=== PATIENT | female | born 1945 | race Caucasian/White ===

== ENCOUNTER → 2016-08-04 | Outpatient (CLI) | payer BC ==
[~2016-08-04] MED LIST: ALPR-411 PO; ASCO1CAP3 PO; B-COTAB18 PO; CHOL1000 PO; COEN1CAP28 PO; Curamin; IBUP-1050 PO; LUTE6CAP9 PO; MAGNESIUM OXIDE PO; MILK150C; OMEG10007 PO; PROB1CAP41; RXC5 PO; TRAM-10 PO; VITA400C3 PO
== END | disposition home or self-care (01) ==
LOC: C.RDSM 11:02
PROVIDERS: ATTEND Physical Medicine & Rehabilitation Sports Medicine
DX: M17.11 Unilateral primary osteoarthritis, right knee (principal); Z96.651 Presence of right artificial knee joint

== ENCOUNTER → 2017-05-07 | Outpatient (CLI) | payer BC, OTHER ==
--- NOTE | 2017-05-07 14:39 | MAMMOGRAPHY REPORT ---
BILATERAL DIGITAL SCREENING MAMMOGRAM TOMOSYNTHESIS WITH CAD: 05/07/2017 TECHNIQUE: Breast tomosynthesis in addition to standard 2D mammography was performed. Current study was also evaluated with a Computer Aided Detection (CAD) system. COMPARISON: Comparison is made to exams dated: 02/08/2014 mammogram, 10/29/2010 mammogram - [facility], and 12/08/2008. 09/07/2007. BREAST COMPOSITION: There are scattered areas of fibroglandular density in both breasts. FINDINGS: No suspicious masses, calcifications, or areas of architectural distortion are noted in ei ther breast. There has been no significant interval change compared to prior exams. Right medial annamaria ast asymmetry is stable dating back to at least the 2007 exam. Scattered bilateral benign appearing calcifications are again noted. IMPRESSION: ACR BI-RADS CATEGORY 2: BENIGN There is no mammographic evidence of malignancy. A 1 year screening mammogram is recommended. The pa tient will receive written notification of the results. Approximately 10% of breast cancers are not detected with mammography. A negative mammographic report should not delay biopsy if a clinically suggestive mass is present. Danielle Barahona M.D. /:05/07/2017 12:13:27 Awning Hanger Helper: Patricia FAIRCHILD)(Joel), [facility] letter sent: Normal 1/2 BI-RADS Code: ACR BI-RADS Category 2: Benign
== END | disposition home or self-care (01) ==
LOC: C.MAMM 10:40
PROVIDERS: ATTEND Obstetrics & Gynecology
DX: Z12.31 Encounter for screening mammogram for malignant neoplasm of breast (principal)

== ENCOUNTER → 2017-05-18 | Outpatient (CLI) | payer OTHER | END | disposition home or self-care (01) | LOC: C.RDSM 11:30 | PROVIDERS: ATTEND Physical Medicine & Rehabilitation Sports Medicine | DX: Z96.651 Presence of right artificial knee joint (principal) ==

== ENCOUNTER → 2017-05-26 | Outpatient (CLI) | payer OTHER ==
--- NOTE | 2017-05-27 07:34 | DIAGNOSTIC IMAGING REPORT ---
MRI OF THE LUMBAR SPINE WITHOUT CONTRAST CLINICAL HISTORY: Low back pain radiating into left lower extremity. COMPARISON STUDY: No previous studies for comparison. TECHNIQUE: Utilizing a 1.5 Pilar magnet and dedicated coil, multiplanar, multiecho imaging of the lumbar spine was performed without IV contrast. FINDINGS: For purposes of numbering on this exam, the L5-S1 disc space is assigned to axial image 27 of 30. There is 6 mm of anterolisthesis of L4 and L5. Vertebral body heights are maintained. There is no suspicious marrow replacement. Air is mild marrow edema within the right aspect of L5 which is likely degenerative in etiology. There is an associated Schmorl's node. There is no intracanalicular mass or fluid collection. The conus terminates at the mid L1 level. There is no evidence for compression fracture within the lumbar spine. There is severe multilevel disc space narrowing and moderate to severe multilevel facet arthrosis. A 2.7 x 0.9 x 1.3 cm T2 hyperintense abnormality and due to the L5-S1 disc space is noted. L1-2: There is marked disc space narrowing with disc bulge and a tiny central disc protrusion. There is mild during of the central canal, lateral recesses. The neural foramen are patent. L2-3: There is marked disc space narrowing. There is mild facet arthrosis. There is mild during of the central canal and lateral recesses with moderate narrowing of the left neural foramen. L3-4: There is marked disc space narrowing with facet arthrosis. There is mild disc bulge. There is mild during of the central canal and lateral recesses as well as mild to moderate narrowing of both neural foramen. L4-5: There is marked disc space narrowing with grade I anterolisthesis with ligamentous hypertrophy and facet arthrosis. These findings result in severe narrowing of the central canal and lateral recesses with moderate to severe narrowing of both neural foramen. The AP diameter of the canal at this level is 3.3 mm. L5-S1: There is moderate facet arthrosis. Central canal is patent. There is moderate to severe bilateral neural foraminal stenosis. IMPRESSION: 1. Severe central canal stenosis at L4-L5 due to anterolisthesis with uncovering of the disc, ligamentous hypertrophy and facet arthrosis. 2. Moderate to severe multilevel neural foraminal stenosis, as detailed above. 3. 2.7 x 0.9 x 1.3 cm abnormality anterior to the L5-S1 disc space which is indeterminate but may reflect an anterior disc herniation which could arise from the L4-L5 or L5-S1 disc. Electronically signed by: Mario Alberto Le M.D. 05/27/2017 7:33 AM Dictated Date/Time: 05/26/2017 3:39 PM
== END | disposition home or self-care (01) ==
LOC: C.MRIBC 14:51
PROVIDERS: ATTEND Physical Medicine & Rehabilitation Sports Medicine
DX: M54.40 Lumbago with sciatica, unspecified side (principal); M48.061 Spinal stenosis, lumbar region without neurogenic claudication; M43.16 Spondylolisthesis, lumbar region

== ENCOUNTER 2018-10-21 10:20 | Inpatient (IN) ==
--- NOTE | 2018-10-21 11:19 | XRay Report ---
XR chest 1V portable CLINICAL HISTORY: 73 years-old Female presenting with overdose. TECHNIQUE: Portable supine AP view of the chest was obtained. COMPARISON: None. FINDINGS: Atherosclerosis of the aortic arch. Cardiac silhouette mildly enlarged. No focal opacity. No large ef fusion or pneumothorax. Degenerative changes of the thoracic spine. Upper abdomen normal. IMPRESSION: 1. Mild cardiomegaly. No other convincing evidence of acute cardiopulmonary disease. Electronically signed by: Cal Meraz M.D. 10/21/2018 11:18 AM
[2018-10-21] MEDS: SODIUM CHLORIDE 0.9% 1000ML 1,000 ML IV SCH ×2 (11:26→20:48)
[2018-10-21 11:30] LABS: Basophils # (auto) 0.02 K/uL (0-0.2); Basophils % (auto) 0.2 %; Eosinophils # (auto) 0.05 K/uL (0-0.5); Eosinophils % (auto) 0.5 %; Immature Granulocytes # (auto) 0.02 K/uL (0.00-0.02); Immature Granulocytes % (auto) 0.2 %; Lymphocytes # (auto) 1.66 K/uL (1.2-3.4); Lymphocytes % (auto) 17.9 %; Mean Corpuscular Hgb Conc 34.2 g/dL (32-36); Mean Platelet Volume 10.4 fL (7.4-10.4); Monocytes % (auto) 8.6 %; Neutrophils # (auto) 6.73 K/uL (1.4-6.5); Neutrophils % (auto) 72.6 %; Platelet Count 229 K/uL (130-400); RDW Coefficient of Variation 13.6 % (11.5-14.5); RDW Standard Deviation 47.6 fL (36.4-46.3); Red Blood Count 3.96 M/uL (4.2-5.4); White Blood Count 9.28 K/uL (4.8-10.8)
[2018-10-21 11:47] LABS: Alanine Aminotransferase 17 U/L (12-78); Albumin Level 3.7 gm/dl (3.4-5.0); Aspartate Aminotransferase 15 U/L (15-37); BUN Creatinine Ratio 24.4 (10-20); Blood Urea Nitrogen 17 mg/dl (7-18); Calcium 9.1 mg/dl (8.5-10.1); Carbon Dioxide 29 mmol/L (21-32); Chloride 104 mmol/L (98-107); Creatinine Clr Calc Pharmacy 62.8 ml/min; Glucose 106 mg/dl (70-99); Magnesium 2.3 mg/dl (1.8-2.4); Potassium 3.9 mmol/L (3.5-5.1); Sodium 137 mmol/L (136-145)
[2018-10-21 11:50] LABS: Acetaminophen < 2 ug/ml (10-30); Salicylate < 1.7 mg/dl (2.8-20)
[2018-10-21 11:58] LABS: Albumin Globulin Ratio 1.1 (0.9-2); Alkaline Phosphatase 73 U/L (45-117); Bilirubin,Total 0.5 mg/dl (0.2-1); Globulin 3.5 gm/dl (2.5-4.0); NT Pro B Type Natriuretic Pept 114 pg/ml (0-900); Total Protein 7.2 gm/dl (6.4-8.2); Troponin I < 0.015 ng/ml (0-0.045)
--- NOTE | 2018-10-21 14:13 | Emergency Department Note ---
Entered by Justine Baca acting as a scribe for Jazmine Santiago DO History of Present Illness General Chief complaint: Overdose (Intentional) Stated complaint: emotional/poss. drug overdose Time Seen by Provider: 10/21/18 10:36 Source: patient and police History of Present Illness Provider complaint: Overdose Onset (ago): hour(s) (16) Pain Consistency: + other (episode) Quality: + other (overdose) Associated symptoms: + other (Suicidal ideation with a plan) Treatments prior to arrival: other (Oxycodone, Xanax, alcohol) The patient is a 73 year old female who presents to the ED with an episode of an overdose that started 16 hours ago. The patient states that she wants to , but has never tried to hurt herself before. The patient notes that she took 10 Oxycodone, 10 - 0.25mg Xanax and a sip of alcohol this morning at 0300. The patient states that she has been seeing a psychiatrist for a few months and she lives alone. Per [place] PD, the patient checked into a hotel last night and took an original batch of 15 Oxycodone and 16 - 0.25mg Xanax at 1900 yesterday. The officer states that when the patient woke up at 0300, she was angry that she was alive so she took more drugs and alcohol. Per police, the patient had an elaborate suicide plan. Patient states her spouse in November of last year and since then she has had worsening depression. No prior history of suicide attempt. No homicidal ideation. Home Medications Home Medications Medication Instructions Recorded Confirmed Type alprazolam 0.5 mg tablet 0.25 mg PO QID PRN tab 04/22/18 10/21/18 History amlodipine 2.5 mg tablet 5 mg PO QAM 04/22/18 10/21/18 History cholecalciferol (vitamin D3) 3,000 1,000 units PO QAM 04/22/18 10/21/18 History unit tablet magnesium 250 mg (as magnesium 250 mg PO QAM tab 04/22/18 10/21/18 History oxide) tablet milk thistle 150 mg capsule 150 mg PO QAM cap 04/22/18 10/21/18 History duloxetine 60 mg capsule,delayed 60 mg PO QAM 04/23/18 10/21/18 History release Medical Marijuana 1 dose INHALATION DAILY PRN 06/04/18 07/26/18 History multivitamin 1 tab PO QAM 06/04/18 10/21/18 History Allergies Allergy/AdvReac Type Severity Reaction Status Date / Time coconut Allergy Unknown Unverified 10/21/18 21:12 acetaminophen AdvReac Unknown "Patient Verified 10/21/18 10:34 requests NO TYLENOL" (per Rui Humphries) Past Med/Surg History Medical History Lumbar stenosis with neurogenic claudication (Chronic) Severe at L4-5 Moderate to severe at L5-S1 Hypertension (Chronic) Mitral valve prolapse (Chronic) Remote history, no recent echo, no murmur appreciated on exam at [facility] Anxiety (Chronic) Ocular hypertension (Chronic) Osteoarthritis (Chronic) Chronic back pain (Chronic) Degenerative disc disease (Chronic) Surgical History History of tonsillectomy (Resolved) History of tooth extraction (Resolved) History of cataract surgery (Resolved) History of colonoscopy (Resolved) History of total knee replacement (Resolved) Right. Done at [facility] 2016, SAB +PNB without issues. Social History Preferred Language: Citizen Of [place] Communication Ability: Effective Beliefs That Will Affect Care: None (She was raised Restorationist and recently recited the Mourner's Kaddish for her late .) Current Living Situation: Spouse Feels Safe at Home: Yes Smoking Status: Former smoker Second Hand Exposure: No Hx Alcohol Use: Yes Alcohol type: wine Hx Substance Use: Yes substance use type: marijuana Substance Use Type Other:: medical Review of Systems See HPI for pertinent positives & negatives. HPI and ROS limited secondary to clinical status. Physical Exam Vital Signs Vital Signs - 24 hr 10/21/18 15:00 10/21/18 15:01 10/21/18 15:02 Pulse Rate 63 64 63 Pulse Rate from SpO2 Sensor 63 65 63 Respiratory Rate 14 11 L 17 Blood Pressure 114/63 Blood Pressure Mean 80 Pulse Oximetry 92 93 93 10/21/18 15:10 10/21/18 15:20 10/21/18 15:30 Pulse Rate 62 63 60 Pulse Rate from SpO2 Sensor 61 62 59 L Respiratory Rate 18 16 19 Blood Pressure 106/62 Blood Pressure Mean 76 Pulse Oximetry 91 90 93 10/21/18 15:40 10/21/18 15:50 10/21/18 16:00 Pulse Rate 69 68 65 Pulse Rate from SpO2 Sensor 71 67 66 Respiratory Rate 20 15 11 L Blood Pressure Blood Pressure Mean Pulse Oximetry 92 92 93 10/21/18 16:01 10/21/18 16:10 10/21/18 16:20 Pulse Rate 65 71 73 Pulse Rate from SpO2 Sensor 64 70 73 Respiratory Rate 12 10 L 15 Blood Pressure 103/64 Blood Pressure Mean 77 Pulse Oximetry 92 94 94 10/21/18 16:30 10/21/18 16:40 10/21/18 16:50 Pulse Rate 62 74 74 Pulse Rate from SpO2 Sensor 61 74 72 Respiratory Rate 10 L 16 20 Blood Pressure 129/60 Blood Pressure Mean 83 Pulse Oximetry 93 95 94 10/21/18 17:00 10/21/18 17:01 10/21/18 17:10 Pulse Rate 66 68 66 Pulse Rate from SpO2 Sensor 68 71 66 Respiratory Rate 12 18 13 Blood Pressure 112/63 Blood Pressure Mean 79 Pulse Oximetry 94 92 93 10/21/18 17:20 10/21/18 17:30 10/21/18 17:31 Pulse Rate 73 77 74 Pulse Rate from SpO2 Sensor 74 76 75 Respiratory Rate 15 18 19 Blood Pressure 139/66 Blood Pressure Mean 90 Pulse Oximetry 97 96 93 10/21/18 17:40 10/21/18 17:50 10/21/18 18:00 Pulse Rate 75 60 63 Pulse Rate from SpO2 Sensor 75 60 62 Respiratory Rate 12 19 15 Blood Pressure 114/58 L Blood Pressure Mean 76 Pulse Oximetry 95 90 91 10/21/18 18:10 10/21/18 18:20 10/21/18 18:30 Pulse Rate 57 L 57 L 61 Pulse Rate from SpO2 Sensor 56 L 57 L 61 Respiratory Rate 14 12 15 Blood Pressure Blood Pressure Mean Pulse Oximetry 92 92 92 10/21/18 18:31 10/21/18 18:33 10/21/18 18:40 Pulse Rate 61 59 L 56 L Pulse Rate from SpO2 Sensor 61 59 L 57 L Respiratory Rate 17 17 14 Blood Pressure Blood Pressure Mean Pulse Oximetry 92 91 92 10/21/18 18:45 10/21/18 18:50 10/21/18 19:00 Pulse Rate 61 58 L 56 L Pulse Rate from SpO2 Sensor 61 60 55 L Respiratory Rate 14 15 17 Blood Pressure 150/70 H Blood Pressure Mean 96 Pulse Oximetry 96 94 93 10/21/18 19:10 10/21/18 19:20 10/21/18 19:30 Pulse Rate 57 L 74 74 Pulse Rate from SpO2 Sensor 57 L 75 73 Respiratory Rate 16 18 16 Blood Pressure Blood Pressure Mean Pulse Oximetry 93 94 96 10/21/18 19:40 10/21/18 19:50 10/21/18 20:00 Pulse Rate 72 75 68 Pulse Rate from SpO2 Sensor 71 76 68 Respiratory Rate 18 14 Blood Pressure Blood Pressure Mean Pulse Oximetry 95 95 93 GENERAL: somnolent but easily aroused, tired appearing, well nourished, no distress, non-toxic EYE EXAM: normal conjunctiva, PERRL and EOM's grossly intact, constricted pupils bilaterally. OROPHARYNX: no exudate, no erythema, lips, buccal mucosa, and tongue normal and mucous membranes are moist NECK: supple, no nuchal rigidity, no adenopathy, non-tender LUNGS: Clear to auscultation. Normal chest wall mechanics HEART: no murmurs, S1 normal and S2 normal ABDOMEN: abdomen soft, non-tender, normo-active bowel sounds, no masses, no rebound or guarding. BACK: Back is symmetrical on inspection and there is no deformity, no midline tenderness, no CVA tenderness. SKIN: no rashes and no bruising UPPER EXTREMITIES: upper extremities are grossly normal. FROM, nml pulses b/l. LOWER EXTREMITIES: No pitting edema. FROM, nml pulses b/l. NEURO EXAM: Normal sensorium, cranial nerves II-XII grossly intact, normal speech, no gross weakness of arms, no gross weakness of legs. Course 163: Patient more awake, to be evaluated by psychiatric trimming caser. Repeat lipase improved after IV fluids. I do not clinically suspect pancreatitis. 1831: Patient being evaluated by 3 S. for possible placement. 1944: Case signed out to Dr. Barney pending final disposition. Administered Medications Alprazolam (Xanax) 0.25 mg PO TID IRINA Stop: 11/21/18 13:59 Last Admin: 10/22/18 14:17 Dose: 0.25 mg Documented by: [id number] Amlodipine Besylate (Norvasc) 5 mg PO QAM [facility] Stop: 11/21/18 08:59 Last Admin: 10/22/18 09:14 Dose: 5 mg Documented by: [id number] Hydroxyzine HCl (Vistaril) 25 mg PO Q4H PRN PRN Reason: Anxiety Stop: 11/20/18 20:20 Last Admin: 10/22/18 04:36 Dose: 25 mg Documented by: [id number] Discontinued Medications Alprazolam (Xanax) 0.5 mg PO NOW STA Stop: 10/22/18 09:35 Last Admin: 10/22/18 09:50 Dose: 0.25 mg Documented by: [id number] Duloxetine HCl (Cymbalta) 60 mg PO QAM [facility] Stop: 11/21/18 08:59 Last Admin: 10/22/18 09:14 Dose: 60 mg Documented by: [id number] Sodium Chloride (Nss 1000ml) 1,000 mls @ 125 mls/hr IV .Q8H [facility] Stop: 11/20/18 10:59 Last Admin: 10/21/18 20:48 Dose: Not Given Documented by: [id number] Infusion: 10/21/18 14:35 Dose: 0 mls/hr Documented by: [id number] Infusion: 10/21/18 14:02 Dose: 700 mls/hr Documented by: [id number] Admin: 10/21/18 11:26 Dose: 125 mls/hr Documented by: [id number] Medical Decision Making Differential Diagnosis Differential diagnosis: Etiologies such as psychiatric disorder, infection, hypoglycemia, electrolyte abnormalities, cardiac sources, intracerebral event, toxicological process, neurologic disorder, as well as others were entertained. Medical Records Attestation: I reviewed the patient's medical records. Home Medications Current Medication List: was personally reviewed by me Laboratory Data Attestation: I reviewed the patient's lab results. Result diagrams: 10/21/18 11:13 10/21/18 11:13 Lab Results 10/21/18 10/21/18 10/21/18 Range/Units 11:13 11:13 11:13 WBC 9.28 (4.8-10.8) K/uL RBC 3.96 L (4.2-5.4) M/uL Hgb 13.0 (12.0-16.0) g/dL Hct 38.0 (37-47) % MCV 96.0 (80-100) fL MCH 32.8 (25-34) pg MCHC 34.2 (32-36) g/dL RDW Std Deviation 47.6 H (36.4-46.3) fL RDW Coeff of Korey 13.6 (11.5-14.5) % Plt Count 229 (130-400) K/uL MPV 10.4 (7.4-10.4) fL Immature Gran % (Auto) 0.2 % Neut % (Auto) 72.6 % Lymph % (Auto) 17.9 % [place] % (Auto) 8.6 % Eos % (Auto) 0.5 % Baso % (Auto) 0.2 % Immature Gran # (Auto) 0.02 (0.00-0.02) K/uL Neut # (Auto) 6.73 H (1.4-6.5) K/uL Lymph # (Auto) 1.66 (1.2-3.4) K/uL [place] # (Auto) 0.80 H (0.11-0.59) K/uL Eos # (Auto) 0.05 (0-0.5) K/uL Baso # (Auto) 0.02 (0-0.2) K/uL Sodium 137 (136-145) mmol/L Potassium 3.9 (3.5-5.1) mmol/L Chloride 104 (98-107) mmol/L Carbon Dioxide 29 (21-32) mmol/L Anion Gap 4.0 (3-11) BUN 17 (7-18) mg/dl Creatinine 0.68 (0.6-1.2) mg/dl Est Cr Clr Drug Dosing 62.8 ml/min Est GFR ( Amer) 102.0 Est GFR (Non-Af Amer) 88.0 BUN/Creatinine Ratio 24.4 H (10-20) Glucose 106 H (70-99) mg/dl Calcium 9.1 (8.5-10.1) mg/dl Magnesium 2.3 (1.8-2.4) mg/dl Total Bilirubin 0.5 (0.2-1) mg/dl AST 15 (15-37) U/L ALT 17 (12-78) U/L Alkaline Phosphatase 73 (45-117) U/L Troponin I < 0.015 (0-0.045) ng/ml NT-Pro-B Natriuret Pep 114 (0-900) pg/ml Total Protein 7.2 (6.4-8.2) gm/dl Albumin 3.7 (3.4-5.0) gm/dl Globulin 3.5 (2.5-4.0) gm/dl Albumin/Globulin Ratio 1.1 (0.9-2) Lipase 473 H (73-393) U/L TSH 3.000 (0.300-4.500) uIu/ml Urine Color Urine Appearance (Clear) Urine pH (4.5-7.5) Ur Specific Glen (1.000-1.030) Urine Protein (Negative) Urine Glucose (UA) (Negative) Urine Ketones (Negative) Urine Blood (Negative) Urine Nitrite (Negative) Urine Bilirubin (Negative) Urine Urobilinogen (Negative) Ur Leukocyte Esterase (Negative) Urine WBC (Auto) (0-5) /hpf Urine RBC (Auto) (0-4) /hpf U Hyaline Cast (Auto) (0-5) /lpf U Epithel Cells (Auto) (0-5) /lpf Urine Bacteria (Auto) (Negative) Salicylates < 1.7 L (2.8-20) mg/dl Urine Opiates Screen (Neg) Ur Methadone, Qual (Neg) Acetaminophen < 2 L (10-30) ug/ml Urine Barbiturates (Neg) Ur Phencyclidine (PCP) (Neg) U Amphetamin/Meth Scrn (Neg) MDMA (Ecstasy) Screen (Neg) U Benzodiazepines Scrn (Neg) Ur Cocaine Metabolite (Neg) U Marijuana (THC) Screen (Neg) Ethyl Alcohol mg/dL (0-3) mg/dl 10/21/18 10/21/18 10/21/18 Range/Units 11:13 11:13 14:30 WBC (4.8-10.8) K/uL RBC (4.2-5.4) M/uL Hgb (12.0-16.0) g/dL Hct (37-47) % MCV (80-100) fL MCH (25-34) pg MCHC (32-36) g/dL RDW Std Deviation (36.4-46.3) fL RDW Coeff of Korey (11.5-14.5) % Plt Count (130-400) K/uL MPV (7.4-10.4) fL Immature Gran % (Auto) % Neut % (Auto) % Lymph % (Auto) % [place] % (Auto) % Eos % (Auto) % Baso % (Auto) % Immature Gran # (Auto) (0.00-0.02) K/uL Neut # (Auto) (1.4-6.5) K/uL Lymph # (Auto) (1.2-3.4) K/uL [place] # (Auto) (0.11-0.59) K/uL Eos # (Auto) (0-0.5) K/uL Baso # (Auto) (0-0.2) K/uL Sodium (136-145) mmol/L Potassium (3.5-5.1) mmol/L Chloride (98-107) mmol/L Carbon Dioxide (21-32) mmol/L Anion Gap (3-11) BUN (7-18) mg/dl Creatinine (0.6-1.2) mg/dl Est Cr Clr Drug Dosing ml/min Est GFR ( Amer) Est GFR (Non-Af Amer) BUN/Creatinine Ratio (10-20) Glucose (70-99) mg/dl Calcium (8.5-10.1) mg/dl Magnesium (1.8-2.4) mg/dl Total Bilirubin (0.2-1) mg/dl AST (15-37) U/L ALT (12-78) U/L Alkaline Phosphatase (45-117) U/L Troponin I (0-0.045) ng/ml NT-Pro-B Natriuret Pep (0-900) pg/ml Total Protein (6.4-8.2) gm/dl Albumin (3.4-5.0) gm/dl Globulin (2.5-4.0) gm/dl Albumin/Globulin Ratio (0.9-2) Lipase Cancelled (73-393) U/L TSH (0.300-4.500) uIu/ml Urine Color Urine Appearance (Clear) Urine pH (4.5-7.5) Ur Specific Glen (1.000-1.030) Urine Protein (Negative) Urine Glucose (UA) (Negative) Urine Ketones (Negative) Urine Blood (Negative) Urine Nitrite (Negative) Urine Bilirubin (Negative) Urine Urobilinogen (Negative) Ur Leukocyte Esterase (Negative) Urine WBC (Auto) (0-5) /hpf Urine RBC (Auto) (0-4) /hpf U Hyaline Cast (Auto) (0-5) /lpf U Epithel Cells (Auto) (0-5) /lpf Urine Bacteria (Auto) (Negative) Salicylates (2.8-20) mg/dl Urine Opiates Screen Pos H (Neg) Ur Methadone, Qual Neg (Neg) Acetaminophen (10-30) ug/ml Urine Barbiturates Neg (Neg) Ur Phencyclidine (PCP) Neg (Neg) U Amphetamin/Meth Scrn Neg (Neg) MDMA (Ecstasy) Screen Neg (Neg) U Benzodiazepines Scrn Pos H (Neg) Ur Cocaine Metabolite Neg (Neg) U Marijuana (THC) Screen Pos H (Neg) Ethyl Alcohol mg/dL < 3.0 (0-3) mg/dl 10/21/18 10/21/18 Range/Units 14:30 15:51 WBC (4.8-10.8) K/uL RBC (4.2-5.4) M/uL Hgb (12.0-16.0) g/dL Hct (37-47) % MCV (80-100) fL MCH (25-34) pg MCHC (32-36) g/dL RDW Std Deviation (36.4-46.3) fL RDW Coeff of Korey (11.5-14.5) % Plt Count (130-400) K/uL MPV (7.4-10.4) fL Immature Gran % (Auto) % Neut % (Auto) % Lymph % (Auto) % [place] % (Auto) % Eos % (Auto) % Baso % (Auto) % Immature Gran # (Auto) (0.00-0.02) K/uL Neut # (Auto) (1.4-6.5) K/uL Lymph # (Auto) (1.2-3.4) K/uL [place] # (Auto) (0.11-0.59) K/uL Eos # (Auto) (0-0.5) K/uL Baso # (Auto) (0-0.2) K/uL Sodium (136-145) mmol/L Potassium (3.5-5.1) mmol/L Chloride (98-107) mmol/L Carbon Dioxide (21-32) mmol/L Anion Gap (3-11) BUN (7-18) mg/dl Creatinine (0.6-1.2) mg/dl Est Cr Clr Drug Dosing ml/min Est GFR ( Amer) Est GFR (Non-Af Amer) BUN/Creatinine Ratio (10-20) Glucose (70-99) mg/dl Calcium (8.5-10.1) mg/dl Magnesium (1.8-2.4) mg/dl Total Bilirubin (0.2-1) mg/dl AST (15-37) U/L ALT (12-78) U/L Alkaline Phosphatase (45-117) U/L Troponin I (0-0.045) ng/ml NT-Pro-B Natriuret Pep (0-900) pg/ml Total Protein (6.4-8.2) gm/dl Albumin (3.4-5.0) gm/dl Globulin (2.5-4.0) gm/dl Albumin/Globulin Ratio (0.9-2) Lipase 355 (73-393) U/L TSH (0.300-4.500) uIu/ml Urine Color Yellow Urine Appearance Clear (Clear) Urine pH 5.0 (4.5-7.5) Ur Specific Glen 1.020 (1.000-1.030) Urine Protein Negative (Negative) Urine Glucose (UA) Negative (Negative) Urine Ketones Negative (Negative) Urine Blood Negative (Negative) Urine Nitrite Negative (Negative) Urine Bilirubin Negative (Negative) Urine Urobilinogen Negative (Negative) Ur Leukocyte Esterase 1+ H (Negative) Urine WBC (Auto) 10-30 H (0-5) /hpf Urine RBC (Auto) 0-4 (0-4) /hpf U Hyaline Cast (Auto) 1-5 (0-5) /lpf U Epithel Cells (Auto) >30 H (0-5) /lpf Urine Bacteria (Auto) Negative (Negative) Salicylates (2.8-20) mg/dl Urine Opiates Screen (Neg) Ur Methadone, Qual (Neg) Acetaminophen (10-30) ug/ml Urine Barbiturates (Neg) Ur Phencyclidine (PCP) (Neg) U Amphetamin/Meth Scrn (Neg) MDMA (Ecstasy) Screen (Neg) U Benzodiazepines Scrn (Neg) Ur Cocaine Metabolite (Neg) U Marijuana (THC) Screen (Neg) Ethyl Alcohol mg/dL (0-3) mg/dl Imaging Data Radiologist's Impression: Radiology results as stated below per my review and the radiologist's interpretation: XR chest 1V portable CLINICAL HISTORY: 73 years-old Female presenting with overdose. TECHNIQUE: Portable supine AP view of the chest was obtained. COMPARISON: None. FINDINGS: Atherosclerosis of the aortic arch. Cardiac silhouette mildly enlarged. No focal opacity. No large effusion or pneumothorax. Degenerative changes of the thoracic spine. Upper abdomen normal. IMPRESSION: 1. Mild cardiomegaly. No other convincing evidence of acute cardiopulmonary disease. Electronically signed by: Cal Meraz M.D. 10/21/2018 11:18 AM ECG Data Attestation: I personally reviewed and interpreted this ECG as follows: Indication: toxicologic Rate (beats per minute): 68 Rhythm: sinus with SA Findings: + other (normal axis, normal interval); no PAC, no PVC, no ST depression, no ST elevation, no acute ischemic change and no ectopy Blood Pressure Blood Pressure Findings: Normal blood pressure Blood Pressure Disposition: did not require urgent referral MDM Narrative Patient admits to suicide attempt as she tried to overdose. Patient brought in as a 302 by police. Patient somnolent but arousable here and became more and more alert with time. Patient with initial mildly elevated lipase, however within normal range following IV fluid rehydration. Patient hemodynamically stable throughout. Patient protecting airway throughout and not hypoxic. No evidence of pulmonary edema or aspiration. Patient's labs otherwise reassuring. Patient seen and evaluated by psychiatric trimming caser who agrees with plan for inpatient treatment. Impression & Plan Drug overdose, Suicide attempt by multiple drug overdose, Acute dehydration Discharge Plan Visit Data *Final* Discharge Date/Time: 10/21/18 20:05 Chief Complaint: Overdose (Intentional) Stated Complaint: emotional/poss. drug overdose ED Provider: Curt Barney Discharge Problem: Drug overdose, Suicide attempt by multiple drug overdose, Acute dehydration Patient Disposition: Admitted As Inpatient Discharge Instructions Interventions: ED Discharge Assessment Last Done: 10/21/18 20:05 Discharge Problem: Drug overdose Qualifiers: Encounter type: initial encounter Injury intent: intentional self-harm Qualified Code(s): T50.902A - Poisoning by unspecified drugs, medicaments and biological substances, intentional self-harm, initial encounter Suicide attempt by multiple drug overdose Qualifiers: Encounter type: initial encounter Qualified Code(s): T50.902A - Poisoning by unspecified drugs, medicaments and biological substances, intentional self-harm, initial encounter The scribe's documentation has been prepared under my direction and personally reviewed by me in its entirety. I confirm that the note above accurately reflects all work, treatment, procedures, and medical decision making performed by me.
[2018-10-21 14:48] LABS: Appearance Urine Clear (Clear); Bacteria Urine Automated Negative (Negative); Bilirubin Urine Negative (Negative); Blood Urine Negative (Negative); Color Urine Yellow; Epithelial Cell Urine Auto >30 /lpf (0-5); Glucose Urine UA Negative (Negative); Ketones Urine Negative (Negative); Leukocyte Esterase Urine 1+ (Negative); Nitrite Urine Negative (Negative); Protein Urine Negative (Negative); RBC Urine Automated 0-4 /hpf (0-4); Urobilinogen Urine Negative (Negative)
[2018-10-21 15:10] LABS: Amphetamines+Metham, Urine Neg (Neg); Barbiturates, Urine Neg (Neg); Benzodiazepine, Urine Pos (Neg); Cocaine, Urine Neg (Neg); MDMA (Ecstacy), Urine Neg (Neg); Methadone, Urine Neg (Neg); Opiate, Urine Pos (Neg); Phencyclidine, Urine Neg (Neg)
--- NOTE | 2018-10-21 20:09 | Emergency Department Note ---
ED Visit Note I assumed care at the change of shift. Psychiatric disposition was pending. The patient presents with suicidal ideation with an intentional medication overdose. She was felt medically clear. Psychiatry has been involved and they feel the patient is safe for a voluntary psychiatric inpatient stay. The 201 paperwork was signed. The patient is being transferred onto the [facility] [address]. psychiatric unit at this hospital. The 302 petitioning paperwork will be kept and reissued if needed. . : Drug overdose Qualifiers: Encounter type: initial encounter Injury intent: intentional self-harm Qualified Code(s): T50.902A - Poisoning by unspecified drugs, medicaments and biological substances, intentional self-harm, initial encounter Suicide attempt by multiple drug overdose Qualifiers: Encounter type: initial encounter Qualified Code(s): T50.902A - Poisoning by unspecified drugs, medicaments and biological substances, intentional self-harm, initial encounter
[2018-10-21] MEDS ORDERED: BISMUTH SUBSALICYLATE PER ML OMNICELL CHARGE PO PRN (20:21)
[2018-10-21] MEDS ORDERED: ALUMINUM/MAGNESIUM SUSP 30 ML UDC PO PRN (20:21)
[2018-10-21] MEDS ORDERED: MAGNESIUM HYDROXIDE SUSP 30 ML UDC PO PRN (20:21)
[2018-10-21] MEDS ORDERED: SODIUM CHLORIDE 0.65% NA SOLN 45 ML (OCEAN) PRN (20:21)
[2018-10-22] MEDS ORDERED: DULOXETINE HCL 60 MG CAP PO SCH (09:00)
[2018-10-22] MEDS: AMLODIPINE BESYLATE 5 MG TAB PO SCH (09:14)
[2018-10-22] MEDS ORDERED: ALPRAZolam 0.5 MG TABLET PO STA (09:34)
--- NOTE | 2018-10-22 11:40 | History & Physical ---
Date of Service October 22, 2018 Impression / Recommendations Impression The patient is a 73-year-old woman who made a secretive, serious suicide attempt by overdosing on alprazolam and OxyContin. Although the patient does not, herself, take OxyContin or any other opioid-based pain medication, her late in June and left a supply of OxyContin and morphine, and it was the late 's supply of OxyContin that the patient took as part of her overdose attempt. It is not entirely clear how many tablets, combined, of each medication she took. She does indicate that she took approximately #15 0.25 mg alprazolam tablets in the evening of 10/20/2018, and then I awoke at approxi mately 3 AM on 10/21/2018 and took an additional #10 alprazolam tablets (0.25 mg). She also indicates that she took approximately 15 OxyContin tablets (10 mg), also in the evening of 10/20/2018, and then upon awakening at 3 AM on 10/21/2018 she took an additional 10 OxyContin (10 mg). The patient tells us that she had "no doubt" that she had taken enough medicine "to kill a horse" and was shocked and dismayed when she did not after secreting herself in a local hotel room without telling anybody what she was planning to do. 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 Although, as above, the patient clearly intended suicide and took great steps to hide this fact from both her therapist and her group of friends, and although today she reiterates that she was disappointed upon learning that she had not following the overdose, she does seem to be somewhat ambivalent, and was able to say that she believes that she would not be suicidal were she to have hope that she would be able to have what she believes will be at least partially restorative back surgery in the not too distant future. She indicates that A significant part of her current distress is that she does not have any specific target date for surgery, and she has not discovered any nonsurgical intervention for her chronic pain (apart from some relief from duloxetine and medical marijuana, and induced sleep), and has become frustrated and hopeless. The patient also states, "I would not be suicidal if I while are not in pain. E, sure, I would be morning heavily, and I will miss my every minute, but, I believe that if I was not in pain I would be able to cope." For total dose of duloxetine has not been higher than 60 mg a day, and she indicates that she is tolerating 60 mg well. We discussed adjunctive medication such as bupropion, aripiprazole, risperidone, but the patient indicates that while she will consider this for the future, her preferred intervention at this point would be to try a higher dose of duloxetine. We will continue alprazolam 0.25 mg 4 times a day. We will also arrange for the patient to be able to take a dose of alprazolam at any point during the hours of sleep given her pattern of intermittent insomnia at approximately 3 AM. We have requested a stat consult from pain management. We also checked the records of her one visit with Dr. Condon, and learned that he had prescribed a higher dose of Cymbalta, alprazolam (0.25 mg twice daily), and hydroxyzine., But the record indicates that she may not have actually picked up the prescription for hydroxyzine. (1) Suicide attempt by multiple drug overdose: 10/22/18 -Today, the patient acknowledges that she had been disappointed and somewhat angry when she realized that her suicide attempt had not lead to . She continues to have suicidal thoughts, but is able to contract for safety in the hospital and assures us that she will not make any attempt here. -The patient also reports that she feels that she would not be suicidal where she to be able to achieve significant pain relief which, for her, means restor ative or partially restorative surgery, or at least a reasonable expectation of surgery in the near future. -Although still suicidal, the patient does seem to be somewhat future oriented. Encounter type: initial encounter Qualified Code(s): T50.902A - Poisoning by unspecified drugs, medicaments and biological substances, intentional self-harm, initial encounter Present on Admission?: Yes (2) Chronic back pain: 10/22/18 -The patient has suffered from a number of years from lumbar spinal stenosis with neuronal claudication and severe radiating pain, including sciatic pain in her left hip and leg. She also suffers from chronic pain associated with knee replacement surgery of her right knee. She rates her pain as a "7 or 8 out of 10" in her back and left leg (sciatic distribution), and "5 or 6" out of 10 in her right knee, but indicates that the pain in her back is severe enough that it "overwhelms" the pain in her knee. She feels that she is largely able to manage the pain in her knee through positioning her leg properly. -We have requested a pain management consult. The patient's hope is that somehow we can expedite a referral to a doctor Dani Wilson, whom she believes will be instrumental in arranging for her to have what she believes will be the potentially restorative back surgery that she needs, even though she is aware that the back surgery is likely to cause temporarily worse pain and a 4-6-month recovery. -The patient responds well to having her pain validated and the staff is aware of that her pain should never being minimized. Present on Admission?: Yes (3) Anxiety: 10/22/18 -The patient reports that her anxiety is largely attributable to her chronic pain, the uncertainty of her circumstances, and lingering anxiety associated with her late 's final illness and suffering. -We discussed the fact that, in some instances, benzodiazepines can actually worsen back pain because they can serve as muscle relaxants which can, in turn, resulted in worsening destabilization. However, the patient says that she has experienced the opposite, and that when she feels more relaxed her pain tends to lessen, at least slightly. -Material risks and anticipated benefits of alprazolam were reviewed with the patient. She is aware of the risk of physical habituation and, in fact, suspects that she may already be physically habituated. She also says that she has been eager not to increase her dose because she is aware of the potential for habituation, as well as the known interaction with alcohol. Present on Admission?: Yes (4) Depressed: 10/22/18 -The patient prefers to describe her depressed mood as being a function of grief (her partner of 37 years just 3 months ago) and the sequela of chronic, severe, intractable pain. Nevertheless, she acknowledges that she had been taking duloxetine (Cymbalta) both for pain and for depression. -Today, we will increase the patient's dose of duloxetine to a dose of 80 mg a day. We have discussed adding adjunctive medications for depression, such as bupropion, aripiprazole, or risperidone. Present on Admission?: Yes (5) Acute dehydration: The patient's most recent BUN remains slightly elevated. We are encouraging the patient to drink fluids, she is adherent with the recommendation, and denies feeling lightheaded or dizzy. We will continue to monitor vital signs. Present on Admission?: Yes Inventory Assets Strengths: Intelligent. Many very supportive and actively involved friends. Multiple interests. Needs: Relief from chronic pain. Time to grieve her 's . Treatment for depression and anxiety. Resolution of suicidal thoughts. Risk Factors Assessment Male: No : Yes Do You Have Access To A Gun?: No Health Problems: Yes Mental Health Diagnoses: Yes Substance Use Disorders: No Previous Attempt: No Family History of Suicide: No Previous Psychiatric Hospitalization: No Hopelessness: Yes Smoker: No Protective Factors Assessment [employer] Beliefs: Yes : No Responsible for Young Children: No Employed: No (Retired) Stable Relationships: Yes Supportive Family: Yes Good Rapport with Provider: Yes Absence of Any Risk Factors Above: No Psychiatric History Identifying Data CATHERINE MAIER is a 73-year-old F who currently lives alone in [place]. She has a history of depression, grief, and chronic pain, and was admitted on 10/21/18 20:03 on a 201 voluntary agreement following a suicide attempt by overdose Chief Complaint "I cannot take this pain any more". History of Present Illness The patient is a 73 year old female who presented to the Emergency Department following an intentional overdose of Xanax and that started 16 hours ago. The patient states that she wants to , but has never tried to hurt herself before. According to the patient, she checked into a hotel on the evening of 10/20/2018 and took 15 Oxycodone and 16 - 0.25mg Xanax at 1900. She reports that she then woke up in the hotel at 0300 yesterday, was angry that she was alive, and so she took more drugs and alcohol (10 additional Oxycodone, 10 additional 0.25mg Xanax and a "sip" of alcohol.. The patient left a suicide note, and according to the note and according to the patient's report, she had a very elaborate plan to commit suicide. She indicated that she had been contemplating suicide for approximately 2 weeks, but had not disclosed the plan to her therapist. Specifically, the plan had been to not tell anyone of her suicidal thoughts, check into a hotel, and make arrangements as best she could for the care of her pet dogs subsequent to her anticipated . The matter was brought to the attention of the [place] police when at least 1 of her friends received a note that said something such as "I will explained later, but some things, and I need you to check in on my dogs tomorrow" (paraphrasing). The friend recognize this as an odd request, became concerned, and notified the police. The police checked all local hotels and discovered that the patient was staying at the [facility], locally, discovered the patient, and made arrangements for emergency medical care. The patient explains that she has been in intractable pain for many years, and the pain has become, in her words "completely unbearable." Specifically, she reports that she suffers from a form of spinal stenosis that particularly affects her lumbar spine, and among other symptoms, causes frequent, shooting pains in her back, and sciatic pain in her left leg. The pain is not responded to standard pain and anti-inflammatory medications, although she indicates that she has not used opioid-based pain medications. She also has been taking Cymbalta (duloxetine) 60 mg a day with what she considers to be questionable, but certainly not a substantial improvement in her pain symptoms. However, she reports that the use of medical marijuana, in combination with alcohol in the evenings does allow her to experience some relief in her pain, and marijuana and alcohol services soporific and she is typically able to sleep approximately 8 hours a night, typically one interruptions punctuated by painat which point she typically takes alprazolam 0.25 mg in order to return to sleep. Furthermore, the patient was in June of this year when her of acute myelogenous leukemia, following a complicated and painful course that lasted for approximately 15 months. The patient and her have been together as a monogamous couple for 37 years, and the patient tearfully describes her as "the love of my life. We were perfect together. I miss her every minute." Much of the past year for the patient had been devoted to helping to care for her dying , and she notes that because of this role her chronic pain, while certainly still present, was "pushed into the background." The patient reports that, of course, she is still grieving heavily, but she feels that her suicidality is born of her chronic, intractable pain --combined with a sense of hopelessness that a solution to the pain is not available, or will not be available in the reasonably near future. Regarding the patient's chronic pain, she notes that several surgical interventions have been proposed, but for various reasons, apparently including insurance issues and the fact that one surgery was scheduled to have occurred at around the time that the patient's was near and the patient had to cancel it. She has subsequently been told that she will need more extensive and more invasive surgery than had originally been planned, and she feels very frustrated because she is having difficulty scheduling the necessary consultations and evaluations, let alone the necessary surgery. She is hoping t o see a doctor Bacilio Wilson, locally, but has not been able to get an expedited appointment. In addition to individual supportive psychotherapy, she had been prescribed Cymbalta (duloxetine) 60 mg a day, both for depression and anxiety by her primary care physician. She had a brief trial of bupropion at an unspecified dose, but she found that this was not helpful. She had one visit with Dr. Joel Castro, a psychiatrist, but she did not care for Dr. Castro and although he reportedly prescribed 3 medications (the patient does not recall the names, but according to Dr. Castro's record the patient was advised to increase her duloxetine to the current dose of 60 mg a day, to continue alprazolam, although at a somewhat lower dose, and attempt to use hydroxyzine in lieu of alprazolam.) she decided not to take the medications, although she picked them up at the pharmacy, because she read online that the could possibly be a dangerous combination. She is also prescribed alprazolam 0.25 mg 3 times daily by another provider. The patient notes that she has not taken any other psychiatric medications besides duloxetine, alprazolam, a one-time use of diazepam (which she says caused her to feel "fuzzy), and the above referenced brief trial of buspirone. She tells us that she prefers alprazolam to other benzodiazepines (diazepam) because she is able to take Xanax with relief in her pain and anxiety, but remains mentally alert so that she can engage in social activities with friends, as well as playing duplicate bridge on line "without forgetting what's trump." Past Psychiatric History Previous Psych History: Patient reports that she has been followed in individual outpatient therapy. There is no previous history of psychiatric hospitalization. Psychiatric medications have been prescribed by paint roller assembler and her primary care physician, Dr. Duron. She reports that she does not have a history of recurrent depressions. Further, she reports no evidence of other mood symptoms, such as robert or hypomania. Instead, she attributes her current distress to feelings of hopelessness regarding her chronic, intractable, severe pain and grief following the painful and difficult of her partner of 37 years 3 months ago. Current Psychiatric Diagnosis: Major Depressive Disorder, Outpatient Services: The patient is currently in individual psychotherapy, and she reports that she has a good relationship with her therapist. Her therapist has been in touch with nursing staff and is aware of the hospitalization. She saw a Dr. Onofre Castro, a local psychiatrist, for a psychiatric evaluation. He reportedly prescribed an increased dose of duloxetine for this he is up to 60 mg a day) continuation of alprazolam (she reported that she already had a supply) and hydroxyzine. She notes that she did not take the hydroxyzine and did not return to see Dr. Castro because she did not feel that she and he were a "good match." Previous Psych Admissions: None Do You Have Access To A Gun?: No History of Previous Suicide Attempt: No (("Some suicidal thoughts as a teenager, but that's it.")) Describe Attempts in the Past: No prior attempts before last night Past Medication Trials: Duloxetine in doses of up to 60 mg a day, a brief trial of buspirone at an unspecified dose ("did not help"), alprazolam 0.25 mg 3-4 times a day, including a dose that she typically takes at around 3 in the morning, and on 1 or possibly 2 occasions the past a dose of diazepam that she says cause mental cloudiness. Past Head Trauma/Neuro History History of Concussion/Seizure: No Allergies Allergy/AdvReac Type Severity Reaction Status Date / Time coconut Allergy Unknown Unverified 10/21/18 21:12 acetaminophen AdvReac Unknown "Patient Verified 10/21/18 10:34 requests NO TYLENOL" (per Rui Humphries) Home Medications Home Medications Medication Instructions Recorded Confirmed Type alprazolam 0.5 mg tablet 0.25 mg PO QID PRN tab 04/22/18 10/21/18 History amlodipine 2.5 mg tablet 5 mg PO QAM 04/22/18 10/21/18 History cholecalciferol (vitamin D3) 3,000 1,000 units PO QAM 04/22/18 10/21/18 History unit tablet magnesium 250 mg (as magnesium 250 mg PO QAM tab 04/22/18 10/21/18 History oxide) tablet milk thistle 150 mg capsule 150 mg PO QAM cap 04/22/18 10/21/18 History duloxetine 60 mg capsule,delayed 60 mg PO QAM 04/23/18 10/21/18 History release Medical Marijuana 1 dose INHALATION DAILY PRN 06/04/18 07/26/18 History multivitamin 1 tab PO QAM 06/04/18 10/21/18 History Family History Family History of: None Alcohol History Hx of Alcohol Use Over the Past 12 Months: Yes (2 glasses wine, 2 shots vodka nightly for years) AUDIT Total Score: 5 Patient reports that her evening ritual" is to drink a glass of wine, take a "puff" of medical marijuana, and then later in the evening drank another glass of wine, take another puff of marijuana, take a shot of vodka, and then use a string of medical marijuana that for her services a soporific. 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 The patient also has notes that she is careful not to drink alcohol within at least 4 hours of taking alprazolam and vice versa. Smoking Use Have You Smoked or Used Tobacco Products in the Last 30 Days: No Smoking Status: Former smoker Substance History Hx of Prescription Med Misuse Over the Past 12 Months: No Hx of Over the Counter Med Misuse Over the Past 12 Months: No Hx of Inhalent Misuse Over the Past 12 Months: No Hx of Organic Substance Use Over the Past 12 Months: No (medical marijuana daily for past year) Hx of Illegal Substances/Street Drug Use Over Past 12 Months: No Problems as a Result of Past Substance Use: None Identified Personal History Living Arrangements: Home Living Arrangements Comments: The patient was recently (3 months ago) and now lives alone. 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 Employment Status: Retired Marital Status: Beliefs That Will Affect Care: None (She was raised Confucianism and recently recited the [employer] Kaddish for her late .) Current Legal Problems: No Hx Legal Problems: No Hx Traumatic Life Events: Yes (The terminal illness and of the patient's and partner of 37 years was quite traumatic for the patient.) Patient History Medical History Lumbar stenosis with neurogenic claudication (Chronic) Severe at L4-5 Moderate to severe at L5-S1 Hypertension (Chronic) Mitral valve prolapse (Chronic) Remote history, no recent echo, no murmur appreciated on exam at [facility] Anxiety (Chronic) Ocular hypertension (Chronic) Osteoarthritis (Chronic) Chronic back pain (Chronic) Degenerative disc disease (Chronic) Surgical History History of tonsillectomy (Resolved) History of tooth extraction (Resolved) History of cataract surgery (Resolved) History of colonoscopy (Resolved) History of total knee replacement (Resolved) Right. Done at [facility], SAB +PNB without issues. Social History Preferred Language: [place] Islander Communication Ability: Effective Beliefs That Will Affect Care: None (She was raised Confucianism and recently recited the [employer] Kaddish for her late .) Current Living Situation: Spouse Feels Safe at Home: Yes Smoking Status: Former smoker Second Hand Exposure: No Hx Alcohol Use: Yes Alcohol type: wine Hx Substance Use: Yes substance use type: marijuana Substance Use Type Other:: medical Review of Systems Review of Systems: All systems reviewed & are unremarkable except as noted in HPI & below The somatic history, review of systems and physical examination completed by Dr. Jazmine Santiago DO in the emergency department yesterday has been reviewed and is accepted for purposes of medical clearance to the behavioral health unit. The patient describes the site of her right knee replacement surgery as a second source of severe chronic pain. Physical Exam Psychiatric: Orientation: oriented x 3 Apperance: appropriately groomed Eye Contact: + fair eye contact Motor Behavior: no abnormal motor movements and + psychomotor retardation The patient sometimes winces in pain, and often struggles to reposition in order to minimize low back and right knee pain. Speech: normal rate/rhythm/volume of speech Affect: + depressed affect and + tearful affect Somewhat angry underneath. Mood: + depressed mood and + anxious mood Thought Process: goal directed thought process, linear/logical thought process and clear/coherent thought process Thought Content: reality based without delusions Suicidal Thoughts: + reports suicidal thoughts Patient states clearly that she is disappointed that her suicide attempt did not lead to . However, the patient contracts for safety in the hospital, and on examination does clearly seem to be future oriented. Homicidal Thoughts: denies homicidal thoughts Hallucinations: no auditory hallucinations, no visual hallucinations and no tactile hallucinations Cognition: recent memory grossly intact Estimated Intelligence: + above average estimated intelligence Insight: good insight Judgement: + fair judgement I believe the patient's judgment is impaired by her chronic pain and grief. Vital Signs (Past 24 Hours): Last Vital Signs Temp 36.8 C 10/22/18 09:34 Pulse 106 H 10/22/18 09:34 Resp 18 10/22/18 09:34 BP 140/80 10/22/18 09:34 Pulse Ox 93 10/21/18 20:00 Results & Data Laboratory Results Laboratory Results - last 24 hr 10/21/18 10/21/18 10/21/18 11:13 11:13 11:13 WBC 9.28 RBC 3.96 L Hgb 13.0 Hct 38.0 MCV 96.0 MCH 32.8 MCHC 34.2 RDW Std Deviation 47.6 H RDW Coeff of Korey 13.6 Plt Count 229 MPV 10.4 Immature Gran % (Auto) 0.2 Neut % (Auto) 72.6 Lymph % (Auto) 17.9 Dickey % (Auto) 8.6 Eos % (Auto) 0.5 Baso % (Auto) 0.2 Immature Gran # (Auto) 0.02 Neut # (Auto) 6.73 H Lymph # (Auto) 1.66 Dickey # (Auto) 0.80 H Eos # (Auto) 0.05 Baso # (Auto) 0.02 Sodium 137 Potassium 3.9 Chloride 104 Carbon Dioxide 29 Anion Gap 4.0 BUN 17 Creatinine 0.68 Est Cr Clr Drug Dosing 62.8 Est GFR ( Amer) 102.0 Est GFR (Non-Af Amer) 88.0 BUN/Creatinine Ratio 24.4 H Glucose 106 H Calcium 9.1 Magnesium 2.3 Total Bilirubin 0.5 AST 15 ALT 17 Alkaline Phosphatase 73 Troponin I < 0.015 NT-Pro-B Natriuret Pep 114 Total Protein 7.2 Albumin 3.7 Globulin 3.5 Albumin/Globulin Ratio 1.1 Lipase 473 H TSH 3.000 Urine Color Urine Appearance Urine pH Ur Specific Pala Urine Protein Urine Glucose (UA) Urine Ketones Urine Blood Urine Nitrite Urine Bilirubin Urine Urobilinogen Ur Leukocyte Esterase Urine WBC (Auto) Urine RBC (Auto) U Hyaline Cast (Auto) U Epithel Cells (Auto) Urine Bacteria (Auto) Salicylates < 1.7 L Urine Opiates Screen U Codeine Confrm GC/MS Ur Morphine (GC/MS) Ur Hydrocodone (GC/MS) Ur Norhydrocodone Ur Noroxycodone Urine Oxycodone (GC/MS) U Oxymorphone GC/MS Ur Methadone, Qual Ur Hydromorphone (GC/MS) Acetaminophen < 2 L Urine Barbiturates Ur Phencyclidine (PCP) U Amphetamin/Meth Scrn MDMA (Ecstasy) Screen U OH-Alprazolam Confrm U Benzodiazepines Scrn 7-Amino Clonazepam Ur Nordiazepam Confirm U OH-ethylflurazepam U Lorazepam Cnf GC/MS U Oxazepam Confm GC/MS Ur Temazepam Confirm U OH-Triazolam Confirm U OH-Midazolam Confirm Ur Cocaine Metabolite U Marijuana (THC) Screen U Marijuana THC Carboxy Ethyl Alcohol mg/dL 10/21/18 10/21/18 10/21/18 11:13 11:13 14:30 WBC RBC Hgb Hct MCV MCH MCHC RDW Std Deviation RDW Coeff of Korey Plt Count MPV Immature Gran % (Auto) Neut % (Auto) Lymph % (Auto) Dickey % (Auto) Eos % (Auto) Baso % (Auto) Immature Gran # (Auto) Neut # (Auto) Lymph # (Auto) Dickey # (Auto) Eos # (Auto) Baso # (Auto) Sodium Potassium Chloride Carbon Dioxide Anion Gap BUN Creatinine Est Cr Clr Drug Dosing Est GFR ( Amer) Est GFR (Non-Af Amer) BUN/Creatinine Ratio Glucose Calcium Magnesium Total Bilirubin AST ALT Alkaline Phosphatase Troponin I NT-Pro-B Natriuret Pep Total Protein Albumin Globulin Albumin/Globulin Ratio Lipase Cancelled TSH Urine Color Urine Appearance Urine pH Ur Specific Pala Urine Protein Urine Glucose (UA) Urine Ketones Urine Blood Urine Nitrite Urine Bilirubin Urine Urobilinogen Ur Leukocyte Esterase Urine WBC (Auto) Urine RBC (Auto) U Hyaline Cast (Auto) U Epithel Cells (Auto) Urine Bacteria (Auto) Salicylates Urine Opiates Screen Pos H U Codeine Confrm GC/MS Ur Morphine (GC/MS) Ur Hydrocodone (GC/MS) Ur Norhydrocodone Ur Noroxycodone Urine Oxycodone (GC/MS) U Oxymorphone GC/MS Ur Methadone, Qual Neg Ur Hydromorphone (GC/MS) Acetaminophen Urine Barbiturates Neg Ur Phencyclidine (PCP) Neg U Amphetamin/Meth Scrn Neg MDMA (Ecstasy) Screen Neg U OH-Alprazolam Confrm U Benzodiazepines Scrn Pos H 7-Amino Clonazepam Ur Nordiazepam Confirm U OH-ethylflurazepam U Lorazepam Cnf GC/MS U Oxazepam Confm GC/MS Ur Temazepam Confirm U OH-Triazolam Confirm U OH-Midazolam Confirm Ur Cocaine Metabolite Neg U Marijuana (THC) Screen Pos H U Marijuana THC Carboxy Ethyl Alcohol mg/dL < 3.0 10/21/18 10/21/18 10/21/18 14:30 14:30 15:51 WBC RBC Hgb Hct MCV MCH MCHC RDW Std Deviation RDW Coeff of Korey Plt Count MPV Immature Gran % (Auto) Neut % (Auto) Lymph % (Auto) Dickey % (Auto) Eos % (Auto) Baso % (Auto) Immature Gran # (Auto) Neut # (Auto) Lymph # (Auto) Dickey # (Auto) Eos # (Auto) Baso # (Auto) Sodium Potassium Chloride Carbon Dioxide Anion Gap BUN Creatinine Est Cr Clr Drug Dosing Est GFR ( Amer) Est GFR (Non-Af Amer) BUN/Creatinine Ratio Glucose Calcium Magnesium Total Bilirubin AST ALT Alkaline Phosphatase Troponin I NT-Pro-B Natriuret Pep Total Protein Albumin Globulin Albumin/Globulin Ratio Lipase 355 TSH Urine Color Yellow Urine Appearance Clear Urine pH 5.0 Ur Specific Pala 1.020 Urine Protein Negative Urine Glucose (UA) Negative Urine Ketones Negative Urine Blood Negative Urine Nitrite Negative Urine Bilirubin Negative Urine Urobilinogen Negative Ur Leukocyte Esterase 1+ H Urine WBC (Auto) 10-30 H Urine RBC (Auto) 0-4 U Hyaline Cast (Auto) 1-5 U Epithel Cells (Auto) >30 H Urine Bacteria (Auto) Negative Salicylates Urine Opiates Screen U Codeine Confrm GC/MS Pending Ur Morphine (GC/MS) Pending Ur Hydrocodone (GC/MS) Pending Ur Norhydrocodone Pending Ur Noroxycodone Pending Urine Oxycodone (GC/MS) Pending U Oxymorphone GC/MS Pending Ur Methadone, Qual Ur Hydromorphone (GC/MS) Pending Acetaminophen Urine Barbiturates Ur Phencyclidine (PCP) U Amphetamin/Meth Scrn MDMA (Ecstasy) Screen U OH-Alprazolam Confrm Pending U Benzodiazepines Scrn 7-Amino Clonazepam Pending Ur Nordiazepam Confirm Pending U OH-ethylflurazepam Pending U Lorazepam Cnf GC/MS Pending U Oxazepam Confm GC/MS Pending Ur Temazepam Confirm Pending U OH-Triazolam Confirm Pending U OH-Midazolam Confirm Pending Ur Cocaine Metabolite U Marijuana (THC) Screen U Marijuana THC Carboxy Pending Ethyl Alcohol mg/dL Current Inpatient Medications Current Inpatient Medications: Current Inpatient Medications Al Hydrox/Mg Hydrox/Simethicone (Maalox) 30 ml PO Q4H PRN PRN Reason: GI Upset Stop: 11/20/18 20:20 Amlodipine Besylate (Norvasc) 5 mg PO QAM IRINA Stop: 11/21/18 08:59 Last Admin: 10/22/18 09:14 Dose: 5 mg Documented by: Bismuth Subsalicylate (Kaopectate) 15 ml PO PRN PRN PRN Reason: Loose Stool Stop: 11/20/18 20:20 Duloxetine HCl (Cymbalta) 60 mg PO QAM IRINA Stop: 11/21/18 08:59 Last Admin: 10/22/18 09:14 Dose: 60 mg Documented by: Hydroxyzine HCl (Vistaril) 25 mg PO Q4H PRN PRN Reason: Anxiety Stop: 11/20/18 20:20 Last Admin: 10/22/18 04:36 Dose: 25 mg Documented by: Hydroxyzine HCl (Vistaril) 50 mg PO HSZ PRN PRN Reason: Insomnia Stop: 11/20/18 20:20 Magnesium Hydroxide (Milk Of Magnesia) 30 ml PO DAILY PRN PRN Reason: Heartburn Stop: 11/20/18 20:20 Sodium Chloride ([place] Nasal) 1 - 2 sprays NA PRN PRN PRN Reason: Nasal Dryness/Congestion Stop: 11/20/18 20:20 CPT Code CPT Code Initial Hospital Care: 43505
--- NOTE | 2018-10-22 13:18 | Pain Management Consultation ---
Date of Consultation October 22, 2018 Assessment & Plan (1) Suicide attempt by multiple drug overdose: 1. For pain and sleeping I have initiated Amitriptyline 50mg QHS. 2. Diclofenac 75mg PO BID ordered for pain. 3. Our office will contact Dr. Root's office and see what the insurance pro blem is and if she is unable to have it done there, then will work on having her see another surgeon. Thank you for the consultation. Encounter type: initial encounter Qualified Code(s): T50.902A - Poisoning by unspecified drugs, medicaments and biological substances, intentional self-harm, initial encounter History of Present Illness Attending Physician: Phoenix Allison MD History of Present Illness Ary Fuchs is a 73 year old white female that is well known to the [facility] with a history of severe spinal canal stenosis at L4-5. 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 Her of the disease June 2018. Since the loss of her she has decided to pursue the spine surgery that she has needed to have done for several years. She did see Dr. Root in [place] and did agree to surgery. Two days later she got a phone call that her insurance could not be done due to her insurance company. She does also have 2 appointments scheduled with other surgeons in the area for next month. She has been drinking alcohol and using medical marijuana to help diminish her pain in the evening so she is able to sleep. For the last several weeks she has been experiencing low back pain and grief of losing her . She wrote up a will and came up with a well thought out plan to end her life. She went to a hotel and took many Oxycodone and Xanex pills. Police were able to find her and she was sent to the Emergency Department and now under a 301. Case discussed with Dr. Colon Pain Assessment [facility] Combined Pain Scale: 9-Agonizing - Cannot function. Uncontrolled screaming. Allergies Allergy/AdvReac Type Severity Reaction Status Date / Time coconut Allergy Unknown Unverified 10/21/18 21:12 acetaminophen AdvReac Unknown "Patient Verified 10/21/18 10:34 requests NO TYLENOL" (per Rui Humphries) Home Medications Home Medications Medication Instructions Recorded Confirmed Type alprazolam 0.5 mg tablet 0.25 mg PO QID PRN tab 04/22/18 10/21/18 History amlodipine 2.5 mg tablet 5 mg PO QAM 04/22/18 10/21/18 History cholecalciferol (vitamin D3) 3,000 1,000 units PO QAM 04/22/18 10/21/18 History unit tablet magnesium 250 mg (as magnesium 250 mg PO QAM tab 04/22/18 10/21/18 History oxide) tablet milk thistle 150 mg capsule 150 mg PO QAM cap 04/22/18 10/21/18 History duloxetine 60 mg capsule,delayed 60 mg PO QAM 04/23/18 10/21/18 History release Medical Marijuana 1 dose INHALATION DAILY PRN 06/04/18 07/26/18 History multivitamin 1 tab PO QAM 06/04/18 10/21/18 History Patient History Medical History Lumbar stenosis with neurogenic claudication (Chronic) Severe at L4-5 Moderate to severe at L5-S1 Hypertension (Chronic) Mitral valve prolapse (Chronic) Remote history, no recent echo, no murmur appreciated on exam at [facility] Anxiety (Chronic) Ocular hypertension (Chronic) Osteoarthritis (Chronic) Chronic back pain (Chronic) Degenerative disc disease (Chronic) Surgical History History of tonsillectomy (Resolved) History of tooth extraction (Resolved) History of cataract surgery (Resolved) History of colonoscopy (Resolved) History of total knee replacement (Resolved) Right. Done at [facility] 2016, SAB +PNB without issues. Social History Preferred Language: Filipino Communication Ability: Effective Beliefs That Will Affect Care: None (She was raised [place] and recently recited the Mourner's Kaddish for her late .) Current Living Situation: Spouse Feels Safe at Home: Yes Smoking Status: Former smoker Second Hand Exposure: No Hx Alcohol Use: Yes Alcohol type: wine Hx Substance Use: Yes substance use type: marijuana Substance Use Type Other:: medical Physical Exam Physical Exam: GENERAL: This is a 73 year old white female appears her state age. She is anxious and tearful. Short tempered during our conversation. HEAD: Normocephalic; atraumatic. EYES: Pupils are round, equal, and reactive to light; EOM intact. ENT: No external ear discharge or lesions. No rhinorrhea or epistaxis. No mucosal lesions. EXTREMITIES: There is 5/5 strength of the bilateral lower extremities. Negative straight leg raise bilaterally. No foot drop. BACK: Complete loss of lumbar lordosis. Full ROM. There is mild diffuse lumbosacral tenderness to palpation. No muscle spasm noted. Pain is increased with extension, decreased with flexion. NEURO: CN II-XII grossly intact with no focal deficits noted.
[2018-10-22] MEDS ORDERED: TRAZODONE HCL 50 MG TAB PO PRN (13:37)
[2018-10-22] MEDS ORDERED: ALPRAZolam 0.25 MG TABLET PO SCH ×2 (14:00→18:00)
[2018-10-22] MEDS: DICLOFENAC SODIUM 75 MG TABCR PO SCH (18:08)
[2018-10-22] MEDS ORDERED: DESTROY THIS MEDICATION ONE (18:24)
[2018-10-22] MEDS ORDERED: ALPRAZolam 0.25 MG TABLET PO ONE (18:35)
[2018-10-22] MEDS: AMITRIPTYLINE HCL 50 MG TAB PO SCH (21:32)
[2018-10-23] MEDS ORDERED: ALPRAZolam 0.25 MG TABLET PO PRN (03:00)
--- NOTE | 2018-10-23 08:46 | Psychiatric Progress Note ---
Date of Service October 23, 2018 Impression / Recommendations Impression 73-year-old female admitted voluntarily for inpatient psychiatric treatment following a rather significant intentional drug overdose. There was a backup 302 petitioning statement that was completed, and at this point should be utilized patient is requesting discharge prematurely. Patient has been suffering from significant intractable chronic back pain, which in combination with recent loss of her life likely attributed to poor judgment. Initially, patient admits that she had been upset that her suicide attempt was unsuccessful. Patient has had a surprising change in mindset since her pain management consultation yesterday. We certainly appreciate the recommendations in experience with managing the patient's pain related symptoms. Patient was happy with the outcome of the consult as well, as she states there will be attempts to expedite the process related to her anticipated surgical procedure. It is this provider's opinion that the patient is minimizing some of the other stressors which may have contributed to her overdose, as improvement in mood and resolution of suicidal ideation were both reported after this pain management consultation. Although it is very likely that the patient's pain has been significant contributor to her hopelessness, ideally patient would continue to process her grief and other stressors to ensure she has an adequate safety plan at time of discharge. Given the severity of her overdose, it will be important to ensure consistency of these improvements prior to considering discharge as she remains at very high risk of another suicide attempt. Patient was agreeable to titrating her duloxetine to 90 mg starting tomorrow morning, in order to target depressive symptoms and ongoing pain. (1) Suicide attempt by multiple drug overdose: 10/22/18 -Today, the patient acknowledges that she had been disappointed and somewhat angry when she realized that her suicide attempt had not lead to . She continues to have suicidal thoughts, but is able to contract for safety in the hospital and assures us that she will not make any attempt here. -The patient also reports that she feels that she would not be suicidal where she to be able to achieve significant pain relief which, for her, means restorative or partially restorative surgery, or at least a reasonable expectation of surgery in the near future. -Although still suicidal, the patient does seem to be somewhat future oriented. 10/23 - Pt denies SI, but the only reasoning provided is the hope that she will have her surgical procedure soon - Will attempt to process grief and other stressors with patient, as she has multiple risk factors and her attempt was very serious (2) Chronic back pain: 10/22/18 -The patient has suffered from a number of years from lumbar spinal stenosis with neuronal claudication and severe radiating pain, including sciatic pain in her left hip and leg. She also suffers from chronic pain associated with knee replacement surgery of her right knee. She rates her pain as a "7 or 8 out of 10" in her back and left leg (sciatic distribution), and "5 or 6" out of 10 in her right knee, but indicates that the pain in her back is severe enough that it "overwhelms" the pain in her knee. She feels that she is largely able to manage the pain in her knee through positioning her leg properly. -We have requested a pain management consult. The patient's hope is that somehow we can expedite a referral to a doctor Dani Wilson, whom she believes will be instrumental in arranging for her to have what she believes will be the potentially restorative back surgery that she needs, even though she is aware that the back surgery is likely to cause temporarily worse pain and a 4-6-month recovery. -The patient responds well to having her pain validated and the staff is aware of that her pain should never being minimized. 10/23 - Appreciative of pain management consultation and recommendations. Pt also reporting appreciation - Pt was started on amitriptyline 50mg qHS and diclofenac 75mg BID - Pt remains hopeful that her surgery process can be expedited (3) Anxiety: 10/22/18 -The patient reports that her anxiety is largely attributable to her chronic pain, the uncertainty of her circumstances, and lingering anxiety associated with her late 's final illness and suffering. -We discussed the fact that, in some instances, benzodiazepines can actually worsen back pain because they can serve as muscle relaxants which can, in turn, resulted in worsening destabilization. However, the patient says that she has experienced the opposite, and that when she feels more relaxed her pain tends to lessen, at least slightly. -Material risks and anticipated benefits of alprazolam were reviewed with the patient. She is aware of the risk of physical habituation and, in fact, suspects that she may already be physically habituated. She also says that she has been eager not to increase her dose because she is aware of the potential for habituation, as well as the known interaction with alcohol. (4) Depressed: 10/22/18 -The patient prefers to describe her depressed mood as being a function of grief (her partner of 37 years just 3 months ago) and the sequela of chronic, severe, intractable pain. Nevertheless, she acknowledges that she had been taking duloxetine (Cymbalta) both for pain and for depression. -Today, we will increase the patient's dose of duloxetine to a dose of 80 mg a day. We have discussed adding adjunctive medications for depression, such as bupropion, aripiprazole, or risperidone. 10/23 - Titrate duloxetine further to 90mg for tomorrow morning - Remains focused on intractable pain, but is very appreciative of pain management consultation and recommendations - Somewhat more hopeful after hearing that there will be attempts to have her procedure expedited (5) Acute dehydration: The patient's most recent BUN remains slightly elevated. We are encouraging the patient to drink fluids, she is adherent with the recommendation, and denies feeling lightheaded or dizzy. We will continue to monitor vital signs. Inventory Assets Strengths: Intelligent. Many very supportive and actively involved friends. Multiple interests. Needs: Relief from chronic pain. Time to grieve her 's . Treatment for depression and anxiety. Resolution of suicidal thoughts. Risk Factors Assessment Male: No : Yes Do You Have Access To A Gun?: No Health Problems: Yes Mental Health Diagnoses: Yes Substance Use Disorders: No Previous Attempt: No Family History of Suicide: No Previous Psychiatric Hospitalization: No Hopelessness: Yes Smoker: No Protective Factors Assessment Alevism Beliefs: Yes : No Responsible for Young Children: No Employed: No (Retired) Stable Relationships: Yes Supportive Family: Yes Good Rapport with Provider: Yes Absence of Any Risk Factors Above: No Interval History Identifying Information CATHERINE MAIER is a 73-year-old F who currently lives alone in [place]. She has a history of depression, grief, and chronic pain, and was admitted on 10/21/18 20:03 on a 201 voluntary agreement following a suicide attempt by overdose. Chief Complaint "Yes, I feel I've been oriented to the unit. I've been forming a good relationship with the other clients here." Review of Systems Notes Constitutional: reports significant improvement in sleep last evening Cardiovascular: denied Respiratory: denied Gastrointestinal: denied Neurological/Musculoskeletal: reports ongoing chronic, intractable back pain Psychiatric: denies symptoms other than stated above Total of at least 10 systems reviewed, pertinent positives as above and in HPI. Sleep Information Total Hours of Sleep: 6.75 Sleep Comments: toileted early in the shift-slept through the rest of the night Meal Information Percent Meal Consumed - Breakfast: 10 Percent Meal Consumed - Lunch: 50 Percent Meal Consumed - Dinner: 80 Subjective Subjective Patient was seen & assessed and interval progress reviewed during report with nursing and social work. Staff reports the patient has not scored on the AWSS protocol. Based on conversations with her outpatient therapist, it seems patient may be minimizing her substance use. Patient was seen by pain management yesterday, and appreciate their input. Patient was seen today to assess progress since admission. She states that she feels she is adequately adjusting to the unit. She has been supportive of peers and feels she is connecting with some of them. Patient states "some of the clients have such severe depression, you just want to 'bear hug' it out of them." The patient, herself, is reporting a significant improvement in symptoms after meeting with pain management and learning that they will attempt to have her surgical process expedited. Patient seems to imply that the complications with insurance and scheduling the procedure played a significant role in her loss of hope and ultimately in her suicide attempt. Surprisingly, patient denies suicidal ideation as "I am headed for surgery, for surgery and recovery." The patient does report "a surprising pain lift" today, stating her pain was a 6.5 "in motion" where it is generally between a 7-9 at rest. We talked briefly about another large stressor for the patient, which is her grief process after losing her life 3 months ago. Patient states "I have been putting a lot of my grief work on hold, I need to start that again." Patient states that she was provided with writing prompts in order to process the loss and focus on memories of her late partner. Patient was agreeable to continuing to titrate duloxetine in order to target depressive symptoms, and and hope it would also benefit her pain. Patient is requesting Senokot to relieve constipation. She denies other needs or concerns at this time. Physical Exam Psychiatric Orientation: alert, oriented x 3 and cooperative (Superficially) Apperance: appropriately dressed, appropriately groomed and appeared stated age Eye Contact: good eye contact Motor Behavior: steady gait and station (Ambulates with assistance from a cane) and no abnormal motor movements Speech: normal rate/rhythm/volume of speech Affect: + depressed affect; no anxious affect Mood: + depressed mood (But admits to improvements after her pain management consult) Thought Process: goal directed thought process and clear/coherent thought process Thought Content: reality based without delusions; no hopelessness Suicidal Thoughts: denies suicidal thoughts (surprisingly abrupt change in outlook following rather significant OD) Homicidal Thoughts: denies homicidal thoughts Hallucinations: no auditory hallucinations and no visual hallucinations Cognition: remote memory grossly intact, attention grossly intact and language grossly intact Estimated Intelligence: consistent with education level Insight: + fair insight Judgement: + fair judgement Agree that there is likely some impairment in judgment due to patient's grief and chronic pain Vital Signs (Past 24 Hours) Last Vital Signs Temp 36.7 C 10/23/18 06:23 Pulse 78 10/23/18 06:24 Resp 16 10/23/18 06:23 BP 139/74 10/23/18 06:24 Pulse Ox 93 10/21/18 20:00 Results & Data Current Inpatient Medications Current Inpatient Medications: Current Inpatient Medications Al Hydrox/Mg Hydrox/Simethicone (Maalox) 30 ml PO Q4H PRN PRN Reason: GI Upset Stop: 11/20/18 20:20 Alprazolam (Xanax) 0.25 mg PO 0300 PRN PRN Reason: Anxiety/Insomnia Stop: 11/22/18 02:59 Alprazolam (Xanax) 0.25 mg PO TID@1000,1400,1800 [facility] Stop: 11/22/18 09:59 Amitriptyline HCl (Elavil) 50 mg PO HS [facility] Stop: 11/21/18 21:59 Last Admin: 10/22/18 21:32 Dose: 50 mg Documented by: Amlodipine Besylate (Norvasc) 5 mg PO QAM [facility] Stop: 11/21/18 08:59 Last Admin: 10/22/18 09:14 Dose: 5 mg Documented by: Bismuth Subsalicylate (Kaopectate) 15 ml PO PRN PRN PRN Reason: Loose Stool Stop: 11/20/18 20:20 Diclofenac Sodium (Voltaren) 75 mg PO BIDM [facility] Stop: 11/21/18 17:44 Last Admin: 10/22/18 18:08 Dose: 75 mg Documented by: Duloxetine HCl (Cymbalta) 20 mg PO QAM IRINA Stop: 11/22/18 08:59 Duloxetine HCl (Cymbalta) 60 mg PO QAM IRINA Stop: 11/22/18 08:59 Hydroxyzine HCl (Vistaril) 25 mg PO Q4H PRN PRN Reason: Anxiety Stop: 11/20/18 20:20 Last Admin: 10/22/18 18:08 Dose: 25 mg Documented by: Magnesium Hydroxide (Milk Of Magnesia) 30 ml PO DAILY PRN PRN Reason: Heartburn Stop: 11/20/18 20:20 Sodium Chloride ([place] Nasal) 1 - 2 sprays NA PRN PRN PRN Reason: Nasal Dryness/Congestion Stop: 11/20/18 20:20 Trazodone HCl (Desyrel) 50 mg PO HS PRN PRN Reason: Sleep Stop: 11/21/18 21:59 Post Discharge Appointments Primary Care Physician Name Of Family Doctor: Dr. Duron Therapist Name of Therapist: Laverne Singletary,has been seeing her for 6-8 months National Sales Director Name of National Sales Director: Denies CPT Code CPT Code 36889 (1) Suicide attempt by multiple drug overdose Encounter type: initial encounter Qualified Code(s): T50.902A - Poisoning by unspecified drugs, medicaments and biological substances, intentional self-harm, initial encounter
[2018-10-23] MEDS: DULOXETINE HCL 60 MG CAP PO SCH (08:47)
[2018-10-23] MEDS: AMLODIPINE BESYLATE 5 MG TAB PO SCH (08:47)
[2018-10-23] MEDS: DICLOFENAC SODIUM 75 MG TABCR PO SCH ×2 (08:47→18:01)
[2018-10-23] MEDS ORDERED: DULOXETINE HCL 60 MG CAP PO SCH (09:00)
[2018-10-23] MEDS ORDERED: DULOXETINE HCL 20 MG CAP PO SCH (09:00)
[2018-10-23] MEDS: ALPRAZolam 0.25 MG TABLET PO SCH ×3 (10:01→18:01)
[2018-10-23] MEDS: AMITRIPTYLINE HCL 50 MG TAB PO SCH (21:07)
[2018-10-23] MEDS: SENNA 8.6 MG TAB PO PRN (23:22)
--- NOTE | 2018-10-24 07:45 | Psychiatric Progress Note ---
Date of Service October 24, 2018 Impression / Recommendations Impression 73-year-old female admitted voluntarily for inpatient psychiatric treatment following a rather significant intentional drug overdose. There was a backup 302 petitioning statement that was completed, and at this point should be utilized patient is requesting discharge prematurely. Patient has been suffering from significant intractable chronic back pain, which in combination with recent loss of her life likely attributed to poor judgment. Although it is very likely that the patient's pain has been significant contributor to her hopelessness, ideally patient would continue to process her grief and other stressors to ensure she has an adequate safety plan at time of discharge. She is now denying SI, with a new motivation to continue living. Given the severity of her overdose, it will be important to ensure consistency of these improvements prior to considering discharge as she remains at very high risk of another suicide attempt. (1) Suicide attempt by multiple drug overdose: 10/22/18 -Today, the patient acknowledges that she had been disappointed and somewhat angry when she realized that her suicide attempt had not lead to . She continues to have suicidal thoughts, but is able to contract for safety in the hospital and assures us that she will not make any attempt here. -The patient also reports that she feels that she would not be suicidal where she to be able to achieve significant pain relief which, for her, means restorative or partially restorative surgery, or at least a reasonable expectation of surgery in the near future. -Although still suicidal, the patient does seem to be somewhat future oriented. 10/23 - Pt denies SI, but the only reasoning provided is the hope that she will have her surgical procedure soon - Will attempt to process grief and other stressors with patient, as she has multiple risk factors and her attempt was very serious (2) Chronic back pain: 10/22/18 -The patient has suffered from a number of years from lumbar spinal stenosis with neuronal claudication and severe radiating pain, including sciatic pain in her left hip and leg. She also suffers from chronic pain associated with knee replacement surgery of her right knee. She rates her pain as a "7 or 8 out of 10" in her back and left leg (sciatic distribution), and "5 or 6" out of 10 in her right knee, but indicates that the pain in her back is severe enough that it "overwhelms" the pain in her knee. She feels that she is largely able to manage the pain in her knee through positioning her leg properly. -We have requested a pain management consult. The patient's hope is that somehow we can expedite a referral to a doctor Dani Wilson, whom she believes will be instrumental in arranging for her to have what she believes will be the potentially restorative back surgery that she needs, even though she is aware that the back surgery is likely to cause temporarily worse pain and a 4-6-month recovery. -The patient responds well to having her pain validated and the staff is aware of that her pain should never being minimized. 10/23 - Appreciative of pain management consultation and recommendations. Pt also reporting appreciation - Pt was started on amitriptyline 50mg qHS and diclofenac 75mg BID - Pt remains hopeful that her surgery process can be expedited (3) Anxiety: 10/22/18 -The patient reports that her anxiety is largely attributable to her chronic pain, the uncertainty of her circumstances, and lingering anxiety associated w ith her late 's final illness and suffering. -We discussed the fact that, in some instances, benzodiazepines can actually worsen back pain because they can serve as muscle relaxants which can, in turn, resulted in worsening destabilization. However, the patient says that she has experienced the opposite, and that when she feels more relaxed her pain tends to lessen, at least slightly. -Material risks and anticipated benefits of alprazolam were reviewed with the patient. She is aware of the risk of physical habituation and, in fact, suspects that she may already be physically habituated. She also says that she has been eager not to increase her dose because she is aware of the potential for habituation, as well as the known interaction with alcohol. 10/24 - Pt acknowledges over-reliance on alprazolam to manage anxiety, long-term recommendation would be for eventual discontinuation of the medication and replacement with a safer alternative if necessary - Pt again acknowledges risks associated with dependency and interactions with alcohol - Will contact outpatient prescriber regarding dependence and intentional overdose when office opens tomorrow - Encourage development of coping strategies to reduce reliance on alprazolam (4) Depressed: 10/22/18 -The patient prefers to describe her depressed mood as being a function of grief (her partner of 37 years just 3 months ago) and the sequela of chronic, severe, intractable pain. Nevertheless, she acknowledges that she had been taking duloxetine (Cymbalta) both for pain and for depression. -Today, we will increase the patient's dose of duloxetine to a dose of 80 mg a day. We have discussed adding adjunctive medications for depression, such as bupropion, aripiprazole, or risperidone. 10/23 - Titrate duloxetine further to 90mg for tomorrow morning - Remains focused on intractable pain, but is very appreciative of pain management consultation and recommendations - Somewhat more hopeful after hearing that there will be attempts to have her procedure expedited 10/24 - Continue current medication regimen, consider need for further titration of duloxetine (5) Acute dehydration: The patient's most recent BUN remains slightly elevated. We are encouraging the patient to drink fluids, she is adherent with the recomm endation, and denies feeling lightheaded or dizzy. We will continue to monitor vital signs. Inventory Assets Strengths: Intelligent. Many very supportive and actively involved friends. Multiple interests. Needs: Relief from chronic pain. Time to grieve her 's . Treatment for depression and anxiety. Resolution of suicidal thoughts. Risk Factors Assessment Male: No : Yes Do You Have Access To A Gun?: No Health Problems: Yes Mental Health Diagnoses: Yes Substance Use Disorders: No Previous Attempt: No Family History of Suicide: No Previous Psychiatric Hospitalization: No Hopelessness: Yes Smoker: No Protective Factors Assessment Yarsanism Beliefs: Yes : No Responsible for Young Children: No Employed: No (Retired) Stable Relationships: Yes Supportive Family: Yes Good Rapport with Provider: Yes Absence of Any Risk Factors Above: No Interval History Identifying Information CATHERINE MAIER is a 73-year-old F who currently lives alone in [place]. She has a history of depression, grief, and chronic pain, and was admitted on 10/21/18 20:03 on a 201 voluntary agreement following a suicide attempt by overdose. Chief Complaint "It's been a pretty good day. I did falter a little earlier." Review of Systems Notes Constitutional: denied Cardiovascular: denied Respiratory: denied Gastrointestinal: denied Neurological: reports numbness of ulnar aspect of right hand and 5th finger, following nerve distribution - no sharp, shooting pain Psychiatric: denies symptoms other than stated above Total of at least 10 systems reviewed, pertinent positives as above and in HPI. Sleep Information Total Hours of Sleep: 5.5 Sleep Comments: toileted early in the shift-slept through the rest of the night Meal Information Percent Meal Consumed - Breakfast: 75 Percent Meal Consumed - Lunch: 100 Percent Meal Consumed - Dinner: 75 Subjective Subjective Patient was seen & assessed and interval progress reviewed during report with nursing and social work. Staff reports the patient continues to report motivation to live, and has been surrounded by outpatient supports during visiting hours. Pt was seen today to assess progress since admission. Pt states she is feeling "pretty good" today. She reports a little "falter" today, stating "I'm addicted to Xanax, so I get panic attacks on the clock. I have to take a dose at 10:00, and they were a little late with my dose today." Pt reported increased anxiety, but was able to work with one of the counselors on coping strategies and mindfulness techniques that may be useful in managing her anxiety. Pt reports a recognition that she has very few coping strategies. She states, "I have Xanax and deep breathing, that's it." Pt states she feels she is doing well, and denies SI "now that I've decided I'm going to live." Pt states, "I do have one concern. There has been a problem on my treatment plan for days and no one has addressed it with me...the alcohol." Pt was informed that the topic had been reviewed, but that this provider was happy to discuss further. 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 I feel like what you all view as a high volume is actually a very low volume for me." Pt goes on to state that she has actually cut back on her alcohol use over the years, now down to a "very, very disciplined regime." Pt states, "I take Xanax at 10 and 2, I wait until 7:00 for my first drink so there is plenty of space between that and the Xanax." She reports having a glass of wine at both 7:00 and 8:00, followed by a shot of vodka at both 9:00 and 10:00. Pt reports understanding when this provider stated that it was not appropriate for her to be mixing her medications with this amount of alcohol regularly. Pt acknowledges, but continues to view her current use as progress. She was not overly willing to discuss her use further. Pt denies SI and other concerns today. Physical Exam Psychiatric Orientation: alert, oriented x 3, cooperative (only superficially) and + guarded Apperance: appropriately dressed and appropriately groomed Eye Contact: good eye contact Motor Behavior: steady gait and station (ambulates with assistance from a cane) and no abnormal motor movements Speech: normal rate/rhythm/volume of speech (irritable tone at times) Affect: + blunted affect and + irritable affect (when discussing alcohol use) Mood: + anxious mood Thought Process: goal directed thought process and clear/coherent thought process Thought Content: + cognitive distortions (regarding appropriateness of alcohol use) and reality based without delusions Suicidal Thoughts: denies suicidal thoughts Homicidal Thoughts: denies homicidal thoughts Hallucinations: no auditory hallucinations and no visual hallucinations Cognition: attention grossly intact and language grossly intact Estimated Intelligence: consistent with education level Insight: + fair insight Judgement: not fair judgement Vital Signs (Past 24 Hours) Last Vital Signs Temp 36.7 C 10/24/18 06:40 Pulse 61 10/24/18 06:42 Resp 16 10/24/18 06:40 BP 122/72 10/24/18 06:42 Pulse Ox 93 10/21/18 20:00 Results & Data Current Inpatient Medications Current Inpatient Medications: Current Inpatient Medications Al Hydrox/Mg Hydrox/Simethicone (Maalox) 30 ml PO Q4H PRN PRN Reason: GI Upset Stop: 11/20/18 20:20 Alprazolam (Xanax) 0.25 mg PO 0300 PRN PRN Reason: Anxiety/Insomnia Stop: 11/22/18 02:59 Alprazolam (Xanax) 0.25 mg PO TID@1000,1400,1800 IRINA Stop: 11/22/18 09:59 Last Admin: 10/23/18 18:01 Dose: 0.25 mg Documented by: Amitriptyline HCl (Elavil) 50 mg PO HS IRINA Stop: 11/21/18 21:59 Last Admin: 10/23/18 21:07 Dose: 50 mg Documented by: Amlodipine Besylate (Norvasc) 5 mg PO QAM IRINA Stop: 11/21/18 08:59 Last Admin: 10/23/18 08:47 Dose: 5 mg Documented by: Bismuth Subsalicylate (Kaopectate) 15 ml PO PRN PRN PRN Reason: Loose Stool Stop: 11/20/18 20:20 Diclofenac Sodium (Voltaren) 75 mg PO BIDM [facility] Stop: 11/21/18 17:44 Last Admin: 10/23/18 18:01 Dose: 75 mg Documented by: Duloxetine HCl (Cymbalta) 60 mg PO QAM IRINA Stop: 11/22/18 08:59 Last Admin: 10/23/18 08:47 Dose: 60 mg Documented by: Duloxetine HCl (Cymbalta) 30 mg PO QAM [facility] Stop: 11/23/18 08:59 Hydroxyzine HCl (Vistaril) 25 mg PO Q4H PRN PRN Reason: Anxiety Stop: 11/20/18 20:20 Last Admin: 10/22/18 18:08 Dose: 25 mg Documented by: Magnesium Hydroxide (Milk Of Magnesia) 30 ml PO DAILY PRN PRN Reason: Heartburn Stop: 11/20/18 20:20 Sennosides (Senokot) 17.2 mg PO HS PRN PRN Reason: constipation Stop: 11/22/18 21:59 Last Admin: 10/23/18 23:22 Dose: 17.2 mg Documented by: Sodium Chloride ([place] Nasal) 1 - 2 sprays NA PRN PRN PRN Reason: Nasal Dryness/Congestion Stop: 11/20/18 20:20 Trazodone HCl (Desyrel) 50 mg PO HS PRN PRN Reason: Sleep Stop: 11/21/18 21:59 Post Discharge Appointments Primary Care Physician Name Of Family Doctor: Dr. Duron Therapist Name of Therapist: Laverne Singletary,has been seeing her for 6-8 months Advertising Display Rotator Name of Advertising Display Rotator: Denies CPT Code CPT Code 06191 (1) Suicide attempt by multiple drug overdose Encounter type: initial encounter Qualified Code(s): T50.902A - Poisoning by unspecified drugs, medicaments and biological substances, intentional self-harm, initial encounter
[2018-10-24] MEDS: DULOXETINE HCL 60 MG CAP PO SCH (08:30)
[2018-10-24] MEDS: DICLOFENAC SODIUM 75 MG TABCR PO SCH ×2 (08:30→17:22)
[2018-10-24] MEDS: DULOXETINE HCL 30 MG CAP PO SCH (08:30)
[2018-10-24] MEDS: AMLODIPINE BESYLATE 5 MG TAB PO SCH (08:31)
[2018-10-24] MEDS: ALPRAZolam 0.25 MG TABLET PO SCH ×3 (10:05→18:12)
[2018-10-24] MEDS ORDERED: DESTROY THIS MEDICATION ONE (13:36)
[2018-10-24] MEDS: AMITRIPTYLINE HCL 50 MG TAB PO SCH (21:03)
[2018-10-24] MEDS: SENNA 8.6 MG TAB PO PRN (23:05)
[2018-10-25] MEDS: DULOXETINE HCL 30 MG CAP PO SCH (09:09)
[2018-10-25] MEDS: DULOXETINE HCL 60 MG CAP PO SCH (09:09)
[2018-10-25] MEDS: AMLODIPINE BESYLATE 5 MG TAB PO SCH (09:09)
[2018-10-25] MEDS: DICLOFENAC SODIUM 75 MG TABCR PO SCH ×2 (09:10→17:59)
[2018-10-25] MEDS: ALPRAZolam 0.25 MG TABLET PO SCH ×3 (10:31→15:11)
[2018-10-25] MEDS ORDERED: ALPRAZolam 0.25 MG TABLET PO PRN (14:28)
--- NOTE | 2018-10-25 14:29 | Psychiatric Progress Note ---
Date of Service October 25, 2018 Impression / Recommendations Impression 73-year-old female admitted voluntarily for inpatient psychiatric treatment following a rather significant intentional drug overdose. There was a backup 302 petitioning statement that was completed, and at this point should be utilized patient is requesting discharge prematurely. Patient has been suffering from significant intractable chronic back pain, which in combination with recent loss of her life likely attributed to poor judgment. Although it is very likely that the patient's pain has been significant contributor to her hopelessness, ideally patient would continue to process her grief and other stressors to ensure she has an adequate safety plan at time of discharge. She is now denying SI, with a new motivation to continue living. Aftercare arrangements are still being coordinated in order to reschedule therapy appointments and set-up an evaluation for psychiatric medication management with a psychiatric prescriber. Given the severity of her overdose, it will be important to ensure consistency of these improvements prior to considering discharge as she remains at very high risk of another suicide attempt. (1) Suicide attempt by multiple drug overdose: 10/22/18 -Today, the patient acknowledges that she had been disappointed and somewhat angry when she realized that her suicide attempt had not lead to . She continues to have suicidal thoughts, but is able to contract for safety in the hospital and assures us that she will not make any attempt here. -The patient also reports that she feels that she would not be suicidal where she to be able to achieve significant pain relief which, for her, means restorative or partially restorative surgery, or at least a reasonable expectation of surgery in the near future. -Although still suicidal, the patient does seem to be somewhat future oriented. 10/23 - Pt denies SI, but the only reasoning provided is the hope that she will have her surgical procedure soon - Will attempt to process grief and other stressors with patient, as she has multiple risk factors and her attempt was very serious 10/25 - Denies SI today (2) Chronic back pain: 10/22/18 -The patient has suffered from a number of years from lumbar spinal stenosis with neuronal claudication and severe radiating pain, including sciatic pain in her left hip and leg. She also suffers from chronic pain associated with knee replacement surgery of her right knee. She rates her pain as a "7 or 8 out of 10" in her back and left leg (sciatic distribution), and "5 or 6" out of 10 in her right knee, but indicates that the pain in her back is severe enough that it "overwhelms" the pain in her knee. She feels that she is largely able to manage the pain in her knee through positioning her leg properly. -We have requested a pain management consult. The patient's hope is that somehow we can expedite a referral to a doctor Dani Wilson, whom she believes will be instrumental in arranging for her to have what she believes will be the potentially restorative back surgery that she needs, even though she is aware that the back surgery is likely to cause temporarily worse pain and a 4-6-month recovery. -The patient responds well to having her pain validated and the staff is aware of that her pain should never being minimized. 10/23 - Appreciative of pain management consultation and recommendations. Pt also reporting appreciation - Pt was started on amitriptyline 50mg qHS and diclofenac 75mg BID - Pt remains hopeful that her surgery process can be expedited 10/25 - Pt endorses exacerbation of pain symptoms today after attempting her PT exercises - Continues to feel the addition of amitriptyline and diclofenac have been effective to reduce pain slightly (3) Anxiety: 10/22/18 -The patient reports that her anxiety is largely attributable to her chronic pain, the uncertainty of her circumstances, and lingering anxiety associated with her late 's final illness and suffering. -We discussed the fact that, in some instances, benzodiazepines can actually worsen back pain because they can serve as muscle relaxants which can, in turn, resulted in worsening destabilization. However, the patient says that she has experienced the opposite, and that when she feels more relaxed her pain tends to lessen, at least slightly. -Material risks and anticipated benefits of alprazolam were reviewed with the patient. She is aware of the risk of physical habituation and, in fact, suspects that she may already be physically habituated. She also says that she has been eager not to increase her dose because she is aware of the potential for habituation, as well as the known interaction with alcohol. 10/24 - Pt acknowledges over-reliance on alprazolam to manage anxiety, long-term recommendation would be for eventual discontinuation of the medication and replacement with a safer alternative if necessary - Pt again acknowledges risks associated with dependency and interactions with alcohol - Will contact outpatient prescriber regarding dependence and intentional overdose when office opens tomorrow - Encourage development of coping strategies to reduce reliance on alprazolam 10/25 - Pt agreeable to reducing alprazolam to twice daily at 10:00 and 14:00; with third daily dose changed to prn between the hours of 18:00 and 0500 - to cover evening/nighttime anxiety - Pt remains highly resistant to further tapering or converting to another agent - Message was left for patient's PCP, and alprazolam prescriber, to discuss patient's overdose and inappropriate use of benzodiazepines in combination with her alcohol routine - will continue attempts to discuss concerns directly (4) Depressed: 10/22/18 -The patient prefers to describe her depressed mood as being a function of grief (her partner of 37 years just 3 months ago) and the sequela of chronic, severe, intractable pain. Nevertheless, she acknowledges that she had been taking duloxetine (Cymbalta) both for pain and for depression. -Today, we will increase the patient's dose of duloxetine to a dose of 80 mg a day. We have discussed adding adjunctive medications for depression, such as bupropion, aripiprazole, or risperidone. 10/23 - Titrate duloxetine further to 90mg for tomorrow morning - Remains focused on intractable pain, but is very appreciative of pain management consultation and recommendations - Somewhat more hopeful after hearing that there will be attempts to have her procedure expedited 10/24 - Continue current medication regimen, consider need for further titration of duloxetine 10/25 - Continue current medication regimen, patient reporting improvement in mood (5) Acute dehydration: The patient's most recent BUN remains slightly elevated. We are encouraging the patient to drink fluids, she is adherent with the recomme ndation, and denies feeling lightheaded or dizzy. We will continue to monitor vital signs. Inventory Assets Strengths: Intelligent. Many very supportive and actively involved friends. Multiple interests. Needs: Relief from chronic pain. Time to grieve her 's . Treatment for depression and anxiety. Resolution of suicidal thoughts. Risk Factors Assessment Male: No : Yes Do You Have Access To A Gun?: No Health Problems: Yes Mental Health Diagnoses: Yes Substance Use Disorders: No Previous Attempt: No Family History of Suicide: No Previous Psychiatric Hospitalization: No Hopelessness: Yes Smoker: No Protective Factors Assessment Restoration Beliefs: Yes : No Responsible for Young Children: No Employed: No (Retired) Stable Relationships: Yes Supportive Family: Yes Good Rapport with Provider: Yes Absence of Any Risk Factors Above: No Interval History Identifying Information CATHERINE MAIER is a 73-year-old F who currently lives alone in [place]. She has a history of depression, grief, and chronic pain, and was admitted on 10/21/18 20:03 on a 201 voluntary agreement following a suicide attempt by overdose. Chief Complaint "Um, well...psychologically I feel ok, but physically not so great. My pain did ratchet up today." Review of Systems Notes Constitutional: denied Cardiovascular: denied Respiratory: denied Gastrointestinal: denied Neurological/Musculoskeletal: increased back pain today after completing PT exercises Psychiatric: denies symptoms other than stated above Total of at least 10 systems reviewed, pertinent positives as above and in HPI. Sleep Information Total Hours of Sleep: 6 Sleep Comments: pt on q-15 minute checks Meal Information Percent Meal Consumed - Breakfast: 50 Percent Meal Consumed - Lunch: 75 Percent Meal Consumed - Dinner: 100 Nutrition Comment: per meal record Subjective Subjective Patient was seen & assessed and interval progress reviewed with Treatment Team. Staff reports the patient appears to be on a drastically "new path" as she is now placing a significant amount of hope in the idea of her surgery being expedited. Pt was seen today to assess progress since admission. Patient states that "psychologically I am okay" but feels that her pain is somewhat worsened today. Patient states that she forgotten to do her physical therapy exercises over the last few days, and feels she may have overdone her physical activity this morning. Despite this, patient reports significant benefit from medications initiated after pain management consultation. Patient reports that she is "improving all the time." The patient shares with this provider that she is "just really frustrated with my pain management group" as she feels they are somewhat responsible for her previous delay in surgery. This provider inquired if patient felt she would be able to maintain improvements made here, even if her surgical procedure was to be delayed further. Patient states "given a month off the procedure is the light at the end of the tunnel." This provider attempted to play "doubles advocate" as it remains a concern that patient is placing a significant amount of hope in the surgical procedure. Patient states "I know that the recovery will be any level of pain, I know what to expect." Patient feels that she is approaching readiness for discharge, but states she has not yet scheduled with a psychiatric prescriber we will continue to manage her medications. Patient states that today she had tried to hold her 2:00 dose of Xanax, as "I was not anxious so I think I would wait." Patient was agreeable to having scheduled Xanax reduced to twice daily, with an as needed per dose available in the evening/overnight should it be required. Pt was not willing to further decrease her daily dose and was not interested in considering another agent at this time. Toward the end of our visit, the patient stated, "oh, and there's my panic attack - I need to get that Xanax." She was commended on her ability to maintain reduced anxiety for 30 minutes, past the time she had initially refused the medication. Pt denied other needs or concerns today. Physical Exam Psychiatric Orientation: alert, oriented x 3, cooperative (superficially) and + guarded (somewhat, resistant to discussing some topics) Apperance: appropriately dressed and appropriately groomed Eye Contact: good eye contact Motor Behavior: steady gait and station (abmulates with a cane) and no abnormal motor movements Speech: normal rate/rhythm/volume of speech Affect: + blunted affect Mood: + anxious mood verbalized the onset of a panic attack as we were ending our visit Thought Process: goal directed thought process and clear/coherent thought process Thought Content: reality based without delusions Suicidal Thoughts: denies suicidal thoughts and denies suicidal plan ("I've exhausted my options") Homicidal Thoughts: denies homicidal thoughts Hallucinations: no auditory hallucinations and no visual hallucinations Cognition: remote memory grossly intact, attention grossly intact and language grossly intact Estimated Intelligence: consistent with education level Insight: + fair insight Judgement: + fair judgement Vital Signs (Past 24 Hours) Last Vital Signs Temp 36.6 C 10/25/18 06:38 Pulse 55 L 10/25/18 06:39 Resp 16 10/25/18 06:38 BP 108/64 10/25/18 06:39 Pulse Ox 93 10/21/18 20:00 Results & Data Current Inpatient Medications Current Inpatient Medications: Current Inpatient Medications Al Hydrox/Mg Hydrox/Simethicone (Maalox) 30 ml PO Q4H PRN PRN Reason: GI Upset Stop: 11/20/18 20:20 Alprazolam (Xanax) 0.25 mg PO UD IRINA Stop: 11/24/18 14:29 Alprazolam (Xanax) 0.25 mg PO UD PRN PRN Reason: Anxiety/Insomnia Stop: 11/22/18 02:59 Amitriptyline HCl (Elavil) 50 mg PO HS IRINA Stop: 11/21/18 21:59 Last Admin: 10/24/18 21:03 Dose: 50 mg Documented by: Amlodipine Besylate (Norvasc) 5 mg PO QAM [facility] Stop: 11/21/18 08:59 Last Admin: 10/25/18 09:09 Dose: 5 mg Documented by: Bismuth Subsalicylate (Kaopectate) 15 ml PO PRN PRN PRN Reason: Loose Stool Stop: 11/20/18 20:20 Diclofenac Sodium (Voltaren) 75 mg PO BIDM [facility] Stop: 11/21/18 17:44 Last Admin: 10/25/18 09:10 Dose: 75 mg Documented by: [facility]alta) [facility] Stop: 11/22/18 08:59 Last Admin: 10/25/18 09:09 Dose: 60 mg Documented by: Duloxetine HCl (Cymbalta) 30 mg PO QAM [facility] Stop: 11/23/18 08:59 Last Admin: 10/25/18 09:09 Dose: 30 mg Documented by: Hydroxyzine HCl (Vistaril) 25 mg PO Q4H PRN PRN Reason: Anxiety Stop: 11/20/18 20:20 Last Admin: 10/22/18 18:08 Dose: 25 mg Documented by: Magnesium Hydroxide (Milk Of Magnesia) 30 ml PO DAILY PRN PRN Reason: Heartburn Stop: 11/20/18 20:20 Sennosides (Senokot) 17.2 mg PO HS PRN PRN Reason: constipation Stop: 11/22/18 21:59 Last Admin: 10/24/18 23:05 Dose: 17.2 mg Documented by: Sodium Chloride ([place] Nasal) 1 - 2 sprays NA PRN PRN PRN Reason: Nasal Dryness/Congestion Stop: 11/20/18 20:20 Trazodone HCl (Desyrel) 50 mg PO HS PRN PRN Reason: Sleep Stop: 11/21/18 21:59 Mental Health & Subst Abuse Tx Therapist Name of Therapist: Laverne Singletary,has been seeing her for 6-8 months Director Blood Bank Name of Director Blood Bank: Denies Post Discharge Appointments Primary Care Physician Name Of Family Doctor: Dr. Duron CPT Code CPT Code 55793 (1) Suicide attempt by multiple drug overdose Encounter type: initial encounter Qualified Code(s): T50.902A - Poisoning by unspecified drugs, medicaments and biological substances, intentional self-harm, initial encounter
[2018-10-25 16:35] LABS: 7-Aminoclonaz, Confirm NEGATIVE NG/ML (CUTOFF=25); Codeine Urine NEGATIVE NG/ML (CUTOFF=50); Hydro-Alp Ur, GC/MS 783 NG/ML (CUTOFF=25); Hydrocodone Urine NEGATIVE NG/ML (CUTOFF=50); Hydromor Urine NEGATIVE NG/ML (CUTOFF=50); Hydroxyethylflurazepam, Conf NEGATIVE NG/ML (CUTOFF=50); Hydroxytriazolam NEGATIVE NG/ML (CUTOFF=50); Lorazepam, Ur GC/MS NEGATIVE NG/ML (CUTOFF=50); Marijuana Quant, GCMS Urine 617 NG/ML (CUTOFF=5); Morphine Urine NEGATIVE NG/ML (CUTOFF=50); Nordiazepam, Confirm NEGATIVE NG/ML (CUTOFF=50); Norhydrocodone Conf Ur NEGATIVE NG/ML (CUTOFF=50); Noroxycodone Urine 17800 NG/ML (CUTOFF=50); Oxazepam Ur, GC/MS NEGATIVE NG/ML (CUTOFF=50); Oxycodone Urine 14500 NG/ML (CUTOFF=50); Oxymorph Urine 6080 NG/ML (CUTOFF=50); Temazepam, Confirm NEGATIVE NG/ML (CUTOFF=50)
[2018-10-25] MEDS: AMITRIPTYLINE HCL 50 MG TAB PO SCH (21:01)
[2018-10-26] MEDS: AMLODIPINE BESYLATE 5 MG TAB PO SCH (08:47)
[2018-10-26] MEDS: DULOXETINE HCL 60 MG CAP PO SCH (08:47)
[2018-10-26] MEDS: DULOXETINE HCL 30 MG CAP PO SCH (08:47)
[2018-10-26] MEDS: DICLOFENAC SODIUM 75 MG TABCR PO SCH (08:47)
[2018-10-26] MEDS: ALPRAZolam 0.25 MG TABLET PO SCH (09:57)
--- NOTE | 2018-10-26 10:27 | Discharge Summary ---
Date of Service October 26, 2018 History of Present Illness The patient is a 73 year old female who presented to the Emergency Department following an intentional overdose of Xanax and that started 16 hours ago. The patient states that she wants to , but has never tried to hurt herself before. According to the patient, she checked into a hotel on the evening of 10/20/2018 and took 15 Oxycodone and 16 - 0.25mg Xanax at 1900. She reports that she then woke up in the hotel at 0300 yesterday, was angry that she was alive, and so she took more drugs and alcohol (10 additional Oxycodone, 10 additional 0.25mg Xanax and a "sip" of alcohol.. The patient left a suicide note, and according to the note and according to the patient's report, she had a very elaborate plan to commit suicide. She indicated that she had been contemplating suicide for approximately 2 weeks, but had [facility] Specifically, the plan had been to not tell anyone of her suicidal thoughts, check into a hotel, and make arrangements as best she could for the care of her pet dogs subsequent to her anticipated . The matter was brought to the attention of the [place] police when at least 1 of her friends received a note that said something such as "I will explained later, but some things, and I need you to check in on my dogs tomorrow" (paraphrasing). The friend recognize this as an odd request, became concerned, and notified the police. The police checked all local hotels and discovered that the patient was staying at the [facility], locally, discovered the patient, and made arrangements for emergency medical care. The patient explains that she has been in intractable pain for many years, and the pain has become, in her words "completely unbearable." Specifically, she reports that she suffers from a form of spinal stenosis that particularly affects her lumbar spine, and among other symptoms, causes frequent, shooting pains in her back, and sciatic pain in her left leg. The pain is not responded to standard pain and anti-inflammatory medications, although she indicates that she has not used opioid-based pain medications. She also has been taking Cymbalta (duloxetine) 60 mg a day with what she considers to be questionable, but certainly not a substantial improvem ent in her pain symptoms. However, she reports that the use of medical marijuana, in combination with alcohol in the evenings does allow her to experience some relief in her pain, and marijuana and alcohol services soporific and she is typically able to sleep approximately 8 hours a night, typically one interruptions punctuated by painat which point she typically takes alprazolam 0.25 mg in order to return to sleep. Furthermore, the patient was in June of this year when her of acute myelogenous leukemia, following a complicated and painful course that lasted for approximately 15 months. The patient and her have been together as a monogamous couple for 37 years, and the patient tearfully describes her as "the love of my life. We were perfect together. I miss her every minute." Much of the past year for the patient had been devoted to helping to care for her dying , and she notes that because of this role her chronic pain, while certainly still present, was "pushed into the background." The patient reports that, of course, she is still grieving heavily, but she feels that her suicidality is born of her chronic, intractable pain --combined with a sense of hopelessness that a solution to the pain is not available, or will not be available in the reasonably near future. Regarding the patient's chronic pain, she notes that several surgical in terventions have been proposed, but for various reasons, apparently including insurance issues and the fact that one surgery was scheduled to have occurred at around the time that the patient's was near and the patient had to cancel it. She has subsequently been told that she will need more extensive and more invasive surgery than had originally been planned, and she feels very frustrated because she is having difficulty scheduling the necessary consultations and evaluations, let alone the necessary surgery. She is hoping to see a doctor darrin Neri, but has not been able to get an expedited appointment. In addition to individual supportive psychotherapy, she had been prescribed Cymbalta (duloxetine) 60 mg a day, both for depression and anxiety by her primary care physician. She had a brief trial of bupropion at an unspecified dose, but she found that this was not helpful. She had one visit with Dr. Onofre Castro, a psychiatrist, but she did not care for Dr. Castro and although he reportedly prescribed 3 medications (the patient does not recall the names, but according to Dr. Castro's record the patient was advised to increase her duloxetine to the current dose of 60 mg a day, to continue alprazolam, although at a somewhat lower dose, and attempt to use hydroxyzine in lieu of alprazolam.) she decided not to take the medications, although she picked them up at the pharmacy, because she read online that the could possibly be a dangerous combination. She is also prescribed alprazolam 0.25 mg 3 times daily by another provider. The patient notes that she has not taken any other psychiatric medications besides duloxetine, alprazolam, a one-time use of diazepam (which she says caused her to feel "fuzzy), and the above referenced brief trial of buspirone. She tells us that she prefers alprazolam to other benzodiazepines (diazepam) because she is able to take Xanax with relief in her pain and anxiety, but remains mentally alert so that she can engage in social activities with friends, as well as playing duplicate bridge on line "without forgetting what's trump." Physical Exam Mental Examination Female appearing her stated age. Walks with a cane. Seated in no acute distress, on a cushion she brought with her to the interview room. Fair eye contact and no abnormal movements. Mood is "fine," and affect is stable, reactive, mildly irritable. Speech is spontaneous, normal rate, volume, and irritable, sarcastic tone. Thoughts are goal-directed for the most part, with some perseveration on her complaints about some of her health care providers/departments. She denies suicidal thoughts, homicidal thoughts, hallucinations, and paranoia. No delusions are evident. She is alert and oriented. Level of intelligence estimated to be average. Insight and judgment are limited. Vital Signs (Past 24 Hours) Last Vital Signs Temp 36.8 C 10/26/18 06:36 Pulse 61 10/26/18 06:37 Resp 18 10/26/18 06:36 BP 112/68 10/26/18 06:37 Pulse Ox 93 10/21/18 20:00 Principal Diagnosis Major depressive disorder, recurrent, severe without psychosis Suicide attempt by overdose on alprazolam and OxyContin Alcohol and benzodiazepine use disorders Chronic low back pain Psychiatric Data Patient was hospitalized on our unit for 5 days. She initially reported anger that she had not as a result of her overdose, stating she believes she had taken enough medication to kill her. She was able to process the circumstances that led to the suicide attempt, and felt she would not be suicidal if she could have achieve relief from her chronic pain. A pain management consult was requested and she was seen by ELLIOTT Lutz, on 10/23/2018. She was started on amitriptyline and diclofenac, and they agreed to work with her to schedule surgery in [place]. As her pain improved, her suicidal ideation improved and resolved, and she reported improved mood and hope for the future. She had many visits from friends, but declined a family meeting. The opiate pain medications police brought in with her that were left over from her were safely disposed of in the pharmacy, but her home supply of alprazolam was returned to her at discharge. She reported daily excessive alcohol use and over reliance on alprazolam, and long-term recommendations to taper off benzodiazepin es were reviewed with her on multiple occasions. Her alprazolam was decreased from 0.5 mg 4 times daily to 3 times daily, and duloxetine increased to 90 mg daily to target mood, anxiety, and pain. She was also advised of the risks of her alcohol use, and was unwilling to address that or cut back. Dr. Duron, who prescribes her alprazolam, was contacted and informed of her overdose and hospitalization. She was referred for outpatient psychiatric care. She was noted to be well groomed and appropriately dressed, tending to ADLs, interacting with peers, and irritability lessened throughout the course of her stay. Staff contacted her outpatient therapist and informed her of the patient's hospitalization. Day of Discharge Assessment Staff report the patient is reporting good mood and denying suicidal thoughts, and stating she is ready for discharge. She attended and participated in groups yesterday, at times questioned the rules of the unit and was oppositional in response to staff explanations. She had a good visit with her friends, and denied suicidal thoughts to staff. On my assessment today, the patient states that her mood is "good," saying "things changed, there wasn't any light at the end of the tunnel, and now there is. My pain management group went to [facility] for me; I guess you have to kill yourself to get their attention." She is upset that her surgery is not scheduled, and wants to know if hospital staff will call the pain management group and get them to schedule her surgery in [place]. She says she has not called herself to follow-up as she does not have the phone number. She continues to deny suicidal thoughts, and states she does not think she would ever try to hurt herself again because she has "an enormous crowd of friends, support network." She says her friends have made a schedule to come and spend time with her after she returns home, as it helps her to be distracted from her pain and to be around others. She also states she wants to work more intently on her grief and her therapy as an outpatient. She denies any safety concerns with discharge, and feels she is ready to go home, stating she has "got the most out of this place that I can, worked on stress management." She is adamant that she will continue to drink and take Xanax daily, and again reviewed the risks of chronic/overuse of these substances, including tolerance, dependence (which she reports she rarely has), cognitive impairment, falls, overdose, and AMS. Reviewed recommendations to taper off benzodiazepines given the risk of drug drug interactions with her daily alcohol and THC use. Her response was "I have an addiction to Xanax, and I really don't care." While meeting with her, the social media sr strategy manager contacted the pain management clinic, who recommended the patient follow-up with her PCP for pain medication that they started during this hospital stay, and stated they were still in the process of trying to schedule her surgery. The patient was informed and encouraged to follow-up with staff at their clinic if she had additional questions. Transition of Care Transition Of Care Record: was reviewed with the patient Advance Directives Advance Directives Information Provided: Yes Advance Directives: Yes Mental Health Advance Directive: No Advance Directives on File: No Living Will: Yes Power of Station Superintendent: Yes Advance Directives Reason:: Declines as Mental Health Visit. Risk Factors Assessment Risk factors were mitigated by admission to the inpatient unit, dosing of opiate medications the patient had stockpiled and used to attempt suicide, decreasing the dose of benzodiazepine she is prescribed, educating her about the risks of ongoing benzodiazepine and alcohol use and recommendations to decrease her use, coordination of care with her outpatient therapist and PCP, referral for tpatient psychiatric care, offering a family meeting which she refused, increasing her antidepressant medication to target mood, anxiety, and pain, involving her in groups and therapy, and working on healthy coping skills and a discharge safety plan. She is reporting improved mood, denying suicidal thoughts, taking medications as prescribed, and stating willingness to follow up with outpatient mental health care. She is requesting discharge, and that she is no longer at acute risk of harm to herself, can be managed as an outpatient at this time. She does have chronic increased risk for suicide compared to the general population given her numerous risk factors including the of her , depression, substance use disorders, history of a very serious suicide attempt that was premeditated, and access to multiple medications. These risk factors are not likely to be mitigated by further inpatient treatment. Male: No : Yes Do You Have Access To A Gun?: No Health Problems: Yes Mental Health Diagnoses: Yes Substance Use Disorders: No Previous Attempt: No Family History of Suicide: No Previous Psychiatric Hospitalization: No Hopelessness: Yes Smoker: No Protective Factors Assessment Faith Beliefs: Yes : No Responsible for Young Children: No Employed: No (Retired) Stable Relationships: Yes Supportive Family: Yes Good Rapport with Provider: Yes Absence of Any Risk Factors Above: No Tobacco Cessation at Discharge Tobacco Cessation Medication Prescribed at Discharge: Not Applicable/Non-Smoker Total Time Total Time Spent: Greater Than 30 Minutes Total Time Includes: Examination of the patient, Discharge Planning and Medication Reconciliation Discharge Data Consultations 10/22/18 09:36 Consult Pain Management Stat Lab Results 10/21/18 10/21/18 10/21/18 11:13 11:13 11:13 WBC 9.28 RBC 3.96 L Hgb 13.0 Hct 38.0 MCV 96.0 MCH 32.8 MCHC 34.2 RDW Std Deviation 47.6 H RDW Coeff of Korey 13.6 Plt Count 229 MPV 10.4 Immature Gran % (Auto) 0.2 Neut % (Auto) 72.6 Lymph % (Auto) 17.9 Fentress % (Auto) 8.6 Eos % (Auto) 0.5 Baso % (Auto) 0.2 Immature Gran # (Auto) 0.02 Neut # (Auto) 6.73 H Lymph # (Auto) 1.66 Fentress # (Auto) 0.80 H Eos # (Auto) 0.05 Baso # (Auto) 0.02 Sodium 137 Potassium 3.9 Chloride 104 Carbon Dioxide 29 Anion Gap 4.0 BUN 17 Creatinine 0.68 Est Cr Clr Drug Dosing 62.8 Est GFR ( Amer) 102.0 Est GFR (Non-Af Amer) 88.0 BUN/Creatinine Ratio 24.4 H Glucose 106 H Calcium 9.1 Magnesium 2.3 Total Bilirubin 0.5 AST 15 ALT 17 Alkaline Phosphatase 73 Troponin I < 0.015 NT-Pro-B Natriuret Pep 114 Total Protein 7.2 Albumin 3.7 Globulin 3.5 Albumin/Globulin Ratio 1.1 Lipase 473 H TSH 3.000 Urine Color Urine Appearance Urine pH Ur Specific Purcell Urine Protein Urine Glucose (UA) Urine Ketones Urine Blood Urine Nitrite Urine Bilirubin Urine Urobilinogen Ur Leukocyte Esterase Urine WBC (Auto) Urine RBC (Auto) U Hyaline Cast (Auto) U Epithel Cells (Auto) Urine Bacteria (Auto) Salicylates < 1.7 L Urine Opiates Screen U Codeine Confrm GC/MS Ur Morphine (GC/MS) Ur Hydrocodone (GC/MS) Ur Norhydrocodone Ur Noroxycodone Urine Oxycodone (GC/MS) U Oxymorphone GC/MS Ur Methadone, Qual Ur Hydromorphone (GC/MS) Acetaminophen < 2 L Urine Barbiturates Ur Phencyclidine (PCP) U Amphetamin/Meth Scrn MDMA (Ecstasy) Screen U OH-Alprazolam Confrm U Benzodiazepines Scrn 7-Amino Clonazepam Ur Nordiazepam Confirm U OH-ethylflurazepam U Lorazepam Cnf GC/MS U Oxazepam Confm GC/MS Ur Temazepam Confirm U OH-Triazolam Confirm U OH-Midazolam Confirm Ur Cocaine Metabolite U Marijuana (THC) Screen U Marijuana THC Carboxy Ethyl Alcohol mg/dL 10/21/18 10/21/18 10/21/18 11:13 11:13 14:30 WBC RBC Hgb Hct MCV MCH MCHC RDW Std Deviation RDW Coeff of Korey Plt Count MPV Immature Gran % (Auto) Neut % (Auto) Lymph % (Auto) Fentress % (Auto) Eos % (Auto) Baso % (Auto) Immature Gran # (Auto) Neut # (Auto) Lymph # (Auto) Fentress # (Auto) Eos # (Auto) Baso # (Auto) Sodium Potassium Chloride Carbon Dioxide Anion Gap BUN Creatinine Est Cr Clr Drug Dosing Est GFR ( Amer) Est GFR (Non-Af Amer) BUN/Creatinine Ratio Glucose Calcium Magnesium Total Bilirubin AST ALT Alkaline Phosphatase Troponin I NT-Pro-B Natriuret Pep Total Protein Albumin Globulin Albumin/Globulin Ratio Lipase Cancelled TSH Urine Color Urine Appearance Urine pH Ur Specific Purcell Urine Protein Urine Glucose (UA) Urine Ketones Urine Blood Urine Nitrite Urine Bilirubin Urine Urobilinogen Ur Leukocyte Esterase Urine WBC (Auto) Urine RBC (Auto) U Hyaline Cast (Auto) U Epithel Cells (Auto) Urine Bacteria (Auto) Salicylates Urine Opiates Screen Pos H U Codeine Confrm GC/MS Ur Morphine (GC/MS) Ur Hydrocodone (GC/MS) Ur Norhydrocodone Ur Noroxycodone Urine Oxycodone (GC/MS) U Oxymorphone GC/MS Ur Methadone, Qual Neg Ur Hydromorphone (GC/MS) Acetaminophen Urine Barbiturates Neg Ur Phencyclidine (PCP) Neg U Amphetamin/Meth Scrn Neg MDMA (Ecstasy) Screen Neg U OH-Alprazolam Confrm U Benzodiazepines Scrn Pos H 7-Amino Clonazepam Ur Nordiazepam Confirm U OH-ethylflurazepam U Lorazepam Cnf GC/MS U Oxazepam Confm GC/MS Ur Temazepam Confirm U OH-Triazolam Confirm U OH-Midazolam Confirm Ur Cocaine Metabolite Neg U Marijuana (THC) Screen Pos H U Marijuana THC Carboxy Ethyl Alcohol mg/dL < 3.0 10/21/18 10/21/18 10/21/18 14:30 14:30 15:51 WBC RBC Hgb Hct MCV MCH MCHC RDW Std Deviation RDW Coeff of Korey Plt Count MPV Immature Gran % (Auto) Neut % (Auto) Lymph % (Auto) Fentress % (Auto) Eos % (Auto) Baso % (Auto) Immature Gran # (Auto) Neut # (Auto) Lymph # (Auto) Fentress # (Auto) Eos # (Auto) Baso # (Auto) Sodium Potassium Chloride Carbon Dioxide Anion Gap BUN Creatinine Est Cr Clr Drug Dosing Est GFR ( Amer) Est GFR (Non-Af Amer) BUN/Creatinine Ratio Glucose Calcium Magnesium Total Bilirubin AST ALT Alkaline Phosphatase Troponin I NT-Pro-B Natriuret Pep Total Protein Albumin Globulin Albumin/Globulin Ratio Lipase 355 TSH Urine Color Yellow Urine Appearance Clear Urine pH 5.0 Ur Specific Purcell 1.020 Urine Protein Negative Urine Glucose (UA) Negative Urine Ketones Negative Urine Blood Negative Urine Nitrite Negative Urine Bilirubin Negative Urine Urobilinogen Negative Ur Leukocyte Esterase 1+ H Urine WBC (Auto) 10-30 H Urine RBC (Auto) 0-4 U Hyaline Cast (Auto) 1-5 U Epithel Cells (Auto) >30 H Urine Bacteria (Auto) Negative Salicylates Urine Opiates Screen U Codeine Confrm GC/MS NEGATIVE Ur Morphine (GC/MS) NEGATIVE Ur Hydrocodone (GC/MS) NEGATIVE Ur Norhydrocodone NEGATIVE Ur Noroxycodone 10940 A Urine Oxycodone (GC/MS) 63042 A U Oxymorphone GC/MS 6080 A Ur Methadone, Qual Ur Hydromorphone (GC/MS) NEGATIVE Acetaminophen Urine Barbiturates Ur Phencyclidine (PCP) U Amphetamin/Meth Scrn MDMA (Ecstasy) Screen U OH-Alprazolam Confrm 783 A U Benzodiazepines Scrn 7-Amino Clonazepam NEGATIVE Ur Nordiazepam Confirm NEGATIVE U OH-ethylflurazepam NEGATIVE U Lorazepam Cnf GC/MS NEGATIVE U Oxazepam Confm GC/MS NEGATIVE Ur Temazepam Confirm NEGATIVE U OH-Triazolam Confirm NEGATIVE U OH-Midazolam Confirm NEGATIVE Ur Cocaine Metabolite U Marijuana (THC) Screen U Marijuana THC Carboxy 617 A Ethyl Alcohol mg/dL Hospital Course (1) Suicide attempt by multiple drug overdose: 10/22/18 -Today, the patient acknowledges that she had been disappointed and somewhat angry when she realized that her suicide attempt had not lead to . She continues to have suicidal thoughts, but is able to contract for safety in the hospital and assures us that she will not make any attempt here. -The patient also reports that she feels that she would not be suicidal where she to be able to achieve significant pain relief which, for her, means restorative or partially restorative surgery, or at least a reasonable expectation of surgery in the near future. -Although still suicidal, the patient does seem to be somewhat future oriented. 10/23 - Pt denies SI, but the only reasoning provided is the hope that she will have her surgical procedure soon - Will attempt to process grief and other stressors with patient, as she has multiple risk factors and her attempt was very serious 7/1 - Denies SI today (2) Chronic back pain: 10/22/18 -The patient has suffered from a number of years from lumbar spinal stenosis with neuronal claudication and severe radiating pain, including sciatic pain in her left hip and leg. She also suffers from chronic pain associated with knee replacement surgery of her right knee. She rates her pain as a "7 or 8 out of 10" in her back and left leg (sciatic distribution), and "5 or 6" out of 10 in her right knee, but indicates that the pain in her back is severe enough that it "overwhelms" the pain in her knee. She feels that she is largely able to manage the pain in her knee through positioning her leg properly. -We have requested a pain management consult. The patient's hope is that somehow we can expedite a referral to a doctor Dani Wilson, whom she believes will be instrumental in arranging for her to have what she believes will be the potentially restorative back surgery that she needs, even though she is aware that the back surgery is likely to cause temporarily worse pain and a 4-6-month recovery. -The patient responds well to having her pain validated and the staff is aware of that her pain should never being minimized. 10/23 - Appreciative of pain management consultation and recommendations. Pt also reporting appreciation - Pt was started on amitriptyline 50mg qHS and diclofenac 75mg BID - Pt remains hopeful that her surgery process can be expedited 10/25 - Pt endorses exacerbation of pain symptoms today after attempting her PT exercises - Continues to feel the addition of amitriptyline and diclofenac have been effective to reduce pain slightly 10/26 -ironworker apprentice shop contacted the pain clinic, who recommended patient follow-up with her PCP for ongoing management of pain. She was given prescription for 30- day supply of Voltaren and 7-day supply of amitriptyline, due to its lethality in overdose. -Pain clinic continues to work on scheduling the patient's surgery, she was given the contact information and advised to follow-up with them for any que stions. (3) Anxiety: 10/22/18 -The patient reports that her anxiety is largely attributable to her chronic pain, the uncertainty of her circumstances, and lingering anxiety associated with her late 's final illness and suffering. -We discussed the fact that, in some instances, benzodiazepines can actually worsen back pain because they can serve as muscle relaxants which can, in turn, resulted in worsening destabilization. However, the patient says that she has experienced the opposite, and that when she feels more relaxed her pain tends to lessen, at least slightly. -Material risks and anticipated benefits of alprazolam were reviewed with the patient. She is aware of the risk of physical habituation and, in fact, suspects that she may already be physically habituated. She also says that she has been eager not to increase her dose because she is aware of the potential for habituation, as well as the known interaction with alcohol. 10/24 - Pt acknowledges over-reliance on alprazolam to manage anxiety, long-term recommendation would be for eventual discontinuation of the medication and replacement with a safer alternative if necessary - Pt again acknowledges risks associated with dependency and interactions with alcohol - Will contact outpatient prescriber regarding dependence and intentional overdose when office opens tomorrow - Encourage development of coping strategies to reduce reliance on alprazolam 10/25 - Pt agreeable to reducing alprazolam to twice daily at 10:00 and 14:00; with third daily dose changed to prn between the hours of 18:00 and 0500 - to cover evening/nighttime anxiety - Pt remains highly resistant to further tapering or converting to another agent - Message was left for patient's PCP, and alprazolam prescriber, to discuss patient's overdose and inappropriate use of benzodiazepines in combination with her alcohol routine - will continue attempts to discuss concerns directly (4) Depressed: 10/22/18 -The patient prefers to describe her depressed mood as being a function of grief (her partner of 37 years just 3 months ago) and the sequela of chronic, severe, intractable pain. Nevertheless, she acknowledges that she had been taking duloxetine (Cymbalta) both for pain and for depression. -Today, we will increase the patient's dose of duloxetine to a dose of 80 mg a day. We have discussed adding adjunctive medications for depression, such as bupropion, aripiprazole, or risperidone. 10/23 - Titrate duloxetine further to 90mg for tomorrow morning - Remains focused on intractable pain, but is very appreciative of pain management consultation and recommendations - Somewhat more hopeful after hearing that there will be attempts to have her procedure expedited 6/30 - Continue current medication regimen, consider need for further titration of duloxetine 10/25 - Continue current medication regimen, patient reporting improvement in mood (5) Acute dehydration: The patient's most recent BUN remains slightly elevated. We are encouraging the patient to drink fluids, she is adherent with the recommendation, and denies feeling lightheaded or dizzy. We will continue to monitor vital signs. (6) Substance abuse: Patient has been educated about the risks of overuse of alcohol and benzodiazepines, mixing these substances, and recommendations for decreased alcohol use and taper off of benzodiazepines by multiple clinicians during this hospital stay. She is unwilling to change her alcohol consumption, but her alprazolam dose was decreased and would recommend to taper off this medication as an outpatient. Dr. Duron was contacted today by ELLIOTT Oneill, and informed of the patient's overdose and hospitalization as well as the recommendations. She has been referred for outpatient psychiatric care with Dr. Allison, and will continue therapy with Laverne Singletary. -Liquid morphine and tramadol the patient had left over from her was disposed of in the pharmacy. Post Discharge Appointments Primary Care Physician Name Of Family Doctor: Dr. Duron/Malou Wayne PA-C [facility] Date of Appointment with PCP: 10/29/18 Time of Appointment with PCP: 12:50 Primary Care Release of Information: Obtained, Reviewed and Signed Pain Clinic Name of Pain Clinic: [facility], Pain Management, [place] Phone Number for Pain Clinic: [phone] Pain Clinic Appointment Comment: [address] [facility], [facility] [address], They are working on scheduling surgery Pain Clinic Release of Information: Obtained, Reviewed and Signed Smoking Cessation Counseling Tobacco Cessation Medication Prescribed at Discharge: Not Applicable/Non-Smoker Contact Information Discharge Discharge Address: [address] [place] [id number] Discharge Plan Discharge Items Patient Disposition: Home - Self-Care Reason For Visit: SUICIDE ATTEMPT Discharge Diagnosis: Depression, suicide attempt by polysubstance overdose, benzodiazepine and alcohol use disorders Discharge Goals: Decrease discomfort, Improve disease control, Learn about illness, Specific goals and Therapeutic intervention Specific Goals: refer for outpatient psychiatric care Activity: Per 'Additional Instructions' section Non-emergency contact: Primary Care Provider, Psychiatrist and Therapist Call non-emergency contact if: you have any medication questions and your symptoms worsen Follow-up/Referrals: Tal Duron MD [Primary Care Provider] - Diet: Regular Addtl Provider Instructions: SPECIAL CARE INSTRUCTIONS: 1. Follow through with your scheduled aftercare appointments. If unable to keep an appointment, please call to reschedule. 2. Take your medication only as prescribed. Medication should not be changed or stopped without the approval of your doctor. In the event of worsening symptoms or concerns about side effects, contact your doctor immediately. 3. Utilize new healthy coping skills, anger management skills, and stress management skills learned during your hospitalization. Journal feelings and process them with a support person. Identify stressors or situations that may result in relapse, deterioration or inappropriate behaviors and develop a plan to deal with those issues. 4. If your coping skills are ineffective and you are in crisis, contact your outpatient providers for direction. If unable to reach your providers, please call the CAN HELP LINE AT or go to the closest Emergency Room. 5. Avoid alcohol and un-prescribed drugs. 6. You have been provided with the Mental Health Advance Directives Pamphlet for your review. AFTERCARE APPOINTMENTS: * Please call your insurance company prior to your scheduled appointment to confirm your aftercare providers are covered. Take your insurance information to your appointments. WHO TO CALL AND WHEN: Medical Emergencies: For questions or emergencies related to your hospital stay, please contact the Inpatient Behavioral Health Unit at [phone]. A office clinician is on-call 17/11 for the Behavioral Health Unit for emergencies At any time you feel your situation is an emergency, you may also call 911 immediately. Your Doctors Instructions noted above were prepared by provider Eliza Carrington MD. Prescriptions: New amitriptyline 50 mg Tablet 50 mg PO HS Qty: 14 RF: 1 diclofenac sodium 75 mg Tablet,Delayed Release (Dr/Ec) 75 mg PO BIDM Qty: 60 RF: 0 duloxetine 30 mg Capsule,Delayed Release(Dr/Ec) 30 mg PO QAM Qty: 30 RF: 0 Continued amlodipine [Norvasc] 2.5 mg tablet 5 mg PO QAM RF: 0 milk thistle 150 mg capsule 150 mg PO QAM RF: 0 magnesium oxide 250 mg magnesium tablet 250 mg PO QAM RF: 0 cholecalciferol (vitamin D3) 3,000 unit tablet 1,000 units PO QAM RF: 0 duloxetine 60 mg capsule,delayed release(DR/EC) 60 mg PO QAM RF: 0 Medical Marijuana 1 dose Inhalation DAILY PRN (Reason: Pain) RF: 0 multivitamin Tablet 1 tab PO QAM RF: 0 Changed alprazolam [Xanax] 0.5 mg tablet 0.25 mg PO TID PRN (Reason: Anxiety) Qty: 0 RF: 0 Stand-Alone Forms: [facility] Discharge Orders: Discharge Order (Routine); Ordered 10/26/18 Ordered By: Eliza Carrington Admission Data Admit Date/Time: 10/21/18 20:03 Attending Provider: Phoenix Allison Admit Provider: Eliza Carrington Primary Care Provider: Tal Duron Other Providers: Ti Colon Service: Psychiatry Other Interventions: PSY Interdisciplinary Discharge Planning Last Done: 10/26/18 09:57 Pending Studies at Discharge: No
== END 2018-10-26 13:10 | disposition home or self-care (01) | DRG 885 ==
LOC: ED 10:20 → 3S 20:03
DX: F33.2 Major depressive disorder, recurrent severe without psychotic features; F41.9 Anxiety disorder, unspecified; M48.062 Spinal stenosis, lumbar region with neurogenic claudication; E86.0 Dehydration; T42.4X2A Poisoning by benzodiazepines, intentional self-harm, initial encounter; I10 Essential (primary) hypertension; F43.29 Adjustment disorder with other symptoms; Z79.899 Other long term (current) drug therapy

== ENCOUNTER 2018-11-19 06:15 | Inpatient (IN) ==
--- NOTE | 2018-11-16 09:15 | Anesthesiology Consultation ---
Date of Service November 16, 2018 Assessment & Plan (1) Encounter for pre-operative examination: Chart Review Chart Review: Acceptable Risk for Surgery and Patient NOT seen in Pre Admission Testing History Surgery Operation Date: 11/19/18 13:05 Proposed Procedures p L4-L5, L5-S1 Decompression and Fusion, Spinal Cord Monitoring - Bacilio Wilson DO Height/Weight Height: 5 ft 3 in Weight: 58.967 kg Allergies Allergy/AdvReac Type Severity Reaction Status Date / Time coconut Allergy Unknown Unverified 11/15/18 09:20 Medications Home Medications Medication Instructions Recorded Confirmed Last Taken amlodipine 2.5 mg tablet 5 mg PO QAM 04/22/18 11/15/18 10/21/18 cholecalciferol (vitamin D3) 3,000 1,000 units PO QAM 04/22/18 11/15/18 10/21/18 unit tablet magnesium 250 mg (as magnesium 250 mg PO QAM tab 04/22/18 11/15/18 10/21/18 oxide) tablet milk thistle 150 mg capsule 150 mg PO QAM cap 04/22/18 11/15/18 10/21/18 duloxetine 60 mg capsule,delayed 60 mg PO QAM 04/23/18 11/15/18 10/21/18 release Medical Marijuana 1 dose INHALATION DAILY PRN 06/04/18 11/15/18 10/21/18 multivitamin 1 tab PO QAM 06/04/18 11/15/18 10/21/18 alprazolam [Xanax] 0.25 mg PO TID PRN #0 tab 10/26/18 11/15/18 10/21/18 amitriptyline 50 mg PO HS #14 tab 10/26/18 11/15/18 Unknown diclofenac sodium 75 mg PO BIDM #60 tab 10/26/18 11/15/18 Unknown duloxetine 30 mg PO QAM #30 cap 10/26/18 11/15/18 Unknown Past Medical History Medical History Lumbar stenosis with neurogenic claudication (Chronic) Severe at L4-5 Moderate to severe at L5-S1 Hypertension (Chronic) Mitral valve prolapse (Chronic) Remote history, no recent echo. Anxiety (Chronic) Ocular hypertension (Chronic) Osteoarthritis (Chronic) Chronic back pain (Chronic) Degenerative disc disease (Chronic) Depression Past Surgical History Surgical History History of tonsillectomy (Resolved) History of tooth extraction (Resolved) History of cataract surgery (Resolved) History of colonoscopy (Resolved) History of total knee replacement (Resolved) Right. Done at [facility] 2016, SAB +PNB without issues. Social History Smoking Status: Former smoker Do You Dip or Chew Tobacco: No Smoking End Date: quit 15 years ago Hx Alcohol Use: Yes Alcohol type: wine alcohol intake frequency: 3 or more drinks per day Hx Substance Use: Yes substance use type: marijuana (medical) Last Used Substance: Days (ago) Testing Laboratory Results 11/05/18 WBC: 8.65 H/H: 12.2/35.8 PLATELETS: 321 SODIUM: 141 POTASSIUM: 4.0 CHLORIDE: 107 CO2: 29 BUN: 19 CREATININE: 0.73 GLUCOSE: 107 Electrocardiogram Date: 11/05/18 Findings: + NSR @ 61) iRBBB. Chest X-Ray Date: 11/05/18 Findings: + NAD
[~2018-11-19 06:15] MED LIST changes: -ALPR-411 PO; -ASCO1CAP3 PO; -B-COTAB18 PO; -CHOL1000 PO; -COEN1CAP28 PO; -Curamin; -IBUP-1050 PO; +LR 15ML/HR IV SCH; -LUTE6CAP9 PO; -MAGNESIUM OXIDE PO; -MILK150C; -OMEG10007 PO; -PROB1CAP41; -RXC5 PO; -TRAM-10 PO; -VITA400C3 PO
[2018-11-19] MEDS ORDERED: fentaNYL citrate 100 MCG/2 ML VIAL IV PRN (06:35)
[2018-11-19] MEDS ORDERED: ONDANSETRON INJ 2 MG/ML 2 ML VIAL IV PRN ×2 (06:35→11:21)
[2018-11-19] MEDS ORDERED: ATROPINE SULFATE 0.1 MG/ML 10ML SYR IV PRN (06:35)
[2018-11-19] MEDS ORDERED: ePHEDrine sulfate 50 MG/ML AMP IV PRN (06:35)
[2018-11-19] MEDS ORDERED: fentaNYL citrate 100 MCG/2 ML VIAL ONE ×3 (06:44→08:52)
[2018-11-19] MEDS ORDERED: HYDROmorphone INJ 2 MG/ML SYR/VIAL ONE ×2 (06:44→06:52)
[2018-11-19] MEDS ORDERED: MIDAZOLAM HCL 1 MG/ML 2ML VIAL ONE (06:44)
[2018-11-19] MEDS ORDERED: ONDANSETRON INJ 2 MG/ML 2 ML VIAL ONE (06:46)
[2018-11-19] MEDS ORDERED: NEOSTIGMINE METHYLSULFATE 1 MG/ML 10ML VIAL ONE (06:46)
[2018-11-19] MEDS ORDERED: LIDOCAINE HCL 2% 2 ML VIAL/AMP(20MG/ML) INFIL ONE (06:46)
[2018-11-19] MEDS ORDERED: DEXAMETHASONE SOD INJ 4 MG/ML VIAL ONE (06:46)
[2018-11-19] MEDS ORDERED: GLYCOPYRROLATE 0.2 MG/ML VIAL ONE (06:46)
[2018-11-19] MEDS ORDERED: PROPOFOL IV EMULSION 10 MG/ML 20 ML VIAL IV ONE (06:46)
[2018-11-19] MEDS ORDERED: ROCURONIUM BROMIDE 10 MG/ML 5 ML VIAL ONE (06:46)
[2018-11-19] MEDS ORDERED: BUPIVACAINE/EPINEPHRINE 0.5% MPF 1:200,000 30 ML VIAL ONE (06:54)
[2018-11-19] MEDS ORDERED: BACITRACIN INJ 50,000 UNIT VIAL ONE (06:54)
--- NOTE | 2018-11-19 07:23 | History & Physical Bridge Note ---
Date of Service November 19, 2018 History & Physical Bridge Note I have examined the patient, reviewed the History & Physical and in the interval since the performance of the History & Physical I have noted the following changes of clinical significance: no changes noted
--- NOTE | 2018-11-19 07:24 | History & Physical Report ---
Date of Service November 19, 2018 Assessment & Plan (1) Lumbar stenosis with neurogenic claudication: L4-5 L5-S1 decompression and fusion Present on Admission?: Yes History of Present Illness Chief Complaint: Back and leg pain Primary Care Provider: Tal Duron MD This is a 73-year-old female with chronic persistent back and bilateral leg pain. After failing extensive course of nonoperative care is here for surgical intervention. Allergies Allergy/AdvReac Type Severity Reaction Status Date / Time coconut Allergy Unknown Verified 11/19/18 06:39 Home Medications Home Medications Medication Instructions Recorded Confirmed Type amlodipine 2.5 mg tablet 5 mg PO QAM 04/22/18 11/19/18 History cholecalciferol (vitamin D3) 3,000 1,000 units PO QAM 04/22/18 11/19/18 History unit tablet magnesium 250 mg (as magnesium 250 mg PO QAM tab 04/22/18 11/19/18 History oxide) tablet milk thistle 150 mg capsule 150 mg PO QAM cap 04/22/18 11/19/18 History duloxetine 60 mg capsule,delayed 60 mg PO QAM 04/23/18 11/19/18 History release Medical Marijuana 1 dose INHALATION DAILY PRN 06/04/18 11/19/18 History multivitamin 1 tab PO QAM 06/04/18 11/19/18 History alprazolam [Xanax] 0.25 mg PO TID PRN #0 tab 10/26/18 11/19/18 Rx amitriptyline 50 mg PO HS #14 tab 10/26/18 11/19/18 Rx diclofenac sodium 75 mg PO BIDM #60 tab 10/26/18 11/19/18 Rx duloxetine 30 mg PO QAM #30 cap 10/26/18 11/19/18 Rx lutein 20 mg PO DAILY 11/19/18 11/19/18 History Past Med/Surg History Medical History Lumbar stenosis with neurogenic claudication (Chronic) Severe at L4-5 Moderate to severe at L5-S1 Hypertension (Chronic) Mitral valve prolapse (Chronic) Remote history, no recent echo. Anxiety (Chronic) Ocular hypertension (Chronic) Osteoarthritis (Chronic) Chronic back pain (Chronic) Degenerative disc disease (Chronic) Depression Surgical History History of tonsillectomy (Resolved) History of tooth extraction (Resolved) History of cataract surgery (Resolved) History of colonoscopy (Resolved) History of total knee replacement (Resolved) Right. Done at [facility] 2016, SAB +PNB without issues. Social History Preferred Language: Bangladeshi Communication Ability: Effective Ged Instructor Required: No Beliefs That Will Affect Care: None (She was raised Confucianism and recently recited the Mourner's Kaddish for her late .) Current Living Situation: Spouse Other Information That Helps Us Care for You: No Feels Safe at Home: Yes Safety Concerns: Feels Safe At This Time Smoking Status: Former smoker Do You Dip or Chew Tobacco: No Smoking End Date: quit 15 years ago Second Hand Exposure: No Tobacco Cessation Education Requested by Patient: No Hx Alcohol Use: Yes Alcohol type: wine Hx Substance Use: Yes substance use type: marijuana Substance Use Type Other:: medical Last Used Substance: Days (ago) Physical Exam Physical Exam: Patient is alert and oriented neurologically intact. Results & Data Vital Signs (Past 12 Hours) Vital Signs Temp Pulse Resp BP Pulse Ox 11/19/18 06:45 37 C 67 18 152/79 H 99
[2018-11-19] MEDS ORDERED: CEFAZOLIN 2000MG 2,000 MG/15 ML SYR IV ONE (07:31)
[2018-11-19] MEDS ORDERED: CEFAZOLIN 250 MG/ML 1 GM VIAL ONE (07:34)
[2018-11-19] MEDS ORDERED: LARYING-O-JET KIT (LTA) ONE (08:07)
[2018-11-19] MEDS ORDERED: ePHEDrine sulfate 50 MG/ML AMP ONE ×2 (08:17→09:10)
[2018-11-19] MEDS ORDERED: ePHEDrine sulfate 50 MG/ML SYR ONE (08:17)
[2018-11-19] MEDS ORDERED: FLOSEAL HEMOSTATIC MATRIX 10ML TOP ONE (08:26)
[2018-11-19] MEDS ORDERED: PHENYLEPHRINE 100MCG/ML 5ML SYR ONE (08:37)
[2018-11-19] MEDS ORDERED: KETOROLAC 30 MG/ML VIAL ONE (08:38)
--- NOTE | 2018-11-19 10:02 | Operative Report ---
Post Operative Report Pre & Post Diagnosis Operation Date: 11/19/18 07:45 Pre-Op Diagnosis: Lumbar stenosis with neurogenic claudication Spondylolisthesis L4-5 Post-Op Diagnosis: Same Procedure Operation Date: 11/19/18 07:45 Actual Procedures #1 lumbar decompression with bilateral medial facetectomies foraminotomies L3-4 L4-5 L5-S1. #2 posterior spinal fusion L4-5 L5-S1. #3 placement posterior instrumentation L4-5 L5-S1 per #4 interbody fusion L4-5 #5 placement of peek cage 9 x 22 mm at L4-5 per #6 placement of local autograft in the posterior lateral gutters. #7 placement infuse collagen sponge combined master graft in the posterior lateral gutters and ostial amp and interbody space. Surgeon Bacilio Wilson DO City Clerk None Estimated Blood Loss 125 Findings Consistent with Post-Op Diagnosis Specimens None Indications This is a 73-year-old female presents with above-mentioned diagnosis after failing extensive course of nonoperative care she like to undergo the above- mentioned procedure. Description of Procedure Patient was met with identified and informed consent obtained. Patient was then taken to the operative suite underwent ablation placed in a prone position on the Joaquin table on top of the Aries frame. All bony prominences well-padded eyes inspected to ensure no external pressure placed upon the peer at this point the lumbar spine was prepped and draped in the normal sterile fashion. Sharp dissection with the assistance of Bovie cautery was performed down to and e xposing the lamina transverse processes of L4-L5 and sacral ala bilaterally. From a caudal to cephalad fashion complete laminectomy of L5 L4 and partial laminectomy L3 was performed including bilateral medial facetectomies and foraminotomies addressing severe stenosis. Pedicle screws were then placed in L4-L5 and S1 levels bilaterally with assistance of fluoroscopy the purposes regino placed. By way of a transforaminal approach on the left complete discectomy of L4-5 was performed in plate graded to subcortical bleeding bone and a 9 x 22 mm peek cage filled with ostium bone graft tapped in position. The rods were then locked into final position bilaterally. Transverse processes of L4-L5 and sacral ala bur to subcortical bleeding bone. Infuse collagen sponge master graft local autograft placed in the posterior lateral gutters. 15 round MATIAS drain inserted. The incision was then closed with 1 Vicryl in the fascia 2-0 Vicryl subcutaneously for Monocryl for final skin closure. Steri-Strip sterile dressings placed. Patient will continue to PACU stable disc. Please note spinal cord monitoring was utilized that the procedure no changes noted. I attest to the content of the Intraoperative Record and any orders documented therein. Any exceptions are noted below.
--- NOTE | 2018-11-19 10:08 | Fluoroscopy Report ---
FL lumbar spine 2-3V CLINICAL HISTORY: L4-S1 DECOMP/FUSION COMPARISON STUDY: Lumbar spine 11/17/2018. FLUOROSCOPY TIME: 24 seconds. FINDINGS: 2 fluoroscopic spot images of the lumbar spine were submitted. Posterior decompression and fusion from L4 through S1 with pedicle screws and rods. The hardware appears intact. IMPRESSION: Fluoroscopy provided for L4-S1 posterior decompression and fusion. Electronically signed by: Jose Tierney M.D. 11/19/2018 10:07 AM
--- NOTE | 2018-11-19 10:40 | Anesthesiology Progress Note ---
Date of Service November 19, 2018 Anesthesia Post Procedure Vital Signs Vital Signs: Temp Pulse Pulse Resp BP Pulse Ox 11/19/18 10:35 67 16 118/66 100 11/19/18 10:25 64 12 109/47 L 100 11/19/18 10:15 74 20 114/61 100 11/19/18 10:06 97.7 F 87 20 128/71 100 11/19/18 06:45 98.6 F 67 18 152/79 H 99 Pain Intensity Lower Back: Pain Intensity: 3 Transfer of Care Handoff Completed per policy Notes Mental Status: alert / awake / arousable and participated in evaluation Patient Amnestic to Procedure: Yes Nausea / Vomiting: adequately controlled Pain: adequately controlled Airway Patency, RR, SpO2: stable & adequate BP & HR: stable & adequate Hydration State: stable & adequate Anesthetic Complications: no major complications apparent and Pt Satisfied with anesthetic care
[2018-11-19] MEDS ORDERED: LORazepam 0.5 MG/1 ML VIAL IV PRN (11:21)
[2018-11-19] MEDS ORDERED: ONDANSETRON 4 MG TAB PO PRN (11:21)
[2018-11-19] MEDS ORDERED: OXYCODONE HCL IR 5 MG TAB (IMMEDIATE RELEASE) PO PRN (11:21)
[2018-11-19] MEDS ORDERED: DO NOT ADMINISTER FLU VACCINE PRN (11:21)
[2018-11-19] MEDS ORDERED: ALUMINUM/MAGNESIUM SUSP 30 ML UDC PO PRN (11:21)
[2018-11-19] MEDS ORDERED: SOD PHOSPHATE/SOD BIPHOSPHATE ENEMA 132 ML BTL PR PRN (11:21)
[2018-11-19] MEDS ORDERED: MAGNESIUM HYDROXIDE SUSP 30 ML UDC PO PRN (11:21)
[2018-11-19] MEDS ORDERED: BISACODYL 10 MG SUPP PR PRN (11:21)
[2018-11-19] MEDS ORDERED: LORazepam 0.5 MG TAB PO PRN (11:21)
[2018-11-19] MEDS ORDERED: ACETAMINOPHEN 1,000 MG/100 ML VIAL IV PRN (11:21)
[2018-11-19] MEDS ORDERED: TRAMADOL HCL 50 MG TABLET PO PRN (11:21)
[2018-11-19] MEDS ORDERED: PROMETHAZINE HCL 12.5 MG in SODIUM CHLORIDE 0.9% 50 ML IV PRN (11:21)
[2018-11-19] MEDS ORDERED: DO NOT ADMINISTER PNEUMOCOCCAL VACCINE PRN (11:21)
[2018-11-19] MEDS ORDERED: FAMOTIDINE 20 MG TAB PO PRN (11:21)
[2018-11-19] MEDS ORDERED: METOCLOPRAMIDE HCL INJ 5 MG/ML 2 ML VIAL IV PRN (11:21)
[2018-11-19] MEDS: LACTATED RINGER'S 1,000 ML IV SCH ×2 (11:59→17:21)
[2018-11-19] MEDS ORDERED: MEDICAL MARIJUANA INH PRN (12:30)
[2018-11-19] MEDS: ACETAMINOPHEN 500 MG TAB PO PRN (13:26)
[2018-11-19] MEDS: CEFAZOLIN 1000MG 1,000 MG/7.5 ML SYR IV SCH ×2 (16:26→23:45)
--- NOTE | 2018-11-19 16:46 | Hospitalist Consultation ---
Date of Consultation November 19, 2018 Assessment & Plan (1) Lumbar stenosis with neurogenic claudication: s/p decompression and fusion 11/19 DVT proph, bowel regimen, pain control per primary monitor for acute blood loss - cbc am (2) Hypertension: continue amlodipine (3) Depression: continue Elavil, duloxetine Supervising Physician Co-Signing Physician Notes COMPLIANCE AND CONTROL ANALYST Physician Supervision Note: I discussed with Sheela Escalante COMPLIANCE AND CONTROL ANALYST and agree with findings and plan as documented in the note. Any exceptions or clarifications are listed here: None Patient was complaining of some perioperative pain we talked about pain management pain control she is agreeable to parenteral pain medications and the slight escalation of her oral pain medications. Vitals are stable heart was regular lungs were clear she is intact sensation capillary refill distally to her legs. Documented By: Zaheer Armando History of Present Illness Attending Physician: Bacilio iWlson DO History of Present Illness Ms. Fuchs had a decompression and fusion today. She is accompanied bedside by a friend. She has no current complaints. She does discuss that her in June and since then she has struggled with depression and back pain and that she had a suicide attempt last month largely due to how much physical pain she was in. 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 Family: pancreatic cancer, COPD Allergies Allergy/AdvReac Type Severity Reaction Status Date / Time coconut Allergy Unknown Verified 11/19/18 06:39 Home Medications Home Medications Medication Instructions Recorded Confirmed Type amlodipine 2.5 mg tablet 5 mg PO QAM 04/22/18 11/19/18 History cholecalciferol (vitamin D3) 3,000 1,000 units PO QAM 04/22/18 11/19/18 History unit tablet magnesium 250 mg (as magnesium 250 mg PO QAM tab 04/22/18 11/19/18 History oxide) tablet milk thistle 150 mg capsule 150 mg PO QAM cap 04/22/18 11/19/18 History duloxetine 60 mg capsule,delayed 60 mg PO QAM 04/23/18 11/19/18 History release Medical Marijuana 1 dose INHALATION DAILY PRN 06/04/18 11/19/18 History multivitamin 1 tab PO QAM 06/04/18 11/19/18 History alprazolam [Xanax] 0.25 mg PO TID PRN #0 tab 10/26/18 11/19/18 Rx amitriptyline 50 mg PO HS #14 tab 10/26/18 11/19/18 Rx diclofenac sodium 75 mg PO BIDM #60 tab 10/26/18 11/19/18 Rx duloxetine 30 mg PO QAM #30 cap 10/26/18 11/19/18 Rx lutein 20 mg PO DAILY 11/19/18 11/19/18 History Patient History Medical History Lumbar stenosis with neurogenic claudication (Chronic) Severe at L4-5 Moderate to severe at L5-S1 Hypertension (Chronic) Mitral valve prolapse (Chronic) Remote history, no recent echo. Anxiety (Chronic) Ocular hypertension (Chronic) Osteoarthritis (Chronic) Chronic back pain (Chronic) Degenerative disc disease (Chronic) Depression Surgical History History of tonsillectomy (Resolved) History of tooth extraction (Resolved) History of cataract surgery (Resolved) History of colonoscopy (Resolved) History of total knee replacement (Resolved) Right. Done at [facility] 2016, SAB +PNB without issues. Social History Preferred Language: Korean Communication Ability: Effective Piano Assembler Required: No Beliefs That Will Affect Care: None (She was raised Church and recently recited the Mourner's Kaddish for her late .) marital status: / Current Living Situation: Spouse Other Information That Helps Us Care for You: No Feels Safe at Home: Yes Safety Concerns: Feels Safe At This Time Smoking Status: Former smoker Do You Dip or Chew Tobacco: No Smoking End Date: quit 15 years ago Second Hand Exposure: No Tobacco Cessation Education Requested by Patient: No Hx Alcohol Use: Yes Alcohol type: wine Hx Substance Use: Yes substance use type: marijuana Substance Use Type Other:: medical Last Used Substance: Days (ago) Review of Systems Review of Systems: All systems reviewed & are unremarkable except as noted in HPI & below Physical Exam Physical Exam: General: no distress Eyes: normal inspection, PERLL Respiratory: chest non tender, clear to auscultation, normal breath sounds, no respiratory distress, no accessory muscle use Cardiac: regular rate and rhythm, no rub or gallop, systolic murmur, no edema, no jvd GI/: active bowel sounds, no abd pain or tenderness, soft, non distended Extremities: normal range of motion, normal strength, non tender Neuro:oriented x 3, moves all extremities Psych: alert, normal mood and affect Skin: normal color, dry Results & Data Vital Signs (Past 12 Hours) Vital Signs Temp Pulse Pulse Resp BP BP Pulse Ox 11/19/18 15:50 36.7 C 73 18 111/61 92 11/19/18 13:51 36.5 C 80 20 117/68 98 11/19/18 13:09 36.6 C 85 18 147/79 H 95 11/19/18 12:16 36.2 C L 82 18 105/57 L 99 11/19/18 12:03 36.4 C L 79 20 122/78 98 11/19/18 11:44 36.4 C L 79 18 111/66 96 11/19/18 11:05 36.4 C L 67 16 102/60 100 11/19/18 10:45 36.5 C 66 14 124/65 99 11/19/18 10:35 67 16 118/66 100 11/19/18 10:25 64 12 109/47 L 100 11/19/18 10:15 74 20 114/61 100 11/19/18 10:06 36.5 C 87 20 128/71 100 11/19/18 06:45 37 C 67 18 152/79 H 99 PG Care Time/CCT Total # of Minutes Spent Total Time Spent with Patient: Total time spent is greater than 50% in coordination of care (as documented) at patient's floor/unit and/or counseling patient:
[2018-11-19] MEDS: HYDROmorphone INJ 0.5 MG/0.5 ML SYR IV PRN (19:01)
[2018-11-19] MEDS: AMITRIPTYLINE HCL 50 MG TAB PO SCH (21:19)
[2018-11-19] MEDS: DOCUSATE SODIUM/SENNA 50/8.6MG TAB PO SCH (21:20)
[2018-11-19] MEDS: ALPRAZolam 0.5 MG TABLET PO PRN (23:57)
[2018-11-20] MEDS: OXYCODONE HCL IR 5 MG TAB (IMMEDIATE RELEASE) PO PRN ×4 (04:14→17:57)
[2018-11-20] MEDS: POLYETHYLENE (MIRALAX) 17 GM PACK PO SCH ×4 (05:45→23:35)
[2018-11-20 07:08] LABS: Basophils # (auto) 0.01 K/uL (0-0.2); Basophils % (auto) 0.1 %; Eosinophils # (auto) 0.02 K/uL (0-0.5); Eosinophils % (auto) 0.2 %; Hematocrit (blood only) 25.9 % (37-47); Hemoglobin 8.8 g/dL (12.0-16.0); Immature Granulocytes # (auto) 0.02 K/uL (0.00-0.02); Immature Granulocytes % (auto) 0.2 %; Lymphocytes # (auto) 1.88 K/uL (1.2-3.4); Lymphocytes % (auto) 18.3 %; Mean Corpuscular Volume 96.6 fL (80-100); Mean Platelet Volume 10.6 fL (7.4-10.4); Monocytes # (auto) 0.82 K/uL (0.11-0.59); Neutrophils # (auto) 7.53 K/uL (1.4-6.5); Neutrophils % (auto) 73.2 %; Platelet Count 164 K/uL (130-400); RDW Standard Deviation 48.7 fL (36.4-46.3); Red Blood Count 2.68 M/uL (4.2-5.4); White Blood Count 10.28 K/uL (4.8-10.8)
[2018-11-20] MEDS: DULOXETINE HCL 60 MG CAP PO SCH (07:33)
[2018-11-20] MEDS: DULOXETINE HCL 30 MG CAP PO SCH (07:33)
[2018-11-20] MEDS: MAGNESIUM OXIDE 400 MG TAB PO SCH (07:34)
[2018-11-20] MEDS: CHOLECALCIFEROL 1,000 UNITS TAB PO SCH (07:34)
[2018-11-20] MEDS: MULTIVITAMIN TAB PO SCH (07:37)
[2018-11-20 07:46] LABS: BUN Creatinine Ratio 14.7 (10-20); Calcium 8.5 mg/dl (8.5-10.1); Creatinine Clr Calc Pharmacy 53.4 ml/min; Est GFR (Non-African American) 74.2
[2018-11-20] MEDS ORDERED: NON-FORMULARY MEDICATION (Lutein 20 MG) PO SCH (09:00)
[2018-11-20] MEDS ORDERED: AMLODIPINE BESYLATE 5 MG TAB PO SCH (09:00)
--- NOTE | 2018-11-20 09:59 | Orthopedic Progress Note ---
Date of Service November 20, 2018 Assessment & Plan (1) Lumbar stenosis with neurogenic claudication: This time will initiate physical therapy advance his bowel regiment anticipate discharge to rehab Thursday. Present on Admission?: Yes Subjective Patient complaining of back pain that was controlled. Leg symptoms improved. Physical Exam Physical Exam: Patient is in the chair at the bedside is good strength testing appears comfortable. Results & Data Vital Signs (Past 12 Hours) Vital Signs Temp Pulse Resp BP BP Pulse Ox 11/20/18 07:40 96/55 L 11/20/18 07:15 36.5 C 80 20 91/47 L 96 11/20/18 03:37 37.0 C 74 18 102/60 97 11/19/18 23:20 37.0 C 81 18 102/60 95
--- NOTE | 2018-11-20 15:58 | Hospitalist Progress Note ---
Date of Service November 20, 2018 Assessment & Plan (1) Lumbar stenosis with neurogenic claudication: s/p decompression and fusion 11/19 DVT proph, bowel regimen, pain control per primary monitor for acute blood loss - hgb decreased to 8.8 today (2) Hypertension: continue amlodipine (3) Depression: continue Elavil, duloxetine Hospitalists will sign off at this time. Please call with any questions Subjective Ms. Fuchs is having back pain but otherwise has no complaints Review of Systems Review of Systems: All systems reviewed & are unremarkable except as noted in HPI & below Physical Exam Physical Exam: General: no distress Eyes: normal inspection, PERLL Respiratory: chest non tender, clear to auscultation, normal breath sounds, no respiratory distress, no accessory muscle use Cardiac: regular rate and rhythm, no rub or gallop, no murmur, no edema, no jvd GI/: active bowel sounds, no abd pain or tenderness, soft, non distended Extremities: normal range of motion, normal strength, non tender Neuro/Psych: alert and oriented x 3, normal mood and affect Skin: normal color, dry Results & Data Vital Signs (Past 12 Hours) Vital Signs Temp Pulse Resp BP BP Pulse Ox 11/20/18 15:04 37.0 C 74 18 110/69 92 11/20/18 14:22 98 11/20/18 12:00 36.7 C 78 20 119/78 97 11/20/18 07:40 96/55 L 11/20/18 07:15 36.5 C 80 20 91/47 L 96 PG Care Time/CCT Total # of Minutes Spent Total Time Spent with Patient: Total time spent is greater than 50% in coordination of care (as documented) at patient's floor/unit and/or counseling patient:
[2018-11-20] MEDS: HYDROmorphone INJ 0.5 MG/0.5 ML SYR IV PRN (18:58)
[2018-11-20] MEDS: AMITRIPTYLINE HCL 50 MG TAB PO SCH (21:19)
[2018-11-20] MEDS: DOCUSATE SODIUM/SENNA 50/8.6MG TAB PO SCH (21:20)
[2018-11-21] MEDS: POLYETHYLENE (MIRALAX) 17 GM PACK PO SCH ×3 (05:56→17:35)
[2018-11-21] MEDS: OXYCODONE HCL IR 5 MG TAB (IMMEDIATE RELEASE) PO PRN ×4 (05:59→22:09)
[2018-11-21] MEDS ORDERED: LACTATED RINGER'S 1,000 ML IV ONE (08:04)
[2018-11-21 08:27] LABS: Hematocrit (blood only) 26.2 % (37-47); Hemoglobin 8.9 g/dL (12.0-16.0); Mean Corpuscular Volume 97.8 fL (80-100); Platelet Count 168 K/uL (130-400); RDW Coefficient of Variation 13.7 % (11.5-14.5); Red Blood Count 2.68 M/uL (4.2-5.4); White Blood Count 10.76 K/uL (4.8-10.8)
--- NOTE | 2018-11-21 08:42 | Orthopedic Progress Note ---
Date of Service November 21, 2018 Assessment & Plan (1) Lumbar stenosis with neurogenic claudication: At this point fluids are being ordered by medicine due to her hypotension. I will also recheck an H&H this morning. We will monitor her urinary retention. This might be narcotic induced. Nonetheless if she does have it again we will leave Medley intact. We will start ambulation once hypotension has resolved. Supervising Physician Co-Signing Physician Notes Dr. Bacilio Wilson Subjective She is complaining of dizziness this morning when she is up to use the restroom. Patient is postoperative day 2 lumbar decompression fusion. This morning she is hypotensive. She is also had some urinary retention over the past 24 hours requiring straight catheterization x2. She states her pain is moderately controlled. Denies radicular leg pain. MATIAS drain output last shift was 30 cc. Review of Systems Review of Systems: All systems reviewed & are unremarkable except as noted in HPI & below Physical Exam Physical Exam: She is lying flat in bed on her side. Alert and oriented x3. Lower extremities neurovascular intact. Calves soft nontender bilaterally. Lumbar dressing is clean dry and intact. Results & Data Vital Signs (Past 12 Hours) Vital Signs Temp Pulse Pulse Resp BP BP Pulse Ox 11/21/18 08:06 71 92/58 L 11/21/18 06:47 37.1 C 81 17 79/40 L 91 11/21/18 05:57 149/75 H 11/20/18 23:28 37.1 C 76 16 102/66 91
[2018-11-21 08:49] LABS: BUN Creatinine Ratio 12.5 (10-20); Calcium 8.6 mg/dl (8.5-10.1); Creatinine Clr Calc Pharmacy 60.1 ml/min; Est GFR (African American) 99.3; Est GFR (Non-African American) 85.7; Potassium 4.4 mmol/L (3.5-5.1)
[2018-11-21] MEDS: MULTIVITAMIN TAB PO SCH (10:41)
[2018-11-21] MEDS: CHOLECALCIFEROL 1,000 UNITS TAB PO SCH (10:42)
[2018-11-21] MEDS: MAGNESIUM OXIDE 400 MG TAB PO SCH (10:42)
[2018-11-21] MEDS: DULOXETINE HCL 30 MG CAP PO SCH (10:42)
[2018-11-21] MEDS: DULOXETINE HCL 60 MG CAP PO SCH (10:42)
--- NOTE | 2018-11-21 17:11 | Hospitalist Progress Note ---
Date of Service November 21, 2018 Assessment & Plan (1) Lumbar stenosis with neurogenic claudication: s/p decompression and fusion 11/19 DVT proph, bowel regimen, pain control per primary monitor for acute blood loss - hgb stable (2) Hypertension: dc amlodipine for hypotension (3) Depression: continue Elavil, duloxetine (4) Hypotension: LR x 1 liter and resolved Hgb stable Subjective Ms. Fuchs was hypotensive and dizzy this morning but this has resolved with fluids. Review of Systems Review of Systems: All systems reviewed & are unremarkable except as noted in HPI & below Physical Exam Physical Exam: General: no distress Eyes: normal inspection, PERLL Respiratory: chest non tender, clear to auscultation, normal breath sounds, no respiratory distress, no accessory muscle use Cardiac: regular rate and rhythm, no rub or gallop, no murmur, no edema, no jvd GI/: active bowel sounds, no abd pain or tenderness, soft, mild distention Extremities: normal range of motion, normal strength, non tender Neuro/Psych: alert and oriented x 3, normal mood and affect Skin: normal color, dry Results & Data Vital Signs (Past 12 Hours) Vital Signs Temp Pulse Pulse Resp BP BP Pulse Ox 11/21/18 16:22 99/64 L 11/21/18 16:19 73 110/72 100 11/21/18 15:10 37.0 C 74 17 118/75 92 11/21/18 09:59 85 96/59 L 11/21/18 08:06 71 92/58 L 11/21/18 06:47 37.1 C 81 17 79/40 L 91 11/21/18 05:57 149/75 H PG Care Time/CCT Total # of Minutes Spent Total Time Spent with Patient: Total time spent is greater than 50% in coordination of care (as documented) at patient's floor/unit and/or counseling patient:
[2018-11-21] MEDS ORDERED: BISACODYL 10 MG SUPP PR STA (17:16)
[2018-11-21] MEDS: AMITRIPTYLINE HCL 50 MG TAB PO SCH (21:04)
[2018-11-21] MEDS: DOCUSATE SODIUM/SENNA 50/8.6MG TAB PO SCH (21:07)
[2018-11-22] MEDS: POLYETHYLENE (MIRALAX) 17 GM PACK PO SCH ×4 (00:17→17:48)
[2018-11-22] MEDS: ACETAMINOPHEN 500 MG TAB PO PRN ×3 (00:17→18:15)
[2018-11-22 05:48] LABS: Hematocrit (blood only) 25.8 % (37-47); Hemoglobin 8.8 g/dL (12.0-16.0)
[2018-11-22] MEDS: DULOXETINE HCL 60 MG CAP PO SCH (08:51)
[2018-11-22] MEDS: DULOXETINE HCL 30 MG CAP PO SCH (08:51)
[2018-11-22] MEDS: MULTIVITAMIN TAB PO SCH (08:52)
[2018-11-22] MEDS: CHOLECALCIFEROL 1,000 UNITS TAB PO SCH (08:52)
[2018-11-22] MEDS: MAGNESIUM OXIDE 400 MG TAB PO SCH (09:20)
[2018-11-22] MEDS: OXYCODONE HCL IR 5 MG TAB (IMMEDIATE RELEASE) PO PRN ×2 (10:26→19:07)
[2018-11-22] MEDS ORDERED: DEXAMETHASONE SOD PHOSPHATE 6 MG in SYRINGE 0 ML IV ONE (12:00)
--- NOTE | 2018-11-22 12:55 | Orthopedic Progress Note ---
Date of Service November 22, 2018 Assessment & Plan (1) Lumbar stenosis with neurogenic claudication: At this time we will continue physical therapy advance her bowel regiment hopefully transfer to rehab soon as she is accepted. Present on Admission?: Yes Subjective Patient is complaining mostly of back pain. She had one episode of sciatica but it has resolved this time. She has not had a bowel movement as of yet. Physical Exam Physical Exam: On exam she is good strength testing appears relatively comfor table. Results & Data Vital Signs (Past 12 Hours) Vital Signs Temp Pulse Resp BP BP Pulse Ox 11/22/18 12:23 73 107/71 11/22/18 07:09 36.8 C 66 18 100/61 97
[2018-11-22] MEDS: AMITRIPTYLINE HCL 50 MG TAB PO SCH (21:38)
[2018-11-22] MEDS: DOCUSATE SODIUM/SENNA 50/8.6MG TAB PO SCH (21:42)
[2018-11-23] MEDS: POLYETHYLENE (MIRALAX) 17 GM PACK PO SCH ×4 (00:49→17:42)
[2018-11-23] MEDS: ALPRAZolam 0.5 MG TABLET PO PRN (00:53)
--- NOTE | 2018-11-23 08:31 | Orthopedic Progress Note ---
Date of Service November 23, 2018 Assessment & Plan (1) Lumbar stenosis with neurogenic claudication: This time we will continue physical therapy. She may shower today. She may discharge today if bed available at rehab. Present on Admission?: Yes Subjective Patient's complaining mostly of back pain minimal leg pain. Physical Exam Physical Exam: Patient has good strength testing. Results & Data Vital Signs (Past 12 Hours) Vital Signs Temp Pulse Resp BP Pulse Ox 11/23/18 07:00 36.7 C 76 16 112/69 100 11/22/18 23:42 36.9 C 70 16 108/69 97
--- NOTE | 2018-11-23 08:33 | Discharge Summary ---
Date of Service November 23, 2018 Admission HPI Per Admitting Provider This is a 73-year-old female with chronic persistent back and bilateral leg pain. After failing extensive course of nonoperative care is here for surgical intervention. Principal Diagnosis Lumbar spinal stenosis with neurogenic claudication Discharge Data Allergies Allergy/AdvReac Type Severity Reaction Status Date / Time coconut Allergy Unknown Verified 11/19/18 06:39 Consultations 11/19/18 11:21 Consult Case Management - Discharge Planning Routine Consult Hospitalist Routine Procedures Performed Operation Date: 11/19/18 07:45 Actual Procedures p L4-L5, L5-S1 Decompression and Fusion, Spinal Cord Monitoring, Application of Bone Morphogenetic Protein and Allograft, Placement of Interbody at L4-L5(Not Applicable) - Baiclio Wilson DO Ordered Studies 11/19/18 07:45 FL fluoroscopy <1hr Routine FL lumbar spine 2-3V Routine Hospital Course (1) Lumbar stenosis with neurogenic claudication: Patient underwent lumbar decompression fusion tolerated this well was taken to the orthopedic floor postoperative. Postop day 1 she is up and ambulating leg symptoms improved to breath progressed to postop day #2 and 3 MATIAS drain decreasing appropriately. She was subsequent discharge to rehab. Discharge orders instructions from the chart for further review. Total Time Total Time Spent Total Time Spent (In Minutes): 30 minutes Discharge Plan Discharge Items Patient Disposition: Transfer Inpatient Rehab Fac Reason For Visit: Low Back Pain Discharge Diagnosis: Lumbar spinal stenosis with neurogenic claudication Discharge Goals: Decrease discomfort Activity: Per 'Additional Instructions' section Non-emergency contact: Primary Care Provider Call non-emergency contact if: you have any medication questions Follow-up/Referrals: Tal Duron MD [Primary Care Provider] - Diet: Regular Addtl Provider Instructions: ACTIVITY RECOMMENDATIONS: SELF CARE INSTRUCTIONS AFTER THORACIC/LUMBAR FUSIONS 1. You may walk to your tolerance. It is good exercise for your legs and back. Expect some back and intermittent leg aches and pains. 2. You may perform "counter-top" level activities (make a sandwich, jarett with a project, etc.). 3. No bending or lifting of more than 10 pounds or back twisting of any nature (roll like a log when turning in bed). 4. You may ride in a car for 20-30 minutes at a time. No driving until after your first visit with your doctor. 5. Frequent changes of position and restricting sitting to 30 minutes at a time will help limit the amount of back spasms and stiffness you may experience. 6. You may discontinue the use of ambulatory aids (cane, crutches, etc.) once your strength and confidence allow. 7. You may multisensor intelligence officer the shower and let water strike your incision when you arrive home at least once daily. Do not take a tub bath, sit in a hot tub or go into a swimming pool until after your first recheck in the office. SPECIAL CARE INSTRUCTIONS: VERY IMPORTANT TO READ AND REVIEW A. Your surgical incision has been closed with a cosmetic suture under the skin that will dissolve in about 6 weeks. In 14 days, you can use a pair of clean scissors and cut the suture that is left outside of the skin at the ends of your incision. 1. The small skin tapes can be removed 7 days after surgery if they have not fallen off by that point. 2. You may keep the wound open to air as much as possible to promote healing after post-op day number 5 unless told otherwise by your doctor. 3. If you think the wound looks like it is becoming infected (redness or worsening drainage) and/or you are experiencing fever, chill or worsening back pain and muscle spasms, contact the office so that we may evaluate you as soon as possible. B. Complications are uncommon, but please contact us if you have any signs or symptoms of: 1. wound infection (fever higher than 102.5 degrees F, redness, separation of wound, drainage, or increasing pain from the incision) 2. blood clots in legs (pain, swelling, redness and warmth in legs) 3. urinary tract infection (fever higher than 102.5 degrees F, burning upon urination or increased frequency of urination) 4. nerve problems (inability to walk on your toes or heels, numbness, loss of bowel or bladder control) 5. any other symptoms that concern you C. Please call the office at if you have any concerns or questions about your operation or recovery. D. No smoking! Smoking drastically decreases the chance of a solid fusion. E. Do not take any anti-inflammatory medications (Indocin, Advil, Motrin, Aspirin, Naprosyn, etc.) as these may inhibit the chance of a solid fusion. T ylenol is okay to take for pain. MANAGING PAIN AFTER SPINAL SURGERY 1. Narcotic medication is intended for short-term use and will be provided for surgical pain. Surgical pain usually lasts for a period of 4-6 weeks. Narcotic medication includes Percocet, Vicodin, Darvocet, Tylenol #3 or Lortab. 2. Longer-term pain is more appropriately treated with non-narcotic medication such as Tylenol ES. 3. Muscle spasm is not appropriately treated with narcotics. Muscle relaxers such as Soma, Flexeril or Skelaxin can be used along with Tylenol ES. 4. Remember that we all live with some "aches and pains". This is not unusual or uncommon after an injury or as we get older. a. Back pain is expected and may include muscle spasms for 4 to 6 weeks after surgery. The pain should gradually improve. If the pain worsens for no apparent reason, please contact the office. b. Intermittent leg pain may also be experienced and should not be concerned about unless it worsens for no apparent reason. If so, please contact the office. 5. We will provide appropriate medication within the normal guidelines of their prescribed use. We will also be very cautious and aware of potential abuse and extended duration of patients' medication needs. a. Pain medications are for your comfort and to assist with sleep and rest so that the tissue can heal. They are not provided in order to return to normal activity and should not be used through the day. To do so or worsening pain at night can result from ongoing tissue damage and development of tolerance to the prescribed medicine. 6. Please allow 2-3 days to process refills. Prescriptions will not be mailed but must be picked up at the office. FOLLOW UP VISIT: Keep your scheduled follow-up appointment. Any questions, please call the office at . Prescriptions: New oxycodone 5 mg Tablet 5 mg PO Q4H PRN (Reason: Pain) Qty: 30 RF: 0 Continued amlodipine [Norvasc] 2.5 mg tablet 5 mg PO QAM RF: 0 milk thistle 150 mg capsule 150 mg PO QAM RF: 0 magnesium oxide 250 mg magnesium tablet 250 mg PO QAM RF: 0 cholecalciferol (vitamin D3) 3,000 unit tablet 1,000 units PO QAM RF: 0 duloxetine 60 mg capsule,delayed release(DR/EC) 60 mg PO QAM RF: 0 Medical Marijuana 1 dose Inhalation DAILY PRN (Reason: Pain) RF: 0 multivitamin Tablet 1 tab PO QAM RF: 0 amitriptyline 50 mg Tablet 50 mg PO HS Qty: 14 RF: 1 diclofenac sodium 75 mg Tablet,Delayed Release (Dr/Ec) 75 mg PO BIDM Qty: 60 RF: 0 duloxetine 30 mg Capsule,Delayed Release(Dr/Ec) 30 mg PO QAM Qty: 30 RF: 0 alprazolam [Xanax] 0.5 mg tablet 0.25 mg PO TID PRN (Reason: Anxiety) Qty: 0 RF: 0 lutein 20 mg Capsule 20 mg PO DAILY RF: 0 Stand-Alone Forms: [facility] Discharge Orders: Discharge Order (Routine); Ordered 11/23/18 Ordered By: Bacilio Wilson Skilled Items Patient informed of condition?: Yes DNR: No Discharge Level of Care: Acute rehab Communicable Disease: No Discharge Prognosis: Stable Admission Data Admit Date/Time: 11/19/18 10:07 Attending Provider: Bacilio Wilson Admit Provider: Bacilio Wilson Primary Care Provider: Tal Duron Other Providers: Zaheer Armando Service: Surgical Services
[2018-11-23] MEDS: MULTIVITAMIN TAB PO SCH (09:21)
[2018-11-23] MEDS: DULOXETINE HCL 30 MG CAP PO SCH (09:21)
[2018-11-23] MEDS: DULOXETINE HCL 60 MG CAP PO SCH (09:21)
[2018-11-23] MEDS: OXYCODONE HCL IR 5 MG TAB (IMMEDIATE RELEASE) PO PRN ×4 (09:22→23:39)
[2018-11-23] MEDS: CHOLECALCIFEROL 1,000 UNITS TAB PO SCH (09:22)
[2018-11-23] MEDS: MAGNESIUM OXIDE 400 MG TAB PO SCH (09:22)
[2018-11-23] MEDS: AMITRIPTYLINE HCL 50 MG TAB PO SCH (21:19)
[2018-11-23] MEDS: DOCUSATE SODIUM/SENNA 50/8.6MG TAB PO SCH (21:20)
[2018-11-24] MEDS: OXYCODONE HCL IR 5 MG TAB (IMMEDIATE RELEASE) PO PRN ×3 (08:39→21:46)
[2018-11-24] MEDS: DULOXETINE HCL 30 MG CAP PO SCH (08:44)
[2018-11-24] MEDS: DULOXETINE HCL 60 MG CAP PO SCH (08:44)
[2018-11-24] MEDS: MULTIVITAMIN TAB PO SCH (08:44)
[2018-11-24] MEDS: CHOLECALCIFEROL 1,000 UNITS TAB PO SCH (08:44)
[2018-11-24] MEDS: MAGNESIUM OXIDE 400 MG TAB PO SCH (08:44)
[2018-11-24] MEDS: ALPRAZolam 0.5 MG TABLET PO PRN (14:08)
[2018-11-24] MEDS: DOCUSATE SODIUM/SENNA 50/8.6MG TAB PO SCH (21:45)
[2018-11-24] MEDS: AMITRIPTYLINE HCL 50 MG TAB PO SCH (21:46)
[2018-11-24] MEDS: ACETAMINOPHEN 325 MG TAB PO PRN (21:47)
[2018-11-25] MEDS: OXYCODONE HCL IR 5 MG TAB (IMMEDIATE RELEASE) PO PRN ×3 (08:41→21:53)
[2018-11-25] MEDS: ACETAMINOPHEN 325 MG TAB PO PRN ×3 (08:41→21:52)
--- NOTE | 2018-11-25 08:41 | Orthopedic Progress Note ---
Date of Service November 25, 2018 Assessment & Plan (1) Lumbar stenosis with neurogenic claudication: At this time we will initiate a course of IV steroids to help with her inflammation and pain. We are still awaiting possible rehab placement however if she is unable to go to rehab will consider discharge home tomorrow with home health. Present on Admission?: Yes Subjective Patient complaining mostly of back pain some intermittent leg pain. Physical Exam Physical Exam: On exam she has reasonable strength testing. She does appear uncomfortable. Results & Data Vital Signs (Past 12 Hours) Vital Signs Temp Pulse Resp BP BP Pulse Ox 11/25/18 08:10 36.3 C L 69 16 112/53 L 99 11/25/18 00:02 37.2 C 69 14 106/68 93
[2018-11-25] MEDS: MULTIVITAMIN TAB PO SCH (08:42)
[2018-11-25] MEDS: CHOLECALCIFEROL 1,000 UNITS TAB PO SCH (08:42)
[2018-11-25] MEDS: DULOXETINE HCL 60 MG CAP PO SCH (08:42)
[2018-11-25] MEDS: DULOXETINE HCL 30 MG CAP PO SCH (08:42)
[2018-11-25] MEDS: MAGNESIUM OXIDE 400 MG TAB PO SCH (08:43)
[2018-11-25] MEDS: DEXAMETHASONE SOD PHOSPHATE 8 MG in SYRINGE 0 ML IV SCH ×2 (14:29→22:33)
[2018-11-25] MEDS: DOCUSATE SODIUM/SENNA 50/8.6MG TAB PO SCH (21:53)
[2018-11-25] MEDS: AMITRIPTYLINE HCL 50 MG TAB PO SCH (21:53)
[2018-11-26] MEDS: DEXAMETHASONE SOD PHOSPHATE 8 MG in SYRINGE 0 ML IV SCH (06:30)
[2018-11-26] MEDS: MULTIVITAMIN TAB PO SCH (08:21)
[2018-11-26] MEDS: CHOLECALCIFEROL 1,000 UNITS TAB PO SCH (08:21)
[2018-11-26] MEDS: MAGNESIUM OXIDE 400 MG TAB PO SCH (08:21)
[2018-11-26] MEDS: DULOXETINE HCL 60 MG CAP PO SCH (08:21)
[2018-11-26] MEDS: DULOXETINE HCL 30 MG CAP PO SCH (08:21)
[2018-11-26] MEDS: ACETAMINOPHEN 325 MG TAB PO PRN (10:10)
[2018-11-26] MEDS: OXYCODONE HCL IR 5 MG TAB (IMMEDIATE RELEASE) PO PRN (10:10)
--- NOTE | 2018-11-26 12:59 | Discharge Summary ---
Date of Service November 26, 2018 Admission HPI Per Admitting Provider This is a 73-year-old female with chronic persistent back and bilateral leg pain. After failing extensive course of nonoperative care is here for surgical intervention. Principal Diagnosis Lumbar spinal stenosis with neurogenic claudication Discharge Data Allergies Allergy/AdvReac Type Severity Reaction Status Date / Time coconut Allergy Unknown Verified 11/19/18 06:39 Consultations 11/19/18 11:21 Consult Case Management - Discharge Planning Routine Consult Hospitalist Routine Procedures Performed Operation Date: 11/19/18 07:45 Actual Procedures p L4-L5, L5-S1 Decompression and Fusion, Spinal Cord Monitoring, Application of Bone Morphogenetic Protein and Allograft, Placement of Interbody at L4-L5(Not Applicable) - Bacilio Wilson DO Ordered Studies 11/19/18 07:45 FL fluoroscopy <1hr Routine FL lumbar spine 2-3V Routine Hospital Course (1) Lumbar stenosis with neurogenic claudication: Patient underwent lumbar decompression fusion tolerated as well as taken for postoperative. Postop day #1 she was up and ambulating she progressed throughout her week stay. She did progress slowly requiring significant pain management. We felt that she would be an appropriate candidate for rehab unfortunately her insurance company disagreed with our plan. Subsequently she was discharged home with home health. Discharge orders instructions can be found in chart for further review. Total Time Total Time Spent Total Time Spent (In Minutes): 30 minutes Discharge Plan Discharge Items Patient Disposition: Home - Home Health Services Reason For Visit: Low Back Pain Discharge Diagnosis: Lumbar spinal stenosis with neurogenic claudication Discharge Goals: Decrease discomfort Activity: Per 'Additional Instructions' section Non-emergency contact: Primary Care Provider Call non-emergency contact if: you have any medication questions Follow-up/Referrals: Tal Duron MD [Primary Care Provider] - Diet: Regular Addtl Provider Instructions: ACTIVITY RECOMMENDATIONS: SELF CARE INSTRUCTIONS AFTER THORACIC/LUMBAR FUSIONS 1. You may walk to your tolerance. It is good exercise for your legs and back. Expect some back and intermittent leg aches and pains. 2. You may perform "counter-top" level activities (make a sandwich, jarett with a project, etc.). 3. No bending or lifting of more than 10 pounds or back twisting of any nature (roll like a log when turning in bed). 4. You may ride in a car for 20-30 minutes at a time. No driving until after your first visit with your doctor. 5. Frequent changes of position and restricting sitting to 30 minutes at a time will help limit the amount of back spasms and stiffness you may experience. 6. You may discontinue the use of ambulatory aids (cane, crutches, etc.) once your strength and confidence allow. 7. You may visiting housekeeper the shower and let water strike your incision when you arrive home at least once daily. Do not take a tub bath, sit in a hot tub or go into a swimming pool until after your first recheck in the office. SPECIAL CARE INSTRUCTIONS: VERY IMPORTANT TO READ AND REVIEW A. Your surgical incision has been closed with a cosmetic suture under the skin that will dissolve in about 6 weeks. In 14 days, you can use a pair of clean scissors and cut the suture that is left outside of the skin at the ends of your incision. 1. The small skin tapes can be removed 7 days after surgery if they have not fallen off by that point. 2. You may keep the wound open to air as much as possible to promote healing after post-op day number 5 unless told otherwise by your doctor. 3. If you think the wound looks like it is becoming infected (redness or worsening drainage) and/or you are experiencing fever, chill or worsening back pain and muscle spasms, contact the office so that we may evaluate you as soon as possible. B. Complications are uncommon, but please contact us if you have any signs or symptoms of: 1. wound infection (fever higher than 102.5 degrees F, redness, separation of wound, drainage, or increasing pain from the incision) 2. blood clots in legs (pain, swelling, redness and warmth in legs) 3. urinary tract infection (fever higher than 102.5 degrees F, burning upon urination or increased frequency of urination) 4. nerve problems (inability to walk on your toes or heels, numbness, loss of bowel or bladder control) 5. any other symptoms that concern you C. Please call the office at if you have any concerns or questions about your operation or recovery. D. No smoking! Smoking drastically decreases the chance of a solid fusion. E. Do not take any anti-inflammatory medications (Indocin, Advil, Motrin, Aspirin, Naprosyn, etc.) as these may inhibit the chance of a solid fusion. Tylenol is okay to take for pain. MANAGING PAIN AFTER SPINAL SURGERY 1. Narcotic medication is intended for short-term use and will be provided for surgical pain. Surgical pain usually lasts for a period of 4-6 weeks. Narcotic medication includes Percocet, Vicodin, Darvocet, Tylenol #3 or Lortab. 2. Longer-term pain is more appropriately treated with non-narcotic medication such as Tylenol ES. 3. Muscle spasm is not appropriately treated with narcotics. Muscle relaxers such as Soma, Flexeril or Skelaxin can be used along with Tylenol ES. 4. Remember that we all live with some "aches and pains". This is not unusual or uncommon after an injury or as we get older. a. Back pain is expected and may include muscle spasms for 4 to 6 weeks after surgery. The pain should gradually improve. If the pain worsens for no apparent reason, please contact the office. b. Intermittent leg pain may also be experienced and should not be concerned about unless it worsens for no apparent reason. If so, please contact the office. 5. We will provide appropriate medication within the normal guidelines of their prescribed use. We will also be very cautious and aware of potential abuse and extended duration of patients' medication needs. a. Pain medications are for your comfort and to assist with sleep and rest so that the tissue can heal. They are not provided in order to return to normal activity and should not be used through the day. To do so or worsening pain at night can result from ongoing tissue damage and development of tolerance to the prescribed medicine. 6. Please allow 2-3 days to process refills. Prescriptions will not be mailed but must be picked up at the office. FOLLOW UP VISIT: Keep your scheduled follow-up appointment. Any questions, please call the office at . Prescriptions: New oxycodone 5 mg Tablet 5 mg PO Q4H PRN (Reason: Pain) Qty: 30 RF: 0 Continued amlodipine [Norvasc] 2.5 mg tablet 5 mg PO QAM RF: 0 milk thistle 150 mg capsule 150 mg PO QAM RF: 0 magnesium oxide 250 mg magnesium tablet 250 mg PO QAM RF: 0 cholecalciferol (vitamin D3) 3,000 unit tablet 1,000 units PO QAM RF: 0 duloxetine 60 mg capsule,delayed release(DR/EC) 60 mg PO QAM RF: 0 Medical Marijuana 1 dose Inhalation DAILY PRN (Reason: Pain) RF: 0 multivitamin Tablet 1 tab PO QAM RF: 0 amitriptyline 50 mg Tablet 50 mg PO HS Qty: 14 RF: 1 diclofenac sodium 75 mg Tablet,Delayed Release (Dr/Ec) 75 mg PO BIDM Qty: 60 RF: 0 duloxetine 30 mg Capsule,Delayed Release(Dr/Ec) 30 mg PO QAM Qty: 30 RF: 0 alprazolam [Xanax] 0.5 mg tablet 0.25 mg PO TID PRN (Reason: Anxiety) Qty: 0 RF: 0 lutein 20 mg Capsule 20 mg PO DAILY RF: 0 Stand-Alone Forms: [facility], [facility]/Other Patient Handouts: Safety Back Into and Out Bed Discharge Orders: Discharge Order (Routine); Ordered 11/23/18 Ordered By: Bacilio Wilson Admission Data Admit Date/Time: 11/19/18 10:07 Attending Provider: Bacilio Wilson Admit Provider: Bacilio Wilson Primary Care Provider: Tal Duron Other Providers: Zaheer Armando Service: Surgical Services Other Interventions: Discharge Summary Assessment (RN) Last Done: 11/26/18 08:26 Pending Studies at Discharge: No DC Date/Time DO NOT enter until pt leaves facility: 11/26/18 11:15
== END 2018-11-26 11:15 | disposition home health service (06) | DRG 455 ==
LOC: ASU 06:15 → 3E 10:07

== ENCOUNTER 2019-08-16 12:03 | Inpatient (IN) ==
--- NOTE | 2019-08-16 12:37 | Emergency Department Note ---
History of Present Illness General Chief complaint: Overdose (Intentional) Stated complaint: overdose/gen. pain Time Seen by Provider: 08/16/19 12:05 Source: patient, EMS, RN notes reviewed and old records reviewed Mode of arrival: EMS Limitations: patient cooperation History of Present Illness Provider complaint: Overdose Onset (ago): hour(s) greater than 10 This is a 74-year-old female who has a history of chronic hip pain who went to her orthopedic surgeon's office yesterday for an injection. When the injection did not work the patient returned home and took a mixture of oxycodone 5 mg, alcohol as well as a Elavil. She put a suicide note on her door. When she woke up this morning at 10 AM and realize she was still alive she then took 7-8 Xanax pills. A neighbor discovered the note this morning and called the police. Upon arrival to the emergency department the patient does not want anything done. EMS was summoned who brought the patient to the emergency department. Home Medications Home Medications Medication Instructions Recorded Confirmed Type cholecalciferol (vitamin D3) 75 1,000 units PO QAM 04/22/18 08/16/19 History mcg (3,000 unit) tablet magnesium oxide 250 mg PO QAM tab 04/22/18 08/16/19 History milk thistle 150 mg capsule 150 mg PO QAM cap 04/22/18 08/16/19 History duloxetine 60 mg capsule,delayed 60 mg PO QAM 04/23/18 08/16/19 History release Medical Marijuana 1 dose INHALATION DAILY PRN 06/04/18 08/16/19 History multivitamin 1 tab PO QAM 06/04/18 08/16/19 History alprazolam [Xanax] 0.25 mg PO TID PRN #0 tab 10/26/18 08/16/19 Rx duloxetine 30 mg PO QAM #30 cap 10/26/18 08/16/19 Rx lutein 20 mg PO DAILY 11/19/18 08/16/19 History Allergies Allergy/AdvReac Type Severity Reaction Status Date / Time coconut Allergy Unknown Verified 04/19/19 09:12 No Known Drug Allergies Allergy Verified 04/19/19 09:12 Past Med/Surg History Medical History Anxiety (Chronic) Chronic back pain (Chronic) Degenerative disc disease (Chronic) Depression Hypertension (Chronic) Lumbar stenosis with neurogenic claudication (Chronic) Severe at L4-5 Moderate to severe at L5-S1 Mass of left ovary Mitral valve prolapse (Chronic) Remote history, no recent echo. Ocular hypertension (Chronic) Osteoarthritis (Chronic) Surgical History History of cataract surgery (Resolved) History of colonoscopy (Resolved) History of dilatation and curettage History of tonsillectomy (Resolved) History of tooth extraction (Resolved) History of total knee replacement (Resolved) Right. Done at [facility] 2016, SAB +PNB without issues. Family History Mother Emphysema lung Social History Preferred Language: Estonian Communication Ability: Effective Button Broacher Required: No Beliefs That Will Affect Care: None marital status: / Current Living Situation: Spouse Feels Safe at Home: Yes Smoking Status: Never smoker Second Hand Exposure: No ; Hx Alcohol Use: Yes Alcohol type: wine Hx Substance Use: Yes substance use type: marijuana Substance Use Type Other:: medical Last Used Substance: Days (ago) Review of Systems A total of 10 systems reviewed and were otherwise negative Physical Exam Vital Signs Vital Signs - 24 hr 08/16/19 12:17 08/16/19 12:31 08/16/19 12:53 Temperature 36.9 C 36.9 C Temperature Source Oral Pulse Rate 88 Pulse Rate [Right Finger] 88 59 L Pulse Rate from SpO2 Sensor Respiratory Rate 16 18 18 Respiratory Effort / Characteristics Non-Labored Respiratory Depth Normal Respiratory Pattern Regular Blood Pressure 152/80 H Blood Pressure [Right Arm] 152/80 H 131/65 Blood Pressure Mean 104 Blood Pressure Mean [Right Arm] 104 87 Blood Pressure Position [Right Arm] Lying Lying Pulse Oximetry 99 99 95 Oxygen Delivery Method Room Air Room Air Room Air Sepsis Recent Fever Within 48 Hours No Sepsis New/Unexplained Change in Mental Status No Sepsis Action Taken by Nursing No Action Required 08/16/19 13:00 08/16/19 13:15 08/16/19 13:30 Temperature Temperature Source Pulse Rate 79 79 76 Pulse Rate [Right Finger] Pulse Rate from SpO2 Sensor 81 79 76 Respiratory Rate 18 12 12 Respiratory Effort / Characteristics Respiratory Depth Respiratory Pattern Blood Pressure 135/76 108/73 131/70 Blood Pressure [Right Arm] Blood Pressure Mean 89 92 85 Blood Pressure Mean [Right Arm] Blood Pressure Position [Right Arm] Pulse Oximetry 97 95 95 Oxygen Delivery Method Sepsis Recent Fever Within 48 Hours Sepsis New/Unexplained Change in Mental Status Sepsis Action Taken by Nursing 08/16/19 14:00 08/16/19 14:30 08/16/19 15:00 Temperature Temperature Source Pulse Rate 72 66 65 Pulse Rate [Right Finger] Pulse Rate from SpO2 Sensor 72 67 65 Respiratory Rate 14 10 L 12 Respiratory Effort / Characteristics Respiratory Depth Respiratory Pattern Blood Pressure 123/68 109/63 113/63 Blood Pressure [Right Arm] Blood Pressure Mean 86 79 78 Blood Pressure Mean [Right Arm] Blood Pressure Position [Right Arm] Pulse Oximetry 94 93 94 Oxygen Delivery Method Sepsis Recent Fever Within 48 Hours Sepsis New/Unexplained Change in Mental Status Sepsis Action Taken by Nursing 08/16/19 15:30 08/16/19 16:00 Temperature Temperature Source Pulse Rate 71 70 Pulse Rate [Right Finger] Pulse Rate from SpO2 Sensor 72 67 Respiratory Rate 16 16 Respiratory Effort / Characteristics Respiratory Depth Respiratory Pattern Blood Pressure 124/61 111/70 Blood Pressure [Right Arm] Blood Pressure Mean 87 78 Blood Pressure Mean [Right Arm] Blood Pressure Position [Right Arm] Pulse Oximetry 95 95 Oxygen Delivery Method Sepsis Recent Fever Within 48 Hours Sepsis New/Unexplained Change in Mental Status Sepsis Action Taken by Nursing GENERAL: Patient is a cachectic appearing female HEAD: Normocephalic atraumatic EYES: Ocular movements intact pupils equal and react to light OROPHARYNX mucous membranes are moist no exudates present no erythema or edema present NECK: Supple no nuchal rigidity CHEST: Good equal expansion LUNGS: Clear and equal to auscultation CARDIAC: Normal S1 and S2 ABDOMEN: Soft nontender no guarding BACK: No CVA tenderness EXTREMITIES: No pain upon palpation normal muscle strength in all groups no clubbing cyanosis or edema NEURO: Patient is following commands is answering questions appropriately. Alert and oriented x3 Cranial Nerves 2-12 grossly intact Medical Decision Making Differential Diagnosis Overdose, toxicologic, infection, hypoglycemia, electrolyte abnormalities, cardiac sources, intracerebral event, neurologic, trauma, as well as other pathologies. Medical Records Attestation: I reviewed the patient's medical records. Home Medications Current Medication List: was personally reviewed by me Laboratory Data Attestation: I reviewed the patient's lab results. Result diagrams: 08/16/19 12:26 08/16/19 12:26 Lab Results 08/16/19 08/16/19 08/16/19 Range/Units 12:26 12:26 12:26 WBC 9.47 (4.8-10.8) K/uL RBC 4.09 L (4.2-5.4) M/uL Hgb 13.1 (12.0-16.0) g/dL Hct 39.2 (37-47) % MCV 95.8 (80-100) fL MCH 32.0 (25-34) pg MCHC 33.4 (32-36) g/dL RDW Std Deviation 50.2 H (36.4-46.3) fL RDW Coeff of Korey 14.2 (11.5-14.5) % Plt Count 239 (130-400) K/uL MPV 10.5 H (7.4-10.4) fL Immature Gran % (Auto) 0.3 % Neut % (Auto) 81.2 % Lymph % (Auto) 9.8 % [place] % (Auto) 8.7 % Eos % (Auto) 0.0 % Baso % (Auto) 0.0 % Immature Gran # (Auto) 0.03 H (0.00-0.02) K/uL Neut # (Auto) 7.69 H (1.4-6.5) K/uL Lymph # (Auto) 0.93 L (1.2-3.4) K/uL [place] # (Auto) 0.82 H (0.11-0.59) K/uL Eos # (Auto) 0.00 (0-0.5) K/uL Baso # (Auto) 0.00 (0-0.2) K/uL Sodium 137 (136-145) mmol/L Potassium 4.5 (3.5-5.1) mmol/L Chloride 102 (98-107) mmol/L Carbon Dioxide 31 (21-32) mmol/L Anion Gap 4.0 (3-11) BUN 17 (7-18) mg/dl Creatinine 0.82 (0.6-1.2) mg/dl Est Cr Clr Drug Dosing 51.3 ml/min Est GFR ( Amer) 82.9 Est GFR (Non-Af Amer) 71.5 BUN/Creatinine Ratio 20.5 H (10-20) Glucose 109 H (70-99) mg/dl Calcium 10.3 H (8.5-10.1) mg/dl Total Bilirubin 0.4 (0.2-1) mg/dl AST 14 L (15-37) U/L ALT 20 (12-78) U/L Alkaline Phosphatase 66 (45-117) U/L Total Protein 8.4 H (6.4-8.2) gm/dl Albumin 4.4 (3.4-5.0) gm/dl Globulin 3.9 (2.5-4.0) gm/dl Albumin/Globulin Ratio 1.1 (0.9-2) TSH 0.895 (0.300-4.500) uIu/ml Urine Color Urine Appearance (Clear) Urine pH (4.5-7.5) Ur Specific [place] (1.000-1.030) Urine Protein (Negative) Urine Glucose (UA) (Negative) Urine Ketones (Negative) Urine Blood (Negative) Urine Nitrite (Negative) Urine Bilirubin (Negative) Urine Urobilinogen (Negative) Ur Leukocyte Esterase (Negative) Urine WBC (Auto) (0-5) /hpf Urine RBC (Auto) (0-4) /hpf U Hyaline Cast (Auto) (0-5) /lpf U Epithel Cells (Auto) (0-5) /lpf Urine Bacteria (Auto) (Negative) Salicylates < 1.7 L (2.8-20) mg/dl Urine Opiates Screen (Neg) Ur Methadone, Qual (Neg) Acetaminophen < 2 L (10-30) ug/ml Urine Barbiturates (Neg) Ur Phencyclidine (PCP) (Neg) U Amphetamin/Meth Scrn (Neg) MDMA (Ecstasy) Screen (Neg) U Benzodiazepines Scrn (Neg) Ur Cocaine Metabolite (Neg) U Marijuana (THC) Screen (Neg) Ethyl Alcohol mg/dL (0-3) mg/dl 08/16/19 08/16/19 08/16/19 Range/Units 12:26 13:46 13:46 WBC (4.8-10.8) K/uL RBC (4.2-5.4) M/uL Hgb (12.0-16.0) g/dL Hct (37-47) % MCV (80-100) fL MCH (25-34) pg MCHC (32-36) g/dL RDW Std Deviation (36.4-46.3) fL RDW Coeff of Koery (11.5-14.5) % Plt Count (130-400) K/uL MPV (7.4-10.4) fL Immature Gran % (Auto) % Neut % (Auto) % Lymph % (Auto) % [place] % (Auto) % Eos % (Auto) % Baso % (Auto) % Immature Gran # (Auto) (0.00-0.02) K/uL Neut # (Auto) (1.4-6.5) K/uL Lymph # (Auto) (1.2-3.4) K/uL [place] # (Auto) (0.11-0.59) K/uL Eos # (Auto) (0-0.5) K/uL Baso # (Auto) (0-0.2) K/uL Sodium (136-145) mmol/L Potassium (3.5-5.1) mmol/L Chloride (98-107) mmol/L Carbon Dioxide (21-32) mmol/L Anion Gap (3-11) BUN (7-18) mg/dl Creatinine (0.6-1.2) mg/dl Est Cr Clr Drug Dosing ml/min Est GFR ( Amer) Est GFR (Non-Af Amer) BUN/Creatinine Ratio (10-20) Glucose (70-99) mg/dl Calcium (8.5-10.1) mg/dl Total Bilirubin (0.2-1) mg/dl AST (15-37) U/L ALT (12-78) U/L Alkaline Phosphatase (45-117) U/L Total Protein (6.4-8.2) gm/dl Albumin (3.4-5.0) gm/dl Globulin (2.5-4.0) gm/dl Albumin/Globulin Ratio (0.9-2) TSH (0.300-4.500) uIu/ml Urine Color Yellow Urine Appearance Clear (Clear) Urine pH 5.5 (4.5-7.5) Ur Specific [place] 1.016 (1.000-1.030) Urine Protein Negative (Negative) Urine Glucose (UA) Negative (Negative) Urine Ketones Negative (Negative) Urine Blood Negative (Negative) Urine Nitrite Negative (Negative) Urine Bilirubin Negative (Negative) Urine Urobilinogen Negative (Negative) Ur Leukocyte Esterase 1+ H (Negative) Urine WBC (Auto) 5-10 H (0-5) /hpf Urine RBC (Auto) 0-4 (0-4) /hpf U Hyaline Cast (Auto) 1-5 (0-5) /lpf U Epithel Cells (Auto) 10-20 H (0-5) /lpf Urine Bacteria (Auto) Negative (Negative) Salicylates (2.8-20) mg/dl Urine Opiates Screen Pos H (Neg) Ur Methadone, Qual Neg (Neg) Acetaminophen (10-30) ug/ml Urine Barbiturates Neg (Neg) Ur Phencyclidine (PCP) Neg (Neg) U Amphetamin/Meth Scrn Neg (Neg) MDMA (Ecstasy) Screen Neg (Neg) U Benzodiazepines Scrn Pos H (Neg) Ur Cocaine Metabolite Neg (Neg) U Marijuana (THC) Screen Pos H (Neg) Ethyl Alcohol mg/dL < 3.0 (0-3) mg/dl ECG Data Attestation: I personally reviewed and interpreted this ECG as follows: Indication: + toxicologic Rate (beats per minute): 69 Rhythm: + sinus rhythm ECG Intervals/blocks: + Normal QRS (90) and + Normal QT-c (426) ECG [place]: + Normal ECG ST segments: no ST depression and no ST elevation Comparison ECG Date: from (11/05/2018) Change: no significant change Blood Pressure Blood Pressure Findings: Normal blood pressure MDM Narrative This is a 74-year-old female who presents emergency department complaining of multiple drug overdoses over the past 15 hours. I did discuss the case with poison control. They felt that the patient was medically clear from last night overdose based on EKG as well as laboratory work. Her Tylenol salicylate and alcohol level are 0. The patient is noncooperative here therefore a 302 petition statement was filled out on her. I did discuss her with the psychiatric case liaison. She was then discussed with the psychiatric liaison from [address]. Cardiac monitoring: An order was placed for continuous cardiac monitoring. The monitor shows a rate of 76 with NS rhythm. The patient was evaluated during the global COVID-19 pandemic, and that diagnosis was suspected/considered upon their initial presentation. Their evaluation, treatment and testing was consistent with current guidelines for patients who present with complaints or symptoms that may be related to COVID- 19. Patient has a family history of emphysema. Observation began at 1226 and was necessary in order to medically clear patient and to preclude an unnecessary admission. Upon re-evaluation, observation revealed that the patient should be medically clear and admitted to Psychiatry. Patient discharged from observation at 1730. Impression & Plan Drug overdose, Mood disorder Discharge Plan Visit Data *Final* Discharge Date/Time: 08/16/19 17:00 Chief Complaint: Overdose (Intentional) Stated Complaint: overdose/gen. pain ED Provider: Manuel Kim Discharge Problem: Drug overdose, Mood disorder Patient Disposition: Admitted As Inpatient Discharge Instructions Interventions: ED Discharge Assessment Last Done: 08/16/19 17:00 Discharge Problem: Drug overdose Qualifiers: Encounter type: initial encounter Injury intent: intentional self-harm Qualified Code(s): T50.902A - Poisoning by unspecified drugs, medicaments and biological substances, intentional self-harm, initial encounter
[2019-08-16 12:40] LABS: Hematocrit (blood only) 39.2 % (37-47); Hemoglobin 13.1 g/dL (12.0-16.0); Immature Granulocytes # (auto) 0.03 K/uL (0.00-0.02); Immature Granulocytes % (auto) 0.3 %; Lymphocytes # (auto) 0.93 K/uL (1.2-3.4); Lymphocytes % (auto) 9.8 %; Mean Corpuscular Hgb Conc 33.4 g/dL (32-36); Mean Corpuscular Volume 95.8 fL (80-100); Mean Platelet Volume 10.5 fL (7.4-10.4); Monocytes # (auto) 0.82 K/uL (0.11-0.59); Monocytes % (auto) 8.7 %; Neutrophils # (auto) 7.69 K/uL (1.4-6.5); Neutrophils % (auto) 81.2 %; Platelet Count 239 K/uL (130-400); RDW Coefficient of Variation 14.2 % (11.5-14.5); RDW Standard Deviation 50.2 fL (36.4-46.3); Red Blood Count 4.09 M/uL (4.2-5.4); White Blood Count 9.47 K/uL (4.8-10.8)
[2019-08-16 12:56] LABS: Albumin Level 4.4 gm/dl (3.4-5.0); BUN Creatinine Ratio 20.5 (10-20); Calcium 10.3 mg/dl (8.5-10.1); Creatinine Clr Calc Pharmacy 51.3 ml/min; Est GFR (African American) 82.9; Est GFR (Non-African American) 71.5; Potassium 4.5 mmol/L (3.5-5.1)
[2019-08-16 13:07] LABS: Albumin Globulin Ratio 1.1 (0.9-2); Bilirubin,Total 0.4 mg/dl (0.2-1); Globulin 3.9 gm/dl (2.5-4.0); Thyroid Stimulating Hormone 0.895 uIu/ml (0.300-4.500); Total Protein 8.4 gm/dl (6.4-8.2)
[2019-08-16 13:13] LABS: Acetaminophen < 2 ug/ml (10-30)
[2019-08-16 13:14] LABS: Salicylate < 1.7 mg/dl (2.8-20)
[2019-08-16 14:06] LABS: Appearance Urine Clear (Clear); Bacteria Urine Automated Negative (Negative); Bilirubin Urine Negative (Negative); Blood Urine Negative (Negative); Color Urine Yellow; Glucose Urine UA Negative (Negative); Ketones Urine Negative (Negative); Leukocyte Esterase Urine 1+ (Negative); Nitrite Urine Negative (Negative); Protein Urine Negative (Negative); RBC Urine Automated 0-4 /hpf (0-4); Specific Gravity Urine 1.016 (1.000-1.030); Urobilinogen Urine Negative (Negative); pH Urine 5.5 (4.5-7.5)
[2019-08-16 14:34] LABS: Amphetamines+Metham, Urine Neg (Neg); Barbiturates, Urine Neg (Neg); Benzodiazepine, Urine Pos (Neg); Cocaine, Urine Neg (Neg); MDMA (Ecstacy), Urine Neg (Neg); Methadone, Urine Neg (Neg); Opiate, Urine Pos (Neg); Phencyclidine, Urine Neg (Neg)
--- NOTE | 2019-08-16 16:41 | Electrocardiogram Report ---
Test Reason : Blood Pressure : / mmHG Vent. Rate : 069 BPM Atrial Rate : 069 BPM P-R Int : 138 ms QRS Dur : 090 ms QT Int : 398 ms P-R-T Axes : 063 085 053 degrees QTc Int : 426 ms Normal sinus rhythm When compared with ECG of 05-NOV-2018 15:10, Incomplete right bundle branch block is no longer Present Confirmed by Kevin Harp [id number]) on 08/16/2019 4:40:50 PM Referred By: REFERRED SELF Confirmed By:Jerrell Harp
[2019-08-16] MEDS ORDERED: ALUMINUM/MAGNESIUM SUSP 30 ML UDC PO PRN (16:47)
[2019-08-16] MEDS ORDERED: BISMUTH SUBSALICYLATE PER ML OMNICELL CHARGE PO PRN (16:47)
[2019-08-16] MEDS ORDERED: MAGNESIUM HYDROXIDE SUSP 30 ML UDC PO PRN (16:47)
[2019-08-16] MEDS ORDERED: SODIUM CHLORIDE 0.65% NA SOLN 45 ML (OCEAN) PRN (16:47)
[2019-08-16 17:56] VITALS: O2SAT 96
--- NOTE | 2019-08-17 08:34 | History & Physical ---
Date of Service August 17, 2019 Impression / Recommendations Impression 74-year-old female with a history of depression, chronic pain, and two fairly serious suicide attempts by overdose in the context of pain and feeling hopeless for effective interventions. She does not see herself as struggling with mental illness, and feels that her desire to end her life is reasonable given the extent of her pain. Borderline personality traits are noted as well and may be playing a role. She has been working with a therapist and psychiatrist, and her therapist has suggested supportive living arrangement, which the patient has been unwilling to consider. She indicates she has some support from friends, and a good alliance with her outpatient psychiatrist. She remains at high risk of suicide if she reports ongoing hopelessness and a wish to be , and is disappointed that she did not as a result of her overdose. Inpatient treatment is medically necessary due to the severity of her symptoms and risk for suicide if discharged. (1) Suicide attempt by multiple drug overdose: 08/16 -suicide checks for safety. -Continue to process stressors, work on healthy coping strategies and discharge safety plan. -Patient indicates that she took all of the opiates and benzodiazepines in her possession. She is prescribed a tricyclic, which is also potentially lethal in overdose. Would be helpful to have someone bring in all of her medications so that any old, outdated prescriptions could be safely disposed of, if she is willing to allow this. We will also need to coordinate care with the physicians who prescribed the medication she overdosed on, including her psychiatrist, PCP Dr. Duron, and surgeon Dr. Wilson. -Recommend family meeting with friends/supports. -Continue inpatient treatment on an involuntary 302 commitment, and filed for a 303 hearing to be held tomorrow, as patient indicates ongoing desire to be and remains at high risk for suicide. Encounter type: initial encounter Qualified Code(s): T50.902A - Poisoning by unspecified drugs, medicaments and biological substances, intentional self-harm, initial encounter (2) Depression: 08/16 -continue home dose of duloxetine 90 mg daily and consider titration (patient unwilling to discuss medication changes today). -Amitriptyline held on admission due to overdose; given multiple overdoses and concerns regarding lethality of this medication, will defer decision about resuming it to her outpatient psychiatrist, Dr. Allison, who will be on the unit later this week. -Encourage patient to attend and participate in groups and therapy. -Care coordinated with her outpatient clinicians, explore options to increase supports. (3) Borderline personality disorder: 08/16 -explore patterns of behavior and coping mechanisms, continue with outpatient therapy after discharge. (4) Alcohol abuse: 08/16 -[facility] protocol for withdrawal. Brief intervention was offered and refused Summary of intervention: The patient is in precontemplation stage with regards to transtheoretical model of change. She does not feel that she has a substance use problem --Patient has history of benzodiazepine abuse, and uses medical marijuana in combination with alcohol daily. Risk Factors Assessment Male: No : Yes Do You Have Access To A Gun?: No Health Problems: Yes Mental Health Diagnoses: Yes Substance Use Disorders: Yes Previous Attempt: Yes Previous Attempt; Highly Lethal: Yes Previous Attempt; Planned: Yes Previous Attempt; Didn't Tell Anyone: Yes Family History of Suicide: No Previous Psychiatric Hospitalization: Yes Hopelessness: Yes Smoker: No Protective Factors Assessment : No Responsible for Young Children: No Employed: No Stable Relationships: Yes Good Rapport with Provider: Yes Psychiatric History Identifying Data CATHERINE MAIER is a 74-year-old F who currently lives in [place] alone, has a history of chronic pain, depression, and serious suicide attempts by overdose, and was admitted on 08/16/19 16:47 on a 302 involuntary commitment for suicide attempt by overdose on alcohol, a tricyclic antidepressant, opioid pain medication, and benzodiazepines. Chief Complaint " Groggy, I'm in a lot of physical pain". History of Present Illness Patient is known to me from a previous hospitalization on our unit in September 2018 after a significant overdose in a suicide attempt. She presented to the ER 08/16/2019 via EMS after a neighbor found a note on her door stating "I have committed suicide and am on the couch. Let yourself in with the hidden sebastian. URGENT: go inside and let [place] out and feed her BEFORE contacting police". She told EMS that she took 30 OxyContin 5 mg and 8 amitriptyline 50 mg along with vodka and wine the previous night at approx 2200. She told the ER staff "I wasn't supposed to wake up." She stated that the day before, she got an injection in her hip for chronic pain at [facility], and that this was her last hope for pain relief. She did not think it worked, so decided to end her life. She took the overdose, but woke up the next morning and took an additional #7 alprazolam 2.5 mg at approximately 10:30 AM. She refused recommendations for inpatient treatment, so was placed on a 302 involuntary commitment. She requested that her POA, Ellie, be contacted: Clarified that she does not have mental health POA, and was in favor of involuntary commitment. Admission labs notable for RBC 4.09, RDW 50.2, glucose 109, TSH 0.895, UA with 1+ leukocyte esterase, 5-10 WBCs, and 10-20 epithelial cells, and UDS positive for opiates, benzodiazepines, and THC. EKG was normal sinus rhythm with a QTC of 426. Her therapist contacted staff this morning, stated that the patient has been focused on her pain, and she feels she would benefit from a higher level of care, but the patient has been unwilling to consider an alternative living situation. On my assessment, the patient states mood has worsened over the past month due to exacerbation of her chronic pain. She had surgery in October 2018, and states that she was slowly recovering, but then about a month ago, "the pain came back. Nothing works for it, ibuprofen, Aleve, Celebrex. I don't want to live like this. I don't think anything can be done about it." She initially states she has not been taking anything for pain, because nothing works, but later says she is smoking marijuana daily, and that that and her psychotropic medications have been somewhat helpful. She states she was taken off Xanax because she was "hooked on it," but had some leftover from a previous prescription and that is what she overdosed on. He says she decided to commit suicide on Thursday after her injection did not provide pain relief, as she felt "I just can't take this anymore." She states she took all of the oxycodone (not OxyContin as reported in the ER note) and alprazolam that she had, both left over from previous prescriptions. She left a note on her daughter which she expected to be found by her "hired helper," who comes once a week to help her with housework. She states that she intended to , and was surprised and dismayed when she woke up the following morning. She initially refuses to answer when asked how she feels about the fact that she is still alive, stating "I can't answer that." She later states "I do not want to live under these circumstances, under this kind of pain." She repeatedly states she does not want to be in the hospital, and does not feel she has a mental illness, stating "it is very clear, it's [id number], anyone in my position would be considering suicide. My only hope is to see Dr. Wilson and see if there is anything else to be done." She does not think that mental health treatment will be helpful for her. Past Psychiatric History Previous Psych History: Diagnoses at the time of discharge from our unit in 10/2018: Major depressive disorder, recurrent, severe without psychosis Suicide attempt by overdose on alprazolam and OxyContin Alcohol and benzodiazepine use disorders Chronic low back pain Current Psychiatric Diagnosis: Depression Outpatient Services: Psychiatrist: Dr. Allison at [facility] Therapist: Laverne Singletary PCP: Dr. Tal Duron Previous Psych Admissions: [facility] 09/2018 after significant overdose in suicide attempt Do You Have Access To A Gun?: No History of Previous Suicide Attempt: Yes Describe Attempts in the Past: Overdose September 2018 Past Medication Trials: Xanax -abused it Hydroxyzine Buspirone Diazepam -confusion Allergies Allergy/AdvReac Type Severity Reaction Status Date / Time coconut Allergy Unknown Verified 04/19/19 09:12 No Known Drug Allergies Allergy Verified 04/19/19 09:12 Home Medications Home Medications Medication Instructions Recorded Confirmed Type cholecalciferol (vitamin D3) 75 1,000 units PO QAM 04/22/18 08/16/19 History mcg (3,000 unit) tablet magnesium oxide 250 mg PO QAM tab 04/22/18 08/16/19 History milk thistle 150 mg capsule 150 mg PO QAM cap 04/22/18 08/16/19 History duloxetine 60 mg capsule,delayed 60 mg PO QAM 04/23/18 08/16/19 History release Medical Marijuana 1 dose INHALATION DAILY PRN 06/04/18 08/16/19 History multivitamin 1 tab PO QAM 06/04/18 08/16/19 History alprazolam [Xanax] 0.25 mg PO TID PRN #0 tab 10/26/18 08/16/19 Rx duloxetine 30 mg PO QAM #30 cap 10/26/18 08/16/19 Rx lutein 20 mg PO DAILY 11/19/18 08/16/19 History amitriptyline 25 - 50 mg PO HS PRN 08/17/19 08/17/19 History Family History Family History of: None Alcohol History Hx of Alcohol Use Over the Past 12 Months: Yes (Wine and 2 shots of vodka daily for years) AUDIT Total Score: 11 She has reported a daily "ritual" that includes drinking 2 glasses of wine, taking 2 shots of vodka, and smoking medical marijuana.during her last hospitalization she described herself as a "functioning alcoholic" for most of her life. She reports she was recently taken off of Xanax due to abusing the medication. Smoking Use Have You Smoked or Used Tobacco Products in the Last 30 Days: No Smoking Status: Never smoker Substance History Hx of Prescription Med Misuse Over the Past 12 Months: Yes (OD for 2nd time on prescription meds) Hx of Over the Counter Med Misuse Over the Past 12 Months: No Hx of Inhalent Misuse Over the Past 12 Months: No Hx of Organic Substance Use Over the Past 12 Months: Yes (medical marijuana daily) Hx of Illegal Substances/Street Drug Use Over Past 12 Months: No Problems as a Result of Past Substance Use: Sustained Bodily Harm and Attempted Suicide Personal History Living Arrangements: Home Living Arrangements Comments: alone in [place]. 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 Ocular hypertension (Chronic) Osteoarthritis (Chronic) Surgical History History of cataract surgery (Resolved) History of colonoscopy (Resolved) History of dilatation and curettage History of tonsillectomy (Resolved) History of tooth extraction (Resolved) History of total knee replacement (Resolved) Right. Done at [facility] 2016, SAB +PNB without issues. Family History Mother Emphysema lung Social History Preferred Language: [place] Communication Ability: Effective Physician Pediatrician Required: No Beliefs That Will Affect Care: None marital status: / Current Living Situation: Spouse Feels Safe at Home: Yes Smoking Status: Never smoker Second Hand Exposure: No ; Hx Alcohol Use: Yes Alcohol type: wine Hx Substance Use: Yes substance use type: marijuana Substance Use Type Other:: medical Last Used Substance: Days (ago) Review of Systems Review of Systems: All systems reviewed & are unremarkable except as noted in HPI & below Physical Exam Psychiatric: Orientation: alert Partially cooperative. Apperance: appropriately dressed, + disheveled and appeared stated age Eye Contact: + poor eye contact Motor Behavior: no abnormal motor movements Slightly unsteady on her feet, touching stovall and furniture as she passes by. Irritated, angry tone. Affect: + irritable affect, + angry affect and + constricted affect Mood: + depressed mood, + irritable mood and + angry mood Thought Process: goal directed thought process; + thought process not clear or coherent Thought Content: + cognitive distortions, + hopelessness and + l oneliness Suicidal Thoughts: + reports suicidal thoughts Homicidal Thoughts: denies homicidal thoughts Hallucinations: no auditory hallucinations Cognition: recent memory grossly intact, attention grossly intact and language grossly intact Insight: + poor insight Judgement: + poor judgement Vital Signs (Past 24 Hours): Last Vital Signs Temp 36.8 C 08/17/19 06:55 Pulse 65 08/17/19 06:55 Resp 18 08/17/19 06:55 BP 132/76 08/17/19 06:55 Pulse Ox 96 08/16/19 17:30 Exam Statement: A physical exam was performed in the ER prior to admission to the unit by Dr. Manuel Kim. I accept that physical as correct/medical clearance for the inpatient physical exam. Results & Data ([facility]) Laboratory Results Laboratory Results - last 24 hr 08/16/19 08/16/19 08/16/19 12:26 12:26 12:26 WBC 9.47 RBC 4.09 L Hgb 13.1 Hct 39.2 MCV 95.8 MCH 32.0 MCHC 33.4 RDW Std Deviation 50.2 H RDW Coeff of Korey 14.2 Plt Count 239 MPV 10.5 H Immature Gran % (Auto) 0.3 Neut % (Auto) 81.2 Lymph % (Auto) 9.8 [place] % (Auto) 8.7 Eos % (Auto) 0.0 Baso % (Auto) 0.0 Immature Gran # (Auto) 0.03 H Neut # (Auto) 7.69 H Lymph # (Auto) 0.93 L [place] # (Auto) 0.82 H Eos # (Auto) 0.00 Baso # (Auto) 0.00 Sodium 137 Potassium 4.5 Chloride 102 Carbon Dioxide 31 Anion Gap 4.0 BUN 17 Creatinine 0.82 Est Cr Clr Drug Dosing 51.3 Est GFR ( Amer) 82.9 Est GFR (Non-Af Amer) 71.5 BUN/Creatinine Ratio 20.5 H Glucose 109 H Calcium 10.3 H Total Bilirubin 0.4 AST 14 L ALT 20 Alkaline Phosphatase 66 Total Protein 8.4 H Albumin 4.4 Globulin 3.9 Albumin/Globulin Ratio 1.1 TSH 0.895 Urine Color Urine Appearance Urine pH Ur Specific [place] Urine Protein Urine Glucose (UA) Urine Ketones Urine Blood Urine Nitrite Urine Bilirubin Urine Urobilinogen Ur Leukocyte Esterase Urine WBC (Auto) Urine RBC (Auto) U Hyaline Cast (Auto) U Epithel Cells (Auto) Urine Bacteria (Auto) Salicylates < 1.7 L Urine Opiates Screen U Codeine Confrm GC/MS Ur Morphine (GC/MS) Ur Hydrocodone (GC/MS) Ur Norhydrocodone Ur Noroxycodone Urine Oxycodone (GC/MS) U Oxymorphone GC/MS Ur Methadone, Qual Ur Hydromorphone (GC/MS) Acetaminophen < 2 L Urine Barbiturates Ur Phencyclidine (PCP) U Amphetamin/Meth Scrn MDMA (Ecstasy) Screen U OH-Alprazolam Confrm U Benzodiazepines Scrn 7-Amino Clonazepam Ur Nordiazepam Confirm U OH-ethylflurazepam U Lorazepam Cnf GC/MS U Oxazepam Confm GC/MS Ur Temazepam Confirm U OH-Triazolam Confirm U OH-Midazolam Confirm Ur Cocaine Metabolite U Marijuana (THC) Screen U Marijuana THC Carboxy Drug Screen Comment Ethyl Alcohol mg/dL 08/16/19 08/16/19 08/16/19 12:26 13:46 13:46 WBC RBC Hgb Hct MCV MCH MCHC RDW Std Deviation RDW Coeff of Korey Plt Count MPV Immature Gran % (Auto) Neut % (Auto) Lymph % (Auto) [place] % (Auto) Eos % (Auto) Baso % (Auto) Immature Gran # (Auto) Neut # (Auto) Lymph # (Auto) [place] # (Auto) Eos # (Auto) Baso # (Auto) Sodium Potassium Chloride Carbon Dioxide Anion Gap BUN Creatinine Est Cr Clr Drug Dosing Est GFR ( Amer) Est GFR (Non-Af Amer) BUN/Creatinine Ratio Glucose Calcium Total Bilirubin AST ALT Alkaline Phosphatase Total Protein Albumin Globulin Albumin/Globulin Ratio TSH Urine Color Yellow Urine Appearance Clear Urine pH 5.5 Ur Specific [place] 1.016 Urine Protein Negative Urine Glucose (UA) Negative Urine Ketones Negative Urine Blood Negative Urine Nitrite Negative Urine Bilirubin Negative Urine Urobilinogen Negative Ur Leukocyte Esterase 1+ H Urine WBC (Auto) 5-10 H Urine RBC (Auto) 0-4 U Hyaline Cast (Auto) 1-5 U Epithel Cells (Auto) 10-20 H Urine Bacteria (Auto) Negative Salicylates Urine Opiates Screen Pos H U Codeine Confrm GC/MS Ur Morphine (GC/MS) Ur Hydrocodone (GC/MS) Ur Norhydrocodone Ur Noroxycodone Urine Oxycodone (GC/MS) U Oxymorphone GC/MS Ur Methadone, Qual Neg Ur Hydromorphone (GC/MS) Acetaminophen Urine Barbiturates Neg Ur Phencyclidine (PCP) Neg U Amphetamin/Meth Scrn Neg MDMA (Ecstasy) Screen Neg U OH-Alprazolam Confrm U Benzodiazepines Scrn Pos H 7-Amino Clonazepam Ur Nordiazepam Confirm U OH-ethylflurazepam U Lorazepam Cnf GC/MS U Oxazepam Confm GC/MS Ur Temazepam Confirm U OH-Triazolam Confirm U OH-Midazolam Confirm Ur Cocaine Metabolite Neg U Marijuana (THC) Screen Pos H U Marijuana THC Carboxy Drug Screen Comment Ethyl Alcohol mg/dL < 3.0 08/16/19 13:46 WBC RBC Hgb Hct MCV MCH MCHC RDW Std Deviation RDW Coeff of Korey Plt Count MPV Immature Gran % (Auto) Neut % (Auto) Lymph % (Auto) [place] % (Auto) Eos % (Auto) Baso % (Auto) Immature Gran # (Auto) Neut # (Auto) Lymph # (Auto) [place] # (Auto) Eos # (Auto) Baso # (Auto) Sodium Potassium Chloride Carbon Dioxide Anion Gap BUN Creatinine Est Cr Clr Drug Dosing Est GFR ( Amer) Est GFR (Non-Af Amer) BUN/Creatinine Ratio Glucose Calcium Total Bilirubin AST ALT Alkaline Phosphatase Total Protein Albumin Globulin Albumin/Globulin Ratio TSH Urine Color Urine Appearance Urine pH Ur Specific [place] Urine Protein Urine Glucose (UA) Urine Ketones Urine Blood Urine Nitrite Urine Bilirubin Urine Urobilinogen Ur Leukocyte Esterase Urine WBC (Auto) Urine RBC (Auto) U Hyaline Cast (Auto) U Epithel Cells (Auto) Urine Bacteria (Auto) Salicylates Urine Opiates Screen U Codeine Confrm GC/MS Pending Ur Morphine (GC/MS) Pending Ur Hydrocodone (GC/MS) Pending Ur Norhydrocodone Pending Ur Noroxycodone Pending Urine Oxycodone (GC/MS) Pending U Oxymorphone GC/MS Pending Ur Methadone, Qual Ur Hydromorphone (GC/MS) Pending Acetaminophen Urine Barbiturates Ur Phencyclidine (PCP) U Amphetamin/Meth Scrn MDMA (Ecstasy) Screen U OH-Alprazolam Confrm Pending U Benzodiazepines Scrn 7-Amino Clonazepam Pending Ur Nordiazepam Confirm Pending U OH-ethylflurazepam Pending U Lorazepam Cnf GC/MS Pending U Oxazepam Confm GC/MS Pending Ur Temazepam Confirm Pending U OH-Triazolam Confirm Pending U OH-Midazolam Confirm Pending Ur Cocaine Metabolite U Marijuana (THC) Screen U Marijuana THC Carboxy Pending Drug Screen Comment Pending Ethyl Alcohol mg/dL Current Inpatient Medications Current Inpatient Medications: Current Inpatient Medications Acetaminophen (Tylenol) 650 mg PO Q4H PRN PRN Reason: Headache or Minor Fever Stop: 09/15/19 16:46 Al Hydrox/Mg Hydrox/Simethicone (Maalox) 30 ml PO Q4H PRN PRN Reason: GI Upset Stop: 09/15/19 16:46 Bismuth Subsalicylate (Kaopectate) 15 ml PO PRN PRN PRN Reason: Loose Stool Stop: 09/15/19 16:46 Duloxetine HCl (Cymbalta) 30 mg PO QAM [facility] Stop: 09/16/19 08:59 Duloxetine [facility]ymbalta) [facility] Stop: 09/16/19 08:59 Hydroxyzine HCl (Vistaril) 50 mg PO HSZ PRN PRN Reason: Insomnia Stop: 09/15/19 16:46 Hydroxyzine HCl (Vistaril) 25 mg PO Q4H PRN PRN Reason: Anxiety Stop: 09/15/19 16:46 Magnesium Hydroxide (Milk Of Magnesia) 30 ml PO DAILY PRN PRN Reason: Constipation Stop: 09/15/19 16:46 Magnesium Oxide (Mag-Ox) 400 [facility] Stop: 09/16/19 08:59 Multivitamins (Multivitamin Tab) 1 tab [facility] Stop: 09/16/19 08:59 Sodium Chloride ([place] Nasal) 1 - 2 sprays NA PRN PRN PRN Reason: Nasal Dryness/Congestion Stop: 09/15/19 16:46 Vitamin D (Vitamin D3) 1,000 units PO QAM [facility] Stop: 09/16/19 08:59
[2019-08-17] MEDS: MAGNESIUM OXIDE 400 MG TAB PO SCH (08:42)
[2019-08-17] MEDS: DULOXETINE HCL 30 MG CAP PO SCH (08:42)
[2019-08-17] MEDS: DULOXETINE HCL 60 MG CAP PO SCH (08:42)
[2019-08-17] MEDS: CHOLECALCIFEROL 1,000 UNITS 25 MCG TAB PO SCH (08:42)
[2019-08-17] MEDS: MULTIVITAMIN TAB PO SCH (08:42)
[2019-08-17] MEDS ORDERED: LORazepam 1 MG TAB PO PRN (12:54)
--- NOTE | 2019-08-17 15:02 | Discharge Summary ---
Date of Service August 17, 2019 History of Present Illness Patient is known to me from a previous hospitalization on our unit in September 2018 after a significant overdose in a suicide attempt. She presented to the ER 08/16/2019 via EMS after a neighbor found a note on her door stating "I have committed suicide and am on the couch. Let yourself in with the hidden sebastian. URGENT: go inside and let Mitzi out and feed her BEFORE contacting police". She told EMS that she took 30 OxyContin 5 mg and 8 amitriptyline 50 mg along with vodka and wine the previous night at approx 2200. She told the ER staff "I wasn't supposed to wake up." She stated that the day before, she got an injection in her hip for chronic pain at [facility], and that this was her last hope for pain relief. She did not think it worked, so decided to end her life. She took the overdose, but woke up the next morning and took an additional #7 alprazolam 2.5 mg at approximately 10:30 AM. She refused recommendations for inpatient treatment, so was placed on a 302 involuntary commitment. She requested that her POA, Ellie, be contacted: Clarified that she does not have mental health POA, and was in favor of involuntary commitment. Admission labs notable for RBC 4.09, RDW 50.2, glucose 109, TSH 0.895, UA with 1+ leukocyte esterase, 5-10 WBCs, and 10-20 epithelial cells, and UDS positive for opiates, benzodiazepines, and THC. EKG was normal sinus rhythm with a QTC of 426. Her therapist contacted staff this morning, stated that the patient has been focused on her pain, and she feels she would benefit from a higher level of care, but the patient has been unwilling to consider an alternative living situation. On my assessment, the patient states mood has worsened over the past month due to exacerbation of her chronic pain. She had surgery in October 2018, and states that she was slowly recovering, but then about a month ago, "the pain came back. Nothing works for it, ibuprofen, Aleve, Celebrex. I don't want to live like this. I don't think anything can be done about it." She initially states she has not been taking anything for pain, because nothing works, but later says she is smoking marijuana daily, and that that and her psychotropic medications have been somewhat helpful. She states she was taken off Xanax because she was "hooked on it," but had some leftover from a previous prescription and that is what she overdosed on. He says she decided to commit suicide on Thursday after her injection did not provide pain relief, as she felt "I just can't take this anymore." She states she took all of the oxycodone (not OxyContin as reported in the ER note) and alprazolam that she had, both left over from previous prescriptions. She left a note on her daughter which she expected to be found by her "hired helper," who comes once a week to help her with housework. She states that she intended to , and was surprised and dismayed when she woke up the following morning. She initially refuses to answer when asked how she feels about the fact that she is still alive, stating "I can't answer that." She later states "I do not want to live under these circumstances, under this kind of pain." She repeatedly states she does not want to be in the hospital, and does not feel she has a mental illness, stating "it is very clear, it's [id number], anyone in my position would be considering suicide. My only hope is to see Dr. Wilson and see if there is anything else to be done." She does not think that mental health treatment will be helpful for her. Physical Exam Vital Signs (Past 24 Hours) Last Vital Signs Temp 36.8 C 08/17/19 06:55 Pulse 65 08/17/19 06:55 Resp 18 08/17/19 06:55 BP 132/76 08/17/19 06:55 Pulse Ox 96 08/16/19 17:30 Psychiatric Data Advance Directives Advance Directives Information Provided: Yes Advance Directives: Yes Mental Health Advance Directive: No Advance Directives on File: No Living Will: No Power of Photographic Technician: Yes Power of Photographic Technician Name: Ellie Bauman Power of Photographic Technician Advance Directives Reason:: Declines as Mental Health Visit. Risk Factors Assessment Male: No : Yes Do You Have Access To A Gun?: No Health Problems: Yes Mental Health Diagnoses: Yes Substance Use Disorders: Yes Previous Attempt: Yes Previous Attempt; Highly Lethal: Yes Previous Attempt; Planned: Yes Previous Attempt; Didn't Tell Anyone: Yes Family History of Suicide: No Previous Psychiatric Hospitalization: Yes Hopelessness: Yes Smoker: No Protective Factors Assessment : No Responsible for Young Children: No Employed: No Stable Relationships: Yes Good Rapport with Provider: Yes Discharge Data Lab Results 08/16/19 08/16/19 08/16/19 12:26 12:26 12:26 WBC 9.47 RBC 4.09 L Hgb 13.1 Hct 39.2 MCV 95.8 MCH 32.0 MCHC 33.4 RDW Std Deviation 50.2 H RDW Coeff of Korey 14.2 Plt Count 239 MPV 10.5 H Immature Gran % (Auto) 0.3 Neut % (Auto) 81.2 Lymph % (Auto) 9.8 Douglas % (Auto) 8.7 Eos % (Auto) 0.0 Baso % (Auto) 0.0 Immature Gran # (Auto) 0.03 H Neut # (Auto) 7.69 H Lymph # (Auto) 0.93 L Douglas # (Auto) 0.82 H Eos # (Auto) 0.00 Baso # (Auto) 0.00 Sodium 137 Potassium 4.5 Chloride 102 Carbon Dioxide 31 Anion Gap 4.0 BUN 17 Creatinine 0.82 Est Cr Clr Drug Dosing 51.3 Est GFR ( Amer) 82.9 Est GFR (Non-Af Amer) 71.5 BUN/Creatinine Ratio 20.5 H Glucose 109 H Calcium 10.3 H Total Bilirubin 0.4 AST 14 L ALT 20 Alkaline Phosphatase 66 Total Protein 8.4 H Albumin 4.4 Globulin 3.9 Albumin/Globulin Ratio 1.1 TSH 0.895 Urine Color Urine Appearance Urine pH Ur Specific Bentley Urine Protein Urine Glucose (UA) Urine Ketones Urine Blood Urine Nitrite Urine Bilirubin Urine Urobilinogen Ur Leukocyte Esterase Urine WBC (Auto) Urine RBC (Auto) U Hyaline Cast (Auto) U Epithel Cells (Auto) Urine Bacteria (Auto) Salicylates < 1.7 L Urine Opiates Screen Ur Methadone, Qual Acetaminophen < 2 L Urine Barbiturates Ur Phencyclidine (PCP) U Amphetamin/Meth Scrn MDMA (Ecstasy) Screen U Benzodiazepines Scrn Ur Cocaine Metabolite U Marijuana (THC) Screen Ethyl Alcohol mg/dL 08/16/19 08/16/19 08/16/19 12:26 13:46 13:46 WBC RBC Hgb Hct MCV MCH MCHC RDW Std Deviation RDW Coeff of Korey Plt Count MPV Immature Gran % (Auto) Neut % (Auto) Lymph % (Auto) Douglas % (Auto) Eos % (Auto) Baso % (Auto) Immature Gran # (Auto) Neut # (Auto) Lymph # (Auto) Douglas # (Auto) Eos # (Auto) Baso # (Auto) Sodium Potassium Chloride Carbon Dioxide Anion Gap BUN Creatinine Est Cr Clr Drug Dosing Est GFR ( Amer) Est GFR (Non-Af Amer) BUN/Creatinine Ratio Glucose Calcium Total Bilirubin AST ALT Alkaline Phosphatase Total Protein Albumin Globulin Albumin/Globulin Ratio TSH Urine Color Yellow Urine Appearance Clear Urine pH 5.5 Ur Specific Bentley 1.016 Urine Protein Negative Urine Glucose (UA) Negative Urine Ketones Negative Urine Blood Negative Urine Nitrite Negative Urine Bilirubin Negative Urine Urobilinogen Negative Ur Leukocyte Esterase 1+ H Urine WBC (Auto) 5-10 H Urine RBC (Auto) 0-4 U Hyaline Cast (Auto) 1-5 U Epithel Cells (Auto) 10-20 H Urine Bacteria (Auto) Negative Salicylates Urine Opiates Screen Pos H Ur Methadone, Qual Neg Acetaminophen Urine Barbiturates Neg Ur Phencyclidine (PCP) Neg U Amphetamin/Meth Scrn Neg MDMA (Ecstasy) Screen Neg U Benzodiazepines Scrn Pos H Ur Cocaine Metabolite Neg U Marijuana (THC) Screen Pos H Ethyl Alcohol mg/dL < 3.0 Mental Health & Subst Abuse Tx Psychiatrist Name of Psychiatrist: [facility] - Dr. Allison Psychiatrist's Psychiatric Appointment Comment: [address] [facility] Therapist Name of Therapist: Dr. Laverne Singletary Therapist's ext [phone]) Therapy Appointment Comment: [address] [facility], [place], [place] Credit Cashier Name of Credit Cashier: None Post Discharge Appointments Primary Care Physician Name Of Family Doctor: [facility] - Dr. Tal Duron Primary Care Provider Appointment Comment: [address] [facility], [address], [place] Name of Specialist: [facility] - Dr. Wilson Phone Number for Specialist: [phone] Specialty Appointment Comment: Margo Smith, [place], [place] Contact Information Discharge Discharge Address: [address] [place] [address] Discharge Plan Discharge Items Reason For Visit: MDD Follow-up/Referrals: Tal Duron MD [Primary Care Provider] - Medications and DC Order Prescriptions: No Action milk thistle 150 mg capsule 150 mg PO QAM RF: 0 magnesium oxide 250 mg magnesium tablet 250 mg PO QAM RF: 0 cholecalciferol (vitamin D3) 3,000 unit tablet 1,000 units PO QAM RF: 0 duloxetine 60 mg capsule,delayed release(DR/EC) 60 mg PO QAM RF: 0 Medical Marijuana 1 dose Inhalation DAILY PRN (Reason: Pain) RF: 0 multivitamin Tablet 1 tab PO QAM RF: 0 duloxetine 30 mg Capsule,Delayed Release(Dr/Ec) 30 mg PO QAM Qty: 30 RF: 0 alprazolam [Xanax] 0.5 mg tablet 0.25 mg PO TID PRN (Reason: Anxiety) Qty: 0 RF: 0 lutein 20 mg Capsule 20 mg PO DAILY RF: 0 amitriptyline 25 mg tablet 25 - 50 mg PO HS PRN (Reason: Insomnia) RF: 0 Admission Data Admit Date/Time: 08/16/19 16:47 Attending Provider: Eliza Carrington Admit Provider: Eliza Carrington Primary Care Provider: Tal Duron Other Interventions: PSY Interdisciplinary Discharge Planning Last Done: 08/17/19 14:52 Coding
[2019-08-18] MEDS: MAGNESIUM OXIDE 400 MG TAB PO SCH (09:04)
[2019-08-18] MEDS: DULOXETINE HCL 60 MG CAP PO SCH (09:04)
[2019-08-18] MEDS: DULOXETINE HCL 30 MG CAP PO SCH (09:04)
[2019-08-18] MEDS: MULTIVITAMIN TAB PO SCH (09:04)
[2019-08-18] MEDS: CHOLECALCIFEROL 1,000 UNITS 25 MCG TAB PO SCH (09:04)
--- NOTE | 2019-08-18 09:06 | Psychiatric Progress Note ---
Date of Service August 18, 2019 Impression / Recommendations Impression 74-year-old female with a history of depression, chronic pain, and two serious suicide attempts by overdose in the context of exacerbation of pain and feeling hopeless for effective interventions. She does not see herself as struggling with mental illness, and feels that her desire to end her life is reasonable given the extent of her pain. Borderline personality traits are noted as well and may be playing a role. She has been working with a therapist and psychiatrist, and her therapist has suggested supportive living arrangement, which the patient has been unwilling to consider. She indicates she has some support from friends, but has not been willing to involve them in treatment, and has been unable to develop a safety plan. She remains at high risk of suicide if she reports ongoing hopelessness and a wish to be , and is disappointed that she did not as a result of her overdose. Inpatient treatment is medically necessary due to the severity of her symptoms and risk for suicide if discharged. (1) Suicide attempt by multiple drug overdose: 08/16 -suicide checks for safety. -Continue to process stressors, work on healthy coping strategies and discharge safety plan. -Patient indicates that she took all of the opiates and benzodiazepines in her possession. She is prescribed a tricyclic, which is also potentially lethal in overdose. Would be helpful to have someone bring in all of her medications so that any old, outdated prescriptions could be safely disposed of, if she is willing to allow this. We will also need to coordinate care with the physicians who prescribed the medication she overdosed on, including her psychiatrist, PCP Dr. Duron, and surgeon Dr. Wilson. -Recommend family meeting with friends/supports. -Continue inpatient treatment on an involuntary 302 commitment, and filed for a 303 hearing to be held tomorrow, as patient indicates ongoing desire to be and remains at high risk for suicide. 08/17 -Dr. Wilson's office informed of her overdose; requested staff to inform Dr. Duron as well. -Recommend family meeting, and robust safety plan. (2) Depression: 08/16 -continue home dose of duloxetine 90 mg daily and consider titration (patient unwilling to discuss medication changes today). -Amitriptyline held on admission due to overdose; given multiple overdoses and concerns regarding lethality of this medication, will defer decision about resuming it to her outpatient psychiatrist, Dr. Allison, who will be on the unit later this week. -Encourage patient to attend and participate in groups and therapy. -Care coordinated with her outpatient clinicians, explore options to increase supports. 08/17 -patient remains irritable and hopeless with respect to her pain, which she states was her primary stressor and the reason for her suicide attempt. -declining titration of duloxetine, remains focused on discharge to see her surgeon, remains irritable and angry, no meaningful safety plan (suggests she should increase her use of alcohol and marijuana). -303 hearing is scheduled for tomorrow. -Encourage family meeting to involve her supports. (3) Borderline personality disorder: 08/16 -explore patterns of behavior and coping mechanisms, continue with outpatient therapy after discharge. (4) Alcohol abuse: 08/16 -AWSS protocol for withdrawal. Brief intervention was offered and refused Summary of intervention: The patient is in precontemplation stage with regards to transtheoretical model of change. She does not feel that she has a substance use problem --Patient has history of benzodiazepine abuse, and uses medical marijuana in combination with alcohol daily. 08/17 -scoring 0 on AWSS, vital signs stable; will discontinue. (5) Chronic back pain: 08/17 -patient requesting follow-up appointment with Dr. Wilson at [facility] to address her pain; staff contacted his office yesterday, they indicated she has been seen 6 times already this month and they will reschedule her with Dr. Wilson once we have a discharge date. They were also informed of her overdose which included oxycodone prescribed by Dr. Wilson. Risk Factors Assessment Male: No : Yes Do You Have Access To A Gun?: No Health Problems: Yes Mental Health Diagnoses: Yes Substance Use Disorders: Yes Previous Attempt: Yes Previous Attempt; Highly Lethal: Yes Previous Attempt; Planned: Yes Previous Attempt; Didn't Tell Anyone: Yes Family History of Suicide: No Previous Psychiatric Hospitalization: Yes Hopelessness: Yes Smoker: No Protective Factors Assessment : No Responsible for Young Children: No Employed: No Stable Relationships: Yes Good Rapport with Provider: Yes Interval History Identifying Information CATHERINE MAIER is a 74-year-old F who currently lives in [place] alone, has a history of chronic pain, depression, and serious suicide attempts by overdose, and was admitted on 08/16/19 16:47 on a 302 involuntary commitment for suicide attempt by overdose on alcohol, a tricyclic antidepressant, opioid pain medication, and benzodiazepines. Chief Complaint " Well I'm having terrible pain, I do not know what else to say". Review of Systems Sleep Information Total Hours of Sleep: 6 Meal Information Percent Meal Consumed - Breakfast: 50 Percent Meal Consumed - Lunch: 40 Percent Meal Consumed - Dinner: 100 Subjective Subjective Patient was seen & assessed and interval progress reviewed with nursing and social work. Staff report she remains irritable, angry, focused on her pain, and stating she wants to leave so that she can see Dr. Wilson to explore other options for pain treatment. At her request, staff contacted [facility], as she requested they schedule an appointment with Dr. Wilson. Staff at his office stated she was seen 6 times already this month for pain, and that Dr. Wilson would schedule with her once we have a discharge date. They were also informed of her overdose, which included oxycodone prescribed by Dr. Wilson. She is attending groups, eating some of each meal, and appeared to sleep well overnight. On my assessment, she reports persistent pain which is unchanged since admission. She is dismissive of suggestions of ways to try to mitigate pain here, including PT/OT, stretching, gentle movement, and titration of her Cymbalta, stating "the dose is pretty high, I am reluctant to increase it, what about side effects?" She denies that she is having any side effects on her current dose, and then states "it is not helping for my pain, it just helps with my depression." She says her pain "does not respond to medication," and her only hope is to see Dr. Wilson as soon as possible. She does not answer directly when asked about suicidal thoughts, and states "I just need to see the back doctor." She maintains that she does not need to be in the hospital, stating "I'm not mentally ill. My depression is managed." She asks about contacting her therapist and was encouraged to do so. She states "I know she'll be mad at me." When asked about her therapist's recommendations for a higher level of care/supportive living, she denies that they ever talked about this. She wants to know when she can be discharged, stating "I know you want me to stay here for a long time," and "I'll tell you this, you probably will not believe me, but God wants me to stay alive and suffer." When asked if she has contacted any of her friends/supports, she states "I have a lot of friends," and is evasive about whether or not she has spoken with them since her suicide attempt, or how they might be able to assist and support her moving forward. When asked what her other options are if Dr. Wilson does not have any other treatment suggestions, or further treatment is not helpful, she says "I'll cross that bridge when I come to it." She also states alcohol and marijuana give her pain relief, so she is considering starting to use them earlier in the day. Physical Exam Psychiatric Orientation: alert Apperance: appropriately dressed, appropriately groomed and appeared stated age Eye Contact: + poor eye contact Motor Behavior: steady gait and station Seated in no acute distress, moves slowly and grimaces as if in pain during movement. Minimal, irritable angry tone. Affect: + irritable affect, + angry affect and + constricted affect "I'm in a lot of pain." Thought Process: + thought process not clear or coherent (Circular reasoning, irrational) Thought Content: + preoccupation (With her pain), + persecution and + hopelessness Patient will not answer directly when asked about suicidal thoughts, instead talking about her pain Homicidal Thoughts: denies homicidal thoughts Hallucinations: no auditory hallucinations Cognition: recent memory grossly intact, attention grossly intact and language grossly intact Insight: + impaired insight Judgement: + impaired judgement Vital Signs (Past 24 Hours) Last Vital Signs Temp 36.6 C 08/18/19 06:50 Pulse 60 08/18/19 06:50 Resp 16 08/18/19 06:50 BP 121/76 08/18/19 06:50 Pulse Ox 96 08/16/19 17:30 Results & Data ([facility]) Current Inpatient Medications Current Inpatient Medications: Current Inpatient Medications Acetaminophen (Tylenol) 650 mg PO Q4H PRN PRN Reason: Headache or Minor Fever Stop: 09/15/19 16:46 Al Hydrox/Mg Hydrox/Simethicone (Maalox) 30 ml PO Q4H PRN PRN Reason: GI Upset Stop: 09/15/19 16:46 Bismuth Subsalicylate (Kaopectate) 15 ml PO PRN PRN PRN Reason: Loose Stool Stop: 09/15/19 16:46 Duloxetine HCl (Cymbalta) 30 mg PO QAM [facility] Stop: 09/16/19 08:59 Last Admin: 08/17/19 08:42 Dose: 30 mg Documented by: Duloxetine HCl (Cymbalta) 60 mg PO QAM [facility] Stop: 09/16/19 08:59 Last Admin: 08/17/19 08:42 Dose: 60 mg Documented by: Hydroxyzine HCl (Vistaril) 50 mg PO HSZ PRN PRN Reason: Insomnia Stop: 09/15/19 16:46 Last Admin: 08/17/19 21:59 Dose: 50 mg Documented by: Hydroxyzine HCl (Vistaril) 25 mg PO Q4H PRN PRN Reason: Anxiety Stop: 09/15/19 16:46 Lorazepam (Ativan) 1 mg PO ONE PRN; Protocol PRN Reason: EtoH Withdrawal AWSS 6-10 Magnesium Hydroxide (Milk Of Magnesia) 30 ml PO DAILY PRN PRN Reason: Constipation Stop: 09/15/19 16:46 Magnesium Oxide (Mag-Ox) 400 mg PO QAM [facility] Stop: 09/16/19 08:59 Last Admin: 08/17/19 08:42 Dose: 400 mg Documented by: Multivitamins (Multivitamin Tab) 1 tab PO QAM [facility] Stop: 09/16/19 08:59 Last Admin: 08/17/19 08:42 Dose: 1 tab Documented by: Sodium Chloride ([place] Nasal) 1 - 2 sprays NA PRN PRN PRN Reason: Nasal Dryness/Congestion Stop: 09/15/19 16:46 Vitamin D (Vitamin D3) 1,000 units PO QAM [facility] Stop: 09/16/19 08:59 Last Admin: 08/17/19 08:42 Dose: 1,000 units Documented by: Mental Health & Subst Abuse Tx Psychiatrist Name of Psychiatrist: [facility] - Dr. Allison Psychiatrist's Psychiatric Appointment Comment: [address] [facility] Therapist Name of Therapist: Dr. Laverne Singletary Therapist's ext [phone]) Therapy Appointment Comment: [address] [facility], [place], [place] Produce Laborer Name of Produce Laborer: None Post Discharge Appointments Primary Care Physician Name Of Family Doctor: [facility] - Dr. Tal Duron Primary Care Provider Appointment Comment: [address] [facility], [address], [place] Work[place] Name of Specialist: [facility] - Dr. Wilson Phone Number for Specialist: [phone] Specialty Appointment Comment: [address] [place] [address], [place] Contact Information Discharge Discharge [address]: [address] [place] [phone] (1) Suicide attempt by multiple drug overdose Encounter type: initial encounter Qualified Code(s): T50.902A - Poisoning by unspecified drugs, medicaments and biological substances, intentional self-harm, initial encounter
[2019-08-19 03:31] LABS: 7-Aminoclonaz, Confirm NEGATIVE ng/mL (<25); Codeine Urine NEGATIVE ng/mL (<50); Hydro-Alp Ur, GC/MS 62 ng/mL (<25); Hydrocodone Urine NEGATIVE ng/mL (<50); Hydromor Urine NEGATIVE ng/mL (<50); Hydroxyethylflurazepam, Conf NEGATIVE ng/mL (<50); Hydroxymidazolam Ur, GC/MS NEGATIVE ng/mL (<50); Hydroxytriazolam NEGATIVE ng/mL (<50); Lorazepam, Ur GC/MS NEGATIVE ng/mL (<50); Marijuana Quant, GCMS Urine 130 ng/mL (<5); Morphine Urine NEGATIVE ng/mL (<50); Nordiazepam, Confirm NEGATIVE ng/mL (<50); Norhydrocodone Conf Ur NEGATIVE ng/mL (<50); Noroxycodone Urine >10000 ng/mL (<50); Oxazepam Ur, GC/MS NEGATIVE ng/mL (<50); Oxycodone Urine >10000 ng/mL (<50); Oxymorph Urine 3060 ng/mL (<50); Temazepam, Confirm NEGATIVE ng/mL (<50)
[2019-08-19] MEDS: DULOXETINE HCL 30 MG CAP PO SCH (08:37)
[2019-08-19] MEDS: CHOLECALCIFEROL 1,000 UNITS 25 MCG TAB PO SCH (08:37)
[2019-08-19] MEDS: DULOXETINE HCL 60 MG CAP PO SCH (08:37)
[2019-08-19] MEDS: MULTIVITAMIN TAB PO SCH (08:37)
[2019-08-19] MEDS: MAGNESIUM OXIDE 400 MG TAB PO SCH (08:37)
--- NOTE | 2019-08-19 13:44 | Psychiatric Progress Note ---
Date of Service August 19, 2019 Impression / Recommendations Impression 74-year-old female with a history of depression, chronic pain, and two serious suicide attempts by overdose in the context of exacerbation of pain and feeling hopeless for effective interventions. She does not see herself as struggling with mental illness, and feels that her desire to end her life is reasonable given the extent of her pain. Borderline personality traits are noted as well and may be playing a role. She has been working with a therapist and psychiatrist, and her therapist has suggested supportive living arrangement, which the patient has been unwilling to consider. She indicates she has some support from friends, but has not been willing to involve them in treatment, and has been unable to develop a safety plan. She remains at high risk of suicide if she reports ongoing hopelessness and a wish to be , and is disappointed that she did not as a result of her overdose. Inpatient treatment is medically necessary due to the severity of her symptoms and risk for suicide if discharged. (1) Suicide attempt by multiple drug overdose: 08/16 -suicide checks for safety. -Continue to process stressors, work on healthy coping strategies and discharge safety plan. -Patient indicates that she took all of the opiates and benzodiazepines in her possession. She is prescribed a tricyclic, which is also potentially lethal in overdose. Would be helpful to have someone bring in all of her medications so that any old, outdated prescriptions could be safely disposed of, if she is willing to allow this. We will also need to coordinate care with the physicians who prescribed the medication she overdosed on, including her psychiatrist, PCP Dr. Duron, and surgeon Dr. Wilson. -Recommend family meeting with friends/supports. -Continue inpatient treatment on an involuntary 302 commitment, and filed for a 303 hearing to be held tomorrow, as patient indicates ongoing desire to be and remains at high risk for suicide. 08/17 -Dr. Wilson's office informed of her overdose; requested staff to inform Dr. Duron as well. -Recommend family meeting, and robust safety plan. 08/18 --Patient reports that she does not feel that she is actively suicidal "today," but can make no long-term assurances in this regard and notes that she has "always sad" that she will eventually kill herself if she cannot get relief from her chronic pain. --She does say that medical marijuana relieves her pain, but she has been reluctant to use it more than in the evenings because she does not want want to be "high" all day long. We discussed the dilemma that she presents because the sad reality is that substantial pain relief may be out of reach, are out of short-term reach, and given her history of 2 suicide attempts including one that she says was thoroughly planned and the other which she says was impulsive in the face of intractable pain, we do not feel she can be safely released to the community at this time given her ongoing suicidal statements and depressed affect, unless she can be offered some help for pain relief or actually achieve pain relief prior to discharge. We discussed longer term options, such as consultations and tertiary medical centers, and seeking another medical opinion from [facility]. --The patient was advised that I am not comfortable prescribing amitriptyline given her history of overdosing. --The patient's psychiatric hospitalization was continued this morning at her 302 hearing. (2) Depression: 08/16 -continue home dose of duloxetine 90 mg daily and consider titration (patient unwilling to discuss medication changes today). -Amitriptyline held on admission due to overdose; given multiple overdoses and concerns regarding lethality of this medication, will defer decision about resuming it to her outpatient psychiatrist, Dr. Allison, who will be on the unit later this week. -Encourage patient to attend and participate in groups and therapy. -Care coordinated with her outpatient clinicians, explore options to increase supports. 08/17 -patient remains irritable and hopeless with respect to her pain, which she states was her primary stressor and the reason for her suicide attempt. -declining titration of duloxetine, remains focused on discharge to see her surgeon, remains irritable and angry, no meaningful safety plan (suggests she should increase her use of alcohol and marijuana). -303 hearing is scheduled for tomorrow. -Encourage family meeting to involve her supports. 08/18 --The patient has been less irritable today. She participated in her 302 hearing today and said that she is no longer opposing the plan for her to remain hospitalized in the psychiatric unit. --As above, the patient's assertion is that her depression is caused by her chronic pain. She seems to now be minimizing persistent grief associated with her being about a year ago, and attributes most of her complaints to "unimaginable, severe" unrelenting pain. (3) Borderline personality disorder: 08/16 -explore patterns of behavior and coping mechanisms, continue with outpatient therapy after discharge. 08/18 --The patient is certainly demonstrated pathologic characterologic traits consistent with borderline personality disorder. I do not believe at this point the characterologic features ought to be a focus of treatment. In the past she has been fairly high functioning and has a number of strengths and community support systems. (4) Alcohol abuse: 08/16 -AWSS protocol for withdrawal. Brief intervention was offered and refused Summary of intervention: The patient is in precontemplation stage with regards to transtheoretical model of change. She does not feel that she has a substance use problem --Patient has history of benzodiazepine abuse, and uses medical marijuana in combination with alcohol daily. 08/17 -scoring 0 on AWSS, vital signs stable; will discontinue. 08/18 --The patient denies today that she has ever said that she plans to increase her use of alcohol and insists that she is limiting her alcohol consumption at this point to "two glasses of wine a day." She does acknowledge that she uses alcohol with marijuana in the evenings as part of her "ritual" to ease the pain, "settle down," and sleep. She has stopped benzodiazepines. She, herself, says that she feels that she was abusing them, but her prescription fill date of does not seem to indicate that she uses more than had been prescribed. (5) Chronic back pain: 08/17 -patient requesting follow-up appointment with Dr. Wilson at [facility] to address her pain; staff contacted his office yesterday, they indicated she has been seen 6 times already this month and they will reschedule her with Dr. Wilson once we have a discharge date. They were also informed of her overdose which included oxycodone prescribed by Dr. Wilson. Risk Factors Assessment Male: No : Yes Do You Have Access To A Gun?: No Health Problems: Yes Mental Health Diagnoses: Yes Substance Use Disorders: Yes Previous Attempt: Yes Previous Attempt; Highly Lethal: Yes Previous Attempt; Planned: Yes Previous Attempt; Didn't Tell Anyone: Yes Family History of Suicide: No Previous Psychiatric Hospitalization: Yes Hopelessness: Yes Smoker: No Protective Factors Assessment : No Responsible for Young Children: No Employed: No Stable Relationships: Yes Good Rapport with Provider: Yes Interval History Identifying Information CATHERINE MAIER is a 74-year-old F who currently lives in [place] alone, has a history of chronic pain, depression, and serious suicide attempts by overdose, and was admitted on 08/16/19 16:47 on a 302 involuntary commitment for suicide attempt by overdose on alcohol, a tricyclic antidepressant, opioid pain medication, and benzodiazepines. Chief Complaint " This is not about a mental illness. This is about my pain!". Review of Systems Sleep Information Total Hours of Sleep: 5.75 Sleep Comments: Patient refused repeat dose of vistaril. Meal Information Percent Meal Consumed - Breakfast: 100 Percent Meal Consumed - Lunch: 100 Percent Meal Consumed - Dinner: 75 Nutrition Comment: Patient sleeping at this time. Recent admit. Subjective Subjective Patient was seen & assessed and interval progress reviewed with treatment team. I met with the patient individually in order to assess her mental status, evaluate her response to treatment, coordinate any necessary changes in her treatment plan with the patient, and address issues, questions and concerns that may arise. The patient began by telling me that the suicide attempt that she had made earlier this week had been impulsive and was directly related to the fact that she had been counting on a specific pain related intervention to relieve her pain, and was "devastated" when it did not help. More specifically, she had arranged to have an injection into her hip through her outpatient orientation and mobility specialist, [facility] in [place]. She says that she was told by the physician's fire control assistant who was administering the injection that "if it works" it would work immediately and she would know at the minute she got off the table. However, it made no difference in her pain. She indicates that she had had a similar injection in the same hip about 9 months earlier and that had substantially relieved her pain, and so she was expecting identical relief this time. The patient notes that she went home, ruminated about the fact that this had not helped her pain and decided come impulsively, to take an overdose. Initially, she told me that she had overdosed "only on [her] pain medicines," but then later acknowledged that she is also taken an overdose of alprazolam and amitriptyline, both of which I had prescribed to her on an outpatient basis. By way of background, knows my rrvogz-ud-hir socially and, a little more than a week prior to the admission the patient contacted my [id number] after hours and said that she, the patient, needed to talk to me "as soon as possible." My [id number] alerted me to this circumstance, and I called the patient at home whereupon she told me that her hip pain was intractable, severe, "9 out of 10" and that she could not go on with this kind of pain "indefinitely." She asked that I contact her orthopedic provider and see if I could convince him to see her sooner than the appointment that had been made for a date that was more than 1 month in the future. I placed several calls to the orthopedic group, spoke to an on-call orthopedist and, indirectly, to her hip specialist through a nurse. The hip specialist agreed to hold a remote conference with the patient in 2 days, and scheduled. He also agreed to arrange for her to get the injection sooner, and it was after this injection that the patient made the suicide attempt. Patient was confronted with the fact that she had made assurances to me, as her outpatient psychiatrist and to her outpatient therapist that she would not engage in self-harm without alerting us should she have an impulse in that direction. The patient noted that the attempt was "completely impulsive," and I explained to her that that actually complicated the situation because she is continuing to have what she describes as "excruciating" pain, has said that she will kill herself rather than live with the pain indefinitely, and acknowledges engaging in an impulsive suicide attempt. Further, the patient acknowledges that she continued to say that she would kill herself and was sorry that she had not . The patient also said, as noted above, that she felt that her problem was not "a mental illness," but that her problem was chronic intractable pain, and that the depression was a direct consequence of the chronic pain. I reminded her that her had a year ago and that she was still grieving, and the patient told me that her outpatient therapist had told her that she is now in the "acceptance phase" and her grief is "healing." The patient requested that we restart amitriptyline. I declined and explained that amitriptyline poses a fairly high risk in association with overdoses and that I would not feel comfortable treating her on an outpatient basis with amitriptyline given her history of 2 very serious suicide attempts by overdose in approximately 9 months. Physical Exam Psychiatric Orientation: alert, oriented x 3 and cooperative Apperance: appropriately dressed and appropriately groomed Eye Contact: good eye contact Motor Behavior: + psychomotor retardation The pain patient changes positions periodically and winces in pain as she does so. The patient's speech is soft Affect: + depressed affect and + tearful affect Mood: + depressed mood Thought Process: goal directed thought process Thought Content: reality based without delusions The patient uses externalization fairly frequently as a defense. The patient has repeatedly stated that if her pain is not relieved and she repeated that statement again today. When I asked how she could assure us that if she were released she would not commit suicide, she said only "I guess that the stars are telling me that I am not meant to kill myself. I have tried 2 times and took enough pills to kill a horse and it did not kill me." She also reiterated that she cannot commit to not harming herself if her pain is not relieved. She does contract for safety in the hospital Homicidal Thoughts: denies homicidal thoughts Hallucinations: no auditory hallucinations Cognition: recent memory grossly intact, remote memory grossly intact and language grossly intact Estimated Intelligence: + above average estimated intelligence Insight: + poor insight Judgement: + poor judgement Vital Signs (Past 24 Hours) Last Vital Signs Temp 36.9 C 08/19/19 06:00 Pulse 65 08/19/19 06:00 Resp 16 08/19/19 06:00 BP 114/71 08/19/19 06:00 Pulse Ox 96 08/16/19 17:30 Results & Data ([facility]) Laboratory Results Laboratory Results - last 24 hr 08/16/19 13:46 U Codeine Confrm GC/MS NEGATIVE Ur Morphine (GC/MS) NEGATIVE Ur Hydrocodone (GC/MS) NEGATIVE Ur Norhydrocodone NEGATIVE Ur Noroxycodone >82991 H Urine Oxycodone (GC/MS) >49455 H U Oxymorphone GC/MS 3060 H Ur Hydromorphone (GC/MS) NEGATIVE U OH-Alprazolam Confrm 62 H 7-Amino Clonazepam NEGATIVE Ur Nordiazepam Confirm NEGATIVE U OH-ethylflurazepam NEGATIVE U Lorazepam Cnf GC/MS NEGATIVE U Oxazepam Confm GC/MS NEGATIVE Ur Temazepam Confirm NEGATIVE U OH-Triazolam Confirm NEGATIVE U OH-Midazolam Confirm NEGATIVE U Marijuana THC Carboxy 130 H Drug Screen Comment SEE NOTE Current Inpatient Medications Current Inpatient Medications: Current Inpatient Medications Acetaminophen (Tylenol) 650 mg PO Q4H PRN PRN Reason: Headache or Minor Fever Stop: 09/15/19 16:46 Al Hydrox/Mg Hydrox/Simethicone (Maalox) 30 ml PO Q4H PRN PRN Reason: GI Upset Stop: 09/15/19 16:46 Last Admin: 08/18/19 21:01 Dose: 30 ml Documented by: Bismuth Subsalicylate (Kaopectate) 15 ml PO PRN PRN PRN Reason: Loose Stool Stop: 09/15/19 16:46 Duloxetine HCl (Cymbalta) [facility] [place] Stop: 09/16/19 08:59 Last Admin: 08/19/19 08:37 Dose: 30 mg Documented by: Duloxetine HCl (Cymbalta) 60 mg PO [facility] Stop: 09/16/19 08:59 Last Admin: 08/19/19 08:37 Dose: 60 mg Documented by: Hydroxyzine HCl (Vistaril) 50 mg PO HSZ PRN PRN Reason: Insomnia Stop: 09/15/19 16:46 Last Admin: 08/18/19 21:01 Dose: 50 mg Documented by: Hydroxyzine HCl (Vistaril) 25 mg PO Q4H PRN PRN Reason: Anxiety Stop: 09/15/19 16:46 Magnesium Hydroxide (Milk Of Magnesia) 30 ml PO DAILY PRN PRN Reason: Constipation Stop: 09/15/19 16:46 Magnesium Oxide (Mag-Ox) 400 mg PO [facility] Stop: 09/16/19 08:59 Last Admin: 08/19/19 08:37 Dose: 400 mg Documented by: Multivitamins (Multivitamin Tab) 1 tab PO [facility] Stop: 09/16/19 08:59 Last Admin: 08/19/19 08:37 Dose: 1 tab Documented by: Sodium Chloride (Sampson Nasal) 1 - 2 sprays NA PRN PRN PRN Reason: Nasal Dryness/Congestion Stop: 09/15/19 16:46 Vitamin D (Vitamin D3) 1,000 units PO [facility] Stop: 09/16/19 08:59 Last Admin: 08/19/19 08:37 Dose: 1,000 units Documented by: Mental Health & Subst Abuse Tx Psychiatrist Name of Psychiatrist: [facility] - Dr. Allison Psychiatrist's Psychiatric Appointment Comment: [address] [facility] Therapist Name of Therapist: Dr. Laverne Singletary Therapist's ext [phone]) Therapy Appointment Comment: [address] [facility], [place] Manager [employer] Name of Manager [employer]: None Post Discharge Appointments Primary Care Physician Name Of Family Doctor: [facility] - Dr. Tal Duron Primary Care Provider Appointment Comment: [address] [facility], [facility] [place] Name of Specialist: [facility] - Dr. Wilson Phone Number for Specialist: [phone] Specialty Appointment Comment: [address] [place] [address], [place] Contact Information Discharge Discharge [address]: [address] [place] [id number] (1) Suicide attempt by multiple drug overdose Encounter type: initial encounter Qualified Code(s): T50.902A - Poisoning by unspecified drugs, medicaments and biological substances, intentional self-harm, initial encounter
[2019-08-19] MEDS ORDERED: SENNA 8.6 MG TAB PO ONE (21:00)
[2019-08-20] MEDS: MULTIVITAMIN TAB PO SCH (09:26)
[2019-08-20] MEDS: DULOXETINE HCL 60 MG CAP PO SCH (09:26)
[2019-08-20] MEDS: DULOXETINE HCL 30 MG CAP PO SCH (09:26)
[2019-08-20] MEDS: MAGNESIUM OXIDE 400 MG TAB PO SCH (09:26)
[2019-08-20] MEDS: CHOLECALCIFEROL 1,000 UNITS 25 MCG TAB PO SCH (09:26)
--- NOTE | 2019-08-20 14:45 | Psychiatric Progress Note ---
Date of Service August 20, 2019 Impression / Recommendations Impression 74-year-old female with a history of depression, chronic pain, and two serious suicide attempts by overdose in the context of exacerbation of pain and feeling hopeless for effective interventions. She does not see herself as struggling with mental illness, and feels that her desire to end her life is reasonable given the extent of her pain. Borderline personality traits are noted as well and may be playing a role. She has been working with a therapist and psychiatrist, and her therapist has suggested supportive living arrangement, which the patient has been unwilling to consider. She indicates she has some support from friends, but has not been willing to involve them in treatment, and has been unable to develop a safety plan. She remains at high risk of suicide if she reports ongoing hopelessness and a wish to be , and is disappointed that she did not as a result of her overdose. Inpatient treatment is medically necessary due to the severity of her symptoms and risk for suicide if discharged. (1) Suicide attempt by multiple drug overdose: 08/16 -suicide checks for safety. -Continue to process stressors, work on healthy coping strategies and discharge safety plan. -Patient indicates that she took all of the opiates and benzodiazepines in her possession. She is prescribed a tricyclic, which is also potentially lethal in overdose. Would be helpful to have someone bring in all of her medications so that any old, outdated prescriptions could be safely disposed of, if she is willing to allow this. We will also need to coordinate care with the physicians who prescribed the medication she overdosed on, including her psychiatrist, PCP Dr. Duron, and surgeon Dr. Wilson. -Recommend family meeting with friends/supports. -Continue inpatient treatment on an involuntary 302 commitment, and filed for a 303 hearing to be held tomorrow, as patient indicates ongoing desire to be and remains at high risk for suicide. 08/17 -Dr. Wilson's office informed of her overdose; requested staff to inform Dr. Duron as well. -Recommend family meeting, and robust safety plan. 08/18 --Patient reports that she does not feel that she is actively suicidal "today," but can make no long-term assurances in this regard and notes that she has "always sad" that she will eventually kill herself if she cannot get relief from her chronic pain. --She does say that medical marijuana relieves her pain, but she has been reluctant to use it more than in the evenings because she does not want want to be "high" all day long. We discussed the dilemma that she presents because the sad reality is that substantial pain relief may be out of reach, are out of short-term reach, and given her history of 2 suicide attempts including one that she says was thoroughly planned and the other which she says was impulsive in the face of intractable pain, we do not feel she can be safely released to the community at this time given her ongoing suicidal statements and depressed affect, unless she can be offered some help for pain relief or actually achieve pain relief prior to discharge. We discussed longer term options, such as consultations and tertiary medical centers, and seeking another medical opinion from [facility]. --The patient was advised that I am not comfortable prescribing amitriptyline given her history of overdosing. --The patient's psychiatric hospitalization was continued this morning at her 302 hearing. 08/19 As consistent with yesterday she is not actively suicidal "today" and again does not focus on the future as far as miki for safety but does state she feels she has more insight to her recent attempt and ways to help her begin to mitigate pain while she is waiting to see if there are more medical answers. She does continue to hope that this can be fixed. (2) Depression: 08/16 -continue home dose of duloxetine 90 mg daily and consider titration (patient unwilling to discuss medication changes today). -Amitriptyline held on admission due to overdose; given multiple overdoses and concerns regarding lethality of this medication, will defer decision about resuming it to her outpatient psychiatrist, Dr. Allison, who will be on the unit later this week. -Encourage patient to attend and participate in groups and therapy. -Care coordinated with her outpatient clinicians, explore options to increase supports. 08/17 -patient remains irritable and hopeless with respect to her pain, which she states was her primary stressor and the reason for her suicide attempt. -declining titration of duloxetine, remains focused on discharge to see her surgeon, remains irritable and angry, no meaningful safety plan (suggests she should increase her use of alcohol and marijuana). -303 hearing is scheduled for tomorrow. -Encourage family meeting to involve her supports. 08/18 --The patient has been less irritable today. She participated in her 302 hearing today and said that she is no longer opposing the plan for her to remain hospitalized in the psychiatric unit. --As above, the patient's assertion is that her depression is caused by her chronic pain. She seems to now be minimizing persistent grief associated with her being about a year ago, and attributes most of her complaints to "unimaginable, severe" unrelenting pain. 08/19 - The patient is less irritable today. She does continue to believe her depression is caused by her chronic pain but is willing to discuss grief today. We will continue duloxetine 90 mg although it can cause urinary hesitancy and retention she has not had this concern before on this medication so I do not think it is the current culprit. We will continue to engage her in cognitive and behavioral efforts to consider how to live with the pain to help remedy some of the rigid beliefs about curing the pain is the only option. Appreciate that she is reading lAex Adams's book command search for meaning and finding some helpful thoughts from that book. We are stopping hydroxyzine due to urinary retention and possible constipation and starting trazodone. We discussed signs or symptoms of orthostasis and to take slow positional changes, watching for oversedation and in layman's terms described serotonin syndrome so that patient and staff could monitor. (3) Borderline personality disorder: 08/16 -explore patterns of behavior and coping mechanisms, continue with outpatient therapy after discharge. 08/18 --The patient is certainly demonstrated pathologic characterologic traits consistent with borderline personality disorder. I do not believe at this point the characterologic features ought to be a focus of treatment. In the past she has been fairly high functioning and has a number of strengths and community support systems. (4) Alcohol abuse: 08/16 -AWSS protocol for withdrawal. Brief intervention was offered and refused Summary of intervention: The patient is in precontemplation stage with regards to transtheoretical model of change. She does not feel that she has a substance use problem --Patient has history of benzodiazepine abuse, and uses medical marijuana in combination with alcohol daily. 08/17 -scoring 0 on AWSS, vital signs stable; will discontinue. 08/18 --The patient denies today that she has ever said that she plans to increase her use of alcohol and insists that she is limiting her alcohol consumption at this point to "two glasses of wine a day." She does acknowledge that she uses alcohol with marijuana in the evenings as part of her "ritual" to ease the pain, "settle down," and sleep. She has stopped benzodiazepines. She, herself, says that she feels that she was abusing them, but her prescription fill date of does not seem to indicate that she uses more than had been prescribed. 08/19 - Challenged patient's thoughts about alcohol today affirming that she may find some distance from her emotions but how it may worsen things over time again encouraging her to strongly consider abstaining from alcohol. She states "I have been away from it 5 days at this time. But then does not make any conclusive statements about her future intentions. (5) Chronic back pain: 08/17 -patient requesting follow-up appointment with Dr. Wilson at [facility] to address her pain; staff contacted his office yesterday, they indicated she has been seen 6 times already this month and they will reschedule her with Dr. Wilson once we have a discharge date. They were also informed of her overdose which included oxycodone prescribed by Dr. Wilson. (6) Constipation: 08/19 Patient describes having constipation on previous narcotics. I am unclear as she denies recently overusing narcotics if indeed the recent toxic ingestion is causing her current constipation or if it may be related to of the anticholinergic properties of hydroxyzine. As she has failed milk of magnesia 2 days in a row with an additional dose of Senokot today I have offered her a MiraLAX challenge versus soapsuds enema. She elected for soapsuds enema hoping for more quick relief then an oral remedy. If this is unsuccessful we will follow with MiraLAX challenge. Additionally I will add a stool softener to her regimen to try to keep this from happening again and remove hydroxyzine for sleep treating for trazodone. (7) Urinary hesitancy: Patient has new onset urinary hesitancy in the absence of other neurologic focal signs or symptoms. She has had hydroxyzine in the last 3 days which coincides with urinary retention I believe this is a side effect of anticholinergic properties of that medication. I will stop it and start trazodone for sleep to reduce anticholinergic burden. However we will monitor her urinary voiding the hope is that she will continue to be able to increase the amount she can urinate the longer she is away from hydroxyzine. She is having small urine voids. I have asked nursing to do a bladder scan this afternoon and we will repeat again this evening if her bladder continues to expand or she is not having any improvement in her urination we will consider bethanechol. Risk Factors Assessment Male: No : Yes Do You Have Access To A Gun?: No Health Problems: Yes Mental Health Diagnoses: Yes Substance Use Disorders: Yes Previous Attempt: Yes Previous Attempt; Highly Lethal: Yes Previous Attempt; Planned: Yes Previous Attempt; Didn't Tell Anyone: Yes Family History of Suicide: No Previous Psychiatric Hospitalization: Yes Hopelessness: Yes Smoker: No Protective Factors Assessment : No Responsible for Young Children: No Employed: No Stable Relationships: Yes Good Rapport with Provider: Yes Interval History Identifying Information CATHERINE MAIER is a 74-year-old F who currently lives in [place] alone, has a history of chronic pain, depression, and serious suicide attempts by overdose, and was admitted on 08/16/19 16:47 on a 302 involuntary commitment for suicide attempt by overdose on alcohol, a tricyclic antidepressant, opioid pain medication, and benzodiazepines. Chief Complaint "I have been doing a lot of thinking". Review of Systems Sleep Information Total Hours of Sleep: 6 Sleep Comments: received an hs prn dose of vistaril for sleep aid-asleep on 0000 rounds Meal Information Percent Meal Consumed - Breakfast: 100 Percent Meal Consumed - Lunch: 90 Percent Meal Consumed - Dinner: 100 Nutrition Comment: Patient sleeping at this time. Recent admit. Subjective Subjective Patient was seen & assessed and interval progress reviewed with treatment teamPer nursing the patient had Vistaril last night for sleep but seem to be effective she rated her mood today as a 4 out of 10 "unhappy" focused mainly on pain and limitations in her activities, later in group she stated she was "unhappy with myself." She did call a family member in [facility] and seemed to have a reasonable conversation with that person. Per nursing staff she shared she has had difficulty urinating and constipation as well as ongoing pain. I met with the patient at her bedside. She did explain that her suicide attempt was "impulsive" and felt that Dr. Allison who saw her yesterday spoke very pointedly to her "I think you got through." She stated that she has had many stressors to include the loss of her " I have done everything I can to include grief group, therapist and a grief counselor and I think I have come to acceptance." She states she is a very social person and perhaps the pandemic as well as sitting at home and pain without distraction had led to her suicidal attempt recently. She states "perhaps I saw the pain that is been happening for 6 weeks and feared that it would come back and stay like it has in the past." She states she is reading Alex Adams's man's search for meaning and found the statement about pain being in individuals burden to bear as meaningful to her. She is not fully contemplated how she will do this. However she does state she plans to "challenge my own rigid thinking about marijuana and possibly use it more than just the evenings because it does help some." She has thought about asking a woman who is her "personal companion" who is staying with her dog to stay with her after discharge for support. Further she did allow this provider to challenge her regarding alcohol noting that it does not reliably help and may definitely hinder her mood as well as make her disinhibited to take actions. She does not commit to a change in alcohol but listens attentively and affirms understanding. She does report urinary hesitancy over the preceding 2 days and states as of her interview this morning she had not urinated since last night before bedtime. She denies changes in her dose of duloxetine and now is off Elavil. She is not having pain. She does report constipation last bowel movement she states was Thursday the or Thursday the . She states "I know it is OxyContin" and seems to believe it was from her overdose. This may be true. She states at home she will take a stool softener and Senokot. However she denies using Senokot routinely. She has had milk of magnesia and again on Thursday, Thursday at a dose of Senokot and still no bowel movement. She does have discomfort but is not in acute pain she is very worried about any days going by further without defecation she stated she did a small bit of manual disimpaction today when she felt she had to go but it was very minimal. Physical Exam Psychiatric Orientation: alert and oriented x 3 Apperance: appropriately dressed and appeared stated age Eye Contact: good eye contact Patient walks without assistance at times fluidly at times today observed with antalgic gait she is not unsteady. Speech: normal rate/rhythm/volume of speech Affect: + blunted affect She states she has a "low mood because of pain" Thought Process: goal directed thought process and linear/logical thought process Thought Content: + preoccupation (With pain) She does today talk about grief as well. Denies having active suicidal ideations intention or plan here in the hospital but cannot overtly contract for safety upon leaving the hospital Homicidal Thoughts: denies homicidal thoughts Hallucinations: no auditory hallucinations and no visual hallucinations Cognition: recent memory grossly intact Estimated Intelligence: average estimated intelligence Insight: + fair insight Judgement: + limited judgement Vital Signs (Past 24 Hours) Last Vital Signs Temp 36.7 C 08/20/19 06:51 Pulse 66 08/20/19 06:51 Resp 18 08/20/19 06:51 BP 134/76 08/20/19 06:51 Pulse Ox 96 08/16/19 17:30 Results & Data ([facility]) Current Inpatient Medications Current Inpatient Medications: Current Inpatient Medications Acetaminophen (Tylenol) 650 mg PO Q4H PRN PRN Reason: Headache or Minor Fever Stop: 09/15/19 16:46 Al Hydrox/Mg Hydrox/Simethicone (Maalox) 30 ml PO Q4H PRN PRN Reason: GI Upset Stop: 09/15/19 16:46 Last Admin: 08/18/19 21:01 Dose: 30 ml Documented by: Bismuth Subsalicylate (Kaopectate) 15 ml PO PRN PRN PRN Reason: Loose Stool Stop: 09/15/19 16:46 Duloxetine HCl (Cymbalta) 30 mg PO QAM [facility] Stop: 09/16/19 08:59 Last Admin: 08/20/19 09:26 Dose: 30 mg Documented by: Duloxetine HCl (Cymbalta) 60 mg PO QAM [facility] Stop: 09/16/19 08:59 Last Admin: 08/20/19 09:26 Dose: 60 mg Documented by: Magnesium Hydroxide (Milk Of Magnesia) 30 ml PO DAILY PRN PRN Reason: Constipation Stop: 09/15/19 16:46 Last Admin: 08/19/19 22:59 Dose: 30 ml Documented by: Magnesium Oxide (Mag-Ox) 400 mg PO QAM [facility] Stop: 09/16/19 08:59 Last Admin: 08/20/19 09:26 Dose: 400 mg Documented by: Multivitamins (Multivitamin Tab) 1 tab PO QAM [facility] Stop: 09/16/19 08:59 Last Admin: 08/20/19 09:26 Dose: 1 tab Documented by: Sodium Chloride ([place] Nasal) 1 - 2 sprays NA PRN PRN PRN Reason: Nasal Dryness/Congestion Stop: 09/15/19 16:46 Trazodone HCl (Desyrel) 50 mg PO HS PRN PRN Reason: insomnia Stop: 09/19/19 11:17 Vitamin D (Vitamin D3) 1,000 units PO QAM [facility] Stop: 09/16/19 08:59 Last Admin: 08/20/19 09:26 Dose: 1,000 units Documented by: Mental Health & Subst Abuse Tx Psychiatrist Name of Psychiatrist: [facility] - Dr. Allison Psychiatrist's Psychiatric Appointment Comment: [address] [place] [address] Therapist Name of Therapist: Dr. Laverne Singletary Therapist's ext [phone]) Therapy Appointment Comment: [address] [facility], [place] Percussion Instrument Repairer Name of Percussion Instrument Repairer: None Post Discharge Appointments Primary Care Physician Name Of Family Doctor: [facility] - Dr. Tal Duron Primary Care Provider Appointment Comment: [address] [place] [address], [address] Specialist Name of Specialist: [facility] - Dr. Wilson Phone Number for Specialist: [phone] Specialty Appointment Comment: [address] [place] [address], [place] Contact Information Discharge Discharge [address]: [address] [place] [address] (1) Suicide attempt by multiple drug overdose Encounter type: initial encounter Qualified Code(s): T50.902A - Poisoning by unspecified drugs, medicaments and biological substances, intentional self-harm, initial encounter
[2019-08-20] MEDS: DOCUSATE SODIUM 100 MG CAP PO SCH (21:33)
[2019-08-20] MEDS: TRAZODONE HCL 50 MG TAB PO PRN (22:43)
[2019-08-21] MEDS: MULTIVITAMIN TAB PO SCH (09:55)
[2019-08-21] MEDS: MAGNESIUM OXIDE 400 MG TAB PO SCH (09:56)
[2019-08-21] MEDS: CHOLECALCIFEROL 1,000 UNITS 25 MCG TAB PO SCH (09:56)
[2019-08-21] MEDS: DULOXETINE HCL 30 MG CAP PO SCH (09:56)
[2019-08-21] MEDS: DULOXETINE HCL 60 MG CAP PO SCH (09:56)
[2019-08-21] MEDS: DOCUSATE SODIUM 100 MG CAP PO SCH ×2 (09:56→22:48)
--- NOTE | 2019-08-21 14:36 | Psychiatric Progress Note ---
Date of Service August 21, 2019 Impression / Recommendations Impression 74-year-old female with a history of depression, chronic pain, and two serious suicide attempts by overdose in the context of exacerbation of pain and feeling hopeless for effective interventions. She does not see herself as struggling with mental illness, and feels that her desire to end her life is reasonable given the extent of her pain. Borderline personality traits are noted as well and may be playing a role. She has been working with a therapist and psychiatrist, and her therapist has suggested supportive living arrangement, which the patient has been unwilling to consider. She indicates she has some support from friends, but has not been willing to involve them in treatment, and has been unable to develop a safety plan. She remains at high risk of suicide if she reports ongoing hopelessness and a wish to be , and is disappointed that she did not as a result of her overdose. Inpatient treatment is medically necessary due to the severity of her symptoms and risk for suicide if discharged. (1) Suicide attempt by multiple drug overdose: 08/16 -suicide checks for safety. -Continue to process stressors, work on healthy coping strategies and discharge safety plan. -Patient indicates that she took all of the opiates and benzodiazepines in her possession. She is prescribed a tricyclic, which is also potentially lethal in overdose. Would be helpful to have someone bring in all of her medications so that any old, outdated prescriptions could be safely disposed of, if she is willing to allow this. We will also need to coordinate care with the physicians who prescribed the medication she overdosed on, including her psychiatrist, PCP Dr. Duron, and surgeon Dr. Wilson. -Recommend family meeting with friends/supports. -Continue inpatient treatment on an involuntary 302 commitment, and filed for a 303 hearing to be held tomorrow, as patient indicates ongoing desire to be and remains at high risk for suicide. 08/17 -Dr. Wilson's office informed of her overdose; requested staff to inform Dr. Duron as well. -Recommend family meeting, and robust safety plan. 08/18 --Patient reports that she does not feel that she is actively suicidal "today," but can make no long-term assurances in this regard and notes that she has "always sad" that she will eventually kill herself if she cannot get relief from her chronic pain. --She does say that medical marijuana relieves her pain, but she has been reluctant to use it more than in the evenings because she does not want want to be "high" all day long. We discussed the dilemma that she presents because the sad reality is that substantial pain relief may be out of reach, are out of short-term reach, and given her history of 2 suicide attempts including one that she says was thoroughly planned and the other which she says was impulsive in the face of intractable pain, we do not feel she can be safely released to the community at this time given her ongoing suicidal statements and depressed affect, unless she can be offered some help for pain relief or actually achieve pain relief prior to discharge. We discussed longer term options, such as consultations and tertiary medical centers, and seeking another medical opinion from [facility]. --The patient was advised that I am not comfortable prescribing amitriptyline given her history of overdosing. --The patient's psychiatric hospitalization was continued this morning at her 302 hearing. 08/19 As consistent with yesterday she is not actively suicidal "today" and again does not focus on the future as far as miki for safety but does state she feels she has more insight to her recent attempt and ways to help her begin to mitigate pain while she is waiting to see if there are more medical answers. She does continue to hope that this can be fixed. 08/20 -Patient appears to be working towards personal insight to her recent impulsive toxic ingestion. She appears future oriented as she is asking questions about how she can work towards discharge and considering staff's concerns about the nature of her recent suicide attempt her ongoing pain and trying to make sense of "a way forward living with the pain." she does continue to take the duloxetine, had some benefit with trazodone for sleep last night. Her mood does seem to be stable from yesterday into today I did not observe the irritability reported and we will need to watch. On the whole I think she is showing steps towards improvement, however given the nature of her risk factors I do believe inpatient is the most appropriate setting for her at this time and least restrictive until a clear accountability and discharge plan with close follow-up can be arranged and there is clarity on her follow-up with her physical medicine providers so that she has a hope that people will still be able to listen to her and help her work towards minimizing pain. Unfortunately she is at chronic high risk due to her history of multiple attempts, and chronic pain. (2) Depression: 08/16 -continue home dose of duloxetine 90 mg daily and consider titration (patient unwilling to discuss medication changes today). -Amitriptyline held on admission due to overdose; given multiple overdoses and concerns regarding lethality of this medication, will defer decision about resuming it to her outpatient psychiatrist, Dr. Allison, who will be on the unit later this week. -Encourage patient to attend and participate in groups and therapy. -Care coordinated with her outpatient clinicians, explore options to increase supports. 08/17 -patient remains irritable and hopeless with respect to her pain, which she states was her primary stressor and the reason for her suicide attempt. -declining titration of duloxetine, remains focused on discharge to see her surgeon, remains irritable and angry, no meaningful safety plan (suggests she should increase her use of alcohol and marijuana). -303 hearing is scheduled for tomorrow. -Encourage family meeting to involve her supports. 08/18 --The patient has been less irritable today. She participated in her 302 hearing today and said that she is no longer opposing the plan for her to remain hospitalized in the psychiatric unit. --As above, the patient's assertion is that her depression is caused by her chronic pain. She seems to now be minimizing persistent grief associated with her being about a year ago, and attributes most of her complaints to "unimaginable, severe" unrelenting pain. 08/19 - The patient is less irritable today. She does continue to believe her depression is caused by her chronic pain but is willing to discuss grief today. We will continue duloxetine 90 mg although it can cause urinary hesitancy and retention she has not had this concern before on this medication so I do not think it is the current culprit. We will continue to engage her in cognitive and behavioral efforts to consider how to live with the pain to help remedy some of the rigid beliefs about curing the pain is the only option. Appreciate that she is reading Alex Adams's book command search for meaning and finding some helpful thoughts from that book. We are stopping hydroxyzine due to urinary retention and possible constipation and starting trazodone. We discussed signs or symptoms of orthostasis and to take slow positional changes, watching for oversedation and in layman's terms described serotonin syndrome so that patient and staff could monitor. 08/20 continue duloxetine, continue conversations about meaning/significance, greif of partner and physical losses and limitations, and work on outpatient safety planning. (3) Borderline personality disorder: 08/16 -explore patterns of behavior and coping mechanisms, continue with outpatient therapy after discharge. 08/18 --The patient is certainly demonstrated pathologic characterologic traits consistent with borderline personality disorder. I do not believe at this point the characterologic features ought to be a focus of treatment. In the past she has been fairly high functioning and has a number of strengths and community support systems. 08/20 - come evidence of splitting today trying to ally with this provider, but she is redirectable to work on repairing the relationship with her outpatient psychiatrist (4) Alcohol abuse: 08/16 -AWSS protocol for withdrawal. Brief intervention was offered and refused Summary of intervention: The patient is in precontemplation stage with regards to transtheoretical model of change. She does not feel that she has a substance use problem --Patient has history of benzodiazepine abuse, and uses medical marijuana in combination with alcohol daily. 08/17 -scoring 0 on AWSS, vital signs stable; will discontinue. 08/18 --The patient denies today that she has ever said that she plans to increase her use of alcohol and insists that she is limiting her alcohol consumption at this point to "two glasses of wine a day." She does acknowledge that she uses alcohol with marijuana in the evenings as part of her "ritual" to ease the pain, "settle down," and sleep. She has stopped benzodiazepines. She, herself, says that she feels that she was abusing them, but her prescription fill date of does not seem to indicate that she uses more than had been prescribed. 08/19 - Challenged patient's thoughts about alcohol today affirming that she may find some distance from her emotions but how it may worsen things over time again encouraging her to strongly consider abstaining from alcohol. She states "I have been away from it 5 days at this time. But then does not make any conclusive statements about her future intentions. (5) Chronic back pain: 08/17 -patient requesting follow-up appointment with Dr. Wilson at [facility] to address her pain; staff contacted his office yesterday, they indicated she has been seen 6 times already this month and they will reschedule her with Dr. Wilson once we have a discharge date. They were also informed of her overdose which included oxycodone prescribed by Dr. Wilson. (6) Constipation: 08/19 Patient describes having constipation on previous narcotics. I am unclear as she denies recently overusing narcotics if indeed the recent toxic ingestion is causing her current constipation or if it may be related to of the anticholinergic properties of hydroxyzine. As she has failed milk of magnesia 2 days in a row with an additional dose of Senokot today I have offered her a MiraLAX challenge versus soapsuds enema. She elected for soapsuds enema hoping for more quick relief then an oral remedy. If this is unsuccessful we will follow with MiraLAX challenge. Additionally I will add a stool softener to her regimen to try to keep this from happening again and remove hydroxyzine for sleep treating for trazodone. 08/20 - miralax 3day challenge (7) Urinary hesitancy: 08/19 Patient has new onset urinary hesitancy in the absence of other neurologic focal signs or symptoms. She has had hydroxyzine in the last 3 days which coincides with urinary retention I believe this is a side effect of anticholinergic properties of that medication. I will stop it and start trazodone for sleep to reduce anticholinergic burden. However we will monitor her urinary voiding the hope is that she will continue to be able to increase the amount she can urinate the longer she is away from hydroxyzine. She is having small urine voids. I have asked nursing to do a bladder scan this afternoon and we will repeat again this evening if her bladder continues to expand or she is not having any improvement in her urination we will consider bethanechol. 08/20 urinating more regularly with some hesitancy of unclear etiology or significance, will monitor Risk Factors Assessment Male: No : Yes Do You Have Access To A Gun?: No Health Problems: Yes Mental Health Diagnoses: Yes Substance Use Disorders: Yes Previous Attempt: Yes Previous Attempt; Highly Lethal: Yes Previous Attempt; Planned: Yes Previous Attempt; Didn't Tell Anyone: Yes Family History of Suicide: No Previous Psychiatric Hospitalization: Yes Hopelessness: Yes Smoker: No Protective Factors Assessment : No Responsible for Young Children: No Employed: No Stable Relationships: Yes Good Rapport with Provider: Yes Interval History Identifying Information CATHERINE MAIER is a 74-year-old F who currently lives in [place] alone, has a history of chronic pain, depression, and serious suicide attempts by overdose, and was admitted on 08/16/19 16:47 on a 302 involuntary commitment for suicide attempt by overdose on alcohol, a tricyclic antidepressant, opioid pain medication, and benzodiazepines. Chief Complaint " I think I have come up with some ideas about how I came to be here". Review of Systems Sleep Information Total Hours of Sleep: 6.25 Sleep Comments: pt. received a prn of trazadone for sleep aid Meal Information Percent Meal Consumed - Breakfast: 75 Percent Meal Consumed - Lunch: 0 Percent Meal Consumed - Dinner: 100 Nutrition Comment: Patient sleeping at this time. Recent admit. Subjective Subjective Patient was seen & assessed and interval progress reviewed with treatment team. Per nursing staff the patient took trazodone last night and slept she did have some movement of her bowels with enema yesterday but it is unclear how productive this was. She is urinating more consistently. She was mildly irritable yesterday interacting with another patient and staff who were talking stating "how long you guys can stand there before you let me through" was able to watch TV with her peers did continue to report hip pain but reported mood as 7 out of 10 "the best I think I will be." I met with the patient in her room today. She states she had modest bowel movement yesterday with the enema and no further movement today. She continues to feel full and bloated and unable to have a movement. She does states she is urinating consistently but has some ongoing hesitancy having to wait 10 to 30 seconds before urine stream will come. In regards to mood she states "I think I am learning that I will have to live with pain. 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 I was very disappointed when the injection did not work and impulsively reacted." She is concerned about repairing the relationship with her psychiatrist whom she feels may be angry at her for her suicide attempt, feeling her interactions with her therapist by phone while she has been here have assured her that that relationship is not injured. She again rates her mood as a 6-7 out of 10, denying feeling hopeless or helpless at this time. She does not want to go to a higher level of care and has considered accountability in her home with her "personal fitness manager" who has been helping her all through [facility] and is now taking care of her dog. She feels future oriented and feels she would like to return to activities of interest and significance. 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 She denies active suicidal ideation intention or plan today. Physical Exam Psychiatric Orientation: alert and oriented x 3 Apperance: appropriately dressed Eye Contact: good eye contact Motor Behavior: steady gait and station (Walks with her personal cane) Speech: normal rate/rhythm/volume of speech (Subdued tone) Affect: + blunted affect "Okay the best I think it will be" Thought Process: goal directed thought process and linear/logical thought process Patient today is very focused on explaining some of her personal insights to loss detailed above in subjective Suicidal Thoughts: denies suicidal thoughts Homicidal Thoughts: denies homicidal thoughts Hallucinations: no auditory hallucinations and no visual hallucinations Cognition: recent memory grossly intact Estimated Intelligence: average estimated intelligence Insight: + fair insight Judgement: + fair judgement Vital Signs (Past 24 Hours) Last Vital Signs Temp 37.1 C 08/21/19 06:00 Pulse 62 08/21/19 06:00 Resp 16 08/21/19 06:00 BP 130/68 08/21/19 06:00 Pulse Ox 96 08/16/19 17:30 Results & Data (U) Current Inpatient Medications Current Inpatient Medications: Current Inpatient Medications Acetaminophen (Tylenol) 650 mg PO Q4H PRN PRN Reason: Headache or Minor Fever Stop: 09/15/19 16:46 Al Hydrox/Mg Hydrox/Simethicone (Maalox) 30 ml PO Q4H PRN PRN Reason: GI Upset Stop: 09/15/19 16:46 Last Admin: 08/18/19 21:01 Dose: 30 ml Documented by: Bismuth Subsalicylate (Kaopectate) 15 ml PO PRN PRN PRN Reason: Loose Stool Stop: 09/15/19 16:46 Docusate Sodium (Colace) 100 mg PO BID [facility] Stop: 09/19/19 20:59 Last Admin: 08/21/19 09:56 Dose: 100 mg Documented by: Duloxetine HCl (Cymbalta) 30 mg PO QAM [facility] Stop: 09/16/19 08:59 Last Admin: 08/21/19 09:56 Dose: 30 mg Documented by: Duloxetine HCl (Cymbalta) 60 mg PO QAM [facility] Stop: 09/16/19 08:59 Last Admin: 08/21/19 09:56 Dose: 60 mg Documented by: Magnesium Hydroxide (Milk Of Magnesia) 30 ml PO DAILY PRN PRN Reason: Constipation Stop: 09/15/19 16:46 Last Admin: 08/19/19 22:59 Dose: 30 ml Documented by: Magnesium Oxide (Mag-Ox) [facility] [place] Stop: 09/16/19 08:59 Last Admin: 08/21/19 09:56 Dose: 400 mg Documented by: Multivitamins (Multivitamin Tab) 1 [facility] [place] Stop: 09/16/19 08:59 Last Admin: 08/21/19 09:55 Dose: 1 tab Documented by: Sodium Chloride ([place] Nasal) 1 - 2 sprays NA PRN PRN PRN Reason: Nasal Dryness/Congestion Stop: 09/15/19 16:46 Trazodone HCl (Desyrel) 50 mg PO HS PRN PRN Reason: insomnia Stop: 09/19/19 11:17 Last Admin: 08/20/19 22:43 Dose: 50 mg Documented by: Vitamin D (Vitamin D3) 1,000 units PO QAM [facility] Stop: 09/16/19 08:59 Last Admin: 08/21/19 09:56 Dose: 1,000 units Documented by: Mental Health & Subst Abuse Tx Psychiatrist Name of Psychiatrist: [facility] - Dr. Allison Psychiatrist's Psychiatric Appointment Comment: [address] [facility] Therapist Name of Therapist: Dr. Laverne Singletary Therapist's ext [phone]) Therapy Appointment Comment: [address] [facility], [place], [place] Track Inspecting Supervisor Name of Track Inspecting Supervisor: None Post Discharge Appointments Primary Care Physician Name Of Family Doctor: [facility] - Dr. Tal Duron Primary Care Provider Appointment Comment: [address] [facility] [facility], [address], [place] Name of Specialist: [facility] - Dr. Wilson Phone Number for Specialist: [phone] Specialty Appointment Comment: [address] [facility], [place] Contact Information Discharge Discharge [address]: [address] [place] [id number] (1) Suicide attempt by multiple drug overdose Encounter type: initial encounter Qualified Code(s): T50.902A - Poisoning by unspecified drugs, medicaments and biological substances, intentional self-harm, initial encounter
[2019-08-21] MEDS: POLYETHYLENE (MIRALAX) 17 GM PACK PO SCH (15:43)
[2019-08-21] MEDS: TRAZODONE HCL 50 MG TAB PO PRN (22:49)
--- NOTE | 2019-08-22 09:15 | Psychiatric Progress Note ---
Date of Service August 22, 2019 Impression / Recommendations Impression 74-year-old female with a history of depression, chronic pain, and two serious suicide attempts by overdose in the context of exacerbation of pain and feeling hopeless for effective interventions. She does not see herself as struggling with mental illness, and feels that her desire to end her life is reasonable given the extent of her pain. Borderline personality traits are noted as well and may be playing a role. She has been working with a therapist and psychiatrist, and her therapist has suggested supportive living arrangement, which the patient has been unwilling to consider. She indicates she has some support from friends, even stating she is hoping they would be willing to stay with her during her transition home. She remains resistant to including these supports in a meeting with social work to discuss safety and discharge planning. Although patient is stating it is not in the universe's plan that she should end her life, she is not convincingly able to deny SI but rather deflects questions related to this topic. She remains at high risk of suicide and inpatient treatment is medically necessary due to the severity of her symptoms and risk for suicide if discharged. (1) Suicide attempt by multiple drug overdose: 08/16 -suicide checks for safety. -Continue to process stressors, work on healthy coping strategies and discharge safety plan. -Patient indicates that she took all of the opiates and benzodiazepines in her possession. She is prescribed a tricyclic, which is also potentially lethal in overdose. Would be helpful to have someone bring in all of her medications so that any old, outdated prescriptions could be safely disposed of, if she is willing to allow this. We will also need to coordinate care with the physicians who prescribed the medication she overdosed on, including her psychiatrist, PCP Dr. Duron, and surgeon Dr. Wilson. -Recommend family meeting with friends/supports. -Continue inpatient treatment on an involuntary 302 commitment, and filed for a 303 hearing to be held tomorrow, as patient indicates ongoing desire to be and remains at high risk for suicide. 08/17 -Dr. Wilson's office informed of her overdose; requested staff to inform Dr. Duron as well. -Recommend family meeting, and robust safety plan. 08/18 --Patient reports that she does not feel that she is actively suicidal "today," but can make no long-term assurances in this regard and notes that she has "always sad" that she will eventually kill herself if she cannot get relief from her chronic pain. --She does say that medical marijuana relieves her pain, but she has been reluctant to use it more than in the evenings because she does not want want to be "high" all day long. We discussed the dilemma that she presents because the sad reality is that substantial pain relief may be out of reach, are out of short-term reach, and given her history of 2 suicide attempts including one that she says was thoroughly planned and the other which she says was impulsive in the face of intractable pain, we do not feel she can be safely released to the community at this time given her ongoing suicidal statements and depressed a ffect, unless she can be offered some help for pain relief or actually achieve pain relief prior to discharge. We discussed longer term options, such as consultations and tertiary medical centers, and seeking another medical opinion from [facility]. --The patient was advised that I am not comfortable prescribing amitriptyline given her history of overdosing. --The patient's psychiatric hospitalization was continued this morning at her 302 hearing. 08/19 As consistent with yesterday she is not actively suicidal "today" and again does not focus on the future as far as miki for safety but does state she feels she has more insight to her recent attempt and ways to help her begin to mitigate pain while she is waiting to see if there are more medical answers. She does continue to hope that this can be fixed. 08/20 -Patient appears to be working towards personal insight to her recent impulsive toxic ingestion. She appears future oriented as she is asking questions about how she can work towards discharge and considering staff's concerns about the nature of her recent suicide attempt her ongoing pain and trying to make sense of "a way forward living with the pain." she does continue to take the duloxetine, had some benefit with trazodone for sleep last night. Her mood does seem to be stable from yesterday into today I did not observe the irritability reported and we will need to watch. On the whole I think she is showing steps towards improvement, however given the nature of her risk factors I do believe inpatient is the most appropriate setting for her at this time and least restrictive until a clear accountability and discharge plan with close follow-up can be arranged and there is clarity on her follow-up with her physical medicine providers so that she has a hope that people will still be able to listen to her and help her work towards minimizing pain. Unfortunately she is at chronic high risk due to her history of multiple attempts, and chronic pain. 08/21 - While patient is stating she is convinced "it is not in the Universe's plan that I should kill myself", she avoids directly answering questions related to current suicidality. She deflects questions asked by this provider regarding thoughts to harm self or her safety after discharge (2) Depression: 08/16 -continue home dose of duloxetine 90 mg daily and consider titration (patient unwilling to discuss medication changes today). -Amitriptyline held on admission due to overdose; given multiple overdoses and concerns regarding lethality of this medication, will defer decision about resuming it to her outpatient psychiatrist, Dr. Allison, who will be on the unit later this week. -Encourage patient to attend and participate in groups and therapy. -Care coordinated with her outpatient clinicians, explore options to increase supports. 08/17 -patient remains irritable and hopeless with respect to her pain, which she states was her primary stressor and the reason for her suicide attempt. -declining titration of duloxetine, remains focused on discharge to see her surgeon, remains irritable and angry, no meaningful safety plan (suggests she should increase her use of alcohol and marijuana). -303 hearing is scheduled for tomorrow. -Encourage family meeting to involve her supports. 08/18 --The patient has been less irritable today. She participated in her 302 hearing today and said that she is no longer opposing the plan for her to remain hospitalized in the psychiatric unit. --As above, the patient's assertion is that her depression is caused by her chronic pain. She seems to now be minimizing persistent grief associated with her being about a year ago, and attributes most of her complaints to "unimaginable, severe" unrelenting pain. 08/19 - The patient is less irritable today. She does continue to believe her depression is caused by her chronic pain but is willing to discuss grief today. We will continue duloxetine 90 mg although it can cause urinary hesitancy and retention she has not had this concern before on this medication so I do not think it is the current culprit. We will continue to engage her in cognitive and behavioral efforts to consider how to live with the pain to help remedy some of the rigid beliefs about curing the pain is the only option. Appreciate that she is reading Alex Adams's book command search for meaning and finding some helpful thoughts from that book. We are stopping hydroxyzine due to urinary retention and possible constipation and starting trazodone. We discussed signs or symptoms of orthostasis and to take slow positional changes, watching for oversedation and in layman's terms described serotonin syndrome so that patient and staff could monitor. 08/20 continue duloxetine, continue conversations about meaning/significance, grief of partner and physical losses and limitations, and work on outpatient safety planning. 08/21 - Continue current medication regimen - Again encouraged that patient consider involving an outpatient support in a meeting to discuss safety and discharge planning (3) Borderline personality disorder: 08/16 -explore patterns of behavior and coping mechanisms, continue with outpatient therapy after discharge. 08/18 --The patient is certainly demonstrated pathologic characterologic traits consistent with borderline personality disorder. I do not believe at this point the characterologic features ought to be a focus of treatment. In the past she has been fairly high functioning and has a number of strengths and community support systems. 08/20 - come evidence of splitting today trying to ally with this provider, but she is redirectable to work on repairing the relationship with her outpatient psychiatrist 08/21 - Patient remains highly focused on her need to repair relationships with her support system - Discussing the possibility of inviting a support to live with her for a period of time after discharge, but not committing at this time to a support meeting with social work to discuss this further (4) Alcohol abuse: 08/16 -AWSS protocol for withdrawal. Brief intervention was offered and refused Summary of intervention: The patient is in precontemplation stage with regards to transtheoretical model of change. She does not feel that she has a substance use problem --Patient has history of benzodiazepine abuse, and uses medical marijuana in combination with alcohol daily. 08/17 -scoring 0 on AWSS, vital signs stable; will discontinue. 08/18 --The patient denies today that she has ever said that she plans to increase her use of alcohol and insists that she is limiting her alcohol consumption at this point to "two glasses of wine a day." She does acknowledge that she uses alcohol with marijuana in the evenings as part of her "ritual" to ease the pain, "settle down," and sleep. She has stopped benzodiazepines. She, herself, says that she feels that she was abusing them, but her prescription fill date of does not seem to indicate that she uses more than had been prescribed. 08/19 - Challenged patient's thoughts about alcohol today affirming that she may find some distance from her emotions but how it may worsen things over time again encouraging her to strongly consider abstaining from alcohol. She states "I have been away from it 5 days at this time. But then does not make any conclusive statements about her future intentions. (5) Chronic back pain: 08/17 -patient requesting follow-up appointment with Dr. Wilson at [facility] to address her pain; staff contacted his office yesterday, they indicated she has been seen 6 times already this month and they will reschedule her with Dr. Wilson once we have a discharge date. They were also informed of her overdose which included oxycodone prescribed by Dr. Wilson. 08/21 - Pt reporting plan to increase her use of medicinal marijuana to treat her chronic pain - encouraged to discuss this with her treating provider prior to escalating her usage - Discussed potential interactions with prescription medications and alcohol use and advised patient to not alter use until she discusses with her treating provider (6) Constipation: 08/19 Patient describes having constipation on previous narcotics. I am unclear as she denies recently overusing narcotics if indeed the recent toxic ingestion is causing her current constipation or if it may be related to of the anticholinergic properties of hydroxyzine. As she has failed milk of magnesia 2 days in a row with an additional dose of Senokot today I have offered her a MiraLAX challenge versus soapsuds enema. She elected for soapsuds enema hoping for more quick relief then an oral remedy. If this is unsuccessful we will follow with MiraLAX challenge. Additionally I will add a stool softener to her regimen to try to keep this from happening again and remove hydroxyzine for sleep treating for trazodone. 08/20 - miralax 3day challenge 08/21 - continue as above, discussed etiology is likely related to oxycodone overdose and is expected to resolve over time (7) Urinary hesitancy: 08/19 Patient has new onset urinary hesitancy in the absence of other neurologic focal signs or symptoms. She has had hydroxyzine in the last 3 days which coincides with urinary retention I believe this is a side effect of anticholinergic prope rties of that medication. I will stop it and start trazodone for sleep to reduce anticholinergic burden. However we will monitor her urinary voiding the hope is that she will continue to be able to increase the amount she can urinate the longer she is away from hydroxyzine. She is having small urine voids. I have asked nursing to do a bladder scan this afternoon and we will repeat again this evening if her bladder continues to expand or she is not having any improvement in her urination we will consider bethanechol. 08/20 urinating more regularly with some hesitancy of unclear etiology or significance, will monitor 08/21 - Ongoing intermittent urinary hesitancy - continue to monitor Risk Factors Assessment Male: No : Yes Do You Have Access To A Gun?: No Health Problems: Yes Mental Health Diagnoses: Yes Substance Use Disorders: Yes Previous Attempt: Yes Previous Attempt; Highly Lethal: Yes Previous Attempt; Planned: Yes Previous Attempt; Didn't Tell Anyone: Yes Family History of Suicide: No Previous Psychiatric Hospitalization: Yes Hopelessness: Yes Smoker: No Protective Factors Assessment : No Responsible for Young Children: No Employed: No Stable Relationships: Yes Good Rapport with Provider: Yes Interval History Identifying Information CATHERINE MAIER is a 74-year-old F who currently lives in [place] alone, has a history of chronic pain, depression, and serious suicide attempts by overdose, and was admitted on 08/16/19 16:47 on a 302 involuntary commitment for suicide attempt by overdose on alcohol, a tricyclic antidepressant, opioid pain medication, and benzodiazepines. Extended involuntary commitment was granted following a 303 hearing on 08/19/2019. Chief Complaint "This weekend was very...ah...I'm trying to find the right word. Let's just say my thought processes were very meaningful." Review of Systems Notes Constitutional: denied Cardiovascular: denied Respiratory: denied Gastrointestinal: reports ongoing constipation Neurological: denied Musculoskeletal: reports continued back/hip pain Psychiatric: denies symptoms other than stated above Total of at least 10 systems reviewed, pertinent positives as above and in HPI. Sleep Information Total Hours of Sleep: 6 Sleep Comments: pt. received a prn dose of trazadone for sleep aid Meal Information Percent Meal Consumed - Breakfast: 75 Percent Meal Consumed - Lunch: 0 Percent Meal Consumed - Dinner: 100 Nutrition Comment: Patient sleeping at this time. Recent admit. Subjective Subjective Patient was seen & assessed and interval progress reviewed with treatment team. Staff report the patient continued to complain of constipation over the weekend. She participated in group programming and has verbalized SI intermittently as it relates to her level of pain. Pt continues to be reluctant to involving outpatient supports in a family meeting to discuss safety and discharge planning. Pt was seen today to assess progress since admission. Pt states that she is doing well today, reporting that her "thought processes were very meaningful" over the weekend. She states "it's not in the universe's design for me to end my life, that was made pretty clear." Despite making this statement, patient is not able to directly answer questions regarding current suicidality. She did mention "I had only obligated myself to my providers to not harming myself before the 6 to 9 months for recovery after my surgery. Then that got extended to 9 to 12 months, and it's about 9 or 10 now." Pt was asked if this mentality is ongoing, if she is still considering ending her life in this timeline. While she doesn't overtly deny this mentality, she states "well, it's already clear the surgery didn't work, we're past that now." She states that she has had numerous conversations with her expansive support system, but states "most of them have been people expressing that they are angry with me. Bradley but angry." Pt states that her primary task after discharge will be "repairing these relationships." Pt states that she has also shifted her mentality in a way to say "this pain is also like a grief process. I will just have to work with my therapist to work toward acceptance that I will not have a life without pain." Pt remains preoccupied with her constipation, but is agreeable with trial of Miralax stating "I'm on day two of not having a bowel movement." Pt denies other needs or concerns today. Physical Exam Psychiatric Orientation: alert, oriented x 3 and cooperative (superficially) Apperance: appropriately dressed, appropriately groomed and appeared stated age Eye Contact: good eye contact Motor Behavior: no abnormal motor movements (observed while sitting on edge of bed, cane prompted up against her lap) Speech: normal rate/rhythm/volume of speech Affect: + blunted affect Mood: + depressed mood (though is reporting changing in her thought processes ) Thought Process: goal directed thought process and clear/coherent thought process Thought Content: + cognitive distortions (consistent with borderline traits); no hopelessness (appearing to not be as significant ) Suicidal Thoughts: does not verbalize SI, but is also not able to convincingly deny thoughts either Homicidal Thoughts: denies homicidal thoughts Hallucinations: no auditory hallucinations and no visual hallucinations Cognition: attention grossly intact and language grossly intact Insight: + fair insight Judgement: + fair judgement Vital Signs (Past 24 Hours) Last Vital Signs Temp 36.8 C 08/21/19 20:00 Pulse 62 08/21/19 06:00 Resp 16 08/21/19 06:00 BP 130/68 08/21/19 06:00 Pulse Ox 96 08/16/19 17:30 Results & Data ([facility]) Current Inpatient Medications Current Inpatient Medications: Current Inpatient Medications Acetaminophen (Tylenol) 650 mg PO Q4H PRN PRN Reason: Headache or Minor Fever Stop: 09/15/19 16:46 Al Hydrox/Mg Hydrox/Simethicone (Maalox) 30 ml PO Q4H PRN PRN Reason: GI Upset Stop: 09/15/19 16:46 Last Admin: 08/18/19 21:01 Dose: 30 ml Documented by: Bismuth Subsalicylate (Kaopectate) 15 ml PO PRN PRN PRN Reason: Loose Stool Stop: 09/15/19 16:46 Docusate Sodium (Colace) 100 mg PO BID [facility] Stop: 09/19/19 20:59 Last Admin: 08/21/19 22:48 Dose: 100 mg Documented by: Duloxetine HCl (Cymbalta) 30 mg PO QAM [facility] Stop: 09/16/19 08:59 Last Admin: 08/21/19 09:56 Dose: 30 mg Documented by: Duloxetine HCl (Cymbalta) 60 mg PO QAM [facility] Stop: 09/16/19 08:59 Last Admin: 08/21/19 09:56 Dose: 60 mg Documented by: Magnesium Hydroxide (Milk Of Magnesia) 30 ml PO DAILY PRN PRN Reason: Constipation Stop: 09/15/19 16:46 Last Admin: 08/19/19 22:59 Dose: 30 ml Documented by: Magnesium Oxide (Mag-Ox) 400 mg PO QAM IRINA Stop: 09/16/19 08:59 Last Admin: 08/21/19 09:56 Dose: 400 mg Documented by: Multivitamins (Multivitamin Tab) 1 tab PO QAM IRINA Stop: 09/16/19 08:59 Last Admin: 08/21/19 09:55 Dose: 1 tab Documented by: Polyethylene Glycol (Miralax Powder Packet) 17 gm PO DAILY IRINA Stop: 08/23/19 14:44 Last Admin: 08/21/19 15:43 Dose: 17 gm Documented by: Sodium Chloride ([place]aca Nasal) 1 - 2 sprays NA PRN PRN PRN Reason: Nasal Dryness/Congestion Stop: 09/15/19 16:46 Trazodone HCl (Desyrel) 50 mg PO HS PRN PRN Reason: insomnia Stop: 09/19/19 11:17 Last Admin: 08/21/19 22:49 Dose: 50 mg Documented by: Vitamin D (Vitamin D3) 1,000 units PO QAM IRINA Stop: 09/16/19 08:59 Last Admin: 08/21/19 09:56 Dose: 1,000 units Documented by: Mental Health & Subst Abuse Tx Psychiatrist Name of Psychiatrist: [facility] - Dr. Allison Psychiatrist's Psychiatric Appointment Comment: [address] [place] [address] Therapist Name of Therapist: Dr. Laverne Singletary Therapist's ext [phone]) Therapy Appointment Comment: [address] [facility], [place] Research Spec Name of Research Spec: None Post Discharge Appointments Primary Care Physician Name Of Family Doctor: [facility] - Dr. Tal Duron Primary Care Provider Appointment Comment: [address] [facility], [address] [facility] [place] [place] Name of Specialist: [facility] - Dr. Wilson Phone Number for Specialist: [phone] Specialty Appointment Comment: [address] [place] [address], [place] Contact Information Discharge Discharge [address]: [address] [place] [address] (1) Suicide attempt by multiple drug overdose Encounter type: initial encounter Qualified Code(s): T50.902A - Poisoning by unspecified drugs, medicaments and biological substances, intentional self-harm, initial encounter
[2019-08-22] MEDS: DULOXETINE HCL 30 MG CAP PO SCH (09:34)
[2019-08-22] MEDS: MAGNESIUM OXIDE 400 MG TAB PO SCH (09:34)
[2019-08-22] MEDS: CHOLECALCIFEROL 1,000 UNITS 25 MCG TAB PO SCH (09:34)
[2019-08-22] MEDS: MULTIVITAMIN TAB PO SCH (09:34)
[2019-08-22] MEDS: DOCUSATE SODIUM 100 MG CAP PO SCH ×2 (09:34→20:44)
[2019-08-22] MEDS: DULOXETINE HCL 60 MG CAP PO SCH (09:34)
[2019-08-22] MEDS: POLYETHYLENE (MIRALAX) 17 GM PACK PO SCH (09:34)
[2019-08-23] MEDS: POLYETHYLENE (MIRALAX) 17 GM PACK PO SCH (08:36)
[2019-08-23] MEDS: MULTIVITAMIN TAB PO SCH (08:36)
[2019-08-23] MEDS: MAGNESIUM OXIDE 400 MG TAB PO SCH (08:37)
[2019-08-23] MEDS: DULOXETINE HCL 60 MG CAP PO SCH (08:37)
[2019-08-23] MEDS: DOCUSATE SODIUM 100 MG CAP PO SCH ×2 (08:37→21:04)
[2019-08-23] MEDS: CHOLECALCIFEROL 1,000 UNITS 25 MCG TAB PO SCH (08:37)
[2019-08-23] MEDS: DULOXETINE HCL 30 MG CAP PO SCH (08:37)
--- NOTE | 2019-08-23 08:54 | Psychiatric Progress Note ---
Date of Service August 23, 2019 Impression / Recommendations Impression 74-year-old female with a history of depression, chronic pain, and two serious suicide attempts by overdose in the context of exacerbation of pain and feeling hopeless for effective interventions. She does not see herself as struggling with mental illness, and feels that her desire to end her life is reasonable given the extent of her pain. Borderline personality traits are noted as well and may be playing a role. She has been working with a therapist and psychiatrist, and her therapist has suggested supportive living arrangement, which the patient has been unwilling to consider. She indicates she has some support from friends, even stating she is hoping they would be willing to stay with her during her transition home. She remains resistant to including these supports in a meeting with social work to discuss safety and discharge planning. Although patient is stating it is not in the universe's plan that she should end her life, she is not convincingly able to deny SI but rather deflects questions related to this topic. She remains at high risk of suicide and inpatient treatment is medically necessary due to the severity of her symptoms and risk for suicide if discharged. (1) Suicide attempt by multiple drug overdose: 08/16 -suicide checks for safety. -Continue to process stressors, work on healthy coping strategies and discharge safety plan. -Patient indicates that she took all of the opiates and benzodiazepines in her possession. She is prescribed a tricyclic, which is also potentially lethal in overdose. Would be helpful to have someone bring in all of her medications so that any old, outdated prescriptions could be safely disposed of, if she is willing to allow this. We will also need to coordinate care with the physicians who prescribed the medication she overdosed on, including her psychiatrist, PCP Dr. Duron, and surgeon Dr. Wilson. -Recommend family meeting with friends/supports. -Continue inpatient treatment on an involuntary 302 commitment, and filed for a 303 hearing to be held tomorrow, as patient indicates ongoing desire to be and remains at high risk for suicide. 08/17 -Dr. Wilson's office informed of her overdose; requested staff to inform Dr. Duron as well. -Recommend family meeting, and robust safety plan. 08/18 --Patient reports that she does not feel that she is actively suicidal "today," but can make no long-term assurances in this regard and notes that she has "always sad" that she will eventually kill herself if she cannot get relief from her chronic pain. --She does say that medical marijuana relieves her pain, but she has been reluctant to use it more than in the evenings because she does not want want to be "high" all day long. We discussed the dilemma that she presents because the sad reality is that substantial pain relief may be out of reach, are out of short-term reach, and given her history of 2 suicide attempts including one that she says was thoroughly planned and the other which she says was impulsive in the face of intractable pain, we do not feel she can be safely released to the community at this time given her ongoing suicidal statements and depressed a ffect, unless she can be offered some help for pain relief or actually achieve pain relief prior to discharge. We discussed longer term options, such as consultations and tertiary medical centers, and seeking another medical opinion from [facility]. --The patient was advised that I am not comfortable prescribing amitriptyline given her history of overdosing. --The patient's psychiatric hospitalization was continued this morning at her 302 hearing. 08/19 As consistent with yesterday she is not actively suicidal "today" and again does not focus on the future as far as miki for safety but does state she feels she has more insight to her recent attempt and ways to help her begin to mitigate pain while she is waiting to see if there are more medical answers. She does continue to hope that this can be fixed. 08/20 -Patient appears to be working towards personal insight to her recent impulsive toxic ingestion. She appears future oriented as she is asking questions about how she can work towards discharge and considering staff's concerns about the nature of her recent suicide attempt her ongoing pain and trying to make sense of "a way forward living with the pain." she does continue to take the duloxetine, had some benefit with trazodone for sleep last night. Her mood does seem to be stable from yesterday into today I did not observe the irritability reported and we will need to watch. On the whole I think she is showing steps towards improvement, however given the nature of her risk factors I do believe inpatient is the most appropriate setting for her at this time and least restrictive until a clear accountability and discharge plan with close follow-up can be arranged and there is clarity on her follow-up with her physical medicine providers so that she has a hope that people will still be able to listen to her and help her work towards minimizing pain. Unfortunately she is at chronic high risk due to her history of multiple attempts, and chronic pain. 08/21 - While patient is stating she is convinced "it is not in the Universe's plan that I should kill myself", she avoids directly answering questions related to current suicidality. She deflects questions asked by this provider regarding thoughts to harm self or her safety after discharge 08/22 - Denies SI today, putting in effort at searching for "purpose to my suffering" (2) Depression: 08/16 -continue home dose of duloxetine 90 mg daily and consider titration (patient unwilling to discuss medication changes today). -Amitriptyline held on admission due to overdose; given multiple overdoses and concerns regarding lethality of this medication, will defer decision about resuming it to her outpatient psychiatrist, Dr. Allison, who will be on the unit later this week. -Encourage patient to attend and participate in groups and therapy. -Care coordinated with her outpatient clinicians, explore options to increase supports. 08/17 -patient remains irritable and hopeless with respect to her pain, which she states was her primary stressor and the reason for her suicide attempt. -declining titration of duloxetine, remains focused on discharge to see her surgeon, remains irritable and angry, no meaningful safety plan (suggests she should increase her use of alcohol and marijuana). -303 hearing is scheduled for tomorrow. -Encourage family meeting to involve her supports. 08/18 --The patient has been less irritable today. She participated in her 302 hearing today and said that she is no longer opposing the plan for her to remain hospitalized in the psychiatric unit. --As above, the patient's assertion is that her depression is caused by her chronic pain. She seems to now be minimizing persistent grief associated with her being about a year ago, and attributes most of her complaints to "unimaginable, severe" unrelenting pain. 08/19 - The patient is less irritable today. She does continue to believe her depres vivienne is caused by her chronic pain but is willing to discuss grief today. We will continue duloxetine 90 mg although it can cause urinary hesitancy and retention she has not had this concern before on this medication so I do not think it is the current culprit. We will continue to engage her in cognitive and behavioral efforts to consider how to live with the pain to help remedy some of the rigid beliefs about curing the pain is the only option. Appreciate that she is reading Alex Adams's book command search for meaning and finding some helpful thoughts from that book. We are stopping hydroxyzine due to urinary retention and possible constipation and starting trazodone. We discussed signs or symptoms of orthostasis and to take slow positional changes, watching for oversedation and in layman's terms described serotonin syndrome so that patient and staff could monitor. 08/20 continue duloxetine, continue conversations about meaning/significance, grief of partner and physical losses and limitations, and work on outpatient safety planning. 08/21 - Continue current medication regimen - Again encouraged that patient consider involving an outpatient support in a meeting to discuss safety and discharge planning 08/22 - Continue current medication regimen; duloxetine 90mg - Continue efforts to coordinate with patient's outpatient providers - Information received from patient's POA that they were not able to find a surplus of medication in the patient's home. Pt continues to refuse a family meeting to discuss safety/discharge planning - Continue to engage patient in group programming and 1:1 processing sessions as desired/indicated (3) Borderline personality disorder: 08/16 -explore patterns of behavior and coping mechanisms, continue with outpatient therapy after discharge. 08/18 --The patient is certainly demonstrated pathologic characterologic traits consistent with borderline personality disorder. I do not believe at this point the characterologic features ought to be a focus of treatment. In the past she has been fairly high functioning and has a number of strengths and community support systems. 08/20 - come evidence of splitting today trying to ally with this provider, but she is redirectable to work on repairing the relationship with her outpatient psychiatrist 08/21 - Patient remains highly focused on her need to repair relationships with her support system - Discussing the possibility of inviting a support to live with her for a period of time after discharge, but not committing at this time to a support meeting with social work to discuss this further (4) Alcohol abuse: 08/16 -AWSS protocol for withdrawal. Brief intervention was offered and refused Summary of intervention: The patient is in precontemplation stage with regards to transtheoretical model of change. She does not feel that she has a substance use problem --Patient has history of benzodiazepine abuse, and uses medical marijuana in combination with alcohol daily. 08/17 -scoring 0 on AWSS, vital signs stable; will discontinue. 08/18 --The patient denies today that she has ever said that she plans to increase her use of alcohol and insists that she is limiting her alcohol consumption at this point to "two glasses of wine a day." She does acknowledge that she uses alcohol with marijuana in the evenings as part of her "ritual" to ease the pain, "settle down," and sleep. She has stopped benzodiazepines. She, herself, says that she feels that she was abusing them, but her prescription fill date of does not seem to indicate that she uses more than had been prescribed. 08/19 - Challenged patient's thoughts about alcohol today affirming that she may find some distance from her emotions but how it may worsen things over time again encouraging her to strongly consider abstaining from alcohol. She states "I have been away from it 5 days at this time. But then does not make any conclusive statements about her future intentions. (5) Chronic back pain: 08/17 -patient requesting follow-up appointment with Dr. Wilson at [facility] to address her pain; staff contacted his office yesterday, they indicated she has been seen 6 times already this month and they will reschedule her with Dr. Wilson once we have a discharge date. They were also informed of her overdose which included oxycodone prescribed by Dr. Wilson. 08/21 - Pt reporting plan to increase her use of medicinal marijuana to treat her chronic pain - encouraged to discuss this with her treating provider prior to escalating her usage - Discussed potential interactions with prescription medications and alcohol use and advised patient to not alter use until she discusses with her treating provider 08/22 - Ongoing. Coordinated with patient's orthopedic provider - scheduled for an appointment on 09/06/2019. (6) Constipation: 08/19 Patient describes having constipation on previous narcotics. I am unclear as she denies recently overusing narcotics if indeed the recent toxic ingestion is causing her current constipation or if it may be related to of the anticholinergic properties of hydroxyzine. As she has failed milk of magnesia 2 days in a row with an additional dose of Senokot today I have offered her a MiraLAX challenge versus soapsuds enema. She elected for soapsuds enema hoping for more quick relief then an oral remedy. If this is unsuccessful we will follow with MiraLAX challenge. Additionally I will add a stool softener to her regimen to try to keep this from happening again and remove hydroxyzine for sleep treating for trazodone. 08/20 - miralax 3day challenge 08/21 - continue as above, discussed etiology is likely related to oxycodone overdose and is expected to resolve over time 08/22 - Reports successful bowel movement yesterday, gradual improvement in this complaint. Continue to monitor. (7) Urinary hesitancy: 08/19 Patient has new onset urinary hesitancy in the absence of other neurologic focal signs or symptoms. She has had hydroxyzine in the last 3 days which coincides with urinary retention I believe this is a side effect of anticholinergic properties of that medication. I will stop it and start trazodone for sleep to reduce anticholinergic burden. However we will monitor her urinary voiding the hope is that she will continue to be able to increase the amount she can urinate the longer she is away from hydroxyzine. She is having small urine voids. I have asked nursing to do a bladder scan this afternoon and we will repeat again this evening if her bladder continues to expand or she is not having any improvement in her urination we will consider bethanechol. 08/20 urinating more regularly with some hesitancy of unclear etiology or significance, will monitor 08/21 - Ongoing intermittent urinary hesitancy - continue to monitor 08/22 - Denies any ongoing concerns at this time, continue to monitor Risk Factors Assessment Male: No : Yes Do You Have Access To A Gun?: No Health Problems: Yes Mental Health Diagnoses: Yes Substance Use Disorders: Yes Previous Attempt: Yes Previous Attempt; Highly Lethal: Yes Previous Attempt; Planned: Yes Previous Attempt; Didn't Tell Anyone: Yes Family History of Suicide: No Previous Psychiatric Hospitalization: Yes Hopelessness: Yes Smoker: No Protective Factors Assessment : No Responsible for Young Children: No Employed: No Stable Relationships: Yes Good Rapport with Provider: Yes Interval History Identifying Information CATHERINE MAIER is a 74-year-old F who currently lives in [place] alone, has a history of chronic pain, depression, and serious suicide attempts by overdose, and was admitted on 08/16/19 16:47 on a 302 involuntary commitment for suicide attempt by overdose on alcohol, a tricyclic antidepressant, opioid pain medication, and benzodiazepines. Extended involuntary commitment was granted following a 303 hearing on 08/19/2019. Chief Complaint "Today has been really hard, but I would say really productive." Review of Systems Notes Constitutional: denied Cardiovascular: denied Respiratory: denied Gastrointestinal: denied Neurological: denied Musculoskeletal: reports ongoing hip and back pain Psychiatric: denies symptoms other than stated above Total of at least 10 systems reviewed, pertinent positives as above and in HPI. Sleep Information Total Hours of Sleep: 6 Sleep Comments: pt. received a prn dose of trazadone for sleep aid Meal Information Percent Meal Consumed - Breakfast: 100 Percent Meal Consumed - Lunch: 25 Percent Meal Consumed - Dinner: 75 Nutrition Comment: Patient sleeping at this time. Recent admit. Subjective Subjective Patient was seen & assessed and interval progress reviewed with nursing and social work. Staff report the patient slept well last evening, even declining trazodone. Pt did rate her mood a 10/04 last evening, reporting ongoing pain. Pt reports improvement in constipation last evening. She continues to be in communication with members of her support system. Pt was seen today to assess progress since admission. Pt states that today has been "really hard, but I would say really productive." She states that her day has been rather emotional, reporting "I woke up to mail." Pt shows this provider 10+ greeting cards she received "from my support system. And this is only about 25% of my support, so you can see how...you know...over-flowing support." Pt states that one of the cards brought a new perspective to her - "they mentioned how hard my fought for her life, and that they wish I would do the same for mine. I had never thought about that before. She went out kicking and screaming, and I am just as strong." Pt states that she is involved in a grief group and has been speaking more frequently with some of the members during this admission - stating "so I do think that there is purpose in my attempt, bringing us closer together." Pt states that he has been processing the "purpose behind my suffering", and states "there was a time my life was meaningful, but I lost perspective." Pt states that she feels she has been regaining that perspective and is looking forward to what the rest of her life will bring. She does endorse ongoing back and hip pain. She reports improvement in constipation and urinary hesitancy. Pt does inquire about estimated discharge timeline, as she is hoping to inform her close support - who she anticipates will be staying with her after she is discharged. Pt denies other needs or concerns today. Physical Exam Psychiatric Orientation: alert, oriented x 3 and cooperative Apperance: appropriately dressed, appropriately groomed and appeared stated age Eye Contact: good eye contact Motor Behavior: steady gait and station (ambulates with cane, slow but stable ) and no abnormal motor movements Speech: normal rate/rhythm/volume of speech Affect: + blunted affect Mood: + depressed mood Thought Process: goal directed thought process and clear/coherent thought process Thought Content: + preoccupation (with level of pain, focused on her support system) and + cognitive distortions; no hopelessness Suicidal Thoughts: denies suicidal thoughts and denies suicidal intent Homicidal Thoughts: denies homicidal thoughts Hallucinations: no auditory hallucinations and no visual hallucinations Cognition: attention grossly intact and language grossly intact Insight: + fair insight Judgement: + fair judgement Vital Signs (Past 24 Hours) Last Vital Signs Temp 37 C 08/22/19 20:00 Pulse 88 08/22/19 10:38 Resp 18 08/22/19 10:38 BP 123/71 08/22/19 10:38 Pulse Ox 96 08/16/19 17:30 Results & Data ([facility]) Current Inpatient Medications Current Inpatient Medications: Current Inpatient Medications Acetaminophen (Tylenol) 650 mg PO Q4H PRN PRN Reason: Headache or Minor Fever Stop: 09/15/19 16:46 Al Hydrox/Mg Hydrox/Simethicone (Maalox) 30 ml PO Q4H PRN PRN Reason: GI Upset Stop: 09/15/19 16:46 Last Admin: 08/18/19 21:01 Dose: 30 ml Documented by: Bismuth Subsalicylate (Kaopectate) 15 ml PO PRN PRN PRN Reason: Loose Stool Stop: 09/15/19 16:46 Docusate Sodium (Colace) 100 mg PO BID IRINA Stop: 09/19/19 20:59 Last Admin: 08/23/19 08:37 Dose: 100 mg Documented by: Duloxetine HCl (Cymbalta) 30 mg PO QAGREAT [facility] Stop: 09/16/19 08:59 Last Admin: 08/23/19 08:37 Dose: 30 mg Documented by: Duloxetine HCl (Cymbalta) 60 mg PO QAM [facility] Stop: 09/16/19 08:59 Last Admin: 08/23/19 08:37 Dose: 60 mg Documented by: Ibuprofen (Motrin) 600 mg PO Q6H PRN PRN Reason: Pain Stop: 09/21/19 12:56 Magnesium Hydroxide (Milk Of Magnesia) 30 ml PO DAILY PRN PRN Reason: Constipation Stop: 09/15/19 16:46 Last Admin: 08/19/19 22:59 Dose: 30 ml Documented by: Magnesium Oxide (Mag-Ox) 400 mg PO Q[facility]REAT [facility] Stop: 09/16/19 08:59 Last Admin: 08/23/19 08:37 Dose: 400 mg Documented by: Multivitamins (Multivitamin Tab) 1 tab PO [facility] Stop: 09/16/19 08:59 Last Admin: 08/23/19 08:36 Dose: 1 tab Documented by: Polyethylene Glycol (Miralax Powder Packet) 17 gm PO DAILY [facility] Stop: 08/23/19 14:44 Last Admin: 08/23/19 08:36 Dose: 17 gm Documented by: Sodium Chloride (Clark Nasal) 1 - 2 sprays NA PRN PRN PRN Reason: Nasal Dryness/Congestion Stop: 09/15/19 16:46 Trazodone HCl (Desyrel) 50 mg PO HS PRN PRN Reason: insomnia Stop: 09/19/19 11:17 Last Admin: 08/21/19 22:49 Dose: 50 mg Documented by: Vitamin D (Vitamin D3) 1,000 units PO [facility]REAT [facility] Stop: 09/16/19 08:59 Last Admin: 08/23/19 08:37 Dose: 1,000 units Documented by: Mental Health & Subst Abuse Tx Psychiatrist Name of Psychiatrist: Adam Allison Psychiatrist's Date of Appointment with Psychiatrist: 09/07/19 Time of Appointment with Psychiatrist: 11:20 a.m. Psychiatric Appointment Comment: Virtual appt if able (through portal) or by phone (someone will reach out) Therapist Name of Therapist: Dr. Laverne Singletary Therapist's ext [phone]) Therapy Appointment Comment: [address] [facility], [place], [place] Air Motor Repairer Name of Air Motor Repairer: None Post Discharge Appointments Primary Care Physician Name Of Family Doctor: [facility] - Dr. Tal Duron Primary Care Provider Appointment Comment: [address] [facility] [facility], [address], [place] Name of Specialist: [facility] - Dr. Wilson Phone Number for Specialist: [phone] Date of Appointment with Specialist: 09/06/19 Time of Appointment with Specialist: 2:00 p.m. Specialty Appointment Comment: [address] [facility], [place], [place] Contact Information Discharge Discharge [address]: [address] [place] [id number] (1) Suicide attempt by multiple drug overdose Encounter type: initial encounter Qualified Code(s): T50.902A - Poisoning by unspecified drugs, medicaments and biological substances, intentional self-harm, initial encounter
[2019-08-24] MEDS: MAGNESIUM OXIDE 400 MG TAB PO SCH (08:45)
[2019-08-24] MEDS: MULTIVITAMIN TAB PO SCH (08:45)
[2019-08-24] MEDS: DULOXETINE HCL 60 MG CAP PO SCH (08:45)
[2019-08-24] MEDS: CHOLECALCIFEROL 1,000 UNITS 25 MCG TAB PO SCH (08:45)
[2019-08-24] MEDS: DULOXETINE HCL 30 MG CAP PO SCH (08:45)
[2019-08-24] MEDS: DOCUSATE SODIUM 100 MG CAP PO SCH ×2 (08:45→21:13)
[2019-08-24] MEDS: IBUPROFEN 600 MG TAB PO PRN (09:01)
[2019-08-24] MEDS: ACETAMINOPHEN 325 MG TAB PO PRN (09:02)
--- NOTE | 2019-08-24 12:31 | Psychiatric Progress Note ---
Date of Service August 24, 2019 Impression / Recommendations Impression 74-year-old female with a history of depression, chronic pain, and two serious suicide attempts by overdose in the context of exacerbation of pain. Personality disorder likely playing a role as well, with identity disturbance, recurrent suicidal behavior, strained relationships, manipulation of others. She has been working with a therapist and psychiatrist, and her therapist has suggested supportive living arrangement, which the patient has been unwilling to consider. She reports support from friends, but is declining recommendations for a family meeting and does not want them involved in treatment or discharge planning. Her friend did contact us to inform they found only [id number] medications in her home. Although she is reporting improved mood,, she is not convincingly able to deny SI and often deflects questions related to this topic. She remains at high risk of suicide and inpatient treatment is medically necessary due to the severity of her symptoms and risk for suicide if di scharged. (1) Suicide attempt by multiple drug overdose: 08/16 -suicide checks for safety. -Continue to process stressors, work on healthy coping strategies and discharge safety plan. -Patient indicates that she took all of the opiates and benzodiazepines in her possession. She is prescribed a tricyclic, which is also potentially lethal in overdose. Would be helpful to have someone bring in all of her medications so that any old, outdated prescriptions could be safely disposed of, if she is willing to allow this. We will also need to coordinate care with the physicians who prescribed the medication she overdosed on, including her psychiatrist, PCP Dr. Duron, and surgeon Dr. Wilson. -Recommend family meeting with friends/supports. -Continue inpatient treatment on an involuntary 302 commitment, and filed for a 303 hearing to be held tomorrow, as patient indicates ongoing desire to be and remains at high risk for suicide. 08/17 -Dr. Wilson's office informed of her overdose; requested staff to inform Dr. Duron as well. -Recommend family meeting, and robust safety plan. 08/18 --Patient reports that she does not feel that she is actively suicidal "today," but can make no long-term assurances in this regard and notes that she has "always sad" that she will eventually kill herself if she cannot get relief from her chronic pain. --She does say that medical marijuana relieves her pain, but she has been reluctant to use it more than in the evenings because she does not want want to be "high" all day long. We discussed the dilemma that she presents because the sad reality is that substantial pain relief may be out of reach, are out of short-term reach, and given her history of 2 suicide attempts including one that she says was thoroughly planned and the other which she says was impulsive in the face of intractable pain, we do not feel she can be safely released to the community at this time given her ongoing suicidal statements and depressed affect, unless she can be offered some help for pain relief or actually achieve pain relief prior to discharge. We discussed longer term options, such as consultations and tertiary medical centers, and seeking another medical opinion from [facility]. --The patient was advised that I am not comfortable prescribing amitriptyline given her history of overdosing. --The patient's psychiatric hospitalization was continued this morning at her 302 hearing. 08/19 As consistent with yesterday she is not actively suicidal "today" and again does not focus on the future as far as miki for safety but does state she feels she has more insight to her recent attempt and ways to help her begin to mitigate pain while she is waiting to see if there are more medical answers. She does continue to hope that this can be fixed. 08/20 -Patient appears to be working towards personal insight to her recent impulsive toxic ingestion. She appears future oriented as she is asking questions about how she can work towards discharge and considering staff's concerns about the nature of her recent suicide attempt her ongoing pain and trying to make sense of "a way forward living with the pain." she does continue to take the duloxetine, had some benefit with trazodone for sleep last night. Her mood does seem to be stable from yesterday into today I did not observe the irritability reported and we will need to watch. On the whole I think she is showing steps towards improvement, however given the nature of her risk factors I do believe inpatient is the most appropriate setting for her at this time and least restrictive until a clear accountability and discharge plan with close follow-up can be arranged and there is clarity on her follow-up with her physical medicine providers so that she has a hope that people will still be able to listen to her and help her work towards minimizing pain. Unfortunately she is at chronic high risk due to her history of multiple attempts, and chronic pain. 08/21 - While patient is stating she is convinced "it is not in the Universe's plan that I should kill myself", she avoids directly answering questions related to current suicidality. She deflects questions asked by this provider regarding thoughts to harm self or her safety after discharge 08/22 - Denies SI today, putting in effort at searching for "purpose to my suffering" 08/23 -Arranging aftercare and anticipate discharge later this week if she continues to improve. -Patient continues to decline family meeting, and has not spoken to her friend/neighbor/POA since early in her hospitalization, stating this individual is angry with her. She states that her pet crematory worker is planning to stay with her for a time after discharge. (2) Depression: 08/16 -continue home dose of duloxetine 90 mg daily and consider titration (patient unwilling to discuss medication changes today). -Amitriptyline held on admission due to overdose; given multiple overdoses and concerns regarding lethality of this medication, will defer decision about resuming it to her outpatient psychiatrist, Dr. Allison, who will be on the unit later this week. -Encourage patient to attend and participate in groups and therapy. -Care coordinated with her outpatient clinicians, explore options to increase supports. 08/17 -patient remains irritable and hopeless with respect to her pain, which she states was her primary stressor and the reason for her suicide attempt. -declining titration of duloxetine, remains focused on discharge to see her surgeon, remains irritable and angry, no meaningful safety plan (suggests she should increase her use of alcohol and marijuana). -303 hearing is scheduled for tomorrow. -Encourage family meeting to involve her supports. 08/18 --The patient has been less irritable today. She participated in her 302 hearing today and said that she is no longer opposing the plan for her to remain hospitalized in the psychiatric unit. --As above, the patient's assertion is that her depression is caused by her chronic pain. She seems to now be minimizing persistent grief associated with her being about a year ago, and attributes most of her complaints to "unimaginable, severe" unrelenting pain. 08/19 - The patient is less irritable today. She does continue to believe her depression is caused by her chronic pain but is willing to discuss grief today. We will continue duloxetine 90 mg although it can cause urinary hesitancy and retention she has not had this concern before on this medication so I do not think it is the current culprit. We will continue to engage her in cognitive and behavioral efforts to consider how to live with the pain to help remedy some of the rigid beliefs about curing the pain is the only option. Appreciate that she is reading Alex Adams's book command search for meaning and finding some helpful thoughts from that book. We are stopping hydroxyzine due to urinary retention and possible constipation and starting trazodone. We discussed signs or symptoms of orthostasis and to take slow positional changes, watching for oversedation and in layman's terms described serotonin syndrome so that patient and staff could monitor. 08/20 continue duloxetine, continue conversations about meaning/significance, grief of partner and physical losses and limitations, and work on outpatient safety planning. 08/21 - Continue current medication regimen - Again encouraged that patient consider involving an outpatient support in a meeting to discuss safety and discharge planning 08/22 - Continue current medication regimen; duloxetine 90mg - Continue efforts to coordinate with patient's outpatient providers - Information received from patient's POA that they were not able to find a surplus of medication in the patient's home. Pt continues to refuse a family meeting to discuss safety/discharge planning - Continue to engage patient in group programming and 1:1 processing sessions as desired/indicated (3) Borderline personality disorder: 08/16 -explore patterns of behavior and coping mechanisms, continue with outpatient therapy after discharge. 08/18 --The patient is certainly demonstrated pathologic characterologic traits consistent with borderline personality disorder. I do not believe at this point the characterologic features ought to be a focus of treatment. In the past she has been fairly high functioning and has a number of strengths and community support systems. 08/20 - come evidence of splitting today trying to ally with this provider, but she is redirectable to work on repairing the relationship with her outpatient psychiatrist 08/21 - Patient remains highly focused on her need to repair relationships with her support system - Discussing the possibility of inviting a support to live with her for a period of time after discharge, but not committing at this time to a support meeting with social work to discuss this further (4) Alcohol abuse: 08/16 -[facility] protocol for withdrawal. Brief intervention was offered and refused Summary of intervention: The patient is in precontemplation stage with regards to transtheoretical model of change. She does not feel that she has a substance use problem --Patient has history of benzodiazepine abuse, and uses medical marijuana in combination with alcohol daily. 08/17 -scoring 0 on AWSS, vital signs stable; will discontinue. 08/18 --The patient denies today that she has ever said that she plans to increase her use of alcohol and insists that she is limiting her alcohol consumption at this point to "two glasses of wine a day." She does acknowledge that she uses alcohol with marijuana in the evenings as part of her "ritual" to ease the pain, "settle down," and sleep. She has stopped benzodiazepines. She, herself, says that she feels that she was abusing them, but her prescription fill date of does not seem to indicate that she uses more than had been prescribed. 08/19 - Challenged patient's thoughts about alcohol today affirming that she may find some distance from her emotions but how it may worsen things over time again encouraging her to strongly consider abstaining from alcohol. She states "I have been away from it 5 days at this time. But then does not make any conclusive statements about her future intentions. (5) Chronic back pain: 08/17 -patient requesting follow-up appointment with Dr. Wilson at [facility] to address her pain; staff contacted his office yesterday, they indicated she has been seen 6 times already this month and they will reschedule her with Dr. Wilson once we have a discharge date. They were also informed of her overdose which included oxycodone prescribed by Dr. Wilson. 08/21 - Pt reporting plan to increase her use of medicinal marijuana to treat her chronic pain - encouraged to discuss this with her treating provider prior to escalating her usage - Discussed potential interactions with prescription medications and alcohol use and advised patient to not alter use until she discusses with her treating provider 08/22 - Ongoing. Coordinated with patient's orthopedic provider - scheduled for an appointment on 09/06/2019. (6) Constipation: 08/19 Patient describes having constipation on previous narcotics. I am unclear as she denies recently overusing narcotics if indeed the recent toxic ingestion is causing her current constipation or if it may be related to of the anticholinergic properties of hydroxyzine. As she has failed milk of magnesia 2 days in a row with an additional dose of Senokot today I have offered her a MiraLAX challenge versus soapsuds enema. She elected for soapsuds enema hoping for more quick relief then an oral remedy. If this is unsuccessful we will follow with MiraLAX challenge. Additionally I will add a stool softener to her regimen to try to keep this from happening again and remove hydroxyzine for sleep treating for trazodone. 08/20 - miralax 3day challenge 08/21 - continue as above, discussed etiology is likely related to oxycodone overdose and is expected to resolve over time 08/22 - Reports successful bowel movement yesterday, gradual improvement in this complaint. Continue to monitor. (7) Urinary hesitancy: 08/19 Patient has new onset urinary hesitancy in the absence of other neurologic focal signs or symptoms. She has had hydroxyzine in the last 3 days which coincides with urinary retention I believe this is a side effect of anticholinergic properties of that medication. I will stop it and start trazodone for sleep to reduce anticholinergic burden. However we will monitor her urinary voiding the hope is that she will continue to be able to increase the amount she can urinate the longer she is away from hydroxyzine. She is having small urine voids. I have asked nursing to do a bladder scan this afternoon and we will repeat again this evening if her bladder continues to expand or she is not having any improvement in her urination we will consider bethanechol. 08/20 urinating more regularly with some hesitancy of unclear etiology or significance, will monitor 08/21 - Ongoing intermittent urinary hesitancy - continue to monitor 08/22 - Denies any ongoing concerns at this time, continue to monitor Risk Factors Assessment Male: No : Yes Do You Have Access To A Gun?: No Health Problems: Yes Mental Health Diagnoses: Yes Substance Use Disorders: Yes Previous Attempt: Yes Previous Attempt; Highly Lethal: Yes Previous Attempt; Planned: Yes Previous Attempt; Didn't Tell Anyone: Yes Family History of Suicide: No Previous Psychiatric Hospitalization: Yes Hopelessness: Yes Smoker: No Protective Factors Assessment : No Responsible for Young Children: No Employed: No Stable Relationships: Yes Good Rapport with Provider: Yes Interval History Identifying Information ARY MAIER is a 74-year-old F who currently lives in [place] alone, has a history of chronic pain, depression, and serious suicide attempts by overdose, and was admitted on 08/16/19 16:47 on a 302 involuntary commitment for suicide attempt by overdose on alcohol, a tricyclic antidepressant, opioid pain medication, and benzodiazepines. Extended involuntary commitment was granted following a 303 hearing on 08/19/2019. Chief Complaint "A lot better". Review of Systems Sleep Information Total Hours of Sleep: 5.5 Sleep Comments: pt. received a prn dose of trazadone for sleep aid Meal Information Percent Meal Consumed - Breakfast: 100 Percent Meal Consumed - Lunch: 100 Percent Meal Consumed - Dinner: 100 Nutrition Comment: Patient sleeping at this time. Recent admit. Subjective Subjective Patient was seen & assessed and interval progress reviewed with treatment team. Staff report she is reporting improved mood, is attending groups and participating. 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 Her power of document review attorney and her called and informed staff that the patient's warehouse distribution associate, Eliza, looked through her home and found empty bottles of OxyContin and amitriptyline. The only medications she found were Advil and Tylenol. They referred to the patient as "a con artist and manipulator," but said that they accepted her for who she is. On my assessment, the patient initially declined to participate, stating she wanted to finish [facility] first. Afterward, she was seen in her room, and reported improved mood. 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 She states she "had too much time to sit around and think about my pain." She has not talked to her friend Shanice in several days, stating she spoke to her when she first came into the hospital and her friend told her that she was angry at Ary for trying to end her life and "all the things I left for her to do." She hopes that they are able to reconcile. She states that "my employee is going to stay with me after I leave," referencing the woman who has been house and chief petroleum engineer for her. She is hopeful to leave before the weekend, stating "the weekend program here is very weak." Physical Exam Psychiatric Orientation: alert Apperance: appropriately dressed, appropriately groomed and appeared stated age Eye Contact: good eye contact Motor Behavior: steady gait and station and no abnormal motor movements Walks with a cane. Speech: normal rate/rhythm/volume of speech (Irritable tone at times) Brighter, irritable at times "Much better." Thought Process: goal directed thought process Thought Content: + cognitive distortions (All or nothing thinking) Suicidal Thoughts: denies suicidal thoughts Homicidal Thoughts: denies homicidal thoughts Cognition: recent memory grossly intact, attention grossly intact and language grossly intact Insight: + impaired insight Judgement: + impaired judgement Vital Signs (Past 24 Hours) Last Vital Signs Temp 36.8 C 08/23/19 20:31 Pulse 84 08/23/19 13:52 Resp 18 08/23/19 13:52 BP 124/75 08/23/19 13:52 Pulse Ox 96 08/16/19 17:30 Results & Data ([facility]) Current Inpatient Medications Current Inpatient Medications: Current Inpatient Medications Acetaminophen (Tylenol) 650 mg PO Q4H PRN PRN Reason: Headache or Minor Fever Stop: 09/15/19 16:46 Last Admin: 08/24/19 09:02 Dose: 650 mg Documented by: Al Hydrox/Mg Hydrox/Simethicone (Maalox) 30 ml PO Q4H PRN PRN Reason: GI Upset Stop: 09/15/19 16:46 Last Admin: 08/18/19 21:01 Dose: 30 ml Documented by: Bismuth Subsalicylate (Kaopectate) 15 ml PO PRN PRN PRN Reason: Loose Stool Stop: 09/15/19 16:46 Docusate Sodium (Colace) 100 mg PO BID IRINA Stop: 09/19/19 20:59 Last Admin: 08/24/19 08:45 Dose: 100 mg Documented by: Duloxetine [facility] (Cymbalta) [facility] Stop: 09/16/19 08:59 Last Admin: 08/24/19 08:45 Dose: 30 mg Documented by: Duloxetine HCl (Cymbalta) 60 mg PO QAM [facility] Stop: 09/16/19 08:59 Last Admin: 08/24/19 08:45 Dose: 60 mg Documented by: Ibuprofen (Motrin) 600 mg PO Q6H PRN PRN Reason: Pain Stop: 09/21/19 12:56 Last Admin: 08/24/19 09:01 Dose: 600 mg Documented by: Magnesium Hydroxide (Milk Of Magnesia) 30 ml PO DAILY PRN PRN Reason: Constipation Stop: 09/15/19 16:46 Last Admin: 08/19/19 22:59 Dose: 30 ml Documented by: Magnesium Oxide (Mag-Ox) 400 [facility] Stop: 09/16/19 08:59 Last Admin: 08/24/19 08:45 Dose: 400 mg Documented by: Multivitamins (Multivitamin Tab) 1 [facility] Stop: 09/16/19 08:59 Last Admin: 08/24/19 08:45 Dose: 1 tab Documented by: Sodium Chloride (Merrick Nasal) 1 - 2 sprays NA PRN PRN PRN Reason: Nasal Dryness/Congestion Stop: 09/15/19 16:46 Trazodone HCl (Desyrel) 50 mg PO HS PRN PRN Reason: insomnia Stop: 09/19/19 11:17 Last Admin: 08/21/19 22:49 Dose: 50 mg Documented by: Vitamin D (Vitamin D3) 1,000 units PO QAM [facility] Stop: 09/16/19 08:59 Last Admin: 08/24/19 08:45 Dose: 1,000 units Documented by: Mental Health & Subst Abuse Tx Psychiatrist Name of Psychiatrist: [facility] - Dr. Allison Psychiatrist's Date of Appointment with Psychiatrist: 09/07/19 Time of Appointment with Psychiatrist: 11:20 a.m. Psychiatric Appointment Comment: Virtual appt if able (through portal) or by phone (someone will reach out) Therapist Name of Therapist: Dr. Laverne Singletary Therapist's ext [phone]) Date of Therapist Appointment: 08/30/19 Time of Therapist Appointment: 2:00 p.m. Therapy Appointment Comment: [address] [facility], [place] Clinical Dietetic Technician Name of Clinical Dietetic Technician: None Post Discharge Appointments Primary Care Physician Name Of Family Doctor: [facility] - Dr. Tal Duron Primary Care Date of Appointment with PCP: 08/29/19 Time of Appointment with PCP: 1:00 p.m. Provider Appointment Comment: Virtual visit (will email with instructions - check Spam folder) Specialist Name of Specialist: [facility] - Dr. Wilson Phone Number for Specialist: [phone] Date of Appointment with Specialist: 09/06/19 Time of Appointment with Specialist: 2:00 p.m. Specialty Appointment Comment: [address] [place] [address], [place] Contact Information Discharge Discharge [address]: [address] [place] [address] (1) Suicide attempt by multiple drug overdose Encounter type: initial encounter Qualified Code(s): T50.902A - Poisoning by unspecified drugs, medicaments and biological substances, intentional self-harm, initial encounter
[2019-08-25] MEDS: DOCUSATE SODIUM 100 MG CAP PO SCH ×2 (09:09→21:22)
[2019-08-25] MEDS: MAGNESIUM OXIDE 400 MG TAB PO SCH (09:10)
[2019-08-25] MEDS: MULTIVITAMIN TAB PO SCH (09:10)
[2019-08-25] MEDS: DULOXETINE HCL 30 MG CAP PO SCH (09:10)
[2019-08-25] MEDS: CHOLECALCIFEROL 1,000 UNITS 25 MCG TAB PO SCH (09:10)
[2019-08-25] MEDS: DULOXETINE HCL 60 MG CAP PO SCH (09:10)
--- NOTE | 2019-08-25 13:15 | Psychiatric Progress Note ---
Date of Service August 25, 2019 Impression / Recommendations Impression 74-year-old female with a history of depression, chronic pain, and two serious suicide attempts by overdose in the context of exacerbation of pain. Personality disorder likely playing a role as well, with identity disturbance, recurrent suicidal behavior, strained relationships, manipulation of others. She has been working with a therapist and psychiatrist, and her therapist has suggested supportive living arrangement, which the patient has been unwilling to consider. She reports support from friends, but is declining recommendations for a family meeting and does not want them involved in treatment or discharge planning. Her friend did contact us to inform they found only [id number] medications in her home. Pt is reporting improvement in mood and is denying SI. She remains at high risk of suicide and inpatient treatment is medically necessary due to the severity of her symptoms and risk for suicide if discharged. (1) Suicide attempt by multiple drug overdose: 08/16 -suicide checks for safety. -Continue to process stressors, work on healthy coping strategies and discharge safety plan. -Patient indicates that she took all of the opiates and benzodiazepines in her possession. She is prescribed a tricyclic, which is also potentially lethal in overdose. Would be helpful to have someone bring in all of her medications so that any old, outdated prescriptions could be safely disposed of, if she is willing to allow this. We will also need to coordinate care with the physicians who prescribed the medication she overdosed on, including her psychiatrist, PCP Dr. Duron, and surgeon Dr. Wilson. -Recommend family meeting with friends/supports. -Continue inpatient treatment on an involuntary 302 commitment, and filed for a 303 hearing to be held tomorrow, as patient indicates ongoing desire to be and remains at high risk for suicide. 08/17 -Dr. Wilson's office informed of her overdose; requested staff to inform Dr. Duron as well. -Recommend family meeting, and robust safety plan. 08/18 --Patient reports that she does not feel that she is actively suicidal "today," but can make no long-term assurances in this regard and notes that she has "always sad" that she will eventually kill herself if she cannot get relief from her chronic pain. --She does say that medical marijuana relieves her pain, but she has been reluctant to use it more than in the evenings because she does not want want to be "high" all day long. We discussed the dilemma that she presents because the sad reality is that substantial pain relief may be out of reach, are out of short-term reach, and given her history of 2 suicide attempts including one that she says was thoroughly planned and the other which she says was impulsive in the face of intractable pain, we do not feel she can be safely released to the community at this time given her ongoing suicidal statements and depressed affect, unless she can be offered some help for pain relief or actually achieve pain relief prior to discharge. We discussed longer term options, such as consultations and tertiary medical centers, and seeking another medical opinion from [facility]. --The patient was advised that I am not comfortable prescribing amitriptyline given her history of overdosing. --The patient's psychiatric hospitalization was continued this morning at her 302 hearing. 08/19 As consistent with yesterday she is not actively suicidal "today" and again does not focus on the future as far as miki for safety but does state she feels she has more insight to her recent attempt and ways to help her begin to mitigate pain while she is waiting to see if there are more medical answers. She does continue to hope that this can be fixed. 08/20 -Patient appears to be working towards personal insight to her recent impulsive toxic ingestion. She appears future oriented as she is asking questions about how she can work towards discharge and considering staff's concerns about the nature of her recent suicide attempt her ongoing pain and trying to make sense of "a way forward living with the pain." she does continue to take the duloxetine, had some benefit with trazodone for sleep last night. Her mood does seem to be stable from yesterday into today I did not observe the irritability reported and we will need to watch. On the whole I think she is showing steps towards improvement, however given the nature of her risk factors I do believe inpatient is the most appropriate setting for her at this time and least restrictive until a clear accountability and discharge plan with close follow-up can be arranged and there is clarity on her follow-up with her physical medicine providers so that she has a hope that people will still be able to listen to her and help her work towards minimizing pain. Unfortunately she is at chronic high risk due to her history of multiple attempts, and chronic pain. 08/21 - While patient is stating she is convinced "it is not in the Universe's plan that I should kill myself", she avoids directly answering questions related to current suicidality. She deflects questions asked by this provider regarding thoughts to harm self or her safety after discharge 08/22 - Denies SI today, putting in effort at searching for "purpose to my suffering" 08/23 -Arranging aftercare and anticipate discharge later this week if she continues to improve. -Patient continues to decline family meeting, and has not spoken to her friend/neighbor/POA since early in her hospitalization, stating this individual is angry with her. She states that her carpet sewer is planning to stay with her for a time after discharge. 08/24 - Pt denies SI today. Reporting mood a 11/03 today, which she perceives is "the highest it possibly can be for me given my chronic pain" (2) Depression: 08/16 -continue home dose of duloxetine 90 mg daily and consider titration (patient unwilling to discuss medication changes today). -Amitriptyline held on admission due to overdose; given multiple overdoses and concerns regarding lethality of this medication, will defer decision about resuming it to her outpatient psychiatrist, Dr. Allison, who will be on the unit later this week. -Encourage patient to attend and participate in groups and therapy. -Care coordinated with her outpatient clinicians, explore options to increase supports. 08/17 -patient remains irritable and hopeless with respect to her pain, which she states was her primary stressor and the reason for her suicide attempt. -declining titration of duloxetine, remains focused on discharge to see her surgeon, remains irritable and angry, no meaningful safety plan (suggests she should increase her use of alcohol and marijuana). -303 hearing is scheduled for tomorrow. -Encourage family meeting to involve her supports. 08/18 --The patient has been less irritable today. She participated in her 302 hearing today and said that she is no longer opposing the plan for her to remain hospitalized in the psychiatric unit. --As above, the patient's assertion is that her depression is caused by her chronic pain. She seems to now be minimizing persistent grief associated with her being about a year ago, and attributes most of her complaints to "unimaginable, severe" unrelenting pain. 08/19 - The patient is less irritable today. She does continue to believe her depression is caused by her chronic pain but is willing to discuss grief today. We will continue duloxetine 90 mg although it can cause urinary hesitancy and retention she has not had this concern before on this medication so I do not think it is the current culprit. We will continue to engage her in cognitive and behavioral efforts to consider how to live with the pain to help remedy some of the rigid beliefs about curing the pain is the only option. Appreciate that she is reading Alex Adams's book command search for meaning and finding some helpful thoughts from that book. We are stopping hydroxyzine due to urinary retention and possible constipation and starting trazodone. We discussed signs or symptoms of orthostasis and to take slow positional changes, watching for oversedation and in layman's terms described serotonin syndrome so that patient and staff could monitor. 08/20 continue duloxetine, continue conversations about meaning/significance, grief of partner and physical losses and limitations, and work on outpatient safety planning. 08/21 - Continue current medication regimen - Again encouraged that patient consider involving an outpatient support in a meeting to discuss safety and discharge planning 08/22 - Continue current medication regimen; duloxetine 90mg - Continue efforts to coordinate with patient's outpatient providers - Information received from patient's POA that they were not able to find a surplus of medication in the patient's home. Pt continues to refuse a family meeting to discuss safety/discharge planning - Continue to engage patient in group programming and 1:1 processing sessions as desired/indicated 08/24 - Continue treatment plan as above - Reports improvement in mood, stating she has been focusing on development of new coping skills (3) Borderline personality disorder: 08/16 -explore patterns of behavior and coping mechanisms, continue with ou tpatient therapy after discharge. 08/18 --The patient is certainly demonstrated pathologic characterologic traits consistent with borderline personality disorder. I do not believe at this point the characterologic features ought to be a focus of treatment. In the past she has been fairly high functioning and has a number of strengths and community support systems. 08/20 - come evidence of splitting today trying to ally with this provider, but she is redirectable to work on repairing the relationship with her outpatient psychiatrist 08/21 - Patient remains highly focused on her need to repair relationships with her support system - Discussing the possibility of inviting a support to live with her for a period of time after discharge, but not committing at this time to a support meeting with social work to discuss this further (4) Alcohol abuse: 08/16 -AWSS protocol for withdrawal. Brief intervention was offered and refused Summary of intervention: The patient is in precontemplation stage with regards to transtheoretical model of change. She does not feel that she has a substance use problem --Patient has history of benzodiazepine abuse, and uses medical marijuana in combination with alcohol daily. 08/17 -scoring 0 on AWSS, vital signs stable; will discontinue. 08/18 --The patient denies today that she has ever said that she plans to increase her use of alcohol and insists that she is limiting her alcohol consumption at this point to "two glasses of wine a day." She does acknowledge that she uses alcohol with marijuana in the evenings as part of her "ritual" to ease the pain, "settle down," and sleep. She has stopped benzodiazepines. She, herself, says that she feels that she was abusing them, but her prescription fill date of does not seem to indicate that she uses more than had been prescribed. 08/19 - Challenged patient's thoughts about alcohol today affirming that she may find some distance from her emotions but how it may worsen things over time again encouraging her to strongly consider abstaining from alcohol. She states "I have been away from it 5 days at this time. But then does not make any conclusive statements about her future intentions. (5) Chronic back pain: 08/17 -patient requesting follow-up appointment with Dr. Wilson at [facility] to address her pain; staff contacted his office yesterday, they indicated she has been seen 6 times already this month and they will reschedule her with Dr. Wilson once we have a discharge date. They were also informed of her overdose which included oxycodone prescribed by Dr. Wilson. 08/21 - Pt reporting plan to increase her use of medicinal marijuana to treat her chronic pain - encouraged to discuss this with her treating provider prior to escalating her usage - Discussed potential interactions with prescription medications and alcohol use and advised patient to not alter use until she discusses with her treating provider 08/22 - Ongoing. Coordinated with patient's orthopedic provider - scheduled for an appointment on 09/06/2019. (6) Constipation: 08/19 Patient describes having constipation on previous narcotics. I am unclear as she denies recently overusing narcotics if indeed the recent toxic ingestion is causing her current constipation or if it may be related to of the anticholinergic properties of hydroxyzine. As she has failed milk of magnesia 2 days in a row with an additional dose of Senokot today I have offered her a MiraLAX challenge versus soapsuds enema. She elected for soapsuds enema hoping for more quick relief then an oral remedy. If this is unsuccessful we will follow with MiraLAX challenge. Additionally I will add a stool softener to her regimen to try to keep this from happening again and remove hydroxyzine for sleep treating for trazodone. 08/20 - miralax 3day challenge 08/21 - continue as above, discussed etiology is likely related to oxycodone overdose and is expected to resolve over time 08/22 - Reports successful bowel movement yesterday, gradual improvement in this complaint. Continue to monitor. 08/24 - Pt reports successful bowl movements for the past 4 days. Consider this problem resolved as well. (7) Urinary hesitancy: 08/19 Patient has new onset urinary hesitancy in the absence of other neurologic focal signs or symptoms. She has had hydroxyzine in the last 3 days which coincides with urinary retention I believe this is a side effect of anticholinergic properties of that medication. I will stop it and start trazodone for sleep to reduce anticholinergic burden. However we will monitor her urinary voiding the hope is that she will continue to be able to increase the amount she can urinate the longer she is away from hydroxyzine. She is having small urine voids. I have asked nursing to do a bladder scan this afternoon and we will repeat again this evening if her bladder continues to expand or she is not having any improvement in her urination we will consider bethanechol. 08/20 urinating more regularly with some hesitancy of unclear etiology or significance, will monitor 08/21 - Ongoing intermittent urinary hesitancy - continue to monitor 08/22 - Denies any ongoing concerns at this time, continue to monitor 08/24 - Reports resolution of urinary hesitancy for several days. Consider this problem resolved. Risk Factors Assessment Male: No : Yes Do You Have Access To A Gun?: No Health Problems: Yes Mental Health Diagnoses: Yes Substance Use Disorders: Yes Previous Attempt: Yes Previous Attempt; Highly Lethal: Yes Previous Attempt; Planned: Yes Previous Attempt; Didn't Tell Anyone: Yes Family History of Suicide: No Previous Psychiatric Hospitalization: Yes Hopelessness: Yes Smoker: No Protective Factors Assessment : No Responsible for Young Children: No Employed: No Stable Relationships: Yes Good Rapport with Provider: Yes Interval History Identifying Information CATHERINE MAIER is a 74-year-old F who currently lives in [place] alone, has a history of chronic pain, depression, and serious suicide attempts by overdose, and was admitted on 08/16/19 16:47 on a 302 involuntary commitment for suicide attempt by overdose on alcohol, a tricyclic antidepressant, opioid pain medication, and benzodiazepines. Extended involuntary commitment was granted following a 303 hearing on 08/19/2019. Chief Complaint "The patient has been a particular bear today." Review of Systems Notes Constitutional: denied Cardiovascular: denied Respiratory: denied Gastrointestinal: reports more regular bowel movements Neurological: denied Musculoskeletal: reports chronic back and hip pain Psychiatric: denies symptoms other than stated above Total of at least 10 systems reviewed, pertinent positives as above and in HPI. Sleep Information Total Hours of Sleep: 5.75 Sleep Comments: pt. and a male peer watched a tv talk show till 2330. she was asleep by 0015 rounds. she has not been taking any prn sleep med for the past few nights now. Meal Information Percent Meal Consumed - Breakfast: 100 Percent Meal Consumed - Lunch: 90 Percent Meal Consumed - Dinner: 100 Nutrition Comment: Patient sleeping at this time. Recent admit. Subjective Subjective Patient was seen & assessed and interval progress reviewed with nursing and social work. Staff reports the patient has continued to attend group programming. She has arranged for a friend/shipping and receiving assistant to stay with her on discharge to ease the transition home. She reports desire for discharge tomorrow, but is still unwilling to engage outpatient supports in a family meeting. Pt was seen today to assess progress since admission. Pt states "my pain has been a particular bear today." She states her pain was worsened over night and has remained high today. Pt does seem more positive, and states "it's fine though. I've developed a new set of coping skills. I've recognized that there is a meaning in suffering. So that is the task." Pt did state that her mood is improved, stating "7 is the maximum I can get, given the pain I'm in. I've been seven for 2 days now." Pt states, "I wish I could separate my mood from my pain." Pt denies SI at this time. She does request consideration for discharge tomorrow, as she is hoping to be home before the weekend. Pt was reassured this opinion would be presented to treatment team tomorrow. Physical Exam Psychiatric Orientation: alert and oriented x 3 Apperance: appropriately dressed, appropriately groomed and appeared stated age Eye Contact: good eye contact Motor Behavior: steady gait and station and no abnormal motor movements Speech: normal rate/rhythm/volume of speech Affect: + blunted affect Mood: + depressed mood (but reporting she is more optimistic in the last few days) Thought Process: goal directed thought process, clear/coherent thought process and thought association intact Thought Content: + preoccupation (with pain) and reality based without delusions; no hopelessness (reports searching for purpose to her pain) Suicidal Thoughts: denies suicidal thoughts and denies suicidal intent Homicidal Thoughts: denies homicidal thoughts Hallucinations: no auditory hallucinations and no visual hallucinations Cognition: attention grossly intact and language grossly intact Insight: + fair insight Judgement: + fair judgement Vital Signs (Past 24 Hours) Last Vital Signs Temp 36.8 C 08/24/19 20:28 Pulse 84 08/23/19 13:52 Resp 18 08/23/19 13:52 BP 124/75 08/23/19 13:52 Pulse Ox 96 08/16/19 17:30 Results & Data ([facility]) Current Inpatient Medications Current Inpatient Medications: Current Inpatient Medications Acetaminophen (Tylenol) 650 mg PO Q4H PRN PRN Reason: Headache or Minor Fever Stop: 09/15/19 16:46 Last Admin: 08/24/19 09:02 Dose: 650 mg Documented by: Al Hydrox/Mg Hydrox/Simethicone (Maalox) 30 ml PO Q4H PRN PRN Reason: GI Upset Stop: 09/15/19 16:46 Last Admin: 08/18/19 21:01 Dose: 30 ml Documented by: Bismuth Subsalicylate (Kaopectate) 15 ml PO PRN PRN PRN Reason: Loose Stool Stop: 09/15/19 16:46 Docusate Sodium (Colace) 100 mg PO BID IRINA Stop: 09/19/19 20:59 Last Admin: 08/25/19 09:09 Dose: 100 mg Documented by: Duloxetine HCl (Cymbalta) [facility] Stop: 09/16/19 08:59 Last Admin: 08/25/19 09:10 Dose: 30 mg Documented by: Duloxetine HCl (Cymbalta) 60 [facility] Stop: 09/16/19 08:59 Last Admin: 08/25/19 09:10 Dose: 60 mg Documented by: Ibuprofen (Motrin) 600 mg PO Q6H PRN PRN Reason: Pain Stop: 09/21/19 12:56 Last Admin: 08/24/19 09:01 Dose: 600 mg Documented by: Magnesium Hydroxide (Milk Of Magnesia) 30 ml PO DAILY PRN PRN Reason: Constipation Stop: 09/15/19 16:46 Last Admin: 08/19/19 22:59 Dose: 30 ml Documented by: Magnesium Oxide (Mag-Ox) 400 mg PO [facility] Stop: 09/16/19 08:59 Last Admin: 08/25/19 09:10 Dose: 400 mg Documented by: Multivitamins (Multivitamin Tab) 1 tab PO [facility] Stop: 09/16/19 08:59 Last Admin: 08/25/19 09:10 Dose: 1 tab Documented by: Sodium Chloride (Marion Nasal) 1 - 2 sprays NA PRN PRN PRN Reason: Nasal Dryness/Congestion Stop: 09/15/19 16:46 Trazodone HCl (Desyrel) 50 mg PO HS PRN PRN Reason: insomnia Stop: 09/19/19 11:17 Last Admin: 08/21/19 22:49 Dose: 50 mg Documented by: Vitamin D (Vitamin D3) 1,000 units [facility] Stop: 09/16/19 08:59 Last Admin: 08/25/19 09:10 Dose: 1,000 units Documented by: Mental Health & Subst Abuse Tx Psychiatrist Name of Psychiatrist: Adam Allison Psychiatrist's Date of Appointment with Psychiatrist: 09/07/19 Time of Appointment with Psychiatrist: 11:20 a.m. Psychiatric Appointment Comment: Virtual appt if able (through portal) or by phone (someone will reach out) Therapist Name of Therapist: Dr. Laverne Singletary Therapist's ext [phone]) Date of Therapist Appointment: 08/30/19 Time of Therapist Appointment: 2:00 p.m. Therapy Appointment Comment: [address] [facility], [place], [place] Systems Software Specialist Name of Systems Software Specialist: None Post Discharge Appointments Primary Care Physician Name Of Family Doctor: [facility] - Dr. Tal Duron Primary Care Date of Appointment with PCP: 08/29/19 Time of Appointment with PCP: 1:00 p.m. Provider Appointment Comment: Virtual visit (will email with instructions - check Spam folder) Specialist Name of Specialist: [facility] - Dr. Wilson Phone Number for Specialist: [phone] Date of Appointment with Specialist: 09/06/19 Time of Appointment with Specialist: 2:00 p.m. Specialty Appointment Comment: [address] [facility], [place] Contact Information Discharge Discharge [address]: [address] [place] [id number] (1) Suicide attempt by multiple drug overdose Encounter type: initial encounter Qualified Code(s): T50.902A - Poisoning by unspecified drugs, medicaments and biological substances, intentional self-harm, initial encounter
[2019-08-25] MEDS: IBUPROFEN 600 MG TAB PO PRN (17:24)
[2019-08-25] MEDS: ACETAMINOPHEN 325 MG TAB PO PRN (17:26)
[2019-08-25 21:41] VITALS: TEMP 98.4
[2019-08-26] MEDS: DOCUSATE SODIUM 100 MG CAP PO SCH (09:03)
[2019-08-26] MEDS: ACETAMINOPHEN 325 MG TAB PO PRN (09:04)
[2019-08-26] MEDS: CHOLECALCIFEROL 1,000 UNITS 25 MCG TAB PO SCH (09:04)
[2019-08-26] MEDS: MAGNESIUM OXIDE 400 MG TAB PO SCH (09:04)
[2019-08-26] MEDS: DULOXETINE HCL 60 MG CAP PO SCH (09:04)
[2019-08-26] MEDS: DULOXETINE HCL 30 MG CAP PO SCH (09:04)
[2019-08-26] MEDS: MULTIVITAMIN TAB PO SCH (09:05)
[2019-08-26] MEDS: IBUPROFEN 600 MG TAB PO PRN (09:05)
[2019-08-26 10:18] VITALS: BP 128/72; PULSE 76
--- NOTE | 2019-08-26 16:18 | Discharge Summary ---
Date of Service August 26, 2019 History of Present Illness Patient is known to us from a previous hospitalization on our unit in September 2018 after a significant overdose in a suicide attempt. She presented to the ER 08/16/2019 via EMS after a neighbor found a note on her door stating "I have committed suicide and am on the couch. Let yourself in with the hidden sebastian. URGENT: go inside and let Mitzi out and feed her BEFORE contacting police". She told EMS that she took 30 OxyContin 5 mg and 8 amitriptyline 50 mg along with vodka and wine the previous night at approx 2200. She told the ER staff "I wasn't supposed to wake up." She stated that the day before, she got an injection in her hip for chronic pain at [facility], and that this was her last hope for pain relief. She did not think it worked, so decided to end her life. She took the overdose, but woke up the next morning and took an a dditional #7 alprazolam 2.5 mg at approximately 10:30 AM. She refused recommendations for inpatient treatment, so was placed on a 302 involuntary commitment. She requested that her POA, Ellie, be contacted: Clarified that she does not have mental health POA, and was in favor of involuntary commitment. Admission labs notable for RBC 4.09, RDW 50.2, glucose 109, TSH 0.895, UA with 1+ leukocyte esterase, 5-10 WBCs, and 10-20 epithelial cells, and UDS positive for opiates, benzodiazepines, and THC. EKG was normal sinus rhythm with a QTC of 426. Her therapist contacted staff this morning, stated that the patient has been focused on her pain, and she feels she would benefit from a higher level of care, but the patient has been unwilling to consider an alternative living situation. On my assessment, the patient states mood has worsened over the past month due to exacerbation of her chronic pain. She had surgery in October 2018, and states that she was slowly recovering, but then about a month ago, "the pain came back. Nothing works for it, ibuprofen, Aleve, Celebrex. I don't want to live like this. I don't think anything can be done about it." She initially states she has not been taking anything for pain, because nothing works, but later says she is smoking marijuana daily, and that that and her psychotropic medications have been somewhat helpful. She states she was taken off Xanax because she was "hooked on it," but had some leftover from a previous prescription and that is what she overdosed on. He says she decided to commit suicide on Thursday after her injection did not provide pain relief, as she felt "I just can't take this anymore." She states she took all of the oxycodone (not OxyContin as reported in the ER note) and alprazolam that she had, both left over from previous prescriptions. She left a note on her daughter which she expected to be found by her "hired helper," who comes once a week to help her with housework. She states that she intended to , and was surprised and dismayed when she woke up the following morning. She initially refuses to answer when asked how she feels about the fact that she is still alive, stating "I can't answer that." She later states "I do not want to live under these circumstances, under this kind of pain." She repeatedly states she does not want to be in the hospital, and does not feel she has a mental illness, stating "it is very clear, it's [id number], anyone in my position would be considering suicide. My only hope is to see Dr. Wilson and see if there is anything else to be done." She does not think that mental health treatment will be helpful for her. Physical Exam Psychiatric Orientation: alert, oriented x 3 and cooperative Apperance: appropriately dressed and appropriately groomed Eye Contact: good eye contact Motor Behavior: + psychomotor retardation The patient periodically shifts positions in her chair and periodically complains of hip pain. Speech: normal rate/rhythm/volume of speech Affect: euthymic affect Patient smiles appropriately and is fairly animated during the encounter. Patient reports that she does not feel depressed. She notes that she is feeling much more hopeful and that her mood has "definitely improved" in response to hospital treatment, particularly in individual and group interventions. Thought Process: goal directed thought process and linear/logical thought process Thought Content: reality based without delusions Suicidal Thoughts: denies suicidal thoughts Specifically, the patient says that she feels that she is now willing and able to accept the possibility that she will never achieve substantial improvement in her chronic pain. She identifies goals for her future, tells us that she is looking forward to her upcoming appointment with Dr. Wilson, but is "not planning on any miracles." She also says that her future plans include consulting with a tertiary Medical Center, for example in [place] or [place] should the local orthopedic group find that they are unable to help. Her care plan for community safety includes using her friends and her grief group as a support. Homicidal Thoughts: denies homicidal thoughts Hallucinations: no auditory hallucinations Cognition: recent memory grossly intact and remote memory grossly intact The patient contradicts herself several times. For example, she said repeatedly "I did not take an overdose of Xanax! I did that the last time." She was reminded that her toxicology screen was positive for benzodiazepine and, in fact, she had told me last week that she had taken Xanax as part of her overdose. At that point, she said, well, yes, I guess I did "top it off" with the remaining Xanax that I had. But that was not my main medicine. The main medicine was the OxyContin." Estimated Intelligence: + above average estimated intelligence Insight: good insight Judgement: good judgement Vital Signs (Past 24 Hours) Last Vital Signs Temp 36.9 C 08/26/19 10:16 Pulse 76 08/26/19 10:16 Resp 18 08/26/19 10:16 BP 128/72 08/26/19 10:16 Pulse Ox 96 08/26/19 10:16 Principal Diagnosis Major depressive disorder, recurrent. Psychiatric Data During the course of hospitalization the patient was offered various modalities of psychiatric treatment and education. These included individual, group, activity, and milieu therapy. Particularly in group therapy, the patient formed alliances with other patients who, together with staff, helped her to develop improved individual coping strategies. She particularly bonded with a younger patient, a man who also suffer from chronic back pain, and the 2 of them were able to identify and share coping strategies. Among those coping strategies identified by the patient, and talked about at the time of the discharge assessment was looking at "suffering" as a "cleansing" experience that helps "reset" priorities and helps with focus. The patient went on to explain that she feels that she is learned that instead of framing her chronic pain in terms of "why me" or as "nothing but completely terrible," she is working to be able to see it within a larger perspective as helping to shape her in terms of teaching empathy, understanding, and humility. Because of the history of 2 serious suicide attempts in approximately 9 months, we advised the patient that we are not going to recommend that she continue amitriptyline because of the risk associated with overdose with this medication. We continued her outpatient dose of duloxetine without change. The patient's pain complaints waxed and waned. She reports that on at least 1 occasion, about 2 or 3 days prior to discharge, she arose from a chair and suddenly realized that the pain that she had been experiencing at is a "9 out of 10" pain seem to have essentially resolved, and she was able to walk around without any pain for perhaps as long as an hour. However, unfortunately, the pain returned. At admission, the patient had made it clear that she did not feel that she had a mental illness and, instead, she said that she considered suicide a reasonable choice given the severity of her terrible, chronic pain. And, within this context, she said that she believed that with a fair amount of certainty if the pain is not relieved she would kill her self. The issue for us was that we were unable to provide any additional help in terms of pain management during the hospital stay, and so we were unable to resolve the complaints the patient said was at the heart of her suicide attempts. However, helping the patient reframe their experience with chronic pain and to learn to accept it, much as she has come to accept the of her helped. We also worked with [facility] and the office of her orthopedic physician, Dr. Wilson, to schedule a follow-up appointment for her orthopedic pain on 09/06/2019. Although initially resistant to psychiatric hospitalization, she testified at her involuntary commitment hearing that she had decided that she was going to use this opportunity in the hospital to see if she can find ways of improving her coping strategies, and, certainly, the treatment team agrees that she did exactly that. By discharge, the patient was saying that she accepts that it is entirely possible, and even likely, that after multiple surgeries and other interventions that have been unsuccessful in eliminating or even substantially reducing her pain for other than short-term, she may have to live with chronic pain for the rest of her life. The patient says convincingly that she is prepared for this. Her report in this regard is substantially different from that which she noted at the time of her most recent previous discharge. At that time, she said that she thought that she could last "may be through the end of the year" with her pain, but that if it did not improve that she would again consider suicide. This time, she tells us that she feels that she has learned to accept the pain, an that she has reframed her experiences in this regard to the degree that she no longer enters into what she refers to as the "cycle of terrible pain, followed by rage, followed by despair, and although she plans to continue her efforts to find effective pain relief she is no longer considering suicide to be an option for her. During the discharge assessment, the patient laughed and said, "look. I have made 2 suicide attempts and took enough pills to kill a horse. 1 might say that the stars do not want me . I do not want me . My friends do not want me . I am going to make out of my pain what I can, and keep going." During the stay, the patient's grief group stood outside the windows of the ospital, in the rain, and held up a sign of encouragement for the patient. She notes that through grief counseling and through individual therapy she feels that she has come to terms with the of her beloved , Dedra, from leukemia a little more than a year ago. Specifically, the patient has told us that she feels that she has moved into the "acceptance" phase of her grief associated with the loss of her spouse, and as above, says that she also feels that she has now moved into the "acceptance" phase of the loss of her past freedom from pain and full mobility Day of Discharge Assessment On the day of discharge, the patient was found to be appropriately dressed and groomed. She was pleasant, cooperative, and engaging. Her speech was delivered at a normal rate and rhythm and was spontaneous. The patient's mood was described as being "I do not think I am depressed. Actually, I am feeling pretty hopeful and optimistic." Patient's thought processes demonstrated tight associations. Her affect was generally euthymic, although she teared up when talking about the fact that several of her friends have expressed anger at her for making another suicide attempt after assuring them that she wouldn't. She has, "I do not blame them for being angry. I let a lot of people down. All I can say was that it was impulsive." She notes that she no longer has access to opioid pain medications and that all such medications have been removed from her home and destroyed. The patient's thought content is devoid of any psychotic features, and there is no evidence of any perceptual disturbances. The patient reports that she is not having any thoughts of suicide, despite the level of pain that is "actually worse than it was before I came in here and before I made the suicide attempt" this is not triggering thoughts of suicide, and she is convincingly future oriented and excepting. There is also no evidence of any homicidal thoughts. The patient's judgment and insight are assessed as currently being good. Her intelligence is above average Transition of Care Transition Of Care Record: was reviewed with the patient Advance Directives Advance Directives Information Provided: Yes Advance Directives: Yes Mental Health Advance Directive: No Advance Directives on File: No Living Will: No Power of Business Center Attendant: Yes Power of Business Center Attendant Name: Ellie Bauman Power of Business Center Attendant Advance Directives Reason:: Declines as Mental Health Visit. Risk Factors Assessment Chronic pain. Mental illness. History of multiple suicide attempts. Suicide attempt without telling anyone. Male: No : Yes Do You Have Access To A Gun?: No Health Problems: Yes Mental Health Diagnoses: Yes Substance Use Disorders: Yes Previous Attempt: Yes Previous Attempt; Highly Lethal: Yes Previous Attempt; Planned: Yes Previous Attempt; Didn't Tell Anyone: Yes Family History of Suicide: No Previous Psychiatric Hospitalization: Yes Hopelessness: Yes Smoker: No Protective Factors Assessment Spiritism Beliefs: Yes : No Responsible for Young Children: No Employed: No Stable Relationships: Yes Good Rapport with Provider: Yes Absence of Any Risk Factors Above: No Tobacco Cessation at Discharge Tobacco Cessation Medication Prescribed at Discharge: Not Applicable/Non-Smoker Total Time Total Time Spent: Greater Than 30 Minutes Total Time Includes: Examination of the patient, Discharge Planning, Medication Reconciliation and Communication with other providers Discharge Data Lab Results 08/16/19 08/16/19 08/16/19 12:26 12:26 12:26 WBC 9.47 RBC 4.09 L Hgb 13.1 Hct 39.2 MCV 95.8 MCH 32.0 MCHC 33.4 RDW Std Deviation 50.2 H RDW Coeff of Korey 14.2 Plt Count 239 MPV 10.5 H Immature Gran % (Auto) 0.3 Neut % (Auto) 81.2 Lymph % (Auto) 9.8 [place] % (Auto) 8.7 Eos % (Auto) 0.0 Baso % (Auto) 0.0 Immature Gran # (Auto) 0.03 H Neut # (Auto) 7.69 H Lymph # (Auto) 0.93 L [place] # (Auto) 0.82 H Eos # (Auto) 0.00 Baso # (Auto) 0.00 Sodium 137 Potassium 4.5 Chloride 102 Carbon Dioxide 31 Anion Gap 4.0 BUN 17 Creatinine 0.82 Est Cr Clr Drug Dosing 51.3 Est GFR ( Amer) 82.9 Est GFR (Non-Af Amer) 71.5 BUN/Creatinine Ratio 20.5 H Glucose 109 H Calcium 10.3 H Total Bilirubin 0.4 AST 14 L ALT 20 Alkaline Phosphatase 66 Total Protein 8.4 H Albumin 4.4 Globulin 3.9 Albumin/Globulin Ratio 1.1 TSH 0.895 Urine Color Urine Appearance Urine pH Ur Specific [place] Urine Protein Urine Glucose (UA) Urine Ketones Urine Blood Urine Nitrite Urine Bilirubin Urine Urobilinogen Ur Leukocyte Esterase Urine WBC (Auto) Urine RBC (Auto) U Hyaline Cast (Auto) U Epithel Cells (Auto) Urine Bacteria (Auto) Salicylates < 1.7 L Urine Opiates Screen U Codeine Confrm GC/MS Ur Morphine (GC/MS) Ur Hydrocodone (GC/MS) Ur Norhydrocodone Ur Noroxycodone Urine Oxycodone (GC/MS) U Oxymorphone GC/MS Ur Methadone, Qual Ur Hydromorphone (GC/MS) Acetaminophen < 2 L Urine Barbiturates Ur Phencyclidine (PCP) U Amphetamin/Meth Scrn MDMA (Ecstasy) Screen U OH-Alprazolam Confrm U Benzodiazepines Scrn 7-Amino Clonazepam Ur Nordiazepam Confirm U OH-ethylflurazepam U Lorazepam Cnf GC/MS U Oxazepam Confm GC/MS Ur Temazepam Confirm U OH-Triazolam Confirm U OH-Midazolam Confirm Ur Cocaine Metabolite U Marijuana (THC) Screen U Marijuana THC Carboxy Drug Screen Comment Ethyl Alcohol mg/dL 08/16/19 08/16/19 08/16/19 12:26 13:46 13:46 WBC RBC Hgb Hct MCV MCH MCHC RDW Std Deviation RDW Coeff of Korey Plt Count MPV Immature Gran % (Auto) Neut % (Auto) Lymph % (Auto) [place] % (Auto) Eos % (Auto) Baso % (Auto) Immature Gran # (Auto) Neut # (Auto) Lymph # (Auto) [place] # (Auto) Eos # (Auto) Baso # (Auto) Sodium Potassium Chloride Carbon Dioxide Anion Gap BUN Creatinine Est Cr Clr Drug Dosing Est GFR ( Amer) Est GFR (Non-Af Amer) BUN/Creatinine Ratio Glucose Calcium Total Bilirubin AST ALT Alkaline Phosphatase Total Protein Albumin Globulin Albumin/Globulin Ratio TSH Urine Color Yellow Urine Appearance Clear Urine pH 5.5 Ur Specific [place] 1.016 Urine Protein Negative Urine Glucose (UA) Negative Urine Ketones Negative Urine Blood Negative Urine Nitrite Negative Urine Bilirubin Negative Urine Urobilinogen Negative Ur Leukocyte Esterase 1+ H Urine WBC (Auto) 5-10 H Urine RBC (Auto) 0-4 U Hyaline Cast (Auto) 1-5 U Epithel Cells (Auto) 10-20 H Urine Bacteria (Auto) Negative Salicylates Urine Opiates Screen Pos H U Codeine Confrm GC/MS Ur Morphine (GC/MS) Ur Hydrocodone (GC/MS) Ur Norhydrocodone Ur Noroxycodone Urine Oxycodone (GC/MS) U Oxymorphone GC/MS Ur Methadone, Qual Neg Ur Hydromorphone (GC/MS) Acetaminophen Urine Barbiturates Neg Ur Phencyclidine (PCP) Neg U Amphetamin/Meth Scrn Neg MDMA (Ecstasy) Screen Neg U OH-Alprazolam Confrm U Benzodiazepines Scrn Pos H 7-Amino Clonazepam Ur Nordiazepam Confirm U OH-ethylflurazepam U Lorazepam Cnf GC/MS U Oxazepam Confm GC/MS Ur Temazepam Confirm U OH-Triazolam Confirm U OH-Midazolam Confirm Ur Cocaine Metabolite Neg U Marijuana (THC) Screen Pos H U Marijuana THC Carboxy Drug Screen Comment Ethyl Alcohol mg/dL < 3.0 08/16/19 13:46 WBC RBC Hgb Hct MCV MCH MCHC RDW Std Deviation RDW Coeff of Korey Plt Count MPV Immature Gran % (Auto) Neut % (Auto) Lymph % (Auto) [place] % (Auto) Eos % (Auto) Baso % (Auto) Immature Gran # (Auto) Neut # (Auto) Lymph # (Auto) [place] # (Auto) Eos # (Auto) Baso # (Auto) Sodium Potassium Chloride Carbon Dioxide Anion Gap BUN Creatinine Est Cr Clr Drug Dosing Est GFR ( Amer) Est GFR (Non-Af Amer) BUN/Creatinine Ratio Glucose Calcium Total Bilirubin AST ALT Alkaline Phosphatase Total Protein Albumin Globulin Albumin/Globulin Ratio TSH Urine Color Urine Appearance Urine pH Ur Specific [place] Urine Protein Urine Glucose (UA) Urine Ketones Urine Blood Urine Nitrite Urine Bilirubin Urine Urobilinogen Ur Leukocyte Esterase Urine WBC (Auto) Urine RBC (Auto) U Hyaline Cast (Auto) U Epithel Cells (Auto) Urine Bacteria (Auto) Salicylates Urine Opiates Screen U Codeine Confrm GC/MS NEGATIVE Ur Morphine (GC/MS) NEGATIVE Ur Hydrocodone (GC/MS) NEGATIVE Ur Norhydrocodone NEGATIVE Ur Noroxycodone >50255 H Urine Oxycodone (GC/MS) >01069 H U Oxymorphone GC/MS 3060 H Ur Methadone, Qual Ur Hydromorphone (GC/MS) NEGATIVE Acetaminophen Urine Barbiturates Ur Phencyclidine (PCP) U Amphetamin/Meth Scrn MDMA (Ecstasy) Screen U OH-Alprazolam Confrm 62 H U Benzodiazepines Scrn 7-Amino Clonazepam NEGATIVE Ur Nordiazepam Confirm NEGATIVE U OH-ethylflurazepam NEGATIVE U Lorazepam Cnf GC/MS NEGATIVE U Oxazepam Confm GC/MS NEGATIVE Ur Temazepam Confirm NEGATIVE U OH-Triazolam Confirm NEGATIVE U OH-Midazolam Confirm NEGATIVE Ur Cocaine Metabolite U Marijuana (THC) Screen U Marijuana THC Carboxy 130 H Drug Screen Comment SEE NOTE Ethyl Alcohol mg/dL Hospital Course (1) Suicide attempt by multiple drug overdose: 08/16 -suicide checks for safety. -Continue to process stressors, work on healthy coping strategies and discharge safety plan. -Patient indicates that she took all of the opiates and benzodiazepines in her possession. She is prescribed a tricyclic, which is also potentially lethal in overdose. Would be helpful to have someone bring in all of her medications so that any old, outdated prescriptions could be safely disposed of, if she is willing to allow this. We will also need to coordinate care with the physicians who prescribed the medication she overdosed on, including her psychiatrist, PCP Dr. Duron, and surgeon Dr. Wilson. -Recommend family meeting with friends/supports. -Continue inpatient treatment on an involuntary 302 commitment, and filed for a 303 hearing to be held tomorrow, as patient indicates ongoing desire to be and remains at high risk for suicide. 08/17 -Dr. Wilson's office informed of her overdose; requested staff to inform Dr. Duron as well. -Recommend family meeting, and robust safety plan. 08/18 --Patient reports that she does not feel that she is actively suicidal "today," but can make no long-term assurances in this regard and notes that she has "always sad" that she will eventually kill herself if she cannot get relief from her chronic pain. --She does say that medical marijuana relieves her pain, but she has been reluctant to use it more than in the evenings because she does not want want to be "high" all day long. We discussed the dilemma that she presents because the sad reality is that substantial pain relief may be out of reach, are out of short-term reach, and given her history of 2 suicide attempts including one that she says was thoroughly planned and the other which she says was impulsive in the face of intractable pain, we do not feel she can be safely released to the community at this time given her ongoing suicidal statements and depressed affect, unless she can be offered some help for pain relief or actually achieve pain relief prior to discharge. We discussed longer term options, such as consultations and tertiary medical centers, and seeking another medical opinion from [facility]. --The patient was advised that I am not comfortable prescribing amitriptyline given her history of overdosing. --The patient's psychiatric hospitalization was continued this morning at her 302 hearing. 08/19 As consistent with yesterday she is not actively suicidal "today" and again does not focus on the future as far as miki for safety but does state she feels she has more insight to her recent attempt and ways to help her begin to mitigate pain while she is waiting to see if there are more medical answers. She does continue to hope that this can be fixed. 08/20 -Patient appears to be working towards personal insight to her recent impulsive toxic ingestion. She appears future oriented as she is asking questions about how she can work towards discharge and considering staff's concerns about the nature of her recent suicide attempt her ongoing pain and trying to make sense of "a way forward living with the pain." she does continue to take the duloxetine, had some benefit with trazodone for sleep last night. Her mood does seem to be stable from yesterday into today I did not observe the irritability reported and we will need to watch. On the whole I think she is showing steps towards improvement, however given the nature of her risk factors I do believe inpatient is the most appropriate setting for her at this time and least restrictive until a clear accountability and discharge plan with close follow-up can be arranged and there is clarity on her follow-up with her physical medicine providers so that she has a hope that people will still be able to listen to her and help her work towards minimizing pain. Unfortunately she is at chronic high risk due to her history of multiple attempts, and chronic pain. 08/21 - While patient is stating she is convinced "it is not in the Universe's plan th at I should kill myself", she avoids directly answering questions related to current suicidality. She deflects questions asked by this provider regarding thoughts to harm self or her safety after discharge 08/22 - Denies SI today, putting in effort at searching for "purpose to my suffering" 08/23 -Arranging aftercare and anticipate discharge later this week if she continues to improve. -Patient continues to decline family meeting, and has not spoken to her friend/neighbor/POA since early in her hospitalization, stating this individual is angry with her. She states that her petroleum engineer is planning to stay with her for a time after discharge. 08/24 - Pt denies SI today. Reporting mood a 11/03 today, which she perceives is "the highest it possibly can be for me given my chronic pain" 08/25 -Patient continues to deny suicidal ideation and is convincingly future oriented. She tells us that her plan for community safety involved continuing to rely on friends ("at least those who are not really mad at me for making another attempt") and her grief support group. She also notes that she developed a supportive friendship with 1 of her peers here in the hospital, a young man who shares a problem with chronic pain, and together they formed a whatley that appears to be healthy and positive. (2) Depression: 08/16 -continue home dose of duloxetine 90 mg daily and consider titration (patient unwilling to discuss medication changes today). -Amitriptyline held on admission due to overdose; given multiple overdoses and concerns regarding lethality of this medication, will defer decision about resuming it to her outpatient psychiatrist, Dr. Allison, who will be on the unit later this week. -Encourage patient to attend and participate in groups and therapy. -Care coordinated with her outpatient clinicians, explore options to increase supports. 08/17 -patient remains irritable and hopeless with respect to her pain, which she states was her primary stressor and the reason for her suicide attempt. -declining titration of duloxetine, remains focused on discharge to see her surgeon, remains irritable and angry, no meaningful safety plan (suggests she should increase her use of alcohol and marijuana). -303 hearing is scheduled for tomorrow. -Encourage family meeting to involve her supports. 08/18 --The patient has been less irritable today. She participated in her 302 hearing today and said that she is no longer opposing the plan for her to remain hospitalized in the psychiatric unit. --As above, the patient's assertion is that her depression is caused by her chronic pain. She seems to now be minimizing persistent grief associated with her being about a year ago, and attributes most of her complaints to "unimaginable, severe" unrelenting pain. 08/19 - The patient is less irritable today. She does continue to believe her depression is caused by her chronic pain but is willing to discuss grief today. We will continue duloxetine 90 mg although it can cause urinary hesitancy and retention she has not had this concern before on this medication so I do not think it is the current culprit. We will continue to engage her in cognitive and behavioral efforts to consider how to live with the pain to help remedy some of the rigid beliefs about curing the pain is the only option. Appreciate that she is reading Alex Adams's book command search for meaning and finding some helpful thoughts from that book. We are stopping hydroxyzine due to urinary retention and possible constipation and starting trazodone. We discussed signs or symptoms of orthostasis and to take slow positional changes, watching for oversedation and in layman's terms described serotonin syndrome so that patient and staff could monitor. 08/20 continue duloxetine, continue conversations about meaning/significance, grief of partner and physical losses and limitations, and work on outpatient safety planning. 08/21 - Continue current medication regimen - Again encouraged that patient consider involving an outpatient support in a meeting to discuss safety and discharge planning 08/22 - Continue current medication regimen; duloxetine 90mg - Continue efforts to coordinate with patient's outpatient providers - Information received from patient's POA that they were not able to find a surplus of medication in the patient's home. Pt continues to refuse a family meeting to discuss safety/discharge planning - Continue to engage patient in group programming and 1:1 processing sessions as desired/indicated 08/24 - Continue treatment plan as above - Reports improvement in mood, stating she has been focusing on development of new coping skills 08/25 -As recently as 7 days ago the patient was continue to report that she was depressed. She attributed her depression to her chronic severe pain. Today, she reports that her pain remains severe, but she considers of the victory that she is not even remotely contemplating suicide and says that she is developed what she considers to be very effective coping skills. She wished to express thanks to the treatment staff here and says that in addition to help from the staff, she derived strength and learned new skills from her interaction with her peers. (3) Borderline personality disorder: 08/16 -explore patterns of behavior and coping mechanisms, continue with outpatient therapy after discharge. 08/18 --The patient is certainly demonstrated pathologic characterologic traits consistent with borderline personality disorder. I do not believe at this point the characterologic features ought to be a focus of treatment. In the past she has been fairly high functioning and has a number of strengths and community support systems. 08/20 - come evidence of splitting today trying to ally with this provider, but she is redirectable to work on repairing the relationship with her outpatient psychiatrist 08/21 - Patient remains highly focused on her need to repair relationships with her support system - Discussing the possibility of inviting a support to live with her for a period of time after discharge, but not committing at this time to a support meeting with social work to discuss this further (4) Alcohol abuse: 08/16 -AWSS protocol for withdrawal. Brief intervention was offered and refused Summary of intervention: The patient is in precontemplation stage with regards to transtheoretical model of change. She does not feel that she has a substance use problem --Patient has history of benzodiazepine abuse, and uses medical marijuana in combination with alcohol daily. 08/17 -scoring 0 on AWSS, vital signs stable; will discontinue. 08/18 --The patient denies today that she has ever said that she plans to increase her use of alcohol and insists that she is limiting her alcohol consumption at this point to "two glasses of wine a day." She does acknowledge that she uses alcoh ol with marijuana in the evenings as part of her "ritual" to ease the pain, "settle down," and sleep. She has stopped benzodiazepines. She, herself, says that she feels that she was abusing them, but her prescription fill date of does not seem to indicate that she uses more than had been prescribed. 08/19 - Challenged patient's thoughts about alcohol today affirming that she may find some distance from her emotions but how it may worsen things over time again encouraging her to strongly consider abstaining from alcohol. She states "I have been away from it 5 days at this time. But then does not make any conclusive statements about her future intentions. (5) Chronic back pain: 08/17 -patient requesting follow-up appointment with Dr. Wilson at [facility] to address her pain; staff contacted his office yesterday, they indicated she has been seen 6 times already this month and they will reschedule her with Dr. Wilson once we have a discharge date. They were also informed of her overdose which included oxycodone prescribed by Dr. Wilson. 08/21 - Pt reporting plan to increase her use of medicinal marijuana to treat her chronic pain - encouraged to discuss this with her treating provider prior to escalating her usage - Discussed potential interactions with prescription medications and alcohol use and advised patient to not alter use until she discusses with her treating provider 08/22 - Ongoing. Coordinated with patient's orthopedic provider - scheduled for an appointment on 09/06/2019. 08/25 -The patient reports that she is pleased that she has an outpatient appointment in the near future with her outpatient orthopedic physician, Dr. Wilson. However, she also says that at this point she feels that she has learned to accept the distinct possibility that she will never achieve lasting relief from her pain, but has been able to reframe her experience in this regard and focus on certain positive aspects of the experience. She adds, "People suffered terribly during the Holocaust --- what I go through is nothing. Those people survived. Those people grew from their experience. I think the mistake I was making is that suffering is terrible, but it is also a source of strength if you allow it to be." (6) Constipation: 08/19 Patient describes having constipation on previous narcotics. I am unclear as she denies recently overusing narcotics if indeed the recent toxic ingestion is causing her current constipation or if it may be related to of the anticholinergic properties of hydroxyzine. As she has failed milk of magnesia 2 days in a row with an additional dose of Senokot today I have offered her a MiraLAX challenge versus soapsuds enema. She elected for soapsuds enema hoping for more quick relief then an oral remedy. If this is unsuccessful we will follow with MiraLAX challenge. Additionally I will add a stool softener to her regimen to try to keep this from happening again and remove hydroxyzine for sleep treating for trazodone. 08/20 - miralax 3day challenge 08/21 - continue as above, discussed etiology is likely related to oxycodone over dose and is expected to resolve over time 08/22 - Reports successful bowel movement yesterday, gradual improvement in this complaint. Continue to monitor. 08/24 - Pt reports successful bowl movements for the past 4 days. Consider this problem resolved as well. (7) Urinary hesitancy: 08/19 Patient has new onset urinary hesitancy in the absence of other neurologic focal signs or symptoms. She has had hydroxyzine in the last 3 days which coincides with urinary retention I believe this is a side effect of anticholinergic properties of that medication. I will stop it and start trazodone for sleep to reduce anticholinergic burden. However we will monitor her urinary voiding the hope is that she will continue to be able to increase the amount she can urinate the longer she is away from hydroxyzine. She is having small urine voids. I have asked nursing to do a bladder scan this afternoon and we will repeat again this evening if her bladder continues to expand or she is not having any improvement in her urination we will consider bethanechol. 08/20 urinating more regularly with some hesitancy of unclear etiology or significance, will monitor 08/21 - Ongoing intermittent urinary hesitancy - continue to monitor 08/22 - Denies any ongoing concerns at this time, continue to monitor 08/24 - Reports resolution of urinary hesitancy for several days. Consider this problem resolved. Mental Health & Subst Abuse Tx Psychiatrist Name of Psychiatrist: [facility] - Dr. Allison Psychiatrist's Date of Appointment with Psychiatrist: 09/07/19 Time of Appointment with Psychiatrist: 11:20 a.m. Psychiatric Appointment Comment: Virtual appt if able (through portal) or by phone (someone will reach out) Psychiatrist Release of Information: Obtained, Reviewed and Signed Therapist Name of Therapist: Dr. Laverne Singletary Therapist's ext [phone]) Date of Therapist Appointment: 08/30/19 Time of Therapist Appointment: 2:00 p.m. Therapy Appointment Comment: [address] [facility], [place] Therapist Release of Information: Obtained, Reviewed and Signed Superintendent Division Name of Superintendent Division: None Post Discharge Appointments Primary Care Physician Name Of Family Doctor: [facility] - Dr. Tal Duron Primary Care Date of Appointment with PCP: 08/29/19 Time of Appointment with PCP: 1:00 p.m. Provider Appointment Comment: Virtual visit (will email with instructions - check Spam folder) Primary Care Release of Information: Obtained, Reviewed and Signed Specialist Name of Specialist: [facility] - Dr. Wilson Phone Number for Specialist: [phone] Date of Appointment with Specialist: 09/06/19 Time of Appointment with Specialist: 2:00 p.m. Specialty Appointment Comment: [address] [facility], [place] Specialist Release of Information: Obtained, Reviewed and Signed Smoking Cessation Counseling Tobacco Cessation Medication Prescribed at Discharge: Not Applicable/Non-Smoker Contact Information Discharge Discharge Address: [address] [place] [id number] Discharge Plan Discharge Items Patient Disposition: Home - Home Health Services Reason For Visit: MDD Discharge Diagnosis: Major Depression Activity: Resume your previous activity Lifting: Gradually increase as tolerated and No more than 5 pounds Non-emergency contact: Primary Care Provider, Psychiatrist and Therapist Call non-emergency contact if: you have any medication questions Follow-up/Referrals: Tal Duron MD [Primary Care Provider] - Diet: Regular Addtl Attending Provider Instructions: SPECIAL CARE INSTRUCTIONS: 1. Follow through with your scheduled aftercare appointments. If unable to keep an appointment, please call to reschedule. 2. Take your medication only as prescribed. Medication should not be changed or stopped without the approval of your doctor. In the event of worsening symptoms or concerns about side effects, contact your doctor immediately. 3. Utilize new healthy coping skills, anger management skills, and stress management skills learned during your hospitalization. Journal feelings and process them with a support person. Identify stressors or situations that may result in relapse, deterioration or inappropriate behaviors and develop a plan to deal with those issues. 4. If your coping skills are ineffective and you are in crisis, contact your outpatient providers for direction. If unable to reach your providers, please call the CAN HELP LINE AT or go to the closest Emergency Room. 5. Avoid alcohol and un-prescribed drugs. 6. You have been provided with the Mental Health Advance Directives Pamphlet for your review. AFTERCARE APPOINTMENTS: * Please call your insurance company prior to your scheduled appointment to confirm your aftercare providers are covered. Take your insurance information to your appointments. WHO TO CALL AND WHEN: Medical Emergencies: For questions or emergencies related to your hospital stay, please contact the Inpatient Behavioral Health Unit at [phone]. A assessment clinician is on-call 17/11 for the Behavioral Health Unit for emergencies At any time you feel your situation is an emergency, you may also call 911 immediately. Your Doctors Instructions noted above were prepared by provider Phoenix Allison MD. Pending Studies at Discharge: No Stand-Alone Forms: [facility] [employer] Smoking Cessation, Suicide Prevention Resources Medications and DC Order Prescriptions: Continued milk thistle 150 mg capsule 150 mg PO QAM RF: 0 magnesium oxide 250 mg magnesium tablet 250 mg PO QAM RF: 0 cholecalciferol (vitamin D3) 3,000 unit tablet 1,000 units PO QAM RF: 0 duloxetine 60 mg capsule,delayed release(DR/EC) 60 mg PO QAM RF: 0 Medical Marijuana 1 dose Inhalation DAILY PRN (Reason: Pain) RF: 0 multivitamin Tablet 1 tab PO QAM RF: 0 duloxetine 30 mg Capsule,Delayed Release(Dr/Ec) 30 mg PO QAM Qty: 30 RF: 0 lutein 20 mg Capsule 20 mg PO DAILY RF: 0 Discontinued alprazolam [Xanax] 0.5 mg tablet 0.25 mg PO TID PRN (Reason: Anxiety) Qty: 0 RF: 0 amitriptyline 25 mg tablet 25 - 50 mg PO HS PRN (Reason: Insomnia) RF: 0 Discharge Orders: Discharge Order (Routine); Ordered 08/26/19 Ordered By: Phoenix Allison Admission Data Admit Date/Time: 08/16/19 16:47 Attending Provider: Phoenix Allison Admit Provider: Eliza Carrington Primary Care Provider: Tal Duron Other Interventions: Discharge Summary Assessment (RN) Last Done: 08/26/19 10:16 PSY Interdisciplinary Discharge Planning Last Done: 08/26/19 10:15 DC Date/Time DO NOT enter until pt leaves facility: 08/26/19 12:30 C[place] [address] D/C day mgmt > 30 min Patient Type Established History Expanded Problem Focused Exam Expanded Problem Focused Medical Decision Making Moderate Complexity Diagnoses Suicide attempt by multiple drug overdose T50.902A Encounter type: initial encounter Depression F32.9 Borderline personality disorder F60.3 Alcohol abuse F10.10 Chronic back pain M54.9; G89.29 Constipation K59.00 Urinary hesitancy R39.11 Time Spent (min) 60
== END 2019-08-26 12:30 | disposition home health service (06) | DRG 918 ==
LOC: ED 12:03 → SUATTDRO 16:47 → 3S 16:47

== ENCOUNTER 2019-11-30 11:30 | Inpatient (IN) ==
--- NOTE | 2019-11-15 17:03 | PAT Medication Instructions ---
Medication Instructions Date of Service November 15, 2019 Home Medications Medication Instructions Recorded duloxetine 30 mg PO QAM #30 cap 10/26/18 cholecalciferol (vitamin D3) 75 mcg (3,000 unit) tablet 1,000 units PO QAM magnesium oxide 250 mg PO QAM milk thistle 150 mg capsule 150 mg PO QAM duloxetine 60 mg capsule,delayed release 60 mg PO QAM Medical Marijuana 1 dose INHALATION PM PRN multivitamin 1 tab PO QAM duloxetine 30 mg PO QAM lutein 20 mg PO QAM acetaminophen [Tylenol] 325 mg PO QAM alprazolam 0.25 mg PO BID PRN amitriptyline 25 mg PO HS PRN ibuprofen 600 mg PO Q6H PRN vitamin E 200 unit PO QAM ASK your surgeon for instructions ibuprofen 600 mg PO Q6H PRN STOP taking 2 weeks before surgery If surgery is within 2 weeks, stop taking as soon as possible. milk thistle 150 mg capsule 150 mg PO QAM lutein 20 mg PO QAM vitamin E 200 unit PO QAM DO NOT take the morning of surgery cholecalciferol (vitamin D3) 75 mcg (3,000 unit) tablet 1,000 units PO QAM magnesium oxide 250 mg PO QAM multivitamin 1 tab PO QAM Take morning of surgery With a small sip of water, OTHERWISE NOTHING TO EAT OR DRINK AFTER MIDNIGHT: duloxetine 60 mg capsule,delayed release 60 mg PO QAM duloxetine 30 mg PO QAM acetaminophen [Tylenol] 325 mg PO QAM (if needed, may be taken up to four hours before surgery) alprazolam 0.25 mg PO BID PRN (if needed) Take evening before surgery Medical Marijuana 1 dose INHALATION PM PRN (if needed) alprazolam 0.25 mg PO BID PRN (if needed) amitriptyline 25 mg PO HS PRN (if needed) Other Notes If you have any questions please call us at [phone] or [phone] or [phone] or [phone]
--- NOTE | 2019-11-16 12:24 | Anesthesiology Consultation ---
Date of Service November 16, 2019 Assessment & Plan (1) Encounter for pre-operative examination: Per PAT assessment on 11/15: Travel screen negative. No known COVID-19 positive contacts. No current COVID-19 related symptoms. Surgeon arranging preop COVID testing (being done at [facility] per patient). Awaiting results. - S/P L4-S1 decompression/fusion: Grade 1 view, MAC#3, ETT 7.0 at [facility] - ETOH: 3 glasses wine/day (after dinner), no morning ETOH use per patient - Patient seeing PCP prior to surgery. Awaiting office visit note (Dr. Duron; 11/16). Chart Review Chart Review: Patient seen in Pre Admission Testing Teaching & Discussion Pre-Anesthesia Teaching/Discussion Notes: Instructed NPO after midnight before surgery,except medications with 15 cc of water. Medication instructions provided according to the PAT guidelines. History Surgery Operation Date: 11/30/19 11:40 Proposed Procedures p L2-L4 Decompression and Fusion, L4-S1 Hardware Removal, Spinal Cord Monitoring - Bacilio Wilson DO Height/Weight Height: 5 ft 3 in Weight: 60.2 kg Allergies Allergy/AdvReac Type Severity Reaction Status Date / Time coconut Allergy Unknown Redness of Verified 11/14/19 13:55 Skin No Known Drug Allergies Allergy Verified 11/14/19 13:55 Medications Home Medications Medication Instructions Recorded Confirmed Last Taken cholecalciferol (vitamin D3) 75 1,000 units PO QAM 04/22/18 11/14/19 11/18/18 09:30 mcg (3,000 unit) tablet magnesium oxide 250 mg PO QAM tab 04/22/18 11/14/19 11/18/18 09:30 milk thistle 150 mg capsule 150 mg PO QAM cap 04/22/18 11/14/19 11/18/18 09:30 duloxetine 60 mg capsule,delayed 60 mg PO QAM 04/23/18 11/14/19 11/19/18 05:30 release Medical Marijuana 1 dose INHALATION PM PRN 06/04/18 11/14/19 11/18/18 23:00 multivitamin 1 tab PO QAM 06/04/18 11/14/19 11/17/18 09:30 duloxetine 30 mg PO QAM #30 cap 10/26/18 11/14/19 11/19/18 05:30 lutein 20 mg PO QAM 11/19/18 11/14/19 11/18/18 09:30 acetaminophen [Tylenol] 325 mg PO QAM 11/14/19 11/14/19 Unknown alprazolam 0.25 mg PO BID PRN 11/14/19 11/14/19 Unknown amitriptyline 25 mg PO HS PRN 11/14/19 11/14/19 Unknown ibuprofen 600 mg PO Q6H PRN 11/14/19 11/14/19 Unknown vitamin E 200 unit PO QAM 11/14/19 11/14/19 Unknown Past Medical History Medical History (Updated 11/16/19 @ 13:03 by Belem Harris) Anxiety Borderline personality disorder per records Chronic back pain Degenerative disc disease Depression Hypertension Lumbar stenosis with neurogenic claudication Severe at L4-5 Moderate to severe at L5-S1 Mass of left ovary under surveillance Mitral valve prolapse Remote history per pt, no recent echo Ocular hypertension Osteoarthritis Pinched nerve Spinal stenosis Exercise / Class Metabolic Activity III < 4 Walking/Shop/Light housework Past Family History Family History Mother Emphysema lung Brother Diabetes Past Surgical History Surgical History (Updated 11/16/19 @ 12:24 by Belem Harris) Fusion of spine L4-S1 decompression/fusion: Grade 1 view, MAC#3, ETT 7.0 at [facility] History of cataract surgery BILAT History of colonoscopy History of dilatation and curettage History of tonsillectomy History of tooth extraction History of total knee replacement Right (2016) Past Anesthesia History No Hx of Anesthesia Complications and No Family Hx of Anesthesia Complications History of PONV No Hx of PONV and Hx of Motion Sickness (remote) Social History Smoking Status: Former smoker Do You Dip or Chew Tobacco: No Smoking End Date: QUIT 15 YRS AGO Hx Alcohol Use: Yes Alcohol type: wine alcohol intake frequency: 3 or more drinks per day (3 glasses wine/day (after dinner), no morning ETOH use) Hx Substance Use: Yes substance use type: marijuana Substance Use Type Other:: MEDICAL MARIJUANA- VAPE AT HS Last Used Substance: Days (ago) Review of Systems Patient denies chest pain, shortness of breath, fever, chills, cough, wheezing, palpitations. Physical Exam Vital Signs VITALS BP 180/90 (Patient states that BP has been elevated in setting of increased back pain. PCP office visit scheduled 11/16) P 70 TEMP 98.4 SP02 99%RA RESP 18 PHYSICAL Full neck and c-spine range of motion. Full TMJ range of motion. TMD 3 finger breaths Mallampati Score 3 Dentition: intact, crowns several all over Lungs: clear throughout to auscultation Cardiac: regular rate and rhythm, I/ systolic murmur Spine: normal Carotid arteries: negative bruit Extremities: no edema Testing Laboratory Results 11/16/19 13:03 11/16/19 13:03 PT 10.2 Seconds (9.0-12.0) 11/16/19 13:03 INR 1.0 (0.9-1.1) 11/16/19 13:03 APTT 25.6 Seconds (21.0-31.0) 11/16/19 13:03 Urine Color Yellow 11/16/19 13:03 Urine Appearance Clear (Clear) 11/16/19 13:03 Urine pH 7.0 (4.5-7.5) 11/16/19 13:03 Ur Specific [place] 1.008 (1.000-1.030) 11/16/19 13:03 Urine Protein Negative (Negative) 11/16/19 13:03 Urine Glucose (UA) Negative (Negative) 11/16/19 13:03 Urine Ketones Negative (Negative) 11/16/19 13:03 Urine Nitrite Negative (Negative) 11/16/19 13:03 Ur Leukocyte Esterase Trace (Negative) H 11/16/19 13:03 Urine WBC (Auto) 0 /hpf (0-5) 11/16/19 13:03 Urine RBC (Auto) 0-4 /hpf (0-4) 11/16/19 13:03 U Hyaline Cast (Auto) 0 /lpf (0-5) 11/16/19 13:03 U Epithel Cells (Auto) 0-5 /lpf (0-5) 11/16/19 13:03 Urine Bacteria (Auto) Negative (Negative) 11/16/19 13:03 Blood Type O Positive 11/16/19 13:03 Antibody Screen NEGATIVE 11/16/19 13:03 Electrocardiogram Date: 08/16/19 Findings: + NSR @ (69) Chest X-Ray Date: 11/16/19 Findings: + NAD
--- NOTE | 2019-11-16 13:37 | XRay Report ---
XR chest Pre-admission PA/Lat HISTORY: 74 years-old Female pat preoperative exam. No acute chest complaints COMPARISON: Chest radiographs 11/05/2018 TECHNIQUE: PA and lateral views of the chest FINDINGS: Cardiomediastinal and hilar silhouettes are within normal limits. No pneumothorax, pleural effusion, airspace consolidation or overt pulmonary edema. Partially imaged lumbar spinal fusion hardware. Bone s of the chest appear grossly intact. IMPRESSION: No acute process. ACT 112: Negative or not required by law. The above report was generated using voice recognition software. It may contain grammatical, syntax o r spelling errors. Electronically signed by: Joseph Goodwin M.D. 11/16/2019 1:36 PM
[2019-11-16 13:38] LABS: Basophils # (auto) 0.04 K/uL (0-0.2); Basophils % (auto) 0.5 %; Eosinophils # (auto) 0.06 K/uL (0-0.5); Eosinophils % (auto) 0.7 %; Hematocrit (blood only) 36.4 % (37-47); Hemoglobin 12.3 g/dL (12.0-16.0); Immature Granulocytes # (auto) 0.02 K/uL (0.00-0.02); Immature Granulocytes % (auto) 0.2 %; Lymphocytes # (auto) 2.34 K/uL (1.2-3.4); Lymphocytes % (auto) 26.9 %; Mean Corpuscular Hemoglobin 32.5 pg (25-34); Mean Corpuscular Hgb Conc 33.8 g/dL (32-36); Mean Platelet Volume 10.6 fL (7.4-10.4); Monocytes # (auto) 0.57 K/uL (0.11-0.59); Monocytes % (auto) 6.5 %; Neutrophils # (auto) 5.68 K/uL (1.4-6.5); Neutrophils % (auto) 65.2 %; Platelet Count 282 K/uL (130-400); RDW Coefficient of Variation 14.2 % (11.5-14.5); Red Blood Count 3.79 M/uL (4.2-5.4); White Blood Count 8.71 K/uL (4.8-10.8)
[2019-11-16 13:43] LABS: Appearance Urine Clear (Clear); Bacteria Urine Automated Negative (Negative); Bilirubin Urine Negative (Negative); Blood Urine Negative (Negative); Cast Urine Automated 0 /lpf (0-5); Color Urine Yellow; Epithelial Cell Urine Auto 0-5 /lpf (0-5); Glucose Urine UA Negative (Negative); Ketones Urine Negative (Negative); Leukocyte Esterase Urine Trace (Negative); Nitrite Urine Negative (Negative); Protein Urine Negative (Negative); RBC Urine Automated 0-4 /hpf (0-4); Specific Gravity Urine 1.008 (1.000-1.030); Urobilinogen Urine Negative (Negative); WBC Urine Automated 0 /hpf (0-5)
[2019-11-16 13:57] LABS: Partial Thromboplastin Ratio 0.9; Partial Thromboplastin Time 25.6 Seconds (21.0-31.0); Prothrombin Time 10.2 Seconds (9.0-12.0)
[2019-11-16 15:02] LABS: BUN Creatinine Ratio 17.4 (10-20); Calcium 9.5 mg/dl (8.5-10.1); Creatinine Clr Calc Pharmacy 54.6 ml/min; Est GFR (African American) 89.4; Est GFR (Non-African American) 77.1; Potassium 4.9 mmol/L (3.5-5.1)
[~2019-11-30 11:30] MED LIST changes: +ACETAMINOPHEN 500 MG TAB PO SCH; +CEFAZOLIN 1000MG 1,000 MG/7.5 ML SYR IV SCH; +CeleBREX 200 MG CAP PO SCH; +GABAPENTIN 300 MG CAP PO SCH
[2019-11-30] MEDS ORDERED: fentaNYL citrate 100 MCG/2 ML VIAL ONE (13:11)
--- NOTE | 2019-11-30 14:00 | History & Physical Bridge Note ---
Date of Service November 30, 2019 History & Physical Bridge Note I have examined the patient, reviewed the History & Physical and in the interval since the performance of the History & Physical I have noted the following changes of clinical significance: no changes noted
--- NOTE | 2019-11-30 14:01 | History & Physical Report ---
Date of Service November 30, 2019 Assessment & Plan (1) Neurogenic claudication due to lumbar spinal stenosis: L2-L4 decompression fusion, L4-S1 hardware removal Present on Admission?: Yes History of Present Illness Chief Complaint: Back and leg pain Primary Care Provider: Tal Duron MD This is a 74-year-old female presents with worsening chronic persistent back and leg pain. Failing extensive course of nonoperative care is here for surgical intervention. Allergies Allergy/AdvReac Type Severity Reaction Status Date / Time coconut Allergy Unknown Redness of Verified 11/30/19 12:07 Skin No Known Drug Allergies Allergy Verified 11/30/19 12:07 Home Medications Home Medications Medication Instructions Recorded Confirmed Type cholecalciferol (vitamin D3) 75 1,000 units PO QAM 04/22/18 11/30/19 History mcg (3,000 unit) tablet magnesium oxide 250 mg PO QAM tab 04/22/18 11/30/19 History milk thistle 150 mg capsule 150 mg PO QAM cap 04/22/18 11/30/19 History duloxetine 60 mg capsule,delayed 60 mg PO QAM 04/23/18 11/30/19 History release Medical Marijuana 1 dose INHALATION PM PRN 06/04/18 11/30/19 History multivitamin 1 tab PO QAM 06/04/18 11/30/19 History duloxetine 30 mg PO QAM #30 cap 10/26/18 11/30/19 Rx lutein 20 mg PO QAM 11/19/18 11/30/19 History acetaminophen [Tylenol] 325 mg PO QAM 11/14/19 11/30/19 History alprazolam 0.25 mg PO BID PRN 11/14/19 11/30/19 History amitriptyline 25 mg PO HS PRN 11/14/19 11/30/19 History ibuprofen 600 mg PO Q6H PRN 11/14/19 11/30/19 History vitamin E 200 unit PO QAM 11/14/19 11/30/19 History amlodipine 1 tab PO DAILY 11/18/19 11/30/19 History Past Med/Surg History Family History Mother Emphysema lung Brother Diabetes Social History Smoking Status: Former smoker Smoking End Date: QUIT 15 YRS AGO; Second Hand Exposure: Yes ( KID); Do You Dip or Chew Tobacco: No; Tobacco Cessation Education Requested by Patient: No Hx Alcohol Use: Yes Alcohol type: wine Hx Substance Use: Yes Last Used Substance: Days (ago) Substance Use Type Other:: MEDICAL MARIJUANA- VAPE AT HS Preferred Language: Belizean Communication Ability: Effective Live Games Dealer Required: No Beliefs That Will Affect Care: None marital status: / Current Living Situation: Alone Other Information That Helps Us Care for You: No Feels Safe at Home: Yes Safety Concerns: Feels Safe At This Time Physical Exam Physical Exam: Patient is alert and oriented neurologically intact. Heart regular rhythm. Lungs clear to auscultation. Results & Data Vital Signs (Past 12 Hours) Vital Signs Temp Pulse Resp BP Pulse Ox 11/30/19 12:12 37 C 85 20 174/108 H 100
[2019-11-30] MEDS ORDERED: MIDAZOLAM HCL 1 MG/ML 2ML VIAL ONE (14:26)
[2019-11-30] MEDS ORDERED: BACITRACIN INJ 50,000 UNIT VIAL ONE (14:28)
[2019-11-30] MEDS ORDERED: BUPIVACAINE 0.25% 30 ML VIAL ONE (14:30)
[2019-11-30] MEDS ORDERED: EPINEPHrine INJ 1 MG/ML AMP ONE (14:30)
[2019-11-30] MEDS ORDERED: ePHEDrine sulfate 50 MG/ML AMP IV PRN (14:36)
[2019-11-30] MEDS ORDERED: fentaNYL citrate 100 MCG/2 ML VIAL IV PRN (14:36)
[2019-11-30] MEDS ORDERED: ATROPINE SULFATE 0.1 MG/ML 10ML SYR IV PRN (14:36)
[2019-11-30] MEDS ORDERED: HYDROmorphone INJ 2 MG/ML SYR/VIAL IV PRN (14:36)
[2019-11-30] MEDS ORDERED: ONDANSETRON INJ 2 MG/ML 2 ML VIAL IV PRN ×2 (14:36→18:08)
[2019-11-30] MEDS ORDERED: HYDROmorphone INJ 2 MG/ML SYR/VIAL ONE (14:55)
[2019-11-30] MEDS ORDERED: LIDOCAINE HCL 2% 2 ML VIAL/AMP(20MG/ML) INFIL ONE (15:00)
[2019-11-30] MEDS ORDERED: LARYING-O-JET KIT (LTA) ONE (15:00)
[2019-11-30] MEDS ORDERED: DEXAMETHASONE SOD INJ 4 MG/ML VIAL ONE (15:00)
[2019-11-30] MEDS ORDERED: ONDANSETRON INJ 2 MG/ML 2 ML VIAL ONE (15:00)
[2019-11-30] MEDS ORDERED: PROPOFOL IV EMULSION 10 MG/ML 20 ML VIAL IV ONE (15:00)
[2019-11-30] MEDS ORDERED: ePHEDrine sulfate 50 MG/ML AMP ONE (15:11)
[2019-11-30] MEDS ORDERED: PHENYLEPHRINE HCL 10 MG/ML VIAL ONE (15:11)
[2019-11-30] MEDS ORDERED: FLOSEAL HEMOSTATIC MATRIX 10ML TOP ONE (16:28)
--- NOTE | 2019-11-30 16:38 | Operative Report ---
Post Operative Report Pre & Post Diagnosis Operation Date: 11/30/19 12:55 Pre-Op Diagnosis: Neurogenic claudication due to lumbar spinal stenosis L2-L4 Post-Op Diagnosis: Neurogenic claudication due to lumbar spinal stenosis L2-L4 I identified the patient and participated in the time-out.: Yes Procedure Operation Date: 11/30/19 12:55 Actual Procedures #1 removal of posterior instrumentation L4-5 L5-S1. #2 exploration of fusion L4-5 L5-S1. #3 lumbar decompression with bilateral medial facetectomies and foraminotomies L2-3 and L3-4. #4 posterior spinal fusion L2-3 L3-4. #5 placement posterior instrumentation L2-S1. #6 placement of locally harvested morselized autograft in the posterior gutters. #7 placement infuse collagen sponge, master graft in the posterior lateral gutters. Surgeon Bacilio Wilson DO Clerical Proofreader Onofre Alvarez Estimated Blood Loss 100 Findings Consistent with Post-Op Diagnosis Specimens None Indications This is a 74 old female known to me presents with above-mentioned diagnosis after failing a course of nonoperative care is here for the above-mentioned procedure. Description of Procedure Patient was met with identified informed consent obtained. Patient was then taken to the operative suite underwent an patient placed in a prone position the Joaquin table on top of the Aries frame. All bony prominences well-padded eyes inspected to ensure no external pressure placed upon them. This point the lumbar spine is prepped and draped in a sterile fashion. Sharp dissection with the assistance of Bovie cautery was performed down to and exposing the lamina and transverse processes of L2-L3 and instrumentation at L4-L5 and S1 levels bilaterally. I then proceeded remove the hardware at L4-L5 and S1 levels bilaterally explore the fusion mass noting it to be intact. And then performed a complete laminectomy of L2 and L3 from a caudal cephalad fashion addressing severe lateral recess and foraminal stenosis. Pedicle screws were then placed in L2-L3-L4 and S1 levels bilaterally with assistance of fluoroscopy and the proper sized rods contoured and locked in position. The transverse processes of L2-L3-L4 were then burred to subcortical bleeding bone. Infuse collagen sponge mass graft local autograft was then placed in the posterior lateral gutters. 15 round MATIAS drain inserted. Incision was then closed with 1 Vicryl in the fascia 2-0 Vicryl subcutaneously and 4 Monocryl for final skin closure. Steri-Strip sterile dressings placed. Patient waken taken PACU stable. Please note spinal cord monitoring was utilized at the procedure no changes noted. Lastly Onofre mcfarlane was present at the entire procedure involved the patient positioning complex portions of the surgery and final skin closure. I attest to the content of the Intraoperative Record and any orders documented therein. Any exceptions are noted below.
--- NOTE | 2019-11-30 16:45 | Fluoroscopy Report ---
FL lumbar spine 2-3V CLINICAL HISTORY: L4-S1 REMOVE HARDWARE/L2-4 DECOMPRESSION/FUSION COMPARISON STUDY: 11/19/2018 FLUOROSCOPY TIME: 23 seconds. NUMBER OF FLUOROSCOPIC IMAGES: 2 FINDINGS: 2 intraoperative fluoroscopic spot images are provided for interpretation. These reveal pos tsurgical changes of an L2-S1 spinal decompression and fusion. There are pedicle screws present the L 2 L3 L4 and S1 levels. There are postsurgical changes of an L4-5 discectomy and interbody fusion. Sin ce the prior study, the L5 pedicle screws have been removed. IMPRESSION: Postsurgical changes of an L2-S1 spinal decompression and fusion. ACT 112: Negative or not required by law. Electronically signed by: Christiano Jorgensen M.D. 11/30/2019 4:43 PM
--- NOTE | 2019-11-30 17:52 | Anesthesiology Progress Note ---
Date of Service November 30, 2019 Anesthesia Post Procedure Vital Signs Vital Signs: Temp Pulse Resp BP Pulse Ox 11/30/19 17:45 37 C 73 14 114/61 95 11/30/19 17:35 74 12 125/63 96 11/30/19 17:25 74 14 124/61 96 11/30/19 17:15 71 12 145/64 H 100 11/30/19 17:06 36.6 C 75 18 143/60 H 100 11/30/19 12:12 37 C 85 20 174/108 H 100 Pain Intensity Left Leg: Pain Intensity: 9 Left Lower Back: Pain Intensity: 3 Transfer of Care Handoff Completed per policy Notes Mental Status: alert / awake / arousable and participated in evaluation Patient Amnestic to Procedure: Yes Nausea / Vomiting: adequately controlled Pain: adequately controlled Airway Patency, RR, SpO2: stable & adequate BP & HR: stable & adequate Hydration State: stable & adequate Anesthetic Complications: no major complications apparent
[2019-11-30] MEDS ORDERED: METOCLOPRAMIDE HCL INJ 5 MG/ML 2 ML VIAL IV PRN (18:08)
[2019-11-30] MEDS ORDERED: ALPRAZolam 0.25 MG TABLET PO PRN (18:08)
[2019-11-30] MEDS ORDERED: ACETAMINOPHEN 1,000 MG/100 ML VIAL IV PRN (18:08)
[2019-11-30] MEDS ORDERED: MAGNESIUM HYDROXIDE SUSP 30 ML UDC PO PRN (18:08)
[2019-11-30] MEDS ORDERED: SOD PHOSPHATE/SOD BIPHOSPHATE ENEMA 132 ML BTL PR PRN (18:08)
[2019-11-30] MEDS ORDERED: DO NOT ADMINISTER FLU VACCINE PRN (18:08)
[2019-11-30] MEDS ORDERED: HYDROmorphone INJ 0.5 MG/0.5 ML SYR IV PRN (18:08)
[2019-11-30] MEDS ORDERED: TRAMADOL HCL 50 MG TABLET PO PRN (18:08)
[2019-11-30] MEDS ORDERED: LORazepam 0.5 MG/1 ML VIAL IV PRN (18:08)
[2019-11-30] MEDS ORDERED: LORazepam 0.5 MG TAB PO PRN (18:08)
[2019-11-30] MEDS ORDERED: ALUMINUM/MAGNESIUM SUSP 30 ML UDC PO PRN (18:08)
[2019-11-30] MEDS ORDERED: NALOXONE HCL 0.4 MG/1 ML VIAL/CARP IV PRN (18:08)
[2019-11-30] MEDS ORDERED: ONDANSETRON 4 MG OD TAB PO PRN (18:08)
[2019-11-30] MEDS ORDERED: bisacodyL 10 MG SUPP PR PRN (18:08)
[2019-11-30] MEDS ORDERED: PROMETHAZINE HCL 12.5 MG in SODIUM CHLORIDE 0.9% 50 ML IV PRN (18:08)
[2019-11-30] MEDS ORDERED: DO NOT ADMINISTER PNEUMOCOCCAL VACCINE PRN (18:08)
[2019-11-30] MEDS ORDERED: FAMOTIDINE 20 MG TAB PO PRN (18:08)
[2019-11-30] MEDS ORDERED: PNEUMOCOCCAL POLYSACCHARIDES 25 MCG/0.5 ML VIAL/SYR IM ONE (18:23)
[2019-11-30] MEDS ORDERED: PNEUMOCOCCAL ADMINISTRATION CHARGE ONE (18:23)
[2019-11-30] MEDS: ACETAMINOPHEN 500 MG TAB PO PRN (18:30)
[2019-11-30] MEDS: SODIUM CHLORIDE 0.9% 1000ML 1,000 ML IV SCH (18:30)
[2019-11-30] MEDS ORDERED: MEDICAL MARIJUANA PO PRN (18:31)
[2019-11-30] MEDS: HYDROmorphone INJ 1 MG/ML SYRINGE IV PRN (20:35)
[2019-11-30] MEDS: CEFAZOLIN 1000MG 1,000 MG/7.5 ML SYR IV SCH (21:27)
[2019-11-30] MEDS: DOCUSATE SODIUM/SENNA 50/8.6MG TAB PO SCH (21:27)
[2019-12-01] MEDS: HYDROmorphone INJ 1 MG/ML SYRINGE IV PRN ×5 (01:52→20:15)
[2019-12-01] MEDS: CEFAZOLIN 1000MG 1,000 MG/7.5 ML SYR IV SCH (05:31)
[2019-12-01] MEDS: POLYETHYLENE (MIRALAX) 17 GM PACK PO SCH ×3 (05:31→17:14)
[2019-12-01] MEDS: SODIUM CHLORIDE 0.9% 1000ML 1,000 ML IV SCH (05:32)
[2019-12-01] MEDS ORDERED: Nursing to Pharmacy Communication SCH (05:45)
[2019-12-01 06:42] LABS: Basophils # (auto) 0.01 K/uL (0-0.2); Basophils % (auto) 0.1 %; Hematocrit (blood only) 28.1 % (37-47); Hemoglobin 9.4 g/dL (12.0-16.0); Immature Granulocytes # (auto) 0.09 K/uL (0.00-0.02); Immature Granulocytes % (auto) 0.5 %; Mean Corpuscular Hemoglobin 32.2 pg (25-34); Mean Corpuscular Hgb Conc 33.5 g/dL (32-36); Mean Corpuscular Volume 96.2 fL (80-100); Mean Platelet Volume 9.2 fL (7.4-10.4); Monocytes % (auto) 4.4 %; Neutrophils # (auto) 15.33 K/uL (1.4-6.5); Platelet Count 574 K/uL (130-400); RDW Coefficient of Variation 14.2 % (11.5-14.5); RDW Standard Deviation 49.7 fL (36.4-46.3); Red Blood Count 2.92 M/uL (4.2-5.4); White Blood Count 18.03 K/uL (4.8-10.8)
[2019-12-01 07:20] LABS: BUN Creatinine Ratio 22.7 (10-20); Calcium 9.2 mg/dl (8.5-10.1); Creatinine Clr Calc Pharmacy 65.9 ml/min; Est GFR (Non-African American) 90.6; Potassium 4.2 mmol/L (3.5-5.1)
--- NOTE | 2019-12-01 07:47 | Orthopedic Progress Note ---
Date of Service December 01, 2019 Assessment & Plan (1) Neurogenic claudication due to lumbar spinal stenosis: This time initiate physical therapy advance her bowel regiment monitor MATIAS operatively discharge home next few days. Present on Admission?: Yes Admission and Anticipated Discharge Date Admission Date: November 30, 2019 Subjective Back pain controlled leg symptoms improved. Physical Exam Physical Exam: Patient appears comfortable is good strength testing. Results & Data ([facility]) Vital Signs (Past 12 Hours) Vital Signs Temp Pulse Resp BP BP Pulse Ox 12/01/19 07:27 37 C 79 16 109/68 93 12/01/19 03:15 37.2 C 72 16 98/58 L 93 11/30/19 22:59 36.9 C 73 16 106/69 93 11/30/19 21:12 36.4 C L 73 16 107/68 99 11/30/19 20:10 36.5 C 90 16 138/77 98
[2019-12-01] MEDS: ACETAMINOPHEN 500 MG TAB PO PRN ×2 (08:32→17:14)
[2019-12-01] MEDS: AMLODIPINE BESYLATE 5 MG TAB PO SCH (08:33)
[2019-12-01] MEDS: MULTIVITAMIN TAB PO SCH (08:34)
[2019-12-01] MEDS: DULOXETINE HCL 60 MG CAP PO SCH (08:34)
[2019-12-01] MEDS: MAGNESIUM OXIDE 400 MG TAB PO SCH (08:34)
[2019-12-01] MEDS: CHOLECALCIFEROL 1,000 UNITS 25 MCG TAB PO SCH (08:34)
[2019-12-01] MEDS: DULOXETINE HCL 30 MG CAP PO SCH (08:34)
[2019-12-01] MEDS: DEXAMETHASONE SOD PHOSPHATE 8 MG in SYRINGE 0 ML IV SCH (09:46)
--- NOTE | 2019-12-01 14:40 | Hospitalist Consultation ---
Date of Consultation December 01, 2019 Assessment & Plan (1) Neurogenic claudication due to lumbar spinal stenosis: s/p decompression and fusion 11/29 Pain control, dvt proph per primary (2) Substance abuse: Drinks 2 glasses of wine and a vodka per night. Monitor for s/s of withdrawal (3) Depression: Continue duloxetine, amitryptiline (4) Hypertension: Blood pressure acceptable. Continue amlodipine (5) Acute blood loss anemia: Hgb 9.4, no indication for transfusion. (6) Thrombocytosis: Likely acute phase reaction secondary to stress of surgery follow [facility] will sign of at this time. Please call with any questions or concerns Supervising Physician Co-Signing Physician Notes I supervised Sheela Escalante NP on this patient's care. I examined the patient today independently of her. I discussed the plan of care with her with the plan being as written in her note except for any following changes/exceptions: None. Doing well today. No medical issues ongoing. Discharge when clear surgically. History of Present Illness Attending Physician: Bacilio Wilson, History of Present Illness Ms. Fuchs is post decompression and fusion with Dr. Wilson. She has some pain but is otherwise doing well. Pmhx: hypertension, depression Social: retired, lives alone, drinks 2 glasses of wine and a vodka a night, quit smoking 15 years ago Allergies Allergy/AdvReac Type Severity Reaction Status Date / Time coconut Allergy Unknown Redness of Verified 11/30/19 12:07 Skin No Known Drug Allergies Allergy Verified 11/30/19 12:07 Home Medications Home Medications Medication Instructions Recorded Confirmed Type cholecalciferol (vitamin D3) 75 1,000 units PO QAM 04/22/18 11/30/19 History mcg (3,000 unit) tablet magnesium oxide 250 mg PO QAM tab 04/22/18 11/30/19 History milk thistle 150 mg capsule 150 mg PO QAM cap 04/22/18 11/30/19 History duloxetine 60 mg capsule,delayed 60 mg PO QAM 04/23/18 11/30/19 History release Medical Marijuana 1 dose INHALATION PM PRN 06/04/18 11/30/19 History multivitamin 1 tab PO QAM 06/04/18 11/30/19 History duloxetine 30 mg PO QAM #30 cap 10/26/18 11/30/19 Rx lutein 20 mg PO QAM 11/19/18 11/30/19 History acetaminophen [Tylenol] 325 mg PO QAM 11/14/19 11/30/19 History alprazolam 0.25 mg PO BID PRN 11/14/19 11/30/19 History amitriptyline 25 mg PO HS PRN 11/14/19 11/30/19 History ibuprofen 600 mg PO Q6H PRN 11/14/19 11/30/19 History vitamin E 200 unit PO QAM 11/14/19 11/30/19 History amlodipine 1 tab PO DAILY 11/18/19 11/30/19 History oxycodone 5 mg PO Q6H PRN #20 tab 12/01/19 Rx tramadol 50 mg PO Q6H PRN #20 tab 12/01/19 Rx Patient History Family History Mother Emphysema lung Brother Diabetes Social History Smoking Status: Former smoker Smoking End Date: QUIT 15 YRS AGO; Second Hand Exposure: Yes ( KID); Do You Dip or Chew Tobacco: No; Tobacco Cessation Education Requested by Patient: No Hx Alcohol Use: Yes Alcohol type: wine Hx Substance Use: Yes Last Used Substance: Days (ago) Substance Use Type Other:: MEDICAL MARIJUANA- VAPE AT HS Preferred Language: Lebanese Communication Ability: Effective Client Service Executive Required: No Beliefs That Will Affect Care: None marital status: / Current Living Situation: Alone Other Information That Helps Us Care for You: No Feels Safe at Home: Yes Safety Concerns: Feels Safe At This Time Review of Systems Constitutional: no fever, no chills and no body aches Cardiovascular: no chest pain, no palpitations and no lightheadedness Gastrointestinal: no abdominal pain, no nausea and no vomiting Genitourinary: no dysuria and no urinary hesitancy Musculoskeletal: no back pain and no neck pain Integumentary: no rash Neurologic: no numbness Physical Exam Physical Exam: General: no distress Eyes: normal inspection, PERLL Respiratory: chest non tender, clear to auscultation, normal breath sounds, no respiratory distress, no accessory muscle use Cardiac: regular rate and rhythm, no rub or gallop, no murmur, no edema, no jvd GI/: active bowel sounds, no abd pain or tenderness, soft, non distended Extremities: normal range of motion, normal strength, non tender Neuro/Psych: alert and oriented x 3, normal mood and affect Skin: normal color, dry Results & Data Results & Data ([facility]) Vital Signs (Past 12 Hours) Vital Signs Temp Pulse Resp BP BP Pulse Ox 12/01/19 12:00 37.5 C 67 16 132/79 93 12/01/19 07:27 37 C 79 16 109/68 93 12/01/19 03:15 37.2 C 72 16 98/58 L 93 PG Care Time/CCT Total # of Minutes Spent Total Time Spent with Patient: Total time spent is greater than 50% in coordination of care (as documented) at patient's floor/unit and/or counseling patient: Coding Level of Care Code 07412 Inpt Consult Level 4 Diagnoses Neurogenic claudication due to lumbar spinal stenosis M48.062 Substance abuse F19.10 Depression F32.9 Hypertension I10 Acute blood loss anemia D62 Thrombocytosis D47.3
[2019-12-01] MEDS ORDERED: COUGH DROP (SUGAR FREE) LOZ 24 LOZ/1 BOX BUCCAL PRN (19:21)
[2019-12-01] MEDS: DOCUSATE SODIUM/SENNA 50/8.6MG TAB PO SCH (20:19)
[2019-12-01] MEDS: AMITRIPTYLINE HCL 25 MG TAB PO PRN (23:59)
[2019-12-02] MEDS: ACETAMINOPHEN 500 MG TAB PO PRN (06:29)
[2019-12-02] MEDS: POLYETHYLENE (MIRALAX) 17 GM PACK PO SCH ×4 (06:29→18:29)
[2019-12-02] MEDS: DEXAMETHASONE SOD PHOSPHATE 8 MG in SYRINGE 0 ML IV SCH (08:40)
[2019-12-02] MEDS: CHOLECALCIFEROL 1,000 UNITS 25 MCG TAB PO SCH (08:41)
[2019-12-02] MEDS: AMLODIPINE BESYLATE 5 MG TAB PO SCH (08:41)
[2019-12-02] MEDS: DULOXETINE HCL 60 MG CAP PO SCH (08:43)
[2019-12-02] MEDS: DULOXETINE HCL 30 MG CAP PO SCH (08:43)
[2019-12-02] MEDS: MULTIVITAMIN TAB PO SCH (08:44)
[2019-12-02] MEDS: MAGNESIUM OXIDE 400 MG TAB PO SCH (08:44)
[2019-12-02] MEDS: HYDROmorphone INJ 1 MG/ML SYRINGE IV PRN (09:28)
--- NOTE | 2019-12-02 10:37 | Orthopedic Progress Note ---
Date of Service December 02, 2019 Assessment & Plan (1) Neurogenic claudication due to lumbar spinal stenosis: This we will continue physical therapy monitor her MATIAS output possible discharge home tomorrow. Present on Admission?: Yes Admission and Anticipated Discharge Date Admission Date: November 30, 2019 Subjective Back pain controlled leg pain markedly improved. Physical Exam Physical Exam: Patient is good strength testing. She is sitting in the chair at the bedside. Results & Data ([facility]) Vital Signs (Past 12 Hours) Vital Signs Temp Pulse Resp BP BP Pulse Ox 12/02/19 08:49 67 145/78 H 12/02/19 07:00 37.0 C 78 14 113/69 95 12/01/19 23:46 37.1 C 72 14 132/77 93
[2019-12-02] MEDS ORDERED: OXYCODONE HCL IR 5 MG TAB (IMMEDIATE RELEASE) PO PRN (17:17)
[2019-12-02] MEDS: OXYCODONE HCL IR 5 MG TAB (IMMEDIATE RELEASE) PO PRN (19:41)
[2019-12-02] MEDS: DOCUSATE SODIUM/SENNA 50/8.6MG TAB PO SCH (21:21)
[2019-12-02] MEDS: AMITRIPTYLINE HCL 25 MG TAB PO PRN (23:50)
[2019-12-02 23:59] VITALS: TEMP 97.9
[2019-12-03] MEDS: POLYETHYLENE (MIRALAX) 17 GM PACK PO SCH ×3 (00:05→13:45)
[2019-12-03] MEDS: ACETAMINOPHEN 500 MG TAB PO PRN (08:22)
[2019-12-03 08:49] VITALS: O2SAT 96
[2019-12-03] MEDS: OXYCODONE HCL IR 5 MG TAB (IMMEDIATE RELEASE) PO PRN (09:25)
[2019-12-03] MEDS: DULOXETINE HCL 30 MG CAP PO SCH (09:26)
[2019-12-03] MEDS: DULOXETINE HCL 60 MG CAP PO SCH (09:26)
[2019-12-03] MEDS: MAGNESIUM OXIDE 400 MG TAB PO SCH (09:27)
[2019-12-03] MEDS: MULTIVITAMIN TAB PO SCH (09:27)
[2019-12-03] MEDS: AMLODIPINE BESYLATE 5 MG TAB PO SCH (09:28)
[2019-12-03] MEDS: CHOLECALCIFEROL 1,000 UNITS 25 MCG TAB PO SCH (09:28)
[2019-12-03] MEDS: DEXAMETHASONE SOD PHOSPHATE 8 MG in SYRINGE 0 ML IV SCH (10:19)
[2019-12-03 14:05] VITALS: BP 101/62; PULSE 74
--- NOTE | 2019-12-08 07:49 | Discharge Summary ---
Date of Service December 08, 2019 Admission HPI Per Admitting Provider This is a 74-year-old female presents with worsening chronic persistent back and leg pain. Failing extensive course of nonoperative care is here for surgical intervention. Principal Diagnosis Lumbar spinal stenosis with radiculopathy Discharge Data Allergies Allergy/AdvReac Type Severity Reaction Status Date / Time coconut Allergy Unknown Redness of Verified 11/30/19 12:07 Skin No Known Drug Allergies Allergy Verified 11/30/19 12:07 Consultations 11/30/19 18:08 Consult Case Management - Discharge Planning Routine Consult Hospitalist Routine Procedures Performed Operation Date: 11/30/19 12:55 Actual Procedures p L2-L4 Decompression and Fusion, Bone Morphogenetic Protein, Spinal Cord Monitoring(Not Applicable) - Bacilio Wilson DO s L4-S1 Hardware Removal,(Not Applicable) - Bacilio Wilson DO Ordered Studies 11/30/19 12:55 FL fluoroscopy <1hr Routine FL lumbar spine 2-3V Routine Hospital Course (1) Neurogenic claudication due to lumbar spinal stenosis: Patient underwent lumbar decompression fusion tolerated well was taken to the orthopedic floor postoperatively postop day #1 she was up and ambulating progressed to postop day #2 and 3 MATIAS drain decreasing probably. Bowels working well where pain well controlled. Subsequently discharged home with home health. Discharge orders and instructions from the chart for further review. Total Time Total Time Spent Total Time Spent (In Minutes): 20 minutes Discharge Plan Discharge Items Patient Disposition: Home - Home Health Services Reason For Visit: Spinal Stenosis Lumbar Region without Neurogenic C Discharge Diagnosis: Lumbar spinal stenosis with neurogenic claudication Activity: As commented below Non-emergency contact: Primary Care Provider Call non-emergency contact if: you have any medication questions Follow-up/Referrals: Tal Duron MD [Primary Care Provider] - Diet: Regular Addtl Attending Provider Instructions: ACTIVITY RECOMMENDATIONS: SELF CARE INSTRUCTIONS AFTER THORACIC/LUMBAR FUSIONS 1. You may walk to your tolerance. It is good exercise for your legs and back. Expect some back and intermittent leg aches and pains. 2. You may perform "counter-top" level activities (make a sandwich, jarett with a project, etc.). 3. No bending or lifting of more than 10 pounds or back twisting of any nature (roll like a log when turning in bed). 4. You may ride in a car for 20-30 minutes at a time. No driving until after your first visit with your doctor. 5. Frequent changes of position and restricting sitting to 30 minutes at a time will help limit the amount of back spasms and stiffness you may experience. 6. You may discontinue the use of ambulatory aids (cane, crutches, etc.) once your strength and confidence allow. 7. You may financial service representative the shower and let water strike your incision when you arrive home at least once daily. Do not take a tub bath, sit in a hot tub or go into a swimming pool until after your first recheck in the office. SPECIAL CARE INSTRUCTIONS: VERY IMPORTANT TO READ AND REVIEW A. Your surgical incision has been closed with a cosmetic suture under the skin that will dissolve in about 6 weeks. In 14 days, you can use a pair of clean scissors and cut the suture that is left outside of the skin at the ends of your incision. 1. The small skin tapes can be removed 7 days after surgery if they have not fallen off by that point. 2. You may keep the wound open to air as much as possible to promote healing after post-op day number 5 unless told otherwise by your doctor. 3. If you think the wound looks like it is becoming infected (redness or worsening drainage) and/or you are experiencing fever, chill or worsening back pain and muscle spasms, contact the office so that we may evaluate you as soon as possible. B. Complications are uncommon, but please contact us if you have any signs or symptoms of: 1. wound infection (fever higher than 102.5 degrees F, redness, separation of wound, drainage, or increasing pain from the incision) 2. blood clots in legs (pain, swelling, redness and warmth in legs) 3. urinary tract infection (fever higher than 102.5 degrees F, burning upon urination or increased frequency of urination) 4. nerve problems (inability to walk on your toes or heels, numbness, loss of bowel or bladder control) 5. any other symptoms that concern you C. Please call the office at if you have any concerns or questions about your operation or recovery. D. No smoking! Smoking drastically decreases the chance of a solid fusion. E. Do not take any anti-inflammatory medications (Indocin, Advil, Motrin, Aspirin, Naprosyn, etc.) as these may inhibit the chance of a solid fusion. Tylenol is okay to take for pain. MANAGING PAIN AFTER SPINAL SURGERY 1. Narcotic medication is intended for short-term use and will be provided for surgical pain. Surgical pain usually lasts for a period of 4-6 weeks. Narcotic medication includes Percocet, Vicodin, Darvocet, Tylenol #3 or Lortab. 2. Longer-term pain is more appropriately treated with non-narcotic medication such as Tylenol ES. 3. Muscle spasm is not appropriately treated with narcotics. Muscle relaxers such as Soma, Flexeril or Skelaxin can be used along with Tylenol ES. 4. Remember that we all live with some "aches and pains". This is not unusual or uncommon after an injury or as we get older. a. Back pain is expected and may include muscle spasms for 4 to 6 weeks after surgery. The pain should gradually improve. If the pain worsens for no apparent reason, please contact the office. b. Intermittent leg pain may also be experienced and should not be concerned about unless it worsens for no apparent reason. If so, please contact the office. 5. We will provide appropriate medication within the normal guidelines of their prescribed use. We will also be very cautious and aware of potential abuse and extended duration of patients' medication needs. a. Pain medications are for your comfort and to assist with sleep and rest so that the tissue can heal. They are not provided in order to return to normal activity and should not be used through the day. To do so or worsening pain at night can result from ongoing tissue damage and development of tolerance to the prescribed medicine. 6. Please allow 2-3 days to process refills. Prescriptions will not be mailed but must be picked up at the office. FOLLOW UP VISIT: Keep your scheduled follow-up appointment. Any questions, please call the office at . Pending Studies at Discharge: No Stand-Alone Forms: [facility], Opioid Pain Management, Smoking Cessation Medications and DC Order Prescriptions: New tramadol 50 mg tablet 50 mg PO Q6H PRN (Reason: pain, moderate) Qty: 20 RF: 0 oxycodone 5 mg tablet 5 mg PO Q6H PRN (Reason: pain, severe) Qty: 20 RF: 0 Continued milk thistle 150 mg capsule 150 mg PO QAM RF: 0 magnesium oxide 250 mg magnesium tablet 250 mg PO QAM RF: 0 cholecalciferol (vitamin D3) 3,000 unit tablet 1,000 units PO QAM RF: 0 duloxetine 60 mg capsule,delayed release(DR/EC) 60 mg PO QAM RF: 0 Medical Marijuana 1 dose Inhalation PM PRN (Reason: Pain) RF: 0 multivitamin Tablet 1 tab PO QAM RF: 0 duloxetine 30 mg Capsule,Delayed Release(Dr/Ec) 30 mg PO QAM Qty: 30 RF: 0 lutein 20 mg Capsule 20 mg PO QAM RF: 0 acetaminophen [Tylenol] 325 mg Tablet 325 mg PO QAM RF: 0 vitamin E 200 unit Capsule 200 unit PO QAM RF: 0 alprazolam 0.25 mg Tablet 0.25 mg PO BID PRN (Reason: Anxiety) RF: 0 amitriptyline 25 mg Tablet 25 mg PO HS PRN (Reason: Sleep) RF: 0 amlodipine 1 tab PO DAILY RF: 0 Discontinued ibuprofen 600 mg Tablet 600 mg PO Q6H PRN (Reason: Pain) RF: 0 Discharge Orders: Discharge Order (Routine); Ordered 12/03/19 Ordered By: Bacilio Wilson Admission Data Admit Date/Time: 11/30/19 17:15 Attending Provider: Bacilio Wilson Admit Provider: Bacilio Wilson Primary Care Provider: Tal Duron Other Providers: Lambert Sargent [facility],Home Healthcare Other Interventions: Discharge Summary Assessment (RN) Last Done: 12/03/19 14:04
== END 2019-12-03 15:10 | disposition home health service (06) | DRG 460 ==
LOC: ASU 11:30 → 3E 17:15

== ENCOUNTER 2023-12-02 20:01 | Observation (INO) ==
[2023-12-02 20:48] LABS: Basophils # (auto) 0.07 K/uL (0.00-0.20); Basophils % (auto) 0.7 %; Hematocrit (blood only) 38.3 % (37.0-47.0); Hemoglobin 12.9 g/dl (12.0-16.0); Immature Granulocytes # (auto) 0.03 K/uL (0.01-0.20); Immature Granulocytes % (auto) 0.3 %; Lymphocytes # (auto) 3.46 K/uL (1.20-3.40); Lymphocytes % (auto) 35.4 %; Mean Corpuscular Hemoglobin 32.1 pg (25.0-34.0); Mean Corpuscular Hgb Conc 33.7 g/dL (32.0-36.0); Mean Corpuscular Volume 95.3 fL (80.0-100.0); Mean Platelet Volume 10.1 fL (9.4-12.4); Monocytes # (auto) 0.77 K/uL (0.11-0.59); Monocytes % (auto) 7.9 %; Neutrophils # (auto) 5.34 K/uL (1.40-6.50); Neutrophils % (auto) 54.7 %; Platelet Count 288 K/uL (130-400); RDW Coefficient of Variation 13.1 % (11.5-14.5); Red Blood Count 4.02 M/uL (4.20-5.40); White Blood Count 9.77 K/ul (4.8-10.8)
[2023-12-02 20:59] LABS: INR 0.9 (0.9-1.1); Prothrombin Time 10.2 Seconds (9.0-12.0)
[2023-12-02 21:06] LABS: Albumin Globulin Ratio 1.5 (0.9-2); Albumin Level 4.7 gm/dl (3.4-5.0); BUN Creatinine Ratio 20.7 (10-20); Bilirubin,Total 0.4 mg/dl (0.2-1.0); Calcium 10.5 mg/dl (8.6-10.3); Creatinine Clr Calc Pharmacy 50.4 ml/min; Est GFR (African American) 80.6 ml/min; Est GFR (Non-African American) 69.5 ml/min; Globulin 3.2 gm/dl (2.5-4.0); Potassium 4.4 mmol/L (3.5-5.1); Total Protein 7.9 gm/dl (6.0-8.3)
[2023-12-02 21:12] LABS: Troponin I High Sensitivity 2.8 pg/ml (0-14)
[2023-12-02] MEDS: LIDOCAINE/EPINEPH/TETRACAINE 1 EA SYR EXT STA ×2 (21:34)
--- NOTE | 2023-12-02 22:36 | CT Scan Report ---
Exam(s): CT HEAD Without Contrast EXAM: CT Head Without Intravenous Contrast CLINICAL HISTORY: Reason for exam: Trauma. TECHNIQUE: Axial computed tomography images of the head/brain without intravenous contrast. CTDI is 36.31 mGy and DLP is 624.41 mGy-cm. Automated exposure control was utilized for the study. A dose lowering technique was utilized adhering to the principles of ALARA. COMPARISON: 02/15/2022 FINDINGS: Brain: No hemorrhage, extra-axial fluid collection, mass effect, or edema. Ventricles: Unremarkable. Bones/joints: Unremarkable. No fracture. Soft tissues: Superior scalp hematoma. Sinuses: No acute sinusitis. Mastoid air cells: Unremarkable as visualized. IMPRESSION: 1. No acute intracranial abnormality. 2. Scalp hematoma. Electronically signed by: Kenny Ramirez MD 12/02/23 22:35 PM
--- NOTE | 2023-12-02 22:38 | CT Scan Report ---
Exam(s): CT C SPINE EXAM: CT Cervical Spine Without Intravenous Contrast CLINICAL HISTORY: Reason for exam: Trauma. TECHNIQUE: Axial computed tomography images of the cervical spine without intravenous contrast. CTDI is 25.82 mGy and DLP is 487.69 mGy-cm. Automated exposure control was utilized for the study. A dose lowering technique was utilized adhering to the principles of ALARA. COMPARISON: 02/15/2022 FINDINGS: Vertebrae: No acute fracture. Stepwise anterolisthesis from C2-3 through C4-5. Trace retrolisthesis at C5-6. Degenerative disc disease most pronounced at C5-6 and C6-7. Soft tissues: Unremarkable. IMPRESSION: No acute abnormality within the cervical spine. Electronically signed by: Kenny Ramirez MD 12/02/23 22:37 PM
--- NOTE | 2023-12-02 22:43 | CT Scan Report ---
Exam(s): CT T SPINE EXAM: CT Thoracic Spine Without Intravenous Contrast CLINICAL HISTORY: Reason for exam: Trauma. TECHNIQUE: Axial computed tomography images of the thoracic spine without intravenous contrast. CTDI is 36.31 mGy and DLP is 2269.34 mGy-cm. Automated exposure control was utilized for the study. A dose lowering technique was utilized adhering to the principles of ALARA. COMPARISON: No relevant prior studies available. FINDINGS: Vertebrae: No acute fracture or malalignment within the thoracic spine. Other bones/joints: Acute fracture of the left posterior fifth rib. A few additional chronic fracture deformities within the posterior ribs on the left. Soft tissues: Unremarkable. Lungs: Unremarkable appearance of the lungs. Tubes, lines and devices: Spinal stimulator within the lower thoracic spinal canal. IMPRESSION: 1. No acute fracture or malalignment within the thoracic spine. 2. Acute fracture of the left posterior fifth rib. Electronically signed by: Kenny Ramirez MD 12/02/23 22:42 PM
--- NOTE | 2023-12-02 22:48 | CT Scan Report ---
Exam(s): CT L SPINE EXAM: CT Lumbar Spine Without Intravenous Contrast CLINICAL HISTORY: Reason for exam: Trauma. TECHNIQUE: Axial computed tomography images of the lumbar spine without intravenous contrast. CTDI is 36.31 mGy and DLP is 2269.34 mGy-cm. Automated exposure control was utilized for the study. A dose lowering technique was utilized adhering to the principles of ALARA. COMPARISON: No relevant prior studies available. FINDINGS: Osteopenia. No visualized fracture. L2-S1 pedicle screw and regino construct is intact. Postsurgical changes at the left SI joint. No visualized sacral fracture. Grade 1 anterolisthesis at L4-5. Multilevel degenerative disc disease most pronounced at L1-2 where there is a disc osteophyte causing moderate canal stenosis. Multilevel laminectomy. No evidence of infection. Partially imaged hematoma in the left posterior flank lateral to the paraspinous musculature measuring approximately 7 x 3 x 5 cm. IMPRESSION: 1. No acute fracture within the lumbar spine. 2. Hematoma in the left posterior flank measuring approximately 7 x 3 x 5 cm. Electronically signed by: Kenny Ramirez MD 12/02/23 22:47 PM
--- NOTE | 2023-12-02 22:52 | CT Scan Report ---
Exam(s): CT CHEST Without Contrast EXAM: CT Chest Without Intravenous Contrast CLINICAL HISTORY: Reason for exam: Trauma. TECHNIQUE: Axial computed tomography images of the chest without intravenous contrast. CTDI is 35.74 mGy and DLP is 919.24 mGy-cm. Automated exposure control was utilized for the study. A dose lowering technique was utilized adhering to the principles of ALARA. COMPARISON: No relevant prior studies available. FINDINGS: Lungs: No pulmonary contusion or laceration. Atelectasis within the lower lobes. Pleural space: No pleural effusion or pneumothorax. Heart: Heart size is normal. Bulky mitral annular calcifications. Bones/joints: Acute left fourth and fifth rib fractures laterally. There is also a fracture of the posterior left fifth rib at the costovertebral junction. Multiple additional chronic appearing fracture deformities within the left sided ribs. Soft tissues: Unremarkable. Vasculature: Unremarkable. Lymph nodes: Unremarkable. IMPRESSION: Left fourth and fifth rib fractures. Electronically signed by: Kenny Ramirez MD 12/02/23 22:51 PM
--- NOTE | 2023-12-02 23:20 | Emergency Department Note ---
Impression & Plan Fall, CHI (closed head injury), Laceration of scalp, Laceration of left lower extremity, Hematoma of left flank, Left rib fracture ED Provider Note NAME: CATHERINE MAIER AGE: 78 SEX: Female INFORMANT: Patient ED PROVIDER(S): Girma Young MD CHIEF COMPLAINT: Fall PLAN: Disposition: Admitted Outpatient prescription management: none Referral: None MEDICAL DECISION MAKING: Patient presented because of a fall. She was made a trauma alert. Patient had primary and secondary surveys performed. She had a laceration to the left scalp. She also had a laceration to the left lower extremity. Patient does have chronic back pain and notes to be at her baseline. She describes a fall was accidental. GCS of 15. Patient had benign chest and abdominal examination. Patient underwent CT imaging. CT head did not reveal any acute intracranial abnormality. Degenerative changes noted in C-spine without acute fracture. No acute thoracic spine fracture. Patient appears to have acute left fourth and fifth rib fractures. Small left flank hematoma noted on CT however the patient has no physical findings on initial examination or on reexamination of any pain or ecchymosis in the left flank. Patient CBC, chemistry panel, LFTs and troponin negative. Urinalysis revealed no hematuria. Ambulatory trial was done. Patient was somewhat unsteady. She has periods of dizziness. She and I discussed analgesia which she noted she has not had good success with in the past. She did request her evening amitriptyline. As the patient lives alone and is unsteady with her acute findings here tonight we discussed further management in the hospital. Patient is in agreement. Consultation was made with Dr. Beto Castellano of the [facility] service. Patient was evaluated in the ER for further management. Care/management discussed with: manager quality Level of care consideration(s): After review of the information above and other included data, I feel the patient requires escalation of care to admission Triage Nursing notes: reviewed and agree them. Vital Signs: reviewed and remarkable for mild hypertension Additional History obtained from: none Chronic Medical/Social Conditions affecting care: Chronic back pain, spinal stimulator Prior/ Outside/ External records reviewed: none Differential Diagnosis: Fracture, dislocation, contusion, intra-abdominal, pneumothorax, intrathoracic, intracranial, neurologic, compartment syndrome, rhabdomyolysis, as well as other pathologies. Diagnostics, independently interpreted by me: ECG: Twelve-lead ECG was sinus rhythm with PACs at [address] abnormality. Cardiac Monitoring: Cardiac monitoring ordered by me: The patient was placed on continuous cardiac monitoring and observed. It revealed a normal sinus rhythm at at 70 bpm. Medical decision rules: none Imaging studies: Head CT: A noncontrast CT scan of the head was performed and was negative for tumor, fracture, intracranial hemorrhage, or other acute pathology. CT imaging of the chest reveals no pneumothorax. Left fourth and fifth rib fracture noted. X-ray imaging of the left tibia and fibula are negative for acute fracture or dislocation. HPI: 78 year old Female arrives for evaluation of trauma. Patient reportedly fell down about 8 steps. She states that this was accidental. She was attempting to carry something up the steps and lost her balance. She suffered an impact to the left side of the scalp with an associated laceration and bleeding. She has not had bleeding from the laceration of the left medial calf. Patient noted some left-sided rib discomfort but actually notes that it was there prior to the fall. She denied any prior trauma or heavy coughing. Patient notes having a spinal cord stimulator and having a spinal fusion done in the past. She currently rates her pain as a 3 out of 10. Tetanus is up-to-date. Pt denies LOC, visual changes, neck pain, anterior or right sided chest pain, breathing difficulties, nausea, vomiting, abdominal pain, new or different back pain, upper or right lower extremity pain, numbness, weakness, open wounds, active bleeding, or other complaints.. PAST MEDICAL HISTORY: See Below, chronic low back pain PAST SURGICAL HISTORY: See Below, spinal fusion SOCIAL HISTORY: See Below, lives alone HOME MEDICATIONS: See Below ALLERGIES: See Below VITALS: See Below PHYSICAL EXAMINATION: GENERAL: Awake, alert, uncomfortable appearing, no distress HEAD: Normocephalic, left-sided scalp laceration present. No rae sign. No raccoon eyes. EYES: Normal conjunctiva. PERRL. EARS: External ears normal. Right TM normal. Left TM normal. NOSE: Atraumatic OROPHARYNX: Lips, tongue, and mucosa unremarkable. No erythema or exudate. NECK: Cervical collar in place. Inspection normal. No tracheal deviation or JVD. No posterior midline tenderness. No step offs noted. RESPIRATORY: CTA bilaterally. Breath sounds equal. No wheezes. No rhonchi. Normal respiratory effort. CARDIAC: Regular rate, normal rhythm. No murmurs. No rubs. ABDOMEN: Inspection reveals no abnormalities. Soft, non distended. No tenderness to palpation. No hernias. BACK: No midline step offs or tenderness to palpation. Unremarkable. PELVIS: Stable to rock. SKIN: Normal. LYMPH: No adenopathy. MUSCULOSKELETAL: Both upper and right lower extremities are atraumatic except for a small bruise and abrasion on the left elbow. No bony tenderness or limited joint ROM of the upper and right lower extremity. No bony deformity or tenderness of the left lower extremity except in the area of a laceration in the mid medial merchant. NEURO: GCS 15. Normal sensorium. No sensory or motor deficits noted. PROCEDURES: Laceration repair is done by Jude Putnam PA-C. CRITICAL CARE: none OBSERVATION NOTE: none Past Med/Surg History Problem List (Updated 12/02/23 @ 23:20 by Girma Young MD) Left rib fracture (Acute) Hematoma of left flank (Acute) Laceration of left lower extremity (Acute) Laceration of scalp (Acute) CHI (closed head injury) (Acute) Fall (Acute) Osteoarthritis of right hip Greater trochanteric bursitis of left hip Postlaminectomy syndrome of lumbosacral region Sacroiliitis Vitreous opacities of right eye 11/12/20 Thrombocytosis 12/01/19 Acute blood loss anemia 12/01/19 Borderline personality disorder per records Hypotension Depression Substance abuse 10/26/18 Acute dehydration 11/16/19 Encounter for pre-operative examination History of total knee replacement Right (2015) Degenerative disc disease Chronic back pain Osteoarthritis History of colonoscopy History of cataract surgery BILAT History of tooth extraction History of tonsillectomy Ocular hypertension 11/16/19 Anxiety Mitral valve prolapse Remote history per pt, no recent echo Hypertension Degenerative joint disease of right knee Medical History (Updated 12/02/23 @ 23:20 by Girma Yonug MD) Difficult intravenous access Postlaminectomy syndrome of lumbosacral region Chronic back pain Neurostimulator device in situ 05/13/23, placed; advised to bring remote to all appts. Hx of mitral valve prolapse no cardio., no current issues History of anemia remote hx Hypertension controlled, stable per pt Medical marijuana use Pinched nerve in right hand Mass of left ovary resolved issue Depression h/o suicide attempt in 2019, denies SI or HI Lumbar stenosis with neurogenic claudication Severe at L4-5 Moderate to severe at L5-S1 Surgical History Hx of surgical fusion joint 2020 or 2021, SI joint, "unsure which side" History of total right knee replacement Hx of tooth extraction Hx of tonsillectomy Hx of bilateral cataract extraction Hx of vitrectomy S/P insertion of brain-responsive neurostimulation device Hx of colonoscopy Fusion of spine x2: 2019, L4-S1 decompression/fusion: Grade 1 view, MAC#3, ETT 7.0 at [facility] 2020, L2-L4 decompression and fusion, hardware removal L4-S1 History of dilatation and curettage Family History Mother Emphysema lung Brother Diabetes Other No family history of adverse response to anesthesia Social History Smoking Status: Never smoker Second Hand Exposure: Yes (hx); Do You Dip or Chew Tobacco: No; Hx Alcohol Use: Yes Alcohol type: wine Hx Substance Use: Yes (medical card-advised) Last Used Substance: Days (ago) Last Used Substance Other:: daily use Substance Use Type Other:: MEDICAL MARIJUANA- VAPE AT Preferred Language: Lebanese Communication Ability: Effective 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 [employer] Required: No Beliefs That Will Affect Care: None marital status: / Current Living Situation: Alone Feels Safe at Home: Yes Assistive Devices: Glasses and Walker Allergies Allergies Allergy/AdvReac Type Severity Reaction Status Date / Time pollen extracts Allergy Intermediate ITCHY Verified 12/02/23 21:51 EYES, SNEEZING coconut Allergy Mild Redness of Verified 12/02/23 21:51 Skin Home Meds Home Medications Medication Instructions Recorded Confirmed cholecalciferol (vitamin D3) 75 2,000 units PO QAM 04/22/18 12/02/23 mcg (3,000 unit) tablet magnesium oxide 250 mg PO QAM 04/22/18 12/02/23 milk thistle 150 mg capsule 150 mg PO QAM 04/22/18 12/02/23 duloxetine 60 mg capsule,delayed 60 mg PO QAM 04/23/18 12/02/23 release multivitamin 1 tab PO QAM 06/04/18 12/02/23 lutein 20 mg capsule 20 mg PO QAM 11/19/18 12/02/23 amitriptyline 25 mg tablet 12.5 - 25 mg PO HS Sleep 11/14/19 12/02/23 amlodipine 5 mg tablet 5 mg PO QAM 11/02/20 12/02/23 denosumab 60 mg/mL subcutaneous 60 mg subcut .q 6 months 05/02/22 12/02/23 syringe (Prolia) ibuprofen 600 mg tablet 600 mg PO Q8H PRN Pain 07/09/22 12/02/23 amitriptyline 10 mg tablet 10 mg PO DIRECTED Sleep 10/27/23 12/02/23 amoxicillin 500 mg capsule 2,000 mg PO DIRECTED PRN 1 HR 12/02/23 12/02/23 PRIOR TO DENTAL PROCEDURES Previous Rx's Medication Instructions Recorded duloxetine 30 mg capsule,delayed 30 mg PO QAM #30 caps 10/26/18 release Results & Data (ED) Vital Signs Vital Signs - 24 hr 12/02/23 20:14 12/02/23 20:30 12/02/23 20:33 Temperature 36.7 C Temperature Source Temporal Artery Scan Pulse Rate 84 67 Pulse Rate from SpO2 Sensor 68 Pulse Strength [Bilateral Femoral] Normal Respiratory Rate 18 18 Respiratory Effort / Characteristics Non-Labored Spontaneous Respiratory Depth Normal Blood Pressure 125/76 147/55 H Blood Pressure [Right Arm] Blood Pressure Mean 92 85 Blood Pressure Mean [Right Arm] Blood Pressure Position Sitting Pulse Oximetry 99 96 Oxygen Delivery Method Room Air Room Air Room Air Sepsis Recent Fever Within 48 Hours No Sepsis New/Unexplained Change in Mental Status No Sepsis Action Taken by Nursing No Action Required 12/02/23 20:43 12/02/23 20:51 12/02/23 21:05 Temperature Temperature Source Pulse Rate 73 Pulse Rate from SpO2 Sensor Pulse Strength [Bilateral Femoral] Respiratory Rate Respiratory Effort / Characteristics Respiratory Depth Blood Pressure Blood Pressure [Right Arm] 140/75 Blood Pressure Mean Blood Pressure Mean [Right Arm] 96 Blood Pressure Position Pulse Oximetry 97 Oxygen Delivery Method Room Air Sepsis Recent Fever Within 48 Hours Sepsis New/Unexplained Change in Mental Status Sepsis Action Taken by Nursing 12/02/23 21:30 12/02/23 22:00 12/02/23 22:31 Temperature Temperature Source Pulse Rate 69 72 72 Pulse Rate from SpO2 Sensor 74 Pulse Strength [Bilateral Femoral] Respiratory Rate 16 14 20 Respiratory Effort / Characteristics Respiratory Depth Blood Pressure 137/86 154/73 H Blood Pressure [Right Arm] Blood Pressure Mean 103 100 Blood Pressure Mean [Right Arm] Blood Pressure Position Pulse Oximetry 95 97 96 Oxygen Delivery Method Room Air Room Air Room Air Sepsis Recent Fever Within 48 Hours Sepsis New/Unexplained Change in Mental Status Sepsis Action Taken by Nursing 12/02/23 22:36 12/02/23 23:00 12/03/23 00:26 Temperature Temperature Source Pulse Rate 72 77 72 Pulse Rate from SpO2 Sensor 69 Pulse Strength [Bilateral Femoral] Respiratory Rate 21 17 Respiratory Effort / Characteristics Respiratory Depth Blood Pressure 129/88 Blood Pressure [Right Arm] Blood Pressure Mean 101 Blood Pressure Mean [Right Arm] Blood Pressure Position Pulse Oximetry 96 95 Oxygen Delivery Method Room Air Room Air Sepsis Recent Fever Within 48 Hours Sepsis New/Unexplained Change in Mental Status Sepsis Action Taken by Nursing 12/03/23 00:31 Temperature Temperature Source Pulse Rate 70 Pulse Rate from SpO2 Sensor Pulse Strength [Bilateral Femoral] Respiratory Rate 20 Respiratory Effort / Characteristics Respiratory Depth Blood Pressure 154/85 H Blood Pressure [Right Arm] Blood Pressure Mean 120 Blood Pressure Mean [Right Arm] Blood Pressure Position Pulse Oximetry Oxygen Delivery Method Sepsis Recent Fever Within 48 Hours Sepsis New/Unexplained Change in Mental Status Sepsis Action Taken by Nursing Laboratory Data 12/02/23 20:33 12/02/23 20:33 Lab Results 12/02/23 12/02/23 Range/Units 20:33 23:20 WBC 9.77 (4.8-10.8) K/ul RBC 4.02 L (4.20-5.40) M/uL Hgb 12.9 (12.0-16.0) g/dl Hct 38.3 (37.0-47.0) % MCV 95.3 (80.0-100.0) fL MCH 32.1 (25.0-34.0) pg MCHC 33.7 (32.0-36.0) g/dL RDW Std Deviation 46.0 (36.4-46.3) fL RDW Coeff of Korey 13.1 (11.5-14.5) % Plt Count 288 (130-400) K/uL MPV 10.1 (9.4-12.4) fL Immature Gran % (Auto) 0.3 % Neut % (Auto) 54.7 % Lymph % (Auto) 35.4 % [place] % (Auto) 7.9 % Eos % (Auto) 1.0 % Baso % (Auto) 0.7 % Neut # (Auto) 5.34 (1.40-6.50) K/uL Lymph # (Auto) 3.46 H (1.20-3.40) K/uL [place] # (Auto) 0.77 H (0.11-0.59) K/uL Eos # (Auto) 0.10 (0.00-0.50) K/uL Baso # (Auto) 0.07 (0.00-0.20) K/uL Immature Gran # (Auto) 0.03 (0.01-0.20) K/uL PT 10.2 (9.0-12.0) Seconds INR 0.9 (0.9-1.1) Sodium 138 (136-145) mmol/L Potassium 4.4 (3.5-5.1) mmol/L Chloride 102 (98-107) mmol/L Carbon Dioxide 26 (21-32) mmol/L Anion Gap 10 (3-11) BUN 17 (6-23) mg/dl Creatinine 0.82 (0.6-1.2) mg/dl Est Cr Clr Drug Dosing 50.4 ml/min Est GFR ( Amer) 80.6 ml/min Est GFR (Non-Af Amer) 69.5 ml/min BUN/Creatinine Ratio 20.7 H (10-20) Glucose 125 H (70-99(Fasting)) mg/dl Calcium 10.5 H (8.6-10.3) mg/dl Total Bilirubin 0.4 (0.2-1.0) mg/dl AST 22 (13-39) U/L ALT 15 (7-52) U/L Alkaline Phosphatase 49 (34-104) U/L Troponin I High Sens 2.8 (0-14) pg/ml Total Protein 7.9 (6.0-8.3) gm/dl Albumin 4.7 (3.4-5.0) gm/dl Globulin 3.2 (2.5-4.0) gm/dl Albumin/Globulin Ratio 1.5 (0.9-2) Urine Color Yellow Urine Appearance Clear (Clear) Urine pH 7.0 (4.5-7.5) Ur Specific Welches 1.014 (1.000-1.030) Urine Protein Negative (Negative) Urine Glucose (UA) Negative (Negative) Urine Ketones Negative (Negative) Urine Blood Negative (Negative) Urine Nitrite Negative (Negative) Urine Bilirubin Negative (Negative) Urine Urobilinogen Negative (Negative) Ur Leukocyte Esterase Trace H (Negative) Urine WBC (Auto) 0-5 (0-5) /hpf Urine RBC (Auto) 0-2 (0-2) /hpf U Hyaline Cast (Auto) 0-2 (0-2) /lpf U Epithel Cells (Auto) 0-2 (0-2) /hpf Urine Bacteria (Auto) None Seen (None Seen) Administered Medications Discontinued Medications Lidocaine (Lidocaine/Epineph/Tetracaine 1 Ea Syr) 1 each EXT NOW STA Stop: 12/02/23 20:37 Last Admin: 12/02/23 21:34 Dose: 1 each Documented By: Dieter Lidocaine (Lidocaine/Epineph/Tetracaine 1 Ea Syr) 1 each EXT NOW STA Stop: 12/02/23 20:37 Last Admin: 12/02/23 21:34 Dose: 1 each Documented By: [facility] Imaging Data Radiologist's Impression: Cervical Spine CT 12/02/23 20:37 Exam(s): CT C SPINE EXAM: CT Cervical Spine Without Intravenous Contrast CLINICAL HISTORY: Reason for exam: Trauma. TECHNIQUE: Axial computed tomography images of the cervical spine without intravenous contrast. CTDI is 25.82 mGy and DLP is 487.69 mGy-cm. Automated exposure control was utilized for the study. A dose lowering technique was utilized adhering to the principles of ALARA. COMPARISON: 02/15/2022 FINDINGS: Vertebrae: No acute fracture. Stepwise anterolisthesis from C2-3 through C4-5. Trace retrolisthesis at C5-6. Degenerative disc disease most pronounced at C5-6 and C6-7. Soft tissues: Unremarkable. IMPRESSION: No acute abnormality within the cervical spine. Electronically signed by: Kenny Ramirez MD 12/02/23 22:[address] 12/02/23 20:37 Exam(s): CT CHEST Without Contrast EXAM: CT Chest Without Intravenous Contrast CLINICAL HISTORY: Reason for exam: Trauma. TECHNIQUE: Axial computed tomography images of the chest without intravenous contrast. CTDI is 35.74 mGy and DLP is 919.24 mGy-cm. Automated exposure control was utilized for the study. A dose lowering technique was utilized adhering to the principles of ALARA. COMPARISON: No relevant prior studies available. FINDINGS: Lungs: No pulmonary contusion or laceration. Atelectasis within the lower lobes. Pleural space: No pleural effusion or pneumothorax. Heart: Heart size is normal. Bulky mitral annular calcifications. Bones/joints: Acute left fourth and fifth rib fractures laterally. There is also a fracture of the posterior left fifth rib at the costovertebral junction. Multiple additional chronic appearing fracture deformities within the left sided ribs. Soft tissues: Unremarkable. Vasculature: Unremarkable. Lymph nodes: Unremarkable. IMPRESSION: Left fourth and fifth rib fractures. Electronically signed by: Kenny Ramirez MD 12/02/23 22:[address] 12/02/23 20:37 Exam(s): CT HEAD Without Contrast EXAM: CT Head Without Intravenous Contrast CLINICAL HISTORY: Reason for exam: Trauma. TECHNIQUE: Axial computed tomography images of the head/brain without intravenous contrast. CTDI is 36.31 mGy and DLP is 624.41 mGy-cm. Automated exposure control was utilized for the study. A dose lowering technique was utilized adhering to the principles of ALARA. COMPARISON: 02/15/2022 FINDINGS: Brain: No hemorrhage, extra-axial fluid collection, mass effect, or edema. Ventricles: Unremarkable. Bones/joints: Unremarkable. No fracture. Soft tissues: Superior scalp hematoma. Sinuses: No acute sinusitis. Mastoid air cells: Unremarkable as visualized. IMPRESSION: 1. No acute intracranial abnormality. 2. Scalp hematoma. Electronically signed by: Kenny Ramirez MD 12/02/23 22:[address] 12/02/23 20:37 Exam(s): CT L SPINE EXAM: CT Lumbar Spine Without Intravenous Contrast CLINICAL HISTORY: Reason for exam: Trauma. TECHNIQUE: Axial computed tomography images of the lumbar spine without intravenous contrast. CTDI is 36.31 mGy and DLP is 2269.34 mGy-cm. Automated exposure control was utilized for the study. A dose lowering technique was utilized adhering to the principles of ALARA. COMPARISON: No relevant prior studies available. FINDINGS: Osteopenia. No visualized fracture. L2-S1 pedicle screw and regino construct is intact. Postsurgical changes at the left SI joint. No visualized sacral fracture. Grade 1 anterolisthesis at L4-5. Multilevel degenerative disc disease most pronounced at L1-2 where there is a disc osteophyte causing moderate canal stenosis. Multilevel laminectomy. No evidence of infection. Partially imaged hematoma in the left posterior flank lateral to the paraspinous musculature measuring approximately 7 x 3 x 5 cm. IMPRESSION: 1. No acute fracture within the lumbar spine. 2. Hematoma in the left posterior flank measuring approximately 7 x 3 x 5 cm. Electronically signed by: Kenny Ramirez MD 12/02/23 22:[address] 12/02/23 20:38 Exam(s): CT T SPINE EXAM: CT Thoracic Spine Without Intravenous Contrast CLINICAL HISTORY: Reason for exam: Trauma. TECHNIQUE: Axial computed tomography images of the thoracic spine without intravenous contrast. CTDI is 36.31 mGy and DLP is 2269.34 mGy-cm. Automated exposure control was utilized for the study. A dose lowering technique was utilized adhering to the principles of ALARA. COMPARISON: No relevant prior studies available. FINDINGS: Vertebrae: No acute fracture or malalignment within the thoracic spine. Other bones/joints: Acute fracture of the left posterior fifth rib. A few additional chronic fracture deformities within the posterior ribs on the left. Soft tissues: Unremarkable. Lungs: Unremarkable appearance of the lungs. Tubes, lines and devices: Spinal stimulator within the lower thoracic spinal canal. IMPRESSION: 1. No acute fracture or malalignment within the thoracic spine. 2. Acute fracture of the left posterior fifth rib. Electronically signed by: Kenny Ramirez MD 12/02/23 22:42 PM Discharge Plan Visit Data Chief Complaint: Trauma Stated Complaint: LAC ON BACK OF HEAD, LAC ON LT LEG, FELL ED Provider: Girma Young Discharge Problem: Fall, CHI (closed head injury), Laceration of scalp, Laceration of left lower extremity, Hematoma of left flank, Left rib fracture Forms Stand Alone Forms: [employer] Prescriptions Prescriptions: No Action ibuprofen 600 mg tablet 600 mg PO Q8H PRN (Reason: Pain) milk thistle 150 mg capsule 150 mg PO QAM magnesium oxide 250 mg magnesium tablet 250 mg PO QAM cholecalciferol (vitamin D3) 3,000 unit tablet 2,000 units PO QAM duloxetine 60 mg capsule,delayed release(DR/EC) 60 mg PO QAM Rx Instructions: TOTAL DOSE 90 MG--TAKES WITH 30 MG CAP. Prolia 60 mg/mL syringe 60 mg subcut .q 6 months multivitamin Tablet 1 tab PO QAM duloxetine 30 mg Capsule,Delayed Release(Dr/Ec) 30 mg PO QAM Qty: 30 0RF Rx Instructions: TOTAL DOSE 90 MG--TAKES WITH 60 MG CAP. lutein 20 mg Capsule 20 mg PO QAM amitriptyline 25 mg Tablet 12.5 - 25 mg PO HS Rx Instructions: PER PT "DOSE VARIES BETWEEN 12.5-35 MG QHS, DEPENDS ON WHAT I'M DOING THE NEXT DAY". amlodipine 5 mg Tablet 5 mg PO QAM amitriptyline 10 mg tablet 10 mg PO DIRECTED Rx Instructions: TAKE 10 MG DAILY IF NEEDED FOR PAIN, THEN ADDS 10 MG TO HS DOSE IF NEEDED FOR SLEEP. amoxicillin 500 mg capsule 2,000 mg PO DIRECTED PRN (Reason: 1 HR PRIOR TO DENTAL PROCEDURES) Referrals Referrals: Edgar Kat MD [Primary Care Provider] -
[2023-12-02 23:36] LABS: Appearance Urine Clear (Clear); Bacteria Urine Automated None Seen (None Seen); Bilirubin Urine Negative (Negative); Blood Urine Negative (Negative); Cast Urine Automated 0-2 /lpf (0-2); Color Urine Yellow; Epithelial Cell Urine Auto 0-2 /hpf (0-2); Glucose Urine UA Negative (Negative); Ketones Urine Negative (Negative); Leukocyte Esterase Urine Trace (Negative); Nitrite Urine Negative (Negative); Protein Urine Negative (Negative); RBC Urine Automated 0-2 /hpf (0-2); Specific Gravity Urine 1.014 (1.000-1.030); Urobilinogen Urine Negative (Negative); WBC Urine Automated 0-5 /hpf (0-5)
--- NOTE | 2023-12-03 00:47 | Emergency Department Note ---
ED Visit Note Patient was seen and evaluated by Dr. Young. I was present for wound repair of the patient's scalp as well as left lower extremity lacerations. Risks and benefits of performing primary wound closure versus no repair were discussed with the patient who verbalizes understanding. Verbal consent was obtained prior to performing the procedure. Laceration #1: Scalp, posterior lateral occipital region. Let gel was used to anesthetize the 2 cm laceration. The wound was cleansed and prepped in the typical sterile fashion utilizing normal saline and Betadine. The wound was sterilely draped. Once proper anesthetization was established, the wound was further examined and demonstrated no evidence of retained foreign body or skull injury. The wound was copiously irrigated with normal saline and dilute Betadine. The wound was closed using 6 reagan with the wound edges being well approximated. Patient tolerated the procedure well. No complications were met. The wound was cleansed and dressed with bacitracin. --The lacerations below are all located on the left lower leg and are in close proximity. Laceration #2: Let gel was used to anesthetize the left anterior pretibial soft tissue laceration. Length is 4 cm. The wound was cleansed and prepped in the typical sterile fashion utilizing normal saline and Betadine. The wound was s terilely draped. Once proper anesthetization was established, the wound was further examined and demonstrated a small defect noted to the muscle just deep to the wound however muscle injury is quite minimal overall. The wound was copiously irrigated with normal saline and dilute Betadine. The wound was closed using 8, 4-0 nylon sutures with the wound edges being well approximated. Patient tolerated the procedure well. No complications were met. Laceration #3: Let gel was used to anesthetize the left anterior pretibial soft tissue laceration. Length is 1.25 cm. The wound was cleansed and prepped in the typical sterile fashion utilizing normal saline and Betadine. The wound was sterilely draped. Once proper anesthetization was established, the wound was further examined and demonstrated puncture type wound without evidence of retained foreign body. The wound was copiously irrigated with normal saline and dilute Betadine. The wound was closed using 2, 4-0 nylon sutures with the wound edges being well approximated. Patient tolerated the procedure well. No complications were met. Laceration #4: Let gel was used to anesthetize the left anterior pretibial soft tissue laceration. Length is 2 cm. The wound was cleansed and prepped in the typical sterile fashion utilizing normal saline and Betadine. The wound was sterilely draped. Once proper anesthetization was established, the wound was further examined and demonstrated no evidence of retained foreign body or deep structure injury. The wound was copiously irrigated with normal saline and dilute Betadine. The wound was closed using 4, 4-0 nylon sutures with the wound edges being well approximated. Patient tolerated the procedure well. No complications were met. -----The above 3 in close proximity lacerations were then covered with a Xeroform layer followed by bulky gauze. Total repaired length: 2+4+1.25+2 = 9.25 cm. Estimated blood loss: 3 mL. I thoroughly reviewed wound management with the patient. All questions regarding wound management was answered. Patient is to watch for signs of infection. She is to return with any sign of infection. Please refer to further documentation regarding her stay. .
[2023-12-03] MEDS: AMITRIPTYLINE HCL 25 MG TAB PO STA (02:21)
[2023-12-03] MEDS: cephALEXin 250 MG CAP PO ONE (02:21)
--- NOTE | 2023-12-03 02:30 | History & Physical Report ---
Date of Service December 03, 2023 Assessment & Plan (1) Postlaminectomy syndrome of lumbosacral region: (2) Laceration of scalp: (3) CHI (closed head injury): (4) Osteoarthritis of right hip: (5) Borderline personality disorder: (6) Anxiety: (7) Mitral valve prolapse: (8) Hypertension: (9) Depression: (10) Neurostimulator device in situ: (11) Multiple fractures of ribs of left side: Plan Trauma alert- Status post mechanical fall down to a flight of steps CT scan head shows a scalp hematoma CT scan cervical spine negative CT scan chest significant for left fourth and fifth rib fractures CT scan lumbar spine notes hematoma left posterior flank 7 x [address] scan thoracic spine shows left posterior fifth rib fracture Admit to PCU for monitoring Acute fractures left fourth and fifth ribs- Patient had a mechanical fall on steps due to losing balance when carrying heavy objects Admit to telemetry for pain control and monitoring of balance Acetaminophen 650 mg by mouth every 6 hours as needed for mild pain or fever Lidoderm patch applied to left fourth and fifth ribs, on and off for protocol Hypertension- Continue amlodipine with hold parameters Postlaminectomy syndrome- Avoiding pain medications due to potential upcoming right hip surgery Continue amitriptyline Right hip arthritis- Patient is scheduled to have a right hip arthroplasty by Dr. Hsu on 12/04/2023 His office will need to be notified of the patient's present injury status Anxiety/depression- Continue duloxetine and amitriptyline History of Present Illness Chief Complaint: The patient reports that she was caring too many objects at 1 time a set of stairs, and when she got to the eighth step, she lost her balance, and fell backwards, striking the back of her head, and fell out immediate left rib cage pain, flank pain, and left leg pain. Primary Care Provider: Edgar Kat MD The patient is a 78-year-old female with a past medical history including lumbosacral postlaminectomy syndrome, sacroiliitis, borderline personality disorder, depression, anxiety, mitral valve prolapse, hypertension, status post right TKA, and has an appointment for right hip arthroplasty on 12/04/2023. She reports that she was walking up a set of steps, when she got to the eighth step, she lost her balance due to carrying too many heavy objects, falling backward, and striking the back of her head, her left rib cage and left leg. Allergies Allergy/AdvReac Type Severity Reaction Status Date / Time pollen extracts Allergy Intermediate ITCHY Verified 12/02/23 21:51 EYES, SNEEZING coconut Allergy Mild Redness of Verified 12/02/23 21:51 Skin Home Medications Medication Instructions Recorded Confirmed Type cholecalciferol (vitamin D3) 75 2,000 units PO QAM 04/22/18 12/02/23 History mcg (3,000 unit) tablet magnesium oxide 250 mg PO QAM 04/22/18 12/02/23 History milk thistle 150 mg capsule 150 mg PO QAM 04/22/18 12/02/23 History duloxetine 60 mg capsule,delayed 60 mg PO QAM 04/23/18 12/02/23 History release multivitamin 1 tab PO QAM 06/04/18 12/02/23 History duloxetine 30 mg capsule,delayed 30 mg PO QAM #30 caps 10/26/18 12/02/23 Rx release lutein 20 mg capsule 20 mg PO QAM 11/19/18 12/02/23 History amitriptyline 25 mg tablet 12.5 - 25 mg PO HS Sleep 11/14/19 12/02/23 History amlodipine 5 mg tablet 5 mg PO QAM 11/02/20 12/02/23 History denosumab 60 mg/mL subcutaneous 60 mg subcut .q 6 months 05/02/22 12/02/23 History syringe (Prolia) ibuprofen 600 mg tablet 600 mg PO Q8H PRN Pain 07/09/22 12/02/23 History amitriptyline 10 mg tablet 10 mg PO DIRECTED Sleep 10/27/23 12/02/23 History amoxicillin 500 mg capsule 2,000 mg PO DIRECTED PRN 1 HR 12/02/23 12/02/23 History PRIOR TO DENTAL PROCEDURES Past Med/Surg History Problem List (Updated 12/03/23 @ 04:05 by Beto Castellano MD) Multiple fractures of ribs of left side Neurostimulator device in situ 05/13/23, placed; advised to bring remote to all appts. Left rib fracture (Acute) Hematoma of left flank (Acute) Laceration of left lower extremity (Acute) Laceration of scalp (Acute) CHI (closed head injury) (Acute) Fall (Acute) Osteoarthritis of right hip Greater trochanteric bursitis of left hip Postlaminectomy syndrome of lumbosacral region Sacroiliitis Vitreous opacities of right eye 11/12/20 Thrombocytosis 12/01/19 Acute blood loss anemia 12/01/19 Borderline personality disorder per records Hypotension Depression Substance abuse 10/26/18 Acute dehydration 11/16/19 Encounter for pre-operative examination History of total knee replacement Right (2015) Degenerative disc disease Chronic back pain Osteoarthritis History of colonoscopy History of cataract surgery BILAT History of tooth extraction History of tonsillectomy Ocular hypertension 11/16/19 Anxiety Mitral valve prolapse Remote history per pt, no recent echo Hypertension Degenerative joint disease of right knee Medical History (Updated 12/03/23 @ 04:05 by Beto Castellano MD) Difficult intravenous access Postlaminectomy syndrome of lumbosacral region Chronic back pain Hx of mitral valve prolapse no cardio., no current issues History of anemia remote hx Hypertension controlled, stable per pt Medical marijuana use Pinched nerve in right hand Mass of left ovary resolved issue Depression h/o suicide attempt in 2019, denies SI or HI Lumbar stenosis with neurogenic claudication Severe at L4-5 Moderate to severe at L5-S1 Surgical History Hx of surgical fusion joint 2020 or 2021, SI joint, "unsure which side" History of total right knee replacement Hx of tooth extraction Hx of tonsillectomy Hx of bilateral cataract extraction Hx of vitrectomy S/P insertion of brain-responsive neurostimulation device Hx of colonoscopy Fusion of spine x2: 2019, L4-S1 decompression/fusion: Grade 1 view, MAC#3, ETT 7.0 at [facility] 2020, L2-L4 decompression and fusion, hardware removal L4-S1 History of dilatation and curettage Family History Mother Emphysema lung Brother Diabetes Other No family history of adverse response to anesthesia Social History Smoking Status: Former smoker Second Hand Exposure: No; Do You Dip or Chew Tobacco: No; Hx Alcohol Use: Yes Alcohol type: wine Hx Substance Use: No Preferred Language: Nigerian Communication Ability: Effective Anodizer Required: No Beliefs That Will Affect Care: None marital status: / Current Living Situation: Alone Current Living Situation Comment: lives at home alone Feels Safe at Home: Yes Assistive Devices: Glasses Review of Systems Review of Systems: The patient denies chest pain, palpitations, shortness of breath, dyspnea on exertion, cough, lower extremity swelling, sore throat, fevers, chills, sweats, weight change, fatigue, nausea, vomiting, diarrhea , constipation, abdominal pain, pelvic pain, blood in urine or stool, dysuria, urinary frequency or urgency, memory loss, loss of consciousness, focal weakness, numbness or tingling in arms or legs, generalized arthralgias or myalgias, neck pain, or night sweats. The review of systems is otherwise negative other than for that already noted above, and at least 10 systems have been reviewed. Physical Exam Physical Exam: The patient is awake, alert and oriented 3, well developed and well nourished, lying in bed and in no acute distress. HEENT--PERRL, EOMI, mucous membranes and oropharynx dry. Left-sided scalp laceration Neck--supple. No JVD. No bruits. Thyroid normal, trachea midline, no matthew opathy. Heart--normal S1 and S2. No murmurs, rubs or gallops. Lungs--clear bilaterally, no respiratory distress, no accessory muscle use. Abdomen--normal bowel sounds and soft. Nontender. Nondistended, no hernias or masses, no organomegaly. Extremities--no cyanosis or clubbing. No edema. Dermatologic--small laceration left mid medial merchant. Small abrasion left elbow Neurologic--cranial nerves II through XII grossly intact. Rheumatologic--normal range of motion. Psychiatric--normal affect. Results & Data Results & Data Vital Signs (Past 12 Hours) Vital Signs Temp Pulse Resp BP BP Pulse Ox O2 Del Method 12/03/23 00:31 70 20 154/85 H 12/03/23 00:26 72 12/02/23 23:00 77 17 129/88 95 Room Air 12/02/23 22:36 72 21 96 Room Air 12/02/23 22:31 72 20 154/73 H 96 Room Air 12/02/23 22:00 72 14 137/86 97 Room Air 12/02/23 21:30 69 16 95 Room Air 12/02/23 21:05 140/75 12/02/23 20:51 73 12/02/23 20:43 97 Room Air 12/02/23 20:33 67 18 147/55 H 96 Room Air 12/02/23 20:30 Room Air 12/02/23 20:14 36.7 C 84 18 125/76 99 Room Air Laboratory Results Laboratory Results WBC 9.77 K/ul (4.8-10.8) 12/02/23 20:33 RBC 4.02 M/uL (4.20-5.40) L 12/02/23 20:33 Hgb 12.9 g/dl (12.0-16.0) 12/02/23 20:33 Hct 38.3 % (37.0-47.0) 12/02/23 20:33 MCV 95.3 fL (80.0-100.0) 12/02/23 20:33 MCH 32.1 pg (25.0-34.0) 12/02/23 20:33 MCHC 33.7 g/dL (32.0-36.0) 12/02/23 20:33 RDW Std Deviation 46.0 fL (36.4-46.3) 12/02/23 20:33 RDW Coeff of Korey 13.1 % (11.5-14.5) 12/02/23 20:33 Plt Count 288 K/uL (130-400) 12/02/23 20:33 MPV 10.1 fL (9.4-12.4) 12/02/23 20:33 Immature Gran % (Auto) 0.3 % 12/02/23 20:33 Neut % (Auto) 54.7 % 12/02/23 20:33 Lymph % (Auto) 35.4 % 12/02/23 20:33 [place] % (Auto) 7.9 % 12/02/23 20:33 Eos % (Auto) 1.0 % 12/02/23 20:33 Baso % (Auto) 0.7 % 12/02/23 20:33 Neut # (Auto) 5.34 K/uL (1.40-6.50) 12/02/23 20:33 Lymph # (Auto) 3.46 K/uL (1.20-3.40) H 12/02/23 20:33 [place] # (Auto) 0.77 K/uL (0.11-0.59) H 12/02/23 20:33 Eos # (Auto) 0.10 K/uL (0.00-0.50) 12/02/23 20:33 Baso # (Auto) 0.07 K/uL (0.00-0.20) 12/02/23 20:33 Immature Gran # (Auto) 0.03 K/uL (0.01-0.20) 12/02/23 20:33 PT 10.2 Seconds (9.0-12.0) 12/02/23 20:33 INR 0.9 (0.9-1.1) 12/02/23 20:33 Sodium 138 mmol/L (136-145) 12/02/23 20:33 Potassium 4.4 mmol/L (3.5-5.1) 12/02/23 20:33 Chloride 102 mmol/L (98-107) 12/02/23 20:33 Carbon Dioxide 26 mmol/L (21-32) 12/02/23 20:33 Anion Gap 10 (3-11) 12/02/23 20:33 BUN 17 mg/dl (6-23) 12/02/23 20:33 Creatinine 0.82 mg/dl (0.6-1.2) 12/02/23 20:33 Est Cr Clr Drug Dosing 50.4 ml/min 12/02/23 20:33 Est GFR ( Amer) 80.6 ml/min 12/02/23 20:33 Est GFR (Non-Af Amer) 69.5 ml/min 12/02/23 20:33 BUN/Creatinine Ratio 20.7 (10-20) H 12/02/23 20:33 Glucose 125 mg/dl (70-99(Fasting)) H 12/02/23 20:33 Calcium 10.5 mg/dl (8.6-10.3) H 12/02/23 20:33 Total Bilirubin 0.4 mg/dl (0.2-1.0) 12/02/23 20:33 AST 22 U/L (13-39) 12/02/23 20:33 ALT 15 U/L (7-52) 12/02/23 20:33 Alkaline Phosphatase 49 U/L (34-104) 12/02/23 20:33 Troponin I High Sens 2.8 pg/ml (0-14) 12/02/23 20:33 Total Protein 7.9 gm/dl (6.0-8.3) 12/02/23 20:33 Albumin 4.7 gm/dl (3.4-5.0) 12/02/23 20:33 Globulin 3.2 gm/dl (2.5-4.0) 12/02/23 20:33 Albumin/Globulin Ratio 1.5 (0.9-2) 12/02/23 20:33 Urine Color Yellow 12/02/23 23:20 Urine Appearance Clear (Clear) 12/02/23 23:20 Urine pH 7.0 (4.5-7.5) 12/02/23 23:20 Ur Specific [place] 1.014 (1.000-1.030) 12/02/23 23:20 Urine Protein Negative (Negative) 12/02/23 23:20 Urine Glucose (UA) Negative (Negative) 12/02/23 23:20 Urine Ketones Negative (Negative) 12/02/23 23:20 Urine Blood Negative (Negative) 12/02/23 23:20 Urine Nitrite Negative (Negative) 12/02/23 23:20 Urine Bilirubin Negative (Negative) 12/02/23 23:20 Urine Urobilinogen Negative (Negative) 12/02/23 23:20 Ur Leukocyte Esterase Trace (Negative) H 12/02/23 23:20 Urine WBC (Auto) 0-5 /hpf (0-5) 12/02/23 23:20 Urine RBC (Auto) 0-2 /hpf (0-2) 12/02/23 23:20 U Hyaline Cast (Auto) 0-2 /lpf (0-2) 12/02/23 23:20 U Epithel Cells (Auto) 0-2 /hpf (0-2) 12/02/23 23:20 Urine Bacteria (Auto) None Seen (None Seen) 12/02/23 23:[address] 12/02/23 20:37 Exam(s): CT C SPINE EXAM: CT Cervical Spine Without Intravenous Contrast CLINICAL HISTORY: Reason for exam: Trauma. TECHNIQUE: Axial computed tomography images of the cervical spine without intravenous contrast. CTDI is 25.82 mGy and DLP is 487.69 mGy-cm. Automated exposure control was utilized for the study. A dose lowering technique was utilized adhering to the principles of ALARA. COMPARISON: 02/15/2022 FINDINGS: Vertebrae: No acute fracture. Stepwise anterolisthesis from C2-3 through C4-5. Trace retrolisthesis at C5-6. Degenerative disc disease most pronounced at C5-6 and C6-7. Soft tissues: Unremarkable. IMPRESSION: No acute abnormality within the cervical spine. Electronically signed by: Kenny Ramirez MD 12/02/23 22:[address] 12/02/23 20:37 Exam(s): CT CHEST Without Contrast EXAM: CT Chest Without Intravenous Contrast CLINICAL HISTORY: Reason for exam: Trauma. TECHNIQUE: Axial computed tomography images of the chest without intravenous contrast. CTDI is 35.74 mGy and DLP is 919.24 mGy-cm. Automated exposure control was utilized for the study. A dose lowering technique was utilized adhering to the principles of ALARA. COMPARISON: No relevant prior studies available. FINDINGS: Lungs: No pulmonary contusion or laceration. Atelectasis within the lower lobes. Pleural space: No pleural effusion or pneumothorax. Heart: Heart size is normal. Bulky mitral annular calcifications. Bones/joints: Acute left fourth and fifth rib fractures laterally. There is also a fracture of the posterior left fifth rib at the costovertebral junction. Multiple additional chronic appearing fracture deformities within the left sided ribs. Soft tissues: Unremarkable. Vasculature: Unremarkable. Lymph nodes: Unremarkable. IMPRESSION: Left fourth and fifth rib fractures. Electronically signed by: Kenny Ramirez MD 12/02/23 22:[address] 12/02/23 20:37 Exam(s): CT HEAD Without Contrast EXAM: CT Head Without Intravenous Contrast CLINICAL HISTORY: Reason for exam: Trauma. TECHNIQUE: Axial computed tomography images of the head/brain without intravenous contrast. CTDI is 36.31 mGy and DLP is 624.41 mGy-cm. Automated exposure control was utilized for the study. A dose lowering technique was utilized adhering to the principles of ALARA. COMPARISON: 02/15/2022 FINDINGS: Brain: No hemorrhage, extra-axial fluid collection, mass effect, or edema. Ventricles: Unremarkable. Bones/joints: Unremarkable. No fracture. Soft tissues: Superior scalp hematoma. Sinuses: No acute sinusitis. Mastoid air cells: Unremarkable as visualized. IMPRESSION: 1. No acute intracranial abnormality. 2. Scalp hematoma. Electronically signed by: Kenny Ramirez MD 12/02/23 22:[address] 12/02/23 20:37 Exam(s): CT L SPINE EXAM: CT Lumbar Spine Without Intravenous Contrast CLINICAL HISTORY: Reason for exam: Trauma. TECHNIQUE: Axial computed tomography images of the lumbar spine without intravenous contrast. CTDI is 36.31 mGy and DLP is 2269.34 mGy-cm. Automated exposure control was utilized for the study. A dose lowering technique was utilized adhering to the principles of ALARA. COMPARISON: No relevant prior studies available. FINDINGS: Osteopenia. No visualized fracture. L2-S1 pedicle screw and regino construct is intact. Postsurgical changes at the left SI joint. No visualized sacral fracture. Grade 1 anterolisthesis at L4-5. Multilevel degenerative disc disease most pronounced at L1-2 where there is a disc osteophyte causing moderate canal stenosis. Multilevel laminectomy. No evidence of infection. Partially imaged hematoma in the left posterior flank lateral to the paraspinous musculature measuring approximately 7 x 3 x 5 cm. IMPRESSION: 1. No acute fracture within the lumbar spine. 2. Hematoma in the left posterior flank measuring approximately 7 x 3 x 5 cm. Electronically signed by: Kenny Ramirez MD 12/02/23 22:[address] 12/02/23 20:38 Exam(s): CT T SPINE EXAM: CT Thoracic Spine Without Intravenous Contrast CLINICAL HISTORY: Reason for exam: Trauma. TECHNIQUE: Axial computed tomography images of the thoracic spine without intravenous contrast. CTDI is 36.31 mGy and DLP is 2269.34 mGy-cm. Automated exposure control was utilized for the study. A dose lowering technique was utilized adhering to the principles of ALARA. COMPARISON: No relevant prior studies available. FINDINGS: Vertebrae: No acute fracture or malalignment within the thoracic spine. Other bones/joints: Acute fracture of the left posterior fifth rib. A few additional chronic fracture deformities within the posterior ribs on the left. Soft tissues: Unremarkable. Lungs: Unremarkable appearance of the lungs. Tubes, lines and devices: Spinal stimulator within the lower thoracic spinal canal. IMPRESSION: 1. No acute fracture or malalignment within the thoracic spine. 2. Acute fracture of the left posterior fifth rib. Electronically signed by: Kenny Ramirez MD 12/02/23 22:42 PM Code Status & VTE Plan Code Status full code VTE Prophylaxis Plan VTE Prophylaxis will be ordered: Yes PG Care Time/CCT Total # of Minutes Spent Total Time Spent with Patient: Total time spent is greater than 50% in coordination of care (as documented) at patient's floor/unit and/or counseling patient: Coding Level of Care Code 59266 INT INP/OBS CARE 3/75MIN Diagnoses Postlaminectomy syndrome of lumbosacral region M96.1 Laceration of scalp S01.01XA CHI (closed head injury) S09.90XA Osteoarthritis of right hip M16.11 Borderline personality disorder F60.3 Anxiety F41.9 Mitral valve prolapse I34.1 Hypertension I10 Depression F32.9 Neurostimulator device in situ Z96.82 Multiple fractures of ribs of left side S22.42XA
[2023-12-03] MEDS: LIDOCAINE 5% 1 PATCH TD STA (03:02)
[2023-12-03] MEDS ORDERED: ONDANSETRON INJ 2 MG/ML 2 ML VIAL IV PRN (03:18)
--- NOTE | 2023-12-03 07:12 | XRay Report ---
XR tibia fibula LT 2V CLINICAL HISTORY: fall TECHNIQUE: 2 radiographic views of the left leg were obtained. Comparison: Comparison is made to left ankle radiograph 03/02/2015 FINDINGS: There is no evidence of an acute fracture. Joint spaces are well-preserved. No soft tissue abnormalit y is seen. IMPRESSION: No evidence of acute osseous injury. ACT 112: Negative or not required by law. Electronically signed by: Bryan Newman M.D. 12/03/2023 7:10 AM
[2023-12-03] MEDS: amLODIPine BESYLATE 5 MG TAB PO SCH (08:55)
[2023-12-03] MEDS: DULoxetine HCL 60 MG CAP PO SCH (08:55)
[2023-12-03] MEDS: DULoxetine HCL 30 MG CAP PO SCH (08:55)
[2023-12-03] MEDS: cephALEXin 500 MG CAP PO SCH (08:56)
[2023-12-03] MEDS: MAGNESIUM OXIDE 400 MG TAB PO SCH (08:56)
[2023-12-03] MEDS: CHOLECALCIFEROL 25 MCG (1000 UNITS) TAB PO SCH (08:58)
[2023-12-03] MEDS: MULTIVITAMIN TAB PO SCH (08:58)
[2023-12-03 11:12] VITALS: RESP 18; O2SAT 97
[2023-12-03] MEDS: ACETAMINOPHEN 325 MG TAB PO PRN (13:30)
--- NOTE | 2023-12-03 13:42 | Orthopedic Consultation ---
Date of Service December 03, 2023 Assessment & Plan (1) Osteoarthritis of right hip: I think it safest if we postpone her right hip tomorrow. She is currently dealing with these other traumas. Although none of them require surgery still going to take her 6 to 8 weeks to heal the rib fractures and recover from the hematomas. We will postpone her hip replacement for now. I told her I would try to get her on the schedule soon as I can in about 6 to 8 weeks and we will see how she heals. She can call our office when she is ready to reschedule the surgery. History of Present Illness Reason for Consultation: Osteoarthritis right hip. Requesting Physician: . Attending Physician: DO Ary Tomas was seen and examined at bedside this morning. She was scheduled to have her right hip replaced tomorrow. Unfortunately she fell down a flight of stairs. She was admitted to the hospital with several rib fractures and some hematomas. She also had a laceration on her left leg which required sutures. She is currently in the PCU under observation.. Allergies Allergy/AdvReac Type Severity Reaction Status Date / Time pollen extracts Allergy Intermediate ITCHY Verified 12/02/23 21:51 EYES, SNEEZING coconut Allergy Mild Redness of Verified 12/02/23 21:51 Skin Home Medications Medication Instructions Recorded Confirmed Type cholecalciferol (vitamin D3) 75 2,000 units PO QAM 04/22/18 12/02/23 History mcg (3,000 unit) tablet magnesium oxide 250 mg PO QAM 04/22/18 12/02/23 History milk thistle 150 mg capsule 150 mg PO QAM 04/22/18 12/02/23 History duloxetine 60 mg capsule,delayed 60 mg PO QAM 04/23/18 12/02/23 History release multivitamin 1 tab PO QAM 06/04/18 12/02/23 History duloxetine 30 mg capsule,delayed 30 mg PO QAM #30 caps 10/26/18 12/02/23 Rx release lutein 20 mg capsule 20 mg PO QAM 11/19/18 12/02/23 History amitriptyline 25 mg tablet 12.5 - 25 mg PO HS Sleep 11/14/19 12/02/23 History amlodipine 5 mg tablet 5 mg PO QAM 11/02/20 12/02/23 History denosumab 60 mg/mL subcutaneous 60 mg subcut .q 6 months 05/02/22 12/02/23 History syringe (Prolia) ibuprofen 600 mg tablet 600 mg PO Q8H PRN Pain 07/09/22 12/02/23 History amitriptyline 10 mg tablet 10 mg PO DIRECTED Sleep 10/27/23 12/02/23 History amoxicillin 500 mg capsule 2,000 mg PO DIRECTED PRN 1 HR 12/02/23 12/02/23 History PRIOR TO DENTAL PROCEDURES Past Med/Surg History Problem List Multiple fractures of ribs of left side Neurostimulator device in situ 05/13/23, placed; advised to bring remote to all appts. Left rib fracture (Acute) Hematoma of left flank (Acute) Laceration of left lower extremity (Acute) Laceration of scalp (Acute) CHI (closed head injury) (Acute) Fall (Acute) Osteoarthritis of right hip Greater trochanteric bursitis of left hip Postlaminectomy syndrome of lumbosacral region Sacroiliitis Vitreous opacities of right eye 11/12/20 Thrombocytosis 12/01/19 Acute blood loss anemia 12/01/19 Borderline personality disorder per records Hypotension Depression Substance abuse 10/26/18 Acute dehydration 11/16/19 Encounter for pre-operative examination History of total knee replacement Right (2015) Degenerative disc disease Chronic back pain Osteoarthritis History of colonoscopy History of cataract surgery BILAT History of tooth extraction History of tonsillectomy Ocular hypertension 11/16/19 Anxiety Mitral valve prolapse Remote history per pt, no recent echo Hypertension Degenerative joint disease of right knee Medical History Difficult intravenous access Postlaminectomy syndrome of lumbosacral region Chronic back pain Hx of mitral valve prolapse no cardio., no current issues History of anemia remote hx Hypertension controlled, stable per pt Medical marijuana use Pinched nerve in right hand Mass of left ovary resolved issue Depression h/o suicide attempt in 2019, denies SI or HI Lumbar stenosis with neurogenic claudication Severe at L4-5 Moderate to severe at L5-S1 Surgical History Hx of surgical fusion joint 2020 or 2021, SI joint, "unsure which side" History of total right knee replacement Hx of tooth extraction Hx of tonsillectomy Hx of bilateral cataract extraction Hx of vitrectomy S/P insertion of brain-responsive neurostimulation device Hx of colonoscopy Fusion of spine x2: 2019, L4-S1 decompression/fusion: Grade 1 view, MAC#3, ETT 7.0 at [facility] 2020, L2-L4 decompression and fusion, hardware removal L4-S1 History of dilatation and curettage Family History Mother Emphysema lung Brother Diabetes Other No family history of adverse response to anesthesia Social History Smoking Status: Former smoker Smoking End Date: 20 years ago; Second Hand Exposure: No; Do You Dip or Chew Tobacco: No; Tobacco Cessation Education Requested by Patient: No Hx Alcohol Use: Yes Alcohol type: wine Hx Substance Use: No Preferred Language: Serbian Communication Ability: Effective Game Technician Required: No Beliefs That Will Affect Care: None marital status: / Current Living Situation: Alone Current Living Situation Comment: lives at home alone Other Information That Helps Us Care for You: No Feels Safe at Home: Yes Safety Concerns: Feels Safe At This Time and Afraid for Self Assistive Devices: Glasses Review of Systems All systems reviewed & are unremarkable except as noted in HPI & below. Physical Exam Physical examination shows that the left leg is wrapped. She has pain in her left flank region.. Constitutional WD/WN, vitals as above Eyes PERRL, conjunctivae normal, anicteric sclerae ENMT external ear and nose normal, oropharynx normal Neck trachea midline, no thyromegaly Respiratory normal respiratory effort Cardiovascular RRR, no murmur, no edema Gastrointestinal (Abdomen) normal bowel sounds, soft, nontender, no hepatosplenomegaly Psychiatric A+Ox3, euthymic affect Results & Data Results & Data Laboratory Results . Diagnostic Findings . PG Care Time/CCT Total # of Minutes Spent Total Time Spent with Patient: Total time spent is greater than 50% in coordination of care (as documented) at patient's floor/unit and/or counseling patient: Coding Level of Care Code 68844 IN/OBS CONSULT LVL 4,60M Diagnoses Osteoarthritis of right hip M16.11
--- NOTE | 2023-12-03 14:19 | Electrocardiogram Report ---
Test Reason : Blood Pressure : */* mmHG Vent. Rate : 72 BPM Atrial Rate : 72 BPM P-R Int : 150 ms QRS Dur : 86 ms QT Int : 406 ms P-R-T Axes : 62 91 32 degrees QTcB Int : 444 ms Sinus rhythm with Premature atrial complexes Rightward axis Borderline ECG When compared with ECG of 06-Apr-2023 10:43, Premature atrial complexes are now Present Nonspecific T wave abnormality now evident in Inferior leads Confirmed by Kevin Harp ([id number]) on 12/03/2023 2:18:47 PM Referred By: REFERRED SELF Confirmed By: Kevin Harp
[2023-12-03] MEDS ORDERED: ACETAMINOPHEN 325 MG TAB PO PRN (15:50)
[2023-12-03 16:21] VITALS: BP 120/79; TEMP 97.9
[2023-12-03] MEDS: IBUPROFEN 600 MG TAB PO ONE (17:18)
--- NOTE | 2023-12-03 17:22 | Discharge Summary ---
Date of Service December 03, 2023 Admission HPI Per Admitting Provider The patient is a 78-year-old female with a past medical history including lumbosacral postlaminectomy syndrome, sacroiliitis, borderline personality disorder, depression, anxiety, mitral valve prolapse, hypertension, status post right TKA, and has an appointment for right hip arthroplasty on 12/04/2023. She reports that she was walking up a set of steps, when she got to the eighth step, she lost her balance due to carrying too many heavy objects, falling backward, and striking the back of her head, her left rib cage and left leg. Principal Diagnosis Fall Discharge Exam General: patient resting comfortably, NAD, non-toxic in appearance, answers questions appropriately. Skin: warm, dry, intact HEENT: NC/AT, anicteric sclera, conjunctiva without injection, moist mucus membranes. Heart: +S1/S2, regular, no m/r/g Lungs: equal air entry bilaterally, no rales/rhonchi/wheezes Abd: +BS, soft, NT/ND Ext: warm, no clubbing/cyanosis or edema Neuro: nonfocal, speech intact, no facial droop, moving all extremities. Discharge Data Allergies Allergy/AdvReac Type Severity Reaction Status Date / Time pollen extracts Allergy Intermediate ITCHY Verified 12/02/23 21:51 EYES, SNEEZING coconut Allergy Mild Redness of Verified 12/02/23 21:51 Skin Consultations 12/03/23 01:23 ED Decision to Admit Stat Ordered Studies 12/02/23 20:37 CT cervical spine wo con Stat CT chest diagnostic wo con Stat CT head/brain wo con Stat CT lumbar spine wo con Stat 12/02/23 20:38 CT thoracic spine wo con Stat Laboratory Results WBC 9.77 K/ul (4.8-10.8) 12/02/23 20:33 RBC 4.02 M/uL (4.20-5.40) L 12/02/23 20:33 Hgb 12.9 g/dl (12.0-16.0) 12/02/23 20:33 Hct 38.3 % (37.0-47.0) 12/02/23 20:33 MCV 95.3 fL (80.0-100.0) 12/02/23 20:33 MCH 32.1 pg (25.0-34.0) 12/02/23 20: MCHC 33.7 g/dL (32.0-36.0) 12/02/23 20: RDW Std Deviation 46.0 fL (36.4-46.3) 12/02/23: RDW Coeff of Korey 13.1 % (11.5-14.5) 12/02/23: Plt Count 288 K/uL (130-400) 12/02/23: MPV 10.1 fL (9.4-12.4) 12/02/23 20: Immature Gran % (Auto) 0.3 % 12/02/23 20: Neut % (Auto) 54.7 % 12/02/23 20: Lymph % (Auto) 35.4 % 12/02/23: [place] % (Auto) 7.9 % 12/02/23: Eos % (Auto) 1.0 % 12/02/23: Baso % (Auto) 0.7 % 12/02/23: Neut # (Auto) 5.34 K/uL (1.40-6.50) 12/02/23 20: Lymph # (Auto) 3.46 K/uL (1.20-3.40) H 12/02/23 20: [place] # (Auto) 0.77 K/uL (0.11-0.59) H 12/02/23 20: Eos # (Auto) 0.10 K/uL (0.00-0.50) 12/02/23 20: Baso # (Auto) 0.07 K/uL (0.00-0.20) 12/02/23 20: Immature Gran # (Auto) 0.03 K/uL (0.01-0.20) 12/02/23 20: PT 10.2 Seconds (9.0-12.0) 12/02/23 20: INR 0.9 (0.9-1.1) 12/02/23 20: Sodium 138 mmol/L (136-145) 12/02/23 20: Potassium 4.4 mmol/L (3.5-5.1) 12/02/23 20: Chloride 102 mmol/L (98-107) 12/02/23 20:33 Carbon Dioxide 26 mmol/L (21-32) 12/02/23 20:33 Anion Gap 10 (3-11) 12/02/23 20:33 BUN 17 mg/dl (6-23) 12/02/23 20:33 Creatinine 0.82 mg/dl (0.6-1.2) 12/02/23 20:33 Est Cr Clr Drug Dosing 50.4 ml/min 12/02/23 20:33 Est GFR ( Amer) 80.6 ml/min 12/02/23 20:33 Est GFR (Non-Af Amer) 69.5 ml/min 12/02/23 20:33 BUN/Creatinine Ratio 20.7 (10-20) H 12/02/23 20:33 Glucose 125 mg/dl (70-99(Fasting)) H 12/02/23 20:33 Calcium 10.5 mg/dl (8.6-10.3) H 12/02/23 20:33 Total Bilirubin 0.4 mg/dl (0.2-1.0) 12/02/23 20:33 AST 22 U/L (13-39) 12/02/23 20:33 ALT 15 U/L (7-52) 12/02/23 20:33 Alkaline Phosphatase 49 U/L (34-104) 12/02/23 20:33 Troponin I High Sens 2.8 pg/ml (0-14) 12/02/23 20:33 Total Protein 7.9 gm/dl (6.0-8.3) 12/02/23 20:33 Albumin 4.7 gm/dl (3.4-5.0) 12/02/23 20:33 Globulin 3.2 gm/dl (2.5-4.0) 12/02/23 20:33 Albumin/Globulin Ratio 1.5 (0.9-2) 12/02/23 20:33 Urine Color Yellow 12/02/23 23:20 Urine Appearance Clear (Clear) 12/02/23 23:20 Urine pH 7.0 (4.5-7.5) 12/02/23 23:20 Ur Specific [place] 1.014 (1.000-1.030) 12/02/23 23:20 Urine Protein Negative (Negative) 12/02/23 23:20 Urine Glucose (UA) Negative (Negative) 12/02/23 23:20 Urine Ketones Negative (Negative) 12/02/23 23:20 Urine Blood Negative (Negative) 12/02/23 23:20 Urine Nitrite Negative (Negative) 12/02/23 23:20 Urine Bilirubin Negative (Negative) 12/02/23 23:20 Urine Urobilinogen Negative (Negative) 12/02/23 23:20 Ur Leukocyte Esterase Trace (Negative) H 12/02/23 23:20 Urine WBC (Auto) 0-5 /hpf (0-5) 12/02/23 23:20 Urine RBC (Auto) 0-2 /hpf (0-2) 12/02/23 23:20 U Hyaline Cast (Auto) 0-2 /lpf (0-2) 12/02/23 23:20 U Epithel Cells (Auto) 0-2 /hpf (0-2) 12/02/23 23:20 Urine Bacteria (Auto) None Seen (None Seen) 12/02/23 23:[address] 12/02/23 20:37 Exam(s): CT C SPINE EXAM: CT Cervical Spine Without Intravenous Contrast CLINICAL HISTORY: Reason for exam: Trauma. TECHNIQUE: Axial computed tomography images of the cervical spine without intravenous contrast. CTDI is 25.82 mGy and DLP is 487.69 mGy-cm. Automated exposure control was utilized for the study. A dose lowering technique was utilized adhering to the principles of ALARA. COMPARISON: 02/15/2022 FINDINGS: Vertebrae: No acute fracture. Stepwise anterolisthesis from C2-3 through C4-5. Trace retrolisthesis at C5-6. Degenerative disc disease most pronounced at C5-6 and C6-7. Soft tissues: Unremarkable. IMPRESSION: No acute abnormality within the cervical spine. Electronically signed by: Kenny Ramirez MD 12/02/23 22:[address] 12/02/23 20:37 Exam(s): CT CHEST Without Contrast EXAM: CT Chest Without Intravenous Contrast CLINICAL HISTORY: Reason for exam: Trauma. TECHNIQUE: Axial computed tomography images of the chest without intravenous contrast. CTDI is 35.74 mGy and DLP is 919.24 mGy-cm. Automated exposure control was utilized for the study. A dose lowering technique was utilized adhering to the principles of ALARA. COMPARISON: No relevant prior studies available. FINDINGS: Lungs: No pulmonary contusion or laceration. Atelectasis within the lower lobes. Pleural space: No pleural effusion or pneumothorax. Heart: Heart size is normal. Bulky mitral annular calcifications. Bones/joints: Acute left fourth and fifth rib fractures laterally. There is also a fracture of the posterior left fifth rib at the costovertebral junction. Multiple additional chronic appearing fracture deformities within the left sided ribs. Soft tissues: Unremarkable. Vasculature: Unremarkable. Lymph nodes: Unremarkable. IMPRESSION: Left fourth and fifth rib fractures. Electronically signed by: Kenny Ramirez MD 12/02/23 22:[address] 12/02/23 20:37 Exam(s): CT HEAD Without Contrast EXAM: CT Head Without Intravenous Contrast CLINICAL HISTORY: Reason for exam: Trauma. TECHNIQUE: Axial computed tomography images of the head/brain without intravenous contrast. CTDI is 36.31 mGy and DLP is 624.41 mGy-cm. Automated exposure control was utilized for the study. A dose lowering technique was utilized adhering to the principles of ALARA. COMPARISON: 02/15/2022 FINDINGS: Brain: No hemorrhage, extra-axial fluid collection, mass effect, or edema. Ventricles: Unremarkable. Bones/joints: Unremarkable. No fracture. Soft tissues: Superior scalp hematoma. Sinuses: No acute sinusitis. Mastoid air cells: Unremarkable as visualized. IMPRESSION: 1. No acute intracranial abnormality. 2. Scalp hematoma. Electronically signed by: Kenny Ramirez MD 12/02/23 22:[address] 12/02/23 20:37 Exam(s): CT L SPINE EXAM: CT Lumbar Spine Without Intravenous Contrast CLINICAL HISTORY: Reason for exam: Trauma. TECHNIQUE: Axial computed tomography images of the lumbar spine without intravenous contrast. CTDI is 36.31 mGy and DLP is 2269.34 mGy-cm. Automated exposure control was utilized for the study. A dose lowering technique was utilized adhering to the principles of ALARA. COMPARISON: No relevant prior studies available. FINDINGS: Osteopenia. No visualized fracture. L2-S1 pedicle screw and regino construct is intact. Postsurgical changes at the left SI joint. No visualized sacral fracture. Grade 1 anterolisthesis at L4-5. Multilevel degenerative disc disease most pronounced at L1-2 where there is a disc osteophyte causing moderate canal stenosis. Multilevel laminectomy. No evidence of infection. Partially imaged hematoma in the left posterior flank lateral to the paraspinous musculature measuring approximately 7 x 3 x 5 cm. IMPRESSION: 1. No acute fracture within the lumbar spine. 2. Hematoma in the left posterior flank measuring approximately 7 x 3 x 5 cm. Electronically signed by: Kenny Ramirez MD 12/02/23 22:[address] 12/02/23 20:38 Exam(s): CT T SPINE EXAM: CT Thoracic Spine Without Intravenous Contrast CLINICAL HISTORY: Reason for exam: Trauma. TECHNIQUE: Axial computed tomography images of the thoracic spine without intravenous contrast. CTDI is 36.31 mGy and DLP is 2269.34 mGy-cm. Automated exposure control was utilized for the study. A dose lowering technique was utilized adhering to the principles of ALARA. COMPARISON: No relevant prior studies available. FINDINGS: Vertebrae: No acute fracture or malalignment within the thoracic spine. Other bones/joints: Acute fracture of the left posterior fifth rib. A few additional chronic fracture deformities within the posterior ribs on the left. Soft tissues: Unremarkable. Lungs: Unremarkable appearance of the lungs. Tubes, lines and devices: Spinal stimulator within the lower thoracic spinal canal. IMPRESSION: 1. No acute fracture or malalignment within the thoracic spine. 2. Acute fracture of the left posterior fifth rib. Electronically signed by: Kenny Ramirez MD 12/02/23 22:42 PM Tibia/Fibula X-Ray 12/02/23 20:38 XR tibia fibula LT 2V CLINICAL HISTORY: fall TECHNIQUE: 2 radiographic views of the left leg were obtained. Comparison: Comparison is made to left ankle radiograph 03/02/2015 FINDINGS: There is no evidence of an acute fracture. Joint spaces are well-preserved. No soft tissue abnormality is seen. IMPRESSION: No evidence of acute osseous injury. ACT 112: Negative or not required by law. Electronically signed by: Bryan Newman M.D. 12/03/2023 7:10 AM Total Time Total Time Spent Total Time Spent (In Minutes): See attending attestation Discharge Plan Discharge Items Patient Disposition: Home - Self-Care Reason For Visit: TRAUMA ALERT,L4/5 RIB FRACTURES, SCALP HEMATOMA Discharge Diagnosis: Fall Activity: Per Instructions section Non-emergency contact: Primary Care Provider Call non-emergency contact if: your pain is not controlled, your pain is unusual for you and your temperature is above 101.5 Follow-up/Referrals: Edgar Kat MD [Primary Care Provider] - Diet: Regular Addtl Attending Provider Instructions: You were admitted to the hospital for a fall. You were treated with sutures for your leg laceration and given cephalexin (Keflex) 500mg to be taken 4 times a day for 7 days to be completed 12/09. A discharge summary will be sent to your primary care physician to ensure continuity of care. Please bring this discharge summary with you to your next office appointment so that your provider can review it at that time. Follow-up appointments: Make a follow-up appointment with your PCP within the next week. It is very important that you follow up with them shortly after discharge from the hospital. Keep all your follow-up appointments as already scheduled. If you cannot make an appointment, notify your provider. Medications: Your medication list has been reviewed and reconciled upon discharge to ensure accuracy and continuity of care. An updated list of all your medications is included with your hospital discharge paperwork. Please review this list closely, and make note of any changes. If you have any issues filling these prescriptions, please call [phone] and ask to leave a message for Dr. Scott Chaidez. Take your medications as instructed; do not skip a dose of your medicines. Make sure all of your doctors know every medicine you are taking (including hyxx-ctq-zekkdot medicines, vitamins, and supplements). Call your primary care provider before taking any new medicines (including ppuy-inj-gjbieab medicines, vitamins, and supplements), because some of these may interact with your current medications, or may make your symptoms worse. Tell your primary care provider if you cannot afford your medications. CONTACT YOUR PRIMARY CARE PROVIDER if you experience any of the following: Difficulty following your treatment plan, or difficulty taking medications CALL 911 OR GO TO THE EMERGENCY DEPARTMENT if you experience any of the following: Sudden, severe abdominal pain or nausea/vomiting Severe chest pain, or chest pain that radiates (moves) to your jaw or arm Sudden, severe shortness of breath or difficulty breathing Thank you for allowing us to participate in your care. Pending Studies at Discharge: No Stand-Alone Forms: My [email or web address], Smoking Cessation Medications and DC Order Prescriptions: New cephalexin 500 mg capsule 500 mg PO QID 7 Days Qty: 28 0RF Continued ibuprofen 600 mg tablet 600 mg PO Q8H PRN (Reason: Pain) milk thistle 150 mg capsule 150 mg PO QAM magnesium oxide 250 mg magnesium tablet 250 mg PO QAM cholecalciferol (vitamin D3) 3,000 unit tablet 2,000 units PO QAM duloxetine 60 mg capsule,delayed release(DR/EC) 60 mg PO QAM Rx Instructions: TOTAL DOSE 90 MG--TAKES WITH 30 MG CAP. Prolia 60 mg/mL syringe 60 mg subcut .q 6 months multivitamin Tablet 1 tab PO QAM duloxetine 30 mg Capsule,Delayed Release(Dr/Ec) 30 mg PO QAM Qty: 30 0RF Rx Instructions: TOTAL DOSE 90 MG--TAKES WITH 60 MG CAP. lutein 20 mg Capsule 20 mg PO QAM amitriptyline 25 mg Tablet 12.5 - 25 mg PO HS Rx Instructions: PER PT "DOSE VARIES BETWEEN 12.5-35 MG QHS, DEPENDS ON WHAT I'M DOING THE NEXT DAY". amlodipine 5 mg Tablet 5 mg PO QAM amitriptyline 10 mg tablet 10 mg PO DIRECTED Rx Instructions: TAKE 10 MG DAILY IF NEEDED FOR PAIN, THEN ADDS 10 MG TO HS DOSE IF NEEDED FOR SLEEP. amoxicillin 500 mg capsule 2,000 mg PO DIRECTED PRN (Reason: 1 HR PRIOR TO DENTAL PROCEDURES) Discharge Orders: Discharge Order (Routine); Ordered 12/03/23 Ordered By: Scott Chaidez Admission Data Admit Date/Time: 12/03/23 02:29 Attending Provider: Gia Kerns Admit Provider: Beto Castellano Primary Care Provider: Edgar Kat Other Providers: Beto Castellano Supervising Physician Co-Signing Physician Notes I personally examined the patient and verified sebastian points of history and exam, discussed case, and agree with decision making and plan documented by Dr. Chaidez. Patient with a recent trauma, she had a mechanical fall down a flight of steps, CT imaging showed scalp hematoma, fractures of left fourth and fifth ribs, and hematoma of left posterior flank. Orthopedics evaluated patient and recommended delay of her right hip arthroplasty for 6 to 8 weeks to facilitate healing of her ribs. Discussed staying overnight for further evaluation but patient was hopeful for discharge. She was walked by nursing and walked independently without assisted device, reporting unchanged activity tolerance. Patient suffered a lacerations of scalp requiring 6 reagan, in addition to 3 left pretibial area requiring 8 sutures, 2 sutures, and 4 sutures respectively. Patient was provided course of cephalexin. Patient states she suffers from chronic pain, she states that her pain was not above her usual level of discomfort, and was managed with ibuprofen and acetaminophen in hospital. She was advised to maintain close follow-up with PCP for evaluation and suture removal. Resident Activity Tracking Resident Involvement: Resident Care Provided Care Provided: Adult [facility]
[2023-12-03 17:51] VITALS: PULSE 68
[2023-12-03] MEDS ORDERED: AMITRIPTYLINE HCL 25 MG TAB PO SCH (21:00)
== END 2023-12-03 18:35 | disposition home or self-care (01) ==
LOC: ED 20:01 → 2E 20:01 → SUATTDRO 12-03 02:29 → 2E 12-03 02:54

== ENCOUNTER 2023-12-21 08:56 | Observation (INO) ==
--- NOTE | 2023-10-28 13:19 | PAT Medication Instructions ---
Medication Instructions Date of Service October 28, 2023 Home Medications Medication Instructions Recorded duloxetine 30 mg capsule,delayed 30 mg PO QAM #30 caps 10/26/18 release cholecalciferol (vitamin D3) 75 mcg (3,000 unit) tablet 2,000 units PO QAM magnesium oxide 250 mg PO QAM milk thistle 150 mg capsule 150 mg PO QAM duloxetine 60 mg capsule,delayed release 60 mg PO QAM multivitamin 1 tab PO QAM duloxetine 30 mg capsule,delayed release 30 mg PO QAM lutein 20 mg capsule 20 mg PO QAM amitriptyline 25 mg tablet 25 mg PO HS PRN amlodipine 5 mg tablet 5 mg PO QAM denosumab 60 mg/mL subcutaneous syringe (Prolia) 60 mg subcut .q 6 months ibuprofen 600 mg tablet 600 mg PO Q8H PRN amitriptyline 10 mg tablet 10 mg PO HS PRN ASK your surgeon for instructions ibuprofen 600 mg tablet 600 mg PO Q8H PRN ASK your prescriber and surgeon denosumab 60 mg/mL subcutaneous syringe (Prolia) 60 mg subcut .q 6 months STOP taking 2 weeks before surgery (or as soon as possible if surgery is within 2 weeks) milk thistle 150 mg capsule 150 mg PO QAM lutein 20 mg capsule 20 mg PO QAM DO NOT take the morning of surgery cholecalciferol (vitamin D3) 75 mcg (3,000 unit) tablet 2,000 units PO QAM magnesium oxide 250 mg PO QAM multivitamin 1 tab PO QAM Take morning of surgery With a small sip of water, OTHERWISE NOTHING TO EAT OR DRINK AFTER MIDNIGHT: duloxetine 60 mg capsule,delayed release 60 mg PO QAM duloxetine 30 mg capsule,delayed release 30 mg PO QAM amlodipine 5 mg tablet 5 mg PO QAM Take evening before surgery amitriptyline 25 mg tablet 25 mg PO HS PRN(if needed) amitriptyline 10 mg tablet 10 mg PO HS PRN(if needed) Other Notes If you have any questions please call us at [phone] or [phone] or [phone] or [phone]
--- NOTE | 2023-11-06 10:44 | Anesthesiology Consultation ---
Date of Service November 06, 2023 Assessment & Plan (1) Encounter for pre-operative examination: - anesthesia considerations: neuraxial vs general anesthesia discussed in detail with patient. She plans to contact Dr. Wilson's office regarding his recommendations regarding neuraxial anesthesia and positioning in OR-awaiting patient update on this information. She expressed comfort with discussion and indicated questions/concerns were adequately addressed. - neurostimulator device: patient aware to bring remote to [facility] DOS. - Outpatient joint assessment: Patient is currently scheduled for inpatient pathway. If re-evaluated and patient/surgeon requests outpatient pathway, patient is not recommended candidate for outpatient joint program from anesthesia standpoint. Chart Review Chart Review: Pending: Refer to Additional Notes / Consult section and Patient seen in Pre Admission Testing Teaching & Discussion Pre-Anesthesia Teaching/Discussion Notes: Instructed NPO after midnight before surgery, except medications with 15 cc of water. Medication instructions provided according to the PAT guidelines. History Surgery Operation Date: 12/04/23 11:00 Proposed Procedures p Right Anterior Total Hip Arthroplasty - Indra Hsu, Height/Weight Height: 5 ft 3 in Weight: 57.2 kg Allergies Allergy/AdvReac Type Severity Reaction Status Date / Time coconut Allergy Mild Redness of Verified 10/27/23 10:53 Skin No Known Drug Allergies Allergy Verified 10/27/23 10:53 pollen extracts Allergy Verified 10/27/23 10:53 Medications Home Medications Medication Instructions Recorded Confirmed Last Taken cholecalciferol (vitamin D3) 75 2,000 units PO QAM 04/22/18 10/27/23 11/11/20 mcg (3,000 unit) tablet magnesium oxide 250 mg PO QAM 04/22/18 10/27/23 11/11/20 milk thistle 150 mg capsule 150 mg PO QAM 04/22/18 10/27/23 11/16/19 duloxetine 60 mg capsule,delayed 60 mg PO QAM 04/23/18 10/27/23 11/12/20 08:00 release multivitamin 1 tab PO QAM 06/04/18 10/27/23 11/29/19 09:00 duloxetine 30 mg capsule,delayed 30 mg PO QAM #30 caps 10/26/18 10/27/23 11/12/20 08:00 release lutein 20 mg capsule 20 mg PO QAM 11/19/18 10/27/23 11/11/20 amitriptyline 25 mg tablet 25 mg PO HS PRN Sleep 11/14/19 10/27/23 11/10/20 amlodipine 5 mg tablet 5 mg PO QAM 11/02/20 10/27/23 11/12/20 08:00 denosumab 60 mg/mL subcutaneous 60 mg subcut .q 6 months 05/02/22 10/27/23 Unknown syringe (Prolia) ibuprofen 600 mg tablet 600 mg PO Q8H PRN Pain 07/09/22 10/27/23 Unknown amitriptyline 10 mg tablet 10 mg PO HS PRN Sleep 10/27/23 10/27/23 Unknown Past Medical History Medical History (Updated 11/06/23 @ 11:06 by Jacey Xavier PA-C) Chronic back pain Depression h/o suicide attempt in 2019, denies SI or HI Difficult intravenous access History of anemia remote hx Hx of mitral valve prolapse no cardio., no current issues Hypertension controlled, stable per pt Lumbar stenosis with neurogenic claudication Severe at L4-5 Moderate to severe at L5-S1 Mass of left ovary resolved issue Medical marijuana use Neurostimulator device in situ 05/13/23, placed; advised to bring remote to all appts. Pinched nerve in right hand Postlaminectomy syndrome of lumbosacral region Patient denies h/o stroke, seizures, heart attack, heart failure, DM, blood clots/DVTs or blood transfusions. Exercise / Class Metabolic Activity II 4-5 Yardwork/Stairs/Walk up hill (denies chest discomfort or shortness of breath with one flight of stairs) Past Family History Family History Mother Emphysema lung Brother Diabetes Other No family history of adverse response to anesthesia Past Surgical History Surgical History Fusion of spine x2: 2019, L4-S1 decompression/fusion: Grade 1 view, MAC#3, ETT 7.0 at [facility] 2020, L2-L4 decompression and fusion, hardware removal L4-S1 History of dilatation and curettage History of total right knee replacement Hx of bilateral cataract extraction Hx of colonoscopy Hx of surgical fusion joint 2020 or 2021, SI joint, "unsure which side" Hx of tonsillectomy Hx of tooth extraction Hx of vitrectomy S/P insertion of brain-responsive neurostimulation device Past Anesthesia History No Hx of Anesthesia Complications and No Family Hx of Anesthesia Complications History of PONV No Hx of PONV and Hx of Motion Sickness Social History Smoking Status: Former smoker Do You Dip or Chew Tobacco: No Smoking End Date: 17 years ago Hx Alcohol Use: Yes Alcohol type: wine alcohol intake frequency: 0-2 drinks per day Hx Substance Use: Yes (medical card-advised) substance use type: marijuana Substance Use Type Other:: MEDICAL MARIJUANA- VAPE AT HS Last Used Substance: Days (ago) Last Used Substance Other:: daily use Review of Systems Patient denies chest pain, shortness of breath, dyspnea on exertion, snoring, witnessed apneas, reflux, fever, chills, cough, wheezing, or palpitations. Physical Exam Vital Signs Vitals BP 120/77 P 70 TEMP 98.3 SP02 98% on RA RESP 18 Physical Patient resting comfortably in chair in no acute distress, alert and oriented, responding appropriately throughout visit Full cervical extension range of motion without pain TMD 3.5 finger breadths Mallampati Score 3 Dentition: several crowns, denies chipped or loose teeth, caps, implants or bridges Lungs: normal respiratory effort. Good air movement, clear throughout to auscultation, no adventitious breath sounds Cardiac: regular rate and rhythm, no murmurs noted Carotid arteries: negative bruit bilat Lab Results Anesthesia Preop Results Results Anesthesia Widget: WBC 7.54 K/ul (4.8-10.8) 11/06/23 Hgb 12.4 g/dl (12.0-16.0) 11/06/23 Hct 36.6 % (37.0-47.0) L 11/06/23 Plt 271 K/uL (130-400) 11/06/23 Na 138 mmol/L (136-145) 11/06/23 K 4.3 mmol/L (3.5-5.1) 11/06/23 Cl 101 mmol/L (98-107) 11/06/23 CO2 30 mmol/L (21-32) 11/06/23 BUN 17 mg/dl (6-23) 11/06/23 Creat 0.79 mg/dl (0.6-1.2) 11/06/23 Glucose Level 87 mg/dl (70-99(Fasting)) 11/06/23 PT 10.3 Seconds (9.0-12.0) 11/06/23 PTT 26 Seconds (21-31) 11/06/23 INR 0.9 (0.9-1.1) 11/06/23 Blood Type O Positive 11/06/23 Antibody Screen NEGATIVE 11/06/23 Testing Electrocardiogram Date: 04/06/23 NSR, rate 68 bpm Right atrial enlargement Rightward axis Pulmonary disease pattern Chest X-Ray Date: 04/06/23 No acute process.
--- NOTE | 2023-12-17 12:05 | History & Physical Report ---
Date of Service December 17, 2023 Assessment & Plan (1) Osteoarthritis of right hip: We will proceed with a right anterior total of arthroplasty. Postoperatively she will be started on aspirin for DVT prophylaxis and kept overnight hospital for postop medical management. She plans to use energy physical therapy upon discharge. History of Present Illness Chief Complaint: Osteoarthritis of the right hip. Primary Care Provider: Edgar Kat MD Ary is a pleasant 78-year-old female who has been living with chronic pain. She has lot of low back pain. She has 3 lumbar surgeries done by Dr. Wilson. She has been dealing with increasing right hip and groin pain. It radiates around her groin and goes down her right leg. She does have an MRI of her hip, which shows advanced arthritis. After failing extensive conservative treatment, she has elected to proceed with a right anterior total of arthroplasty. Allergies Allergy/AdvReac Type Severity Reaction Status Date / Time pollen extracts Allergy Intermediate ITCHY Verified 12/02/23 21:51 EYES, SNEEZING coconut Allergy Mild Redness of Verified 12/02/23 21:51 Skin Home Medications Medication Instructions Recorded Confirmed Type cholecalciferol (vitamin D3) 75 2,000 units PO QAM 04/22/18 12/02/23 History mcg (3,000 unit) tablet magnesium oxide 250 mg PO QAM 04/22/18 12/02/23 History milk thistle 150 mg capsule 150 mg PO QAM 04/22/18 12/02/23 History duloxetine 60 mg capsule,delayed 60 mg PO QAM 04/23/18 12/02/23 History release multivitamin 1 tab PO QAM 06/04/18 12/02/23 History duloxetine 30 mg capsule,delayed 30 mg PO QAM #30 caps 10/26/18 12/02/23 Rx release lutein 20 mg capsule 20 mg PO QAM 11/19/18 12/02/23 History amitriptyline 25 mg tablet 12.5 - 25 mg PO HS Sleep 11/14/19 12/02/23 History amlodipine 5 mg tablet 5 mg PO QAM 11/02/20 12/02/23 History denosumab 60 mg/mL subcutaneous 60 mg subcut .q 6 months 05/02/22 12/02/23 History syringe (Prolia) ibuprofen 600 mg tablet 600 mg PO Q8H PRN Pain 07/09/22 12/02/23 History amitriptyline 10 mg tablet 10 mg PO DIRECTED Sleep 10/27/23 12/02/23 History amoxicillin 500 mg capsule 2,000 mg PO DIRECTED PRN 1 HR 12/02/23 12/02/23 History PRIOR TO DENTAL PROCEDURES Past Med/Surg History Problem List Multiple fractures of ribs of left side Neurostimulator device in situ 05/13/23, placed; advised to bring remote to all appts. Left rib fracture (Acute) Hematoma of left flank (Acute) Laceration of left lower extremity (Acute) Laceration of scalp (Acute) CHI (closed head injury) (Acute) Fall (Acute) Osteoarthritis of right hip Greater trochanteric bursitis of left hip Postlaminectomy syndrome of lumbosacral region Sacroiliitis Vitreous opacities of right eye 11/12/20 Thrombocytosis 12/01/19 Acute blood loss anemia 12/01/19 Borderline personality disorder per records Hypotension Depression Substance abuse 10/26/18 Acute dehydration 11/16/19 Encounter for pre-operative examination History of total knee replacement Right (2015) Degenerative disc disease Chronic back pain Osteoarthritis History of colonoscopy History of cataract surgery BILAT History of tooth extraction History of tonsillectomy Ocular hypertension 11/16/19 Anxiety Mitral valve prolapse Remote history per pt, no recent echo Hypertension Degenerative joint disease of right knee Medical History Difficult intravenous access Postlaminectomy syndrome of lumbosacral region Chronic back pain Hx of mitral valve prolapse no cardio., no current issues History of anemia remote hx Hypertension controlled, stable per pt Medical marijuana use Pinched nerve in right hand Mass of left ovary resolved issue Depression h/o suicide attempt in 2019, denies SI or HI Lumbar stenosis with neurogenic claudication Severe at L4-5 Moderate to severe at L5-S1 Surgical History Hx of surgical fusion joint 2020 or 2021, SI joint, "unsure which side" History of total right knee replacement Hx of tooth extraction Hx of tonsillectomy Hx of bilateral cataract extraction Hx of vitrectomy S/P insertion of brain-responsive neurostimulation device Hx of colonoscopy Fusion of spine x2: 2019, L4-S1 decompression/fusion: Grade 1 view, MAC#3, ETT 7.0 at [facility] 2020, L2-L4 decompression and fusion, hardware removal L4-S1 History of dilatation and curettage Family History Mother Emphysema lung Brother Diabetes Other No family history of adverse response to anesthesia Social History Smoking Status: Former smoker Smoking End Date: 17 years ago; Second Hand Exposure: No; Do You Dip or Chew Tobacco: No; Tobacco Cessation Education Requested by Patient: No Hx Alcohol Use: Yes Alcohol type: wine Hx Substance Use: No Preferred Language: Grenadian Communication Ability: Effective Supervisor Metal Hanging Required: No Beliefs That Will Affect Care: None marital status: / Current Living Situation: Alone Current Living Situation Comment: lives at home alone Other Information That Helps Us Care for You: No Feels Safe at Home: Yes Safety Concerns: Feels Safe At This Time Assistive Devices: Glasses Review of Systems All systems reviewed & are unremarkable except as noted in HPI & below. Physical Exam On physical examination the right hip, she has decreased range of motion. She has pain with forced internal/external rotation. Most of her pains are getting in her groin.. Constitutional WD/WN, vitals as above Eyes PERRL, conjunctivae normal, anicteric sclerae ENMT external ear and nose normal, oropharynx normal Neck trachea midline, no thyromegaly Respiratory normal respiratory effort Cardiovascular RRR, no murmur, no edema Gastrointestinal (Abdomen) normal bowel sounds, soft, nontender, no hepatosplenomegaly Psychiatric A+Ox3, euthymic affect Results & Data Results & Data Laboratory Results . Diagnostic Findings X-rays of the right hip show advanced osteoarthritis with joint space narrowing, osteophyte formation, and [id number] articulation. PG Care Time/CCT Total # of Minutes Spent Total Time Spent with Patient: Total time spent is greater than 50% in coordination of care (as documented) at patient's floor/unit and/or counseling patient: Coding Level of Care Code None Diagnoses Osteoarthritis of right hip M16.11
[~2023-12-21 08:56] MED LIST changes: -CEFAZOLIN 1000MG 1,000 MG/7.5 ML SYR IV SCH; -CeleBREX 200 MG CAP PO SCH; +FAMOTIDINE 20 MG TAB PO SCH; +LR 60ML/HR IV SCH; +ROPIV 0.5% 246mg, Ketorolac 30mg, EPINEPHrine 0.5mg in NSS INFIL SCH; +ROPIVACAINE 0.5% 5 MG/ML 30 ML VIAL ONE; +TRANEXAMIC ACID 1,000 MG **IV Intra-op IV SCH; +TRANEXAMIC ACID 1,000 MG **IV Pre-op IV SCH; +ceFAZolin 2000MG 2,000 MG/15 ML SYR IV SCH; +dexAMETHasone**PF** 10 MG/ML VIAL IV SCH
[2023-12-21] MEDS: ACETAMINOPHEN 500 MG TAB PO SCH ×2 (09:53→14:58)
[2023-12-21] MEDS: LR 500ML BOLUS, THEN 15ML/HR IV SCH (09:53)
[2023-12-21] MEDS: dexAMETHasone**PF** 10 MG/ML VIAL IV SCH (09:54)
[2023-12-21] MEDS: FAMOTIDINE 20 MG TAB PO SCH (09:54)
[2023-12-21] MEDS: LR 60ML/HR IV SCH (09:54)
[2023-12-21] MEDS: GABAPENTIN 300 MG CAP PO SCH (09:54)
--- NOTE | 2023-12-21 10:04 | History & Physical Bridge Note ---
Date of Service December 21, 2023 History & Physical Bridge Note I have examined the patient, reviewed the History & Physical and in the interval since the performance of the History & Physical I have noted the following changes of clinical significance: no changes noted
[2023-12-21] MEDS ORDERED: MIDAZOLAM HCL 1 MG/ML 2ML VIAL ONE (10:07)
[2023-12-21] MEDS ORDERED: fentaNYL citrate PF 100 MCG/2 ML VIAL ONE (10:07)
[2023-12-21] MEDS ORDERED: HYDROmorphone INJ 1 MG/ML SYRINGE IV PRN (10:52)
[2023-12-21] MEDS ORDERED: ONDANSETRON INJ 2 MG/ML 2 ML VIAL IV PRN ×2 (10:52→14:07)
[2023-12-21] MEDS ORDERED: KETOROLAC 30 MG/ML VIAL IV PRN (10:52)
[2023-12-21] MEDS ORDERED: ATROPINE SULFATE 0.1 MG/ML 10ML SYR IV PRN (10:52)
[2023-12-21] MEDS ORDERED: ePHEDrine sulfate 50 MG/ML AMP IV PRN (10:52)
[2023-12-21] MEDS: TRANEXAMIC ACID 1,000 MG **IV Pre-op IV SCH (10:54)
[2023-12-21] MEDS: ceFAZolin 2000MG 2,000 MG/15 ML SYR IV SCH ×2 (11:00→17:36)
[2023-12-21] MEDS: ROPIV 0.5% 246mg, Ketorolac 30mg, EPINEPHrine 0.5mg in NSS INFIL SCH (11:42)
[2023-12-21] MEDS: TRANEXAMIC ACID 1,000 MG **IV Intra-op IV SCH (12:00)
[2023-12-21] MEDS: ORTHO JOINT ANESTHETIC ONE (12:00)
--- NOTE | 2023-12-21 12:01 | Operative Report ---
PG Post Operative Report Pre & Post Diagnosis Operation Date: 12/21/23 11:00 Pre-Op Diagnosis: Right Hip Degenerative Joint Disease Post-Op Diagnosis: Right Hip Degenerative Joint Disease I identified the patient and participated in the time-out.: Yes Procedure Operation Date: 12/21/23 11:00 Actual Procedures p Right Anterior Total Hip Arthroplasty, Uncemented(Right) - Indra Hsu DO Surgeon Indra Hsu DO Product Inspection Coordinator Indra Iqbal PA-C Estimated Blood Loss 200 Findings Consistent with Post-Op Diagnosis Specimens Right femoral head Description of Procedure Implants used I used a ZimmerBiomet total hip arthroplasty system with a size 4 standard offset Avenir Complete stem, a 48 mm G7 cup with a 25mm screw, an E1 polyethylene liner, a 32 mm ceramic head with a 0 neck. Ary arrived at the hospital for the above procedure. She was seen in the preoperative holding area and the operative extremity was identified and signed. She was given a spinal anesthetic, a preoperative antibiotic, and TXA. She was then taken back to the operating room and laid on the table in the supine position. She was given basic sedation. The operative leg was secured to a Puristst leg positioner. The hip was then prepped and draped in sterile fashion. A timeout was done and the patient and the operative extremity was properly identified. An anterior approach was used. Dissection was taken down through the fascia and the tensor muscle belly was retracted laterally and the rectus was retracted medially. The circumflex vessels were identified and ligated. The capsule was then incised and tagged for later repair. The femoral neck was then cut and the femoral head was removed. The acetabulum was exposed. Time was spent doing a complete circumferential labral release. Sequential reaming of the acetabulum up to a size 47 reamer was done. Final reamings were done under fluoroscopy to ensure appropriate version. A Biomet 48 mm G7 cup was then impacted into place. A single 25 mm screw was placed. The E1 polyethylene liner was then snapped into place. Surrounding soft tissues were then injected with 100 cc of an orthopedic pain control cocktail. The proximal femur was then exposed. Sequential broaching up to a size 4 broach was done. Off that broach a size 32 head with a 0 neck was trialed. The hip was reduced and fluoroscopic images showed anatomic alignment of the implants in acceptable length. The broach was removed. The final size 4 standard offset Avenir Complete stem was then impacted into place. A ceramic 32 mm head with a 0 neck was then impacted onto the stem and the hip was reduced. Final fluoroscopic images showed anatomic alignment of the hip. The capsule was then closed with #1 Vicryl suture. A dilute betadyne lavage was then done for 3 minutes. The joint was then irrigated with normal saline solution. The fascia was closed with #1 PDS suture. Skin was closed with 2-0 Vicryl, reagan, and a Silverlon dressing. She was then transferred to a hospital bed and taken to the post anesthesia care unit in stable condition. She tolerated the procedure well. Indra Iqbal PA-C, was present for the entire procedure. He was critical for patient positioning, prepping, draping, retraction exposure, wound closure and application of sterile dressing. I attest to the content of the Intraoperative Record and any orders documented therein. Any exceptions are noted below.
--- NOTE | 2023-12-21 12:18 | Fluoroscopy Report ---
FL hip RT 1V CLINICAL HISTORY: RIGHT ANTERIOR HIP COMPARISON STUDY: Right hip radiographs April 28, 2023. FLUOROSCOPY TIME: 15 seconds. Ka, r: 1.8571 mGy FLUOROSCOPIC IMAGES: 1 FINDINGS: Fluoroscopy was provided during total anterior right hip arthroplasty. Hardware is intact. There are no fractures. There are no unexpected radiopaque foreign bodies. IMPRESSION: Fluoroscopy provided during anterior total right hip arthroplasty. ACT 112: Negative or not required by law. Electronically signed by: Mario Alberto Le M.D. 12/21/2023 12:16 PM
--- NOTE | 2023-12-21 13:27 | Anesthesiology Progress Note ---
Date of Service December 21, 2023 Anesthesia Post Procedure Vital Signs Vital Signs: Temp Pulse Pulse Resp BP Pulse Ox O2 Del Method 12/21/23 13:20 70 12 130/77 92 Room Air 12/21/23 13:10 70 14 143/84 H 93 Room Air 12/21/23 13:00 68 13 144/71 H 99 Oxymask 12/21/23 12:50 68 20 134/75 100 Oxymask 12/21/23 12:40 80 14 144/94 H 100 Oxymask 12/21/23 12:30 69 15 145/57 H 100 Oxymask 12/21/23 12:24 36.6 C 76 17 135/67 98 Oxymask 12/21/23 09:42 36.8 C 74 20 139/77 95 Room Air O2 Flow Rate 12/21/23 13:20 0 12/21/23 13:10 0 12/21/23 13:00 4 12/21/23 12:50 4 12/21/23 12:40 8 12/21/23 12:30 8 12/21/23 12:24 8 12/21/23 09:42 Transfer of Care Handoff Completed per policy Notes Mental Status: alert / awake / arousable Patient Amnestic to Procedure: Yes Nausea / Vomiting: adequately controlled Pain: adequately controlled Airway Patency, RR, SpO2: stable & adequate BP & HR: stable & adequate Hydration State: stable & adequate Neuraxial Anesthesia: was administered and sensory block is resolving Anesthetic Complications: no major complications apparent
[2023-12-21] MEDS ORDERED: AMITRIPTYLINE HCL 10 MG TAB PO PRN (14:07)
[2023-12-21] MEDS ORDERED: bisacodyL 10 MG SUPP PR PRN (14:07)
[2023-12-21] MEDS ORDERED: MAGNESIUM HYDROXIDE SUSP 30 ML UDC PO PRN (14:07)
[2023-12-21] MEDS ORDERED: METOCLOPRAMIDE HCL INJ 5 MG/ML 2 ML VIAL IV PRN (14:07)
[2023-12-21] MEDS ORDERED: HYDROmorphone INJ 0.5 MG/0.5 ML SYR IV PRN (14:07)
[2023-12-21] MEDS ORDERED: NALOXONE HCL 0.4 MG/1 ML VIAL/CARP IV PRN (14:07)
[2023-12-21] MEDS: SODIUM CHLORIDE 0.9% 1,000 ML IV SCH (14:16)
--- NOTE | 2023-12-21 14:27 | XRay Report ---
AP PELVIS, CROSSTABLE LATERAL RIGHT HIP History: Right total hip arthroplasty. Degenerative arthritis. Postop. FINDINGS: The patient is status post a right total hip arthroplasty. The hardware is intact. No fract ure or dislocation. Skin reagan are in place. IMPRESSION: Right total hip arthroplasty. No evidence for hardware complication ACT 112: Negative or not required by law. Electronically signed by: Jose Tierney M.D. 12/21/2023 2:26 PM
[2023-12-21] MEDS: KETOROLAC TROMETHAMINE 15 MG/ML VIAL IV SCH (14:58)
--- OUTSIDE RECORDS SUMMARY | 2023-12-21 17:52 | External Medical Summary | Continuity of Care Document ---
Author Name Unknown Organization [address] Address [address] [place] [address] [phone] Care Team Providers Care Senior Mechanical Development Engineer Name Role Phone North Benedict Gomez Primary Care Physician [phone] [id number] Date(s): 12/17/23 - 12/17/[address] [place] [address], [facility] [address] [place] [address] [place] [phone] Encounter Diagnosis Cellulitis, leg(Discharge Diagnosis) - 12/17/23 Discharge Disposition: Home or Self Care Attending Physician: Ophelia Ferreira DO, Mariana Annette Referring Physician: Ophelia Ferreira DO, Mariana Annette Allergies, Adverse Reactions, Alerts Substance Criticality Severity Reaction Reaction Severity Status Pollen Sinus congestio n Sinus headaches Post-nasal drip Active Assessment and Plan Extracted from: Title:Office Visit Note Author:DO Ramos Clair e S Date:12/17/23 1.Cellulitis, leg Acute, uncomplicated illness/injury Goal: Resolution Data: _ Plan: Concern for cellulitis givennew redness. Startedon doxycycline 100mg BID x 7days. Discussed side effects- photosensitivity. She was advised to call her orthopedic surgeon and inform him that she is being treated for a cellulitisprior to surgery on Thursday. F/u in office if no improvement with antibiotics or gets worse. Immunizations Given and Recorded Vaccine Date Status Refusal Reason influenza virus vaccine, inactivated 02/13/23 Perez rded influenza virus vaccine, inactivated 01/10/20 Give n influenza virus vaccine, inactivated 02/12/18 Give n SARS-CoV-2 (COVID-19) mRNA-1273 vaccine 02/19/21 R ecorded SARS-CoV-2 (COVID-19) mRNA-1273 vaccine 06/20/20 R ecorded SARS-CoV-2 (COVID-19) mRNA-1273 vaccine 05/18/20 R ecorded Medications ALPRAZolam 0.25 mg oral tablet Start: 11/08/21 5:00:00 PM EDT, 1 tab, PO, qhs, Disp# 30 tab, Refills: 1, PRN: as needed for anxiety, [facility]acy: [facility] Start Date: 11/08/21 Status: Ordered amitriptyline 10 mg oral tablet TAKE ONE TABLET BY MOUTH TWICE A DAY NEEDED FOR DAYTIME PAIN AND ANXIETY Start Date: 11/05/22 Status: Ordered amLODIPine 5 mg oral tablet Start: 11/25/23 4:34:00 PM EDT, See Instructions, Disp# 90 tab, Refills: 0, take 1 tablet by mouth once daily, Pharmacy: [facility] [place] [id number] Start Date: 11/25/23 Status: Ordered doxycycline hyclate 100 mg oral capsule Start: 12/17/23 10:21:00 AM EDT, 1 cap, PO, bid, Disp# 14 cap, Pharmacy: [facility] [place] [id number] Start Date: 12/17/23 Stop Date: 12/24/23 Status: Ordered DULoxetine 30 mg oral delayed release capsule Start: 12/08/23 10:24:00 AM EDT, 1 cap, PO, Daily Start Date: 12/08/23 Status: Ordered DULoxetine 60 mg oral delayed release capsule Start: 06/01/23 2:07:00 PM EST, See Instructions, Disp# 90 cap, Refills: 0, TAKE ONE CAPSULE BY MOUTHEVERY , Pharmacy: [facility] [place] [id number] Start Date: 06/01/23 Status: Ordered lutein 20 mg oral capsule Start: 12/23/18 9:04:00 AM EDT, 1 cap, PO, Daily Start Date: 12/23/18 Status: Ordered magnesium oxide 250 mg oral tablet Start: 01/25/16 10:07:00 AM EDT, 1 tab, PO, Daily Start Date: 01/25/16 Status: Ordered Milk Thistle oral tablet Start: 10/07/12 3:10:00 PM EDT, 1 cap, PO, Daily Start Date: 6/13/13 Status: Ordered multivitamin Start: 12/23/18 9:03:00 AM EDT, 1 tab, PO, Daily Start Date: 12/23/18 Status: Ordered mupirocin 2% topical ointment Start: 08/12/23 10:19:00 AM EDT, 1 appl, topical, tid, Disp# 22 g, apply a thin film to affected area TID, Pharmacy: [id number] Start Date: 08/12/23 Status: Ordered Vitamin D3 Start: 10/07/12 3:09:00 PM EDT, 1 tab, PO, Daily Start Date: 10/07/12 Status: Ordered vitamin E Start: 12/23/18 9:03:00 AM EDT, 400 Int_Unit =, PO, Daily Start Date: 12/23/18 Status: Ordered Mental Status 12/17/23 Barriers to Learning one year None evide nt Mandatory Health Literacy Documentation Yes Health Literacy Communication Barriers N ever Primary Language Latvian Problem List Condition Confirmation Course Effective Dates Status H ealth Status Informant Anxiety Confirmed Active Back pain Confirmed Active Cataract Confirmed Active Lumbar degenerative disc disease Confirmed Active Rash of body Confirmed Active Fluid level behind tympanic membrane Confirmed Active S/P total knee replacement Confirmed Active History of lumbar surgery Confirmed Active Hypertension Confirmed Active Sacroiliitis 1 Confirmed Active Osteoarthritis of knee Confirmed Active Lyme disease Confirmed Active Mitral valve prolapse Confirmed Active Saphenous neuralgia Confirmed Active Neuralgia and neuritis, unspecified Confirmed Active Osteoarthritis of right knee Confirmed Active Right knee pain Confirmed Active Other psychoactive substance abuse, uncomplicated Confirmed Active Major depressive disorder, recurrent episode, mild 2 Confirmed Active Spinal stenosis Confirmed Active Tick bite Confirmed Active Tremor Confirmed Active [facility] 2Chldariela Singletary, PhD Diagnosis Diagnosis Type Effective Dates Health Status Cl inical Service Informant Cellulitis, leg Discharge Diagnosis 12/17/23 Non-Specified Procedures Procedure Date Related Diagnosis Body Site Status Laminectomy 11/19/18 Completed MRI of lumbar spine 1 05/26/17 Com pleted Mammogram 05/07/17 Completed Total prosthetic replacement of knee joint using cement 2 02/07/16 Completed CAT scan 3 05/08/15 Completed Imaging 4, 5 03/02/15 Completed 11. Severe central canal stenosis at L4-L5 due to anterolisthesis with uncovering of the disc, ligamentous hypertrophy and facet arthrosis. 2. Moderate to severe multilevel neural foraminal stenosis, as detailed above. 3. 2.7 X 0.9 X 1.3 cm abnormality anterior to the L5-S1 disc space which is indeterminate but may reflect an anterior disc herniation which could arise from the L4-L5 or L5-S1 disc. 2Right knee 3Sinus CT 4[facility]. Impression: Osteopenia. Findings related to the tarsal navicular. 5left ankle min 3 views routine Vital Signs Most recent to oldest [Reference Range]: 1 Patient Weight 56 kg (12/17/23 10:04 AM) Heart Rate 75 bpm (12/17/23 10:04 AM) Respiratory Rate 20 br/min (12/17/23 10:04 AM) Blood Pressure 108/70mmHg (12/17/23 10:04 AM) Social History Social History Type Response Tobacco Former smoker, Cigar ettes 1 Smoking Status Former Smoker, quit > 1 yr Sex Female Sex Representation Female (finding) 1Quit approx [address] [facility] Outpt Note * DO Ramos Claire S: PERFORM Ophelia Ferreira DO, Mariana Annette: MODIFY Event Display: FCM Outpt Note Authored Date: Chief Complaint recheck left lower leg laceration - suture removed on 12/10 by [facility] - mild itchy, some redness, no pain - having hip replacement on thursday History of Present Illness 78 year old female presenting with concern for redness around site if suture removal. - was Keflexx 1 week (finished on 12/08) - 14 sutures removed from left leg 12/13 - supposed to have hip replaced 12/20 - noticed increased redness around suture site that started yesterday - denies d/c , fever/chills Review of Systems As per above Physical Exam Vitals & Measurements HR:75(Monitored) RR:20 BP:108/70 SpO2:98% WT:56.000kg(Dosing) WT:56kg PHQ2 Data(Data Documented on:12/17/2023 10:03) Emotional health assessment NEGATIVE General:Well-developed, well-nourished patient, in no acute distress, pleasant and normal affect, intact memory. Eyes:No scleral injection or discharge. ENT:Moist mucous membranes. Lungs:No increased work of breathing. Cardiac:Well perfused.No extremity edema. Neurologic:Grossly intact cranial nerves Skin: Some erythema surrounding area of suture removal as per below Images 2023-12-17 10:12:38 Assessment/Plan 1.Cellulitis, leg Acute, uncomplicated illness/injury Goal: Resolution Data:_ Plan: Concern for cellulitis givennew redness. Startedon doxycycline 100mg BID x 7days. Discussed side effects- photosensitivity. She was advised to call her orthopedic surgeon and inform him that she is being treated for a cellulitisprior to surgery on Thursday. F/u in office if no improvement with antibiotics or gets worse. Attestation Patient's case reviewed in detail with Dr. Ramos, agree with detail of history and physical as documented above. Plan reviewed in detail with providing resident physician. Problem List/Past Medical History Ongoing Anxiety Back pain Cataract Fluid level behind tympanic membrane History of lumbar surgery Hypertension Lumbar degenerative disc disease Lyme disease Major depressive disorder, recurrent episode, mild Mitral valve prolapse Neuralgia and neuritis, unspecified Osteoarthritis of knee Osteoarthritis of right knee Other psychoactive substance abuse, uncomplicated Rash of body Right knee pain S/P total knee replacement Sacroiliitis Saphenous neuralgia Spinal stenosis Tick bite Tremor Resolved Daily pain Essential (hemorrhagic) thrombocythemia Finger numbness Flu vaccine need H/O degenerative disc disease Knee pain, right Lumbago with sciatica Moderate left ankle sprain PND (post-nasal drip) Pre-op exam Procedure/Surgical History Laminectomy| Service Date: 11/19/2018MRI of lumbar spine| Service Date: 05/26/2017Mammogram| Service Date: 05/07/2017Total prosthetic replacement of knee joint using cement| Service Date:02/07/2016CAT scan| Service Date: 05/08/2015Imaging| Service Date: 03/02/2015 Medications ALPRAZolam(ALPRAZolam 0.25 mg oral tablet), 0.25 mg= 1 tab, PO, qhs, PRN, 1 refills amitriptyline(amitriptyline 10 mg oral tablet) amLODIPine(amLODIPine 5 mg oral tablet), See Instructions cholecalciferol(Vitamin D3), 1 tab, PO, Daily doxycycline(doxycycline hyclate 100 mg oral capsule), 100 mg= 1 cap, PO, bid DULoxetine(DULoxetine 60 mg oral delayed release capsule), See Instructions DULoxetine(DULoxetine 30 mg oral delayed release capsule), 30 mg= 1 cap, PO, Daily lutein(lutein 20 mg oral capsule), 20 mg= 1 cap, PO, Daily magnesium oxide(magnesium oxide 250 mg oral tablet), 250 mg= 1 tab, PO, Daily milk thistle(Milk Thistle oral tablet), 1 cap, PO, Daily multivitamin, 1 tab, PO, Daily mupirocin topical(mupirocin 2% topical ointment), 1 appl, topical, tid vitamin E, 400 Int_Unit, PO, Daily Allergies PollenSinus congestion, Sinus headaches, Post-nasal drip Social History Smoking Status Former Smoker, quit > 1 yr Alcohol Frequency:Daily Exercise - Regular exercise Tobacco - Denies Tobacco Use Use:Former smoker Type:Cigarettes - Comments: Quit approx 15 years ago. Family History Arthritis: Mother. Health Status Family Member(s) Immunizations Vaccine Date Status influenza virus vaccine, inactivated 02/13/2023 Recorded SARS-CoV-2 (COVID-19) mRNA-1273 vaccine 02/19/2021 Recorded SARS-CoV-2 (COVID-19) mRNA-1273 vaccine 06/20/2020 Recorded SARS-CoV-2 (COVID-19) mRNA-1273 vaccine 05/18/2020 Recorded influenza virus vaccine, inactivated 01/10/2020 Given influenza virus vaccine, inactivated 02/12/2018 Given Recommendations Health Maintenance Pending(in the next year) OverDue Medicare Annual Wellness Visit due03/11/23and every 1year Adult Influenza Vaccine due10/25/23and every 1year Due Adult COVID-19 Vaccination due12/17/23Unknown Frequency Adult Social Determinants of Health Screening due12/17/23Unknown Frequency Hepatitis C Screening due12/17/23One-time only Pneumococcal Vaccine Older Adults due12/17/23One-time only Shingles Vaccine due12/17/23One-time only Satisfied(in the past 1 year) Satisfied Adult Influenza Vaccine on02/13/23.Satisfied by DEISY Sullivan Lori Body Mass Index on12/08/23.Satisfied by DEISY Sullivan Lori Electronic Signature on File Electronically Reviewed/Signed by: Gabriela Ramos DO Author Signature Dt/Tm:12/17/2023 11:05 AM Resident Department of Family Medicine Electronically Reviewed/Signed by: Isha Ferreira DO Cosigner Signature Dt/Tm: 12/17/2023 11:36 AM Department of Family Medicine CSN Patient Care team information Care Team Personnel Name: MD North, Benedict Gomez Position: Physician Member Role: Primary Care Provider Address: [address] [place] [address] Care Team Related Persons Name: NOEMI BANERJEE Name: NOEMI BANERJEE"
--- OUTSIDE RECORDS SUMMARY | 2023-12-21 17:52 | External Medical Summary | Continuity of Care Document ---
Author Name Unknown Organization [address] Address [address] [place] [address] [phone] Care Team Providers Care Metrology Technician Name Role Phone KatGumarofelipe Patricia Primary Care Physician [phone] [id number] Date(s): 12/11/23 - 12/11/[address], [facility] [address] [place] [address] [place] [phone] Encounter Diagnosis Scalp laceration(Discharge Diagnosis) - 12/11/23 Leg laceration(Discharge Diagnosis) - 12/11/23 Discharge Disposition: Home or Self Care Attending Physician: MD Britt Jesse Referring Physician: MD Britt Jesse Allergies, Adverse Reactions, Alerts Substance Criticality Severity Reaction Reaction Severity Status Pollen Sinus congestio n Sinus headaches Post-nasal drip Active Immunizations Given and Recorded Vaccine Date Status [...] PRN: as needed for anxiety, Pharmacy: [facility] Start Date: 11/08/21 Status: Ordered amitriptyline 10 mg oral tablet TAKE ONE TABLET BY MOUTH TWICE A DAY NEEDED FOR DAYTIME PAIN AND ANXIETY Start Date: 11/05/22 Status: Ordered amLODIPine 5 mg oral tablet Start: 11/25/23 4:34:00 PM EDT, See Instructions, Disp# 90 tab, Refills: 0, take 1 tablet by mouth once daily, Pharmacy: [facility] Start Date: 11/25/23 Status: Ordered DULoxetine 30 mg oral delayed release capsule Start: 12/08/23 10:24:00 AM EDT, 1 cap, PO, Daily Start Date: 12/08/23 Status: Ordered DULoxetine 60 mg oral delayed release capsule Start: 06/01/23 2:07:00 PM EST, See Instructions, Disp# 90 cap, Refills: 0, TAKE ONE CAPSULE BY MOUTHEVERY DAY, Pharmacy: [facility] Start Date: 06/01/23 Status: Ordered lutein 20 mg oral capsule Start: 12/23/18 9:04:00 AM EDT, 1 cap, PO, Daily Start Date: 12/23/18 Status: Ordered magnesium oxide 250 mg oral tablet Start: 01/25/16 10:07:00 AM EDT, 1 tab, PO, Daily Start Date: 01/25/16 Status: Ordered Milk Thistle oral tablet Start: 10/07/12 3:10:00 PM EDT, 1 cap, PO, Daily Start Date: 10/07/12 Status: Ordered multivitamin Start: 12/23/18 9:03:00 AM EDT, 1 tab, PO, Daily Start Date: 12/23/18 Status: Ordered mupirocin 2% topical ointment Start: 08/12/23 10:19:00 AM EDT, 1 appl, topical, tid, Disp# 22 g, apply a thin film to affected area TID, Pharmacy: [facility] Start Date: 08/12/23 Status: Ordered Vitamin D3 Start: 10/07/12 3:09:00 PM EDT, 1 tab, PO, Daily Start Date: 10/07/12 Status: Ordered vitamin E Start: 12/23/18 9:03:00 AM EDT, 400 Int_Unit =, PO, Daily Start Date: 12/23/18 Status: Ordered Mental Status 12/11/23 Barriers to Learning one year None evide nt Mandatory Health Literacy Documentation Yes Health Literacy Communication Barriers N ever Primary Language Estonian Problem List Condition Confirmation Course Effective Dates [...] Tick bite Confirmed Active Tremor Confirmed Active [facility] 2Cha Singletary PhD Diagnosis Diagnosis Type Effective Dates Health Status Clinical Service Informant Scalp laceration Discharge Diagnosis 12/11/23 Non-Specified Leg laceration Discharge Diagnosis 12/11/23 Non-Specified Procedures Procedure Date Related Diagnosis Body [...] L5-S1 disc. 2Right knee 3Sinus CT 4[facility]. Impression: Osteopenia. Findings related to the tarsal navicular. 5left ankle min 3 views routine Vital Signs Most recent to oldest [Reference Range]: 1 Temperature [36.5-37.9 DegC] 36.2 DegC *LOW* (12/11/23 9:32 AM) Blood Pressure 118/76mmHg (12/11/23 9:32 AM) Cuff Pulse Pressure 42 mmHg (12/11/23 9:32 AM) Social History Social History Type Response Tobacco Former smoker, Cigar ettes 1 Smoking Status Former Smoker, quit > 1 yr Sex Female Sex Representation Female (finding) 1Quit approx 15 years ago. Patient Care team information Care Team Personnel Name: MD North, Benedict Gomez Position: Physician Member Role: Primary Care Provider Address: [address] [place] [address] [place] Care Team Related Persons Name: NOEMI BANERJEE Name: NOEMI BANERJEE
--- OUTSIDE RECORDS SUMMARY | 2023-12-21 17:53 | External Medical Summary | Continuity of Care Document ---
Author Name Unknown Organization [address] Address [address] [place] [address] [phone] Care Team Providers Care Orthopedic Technician Name Role Phone Benedict Kat Primary Care Physician [phone] Encounter [facility] [id number] Date(s): 12/08/23 - 12/08/[address], [facility] [address] [place] [address] [phone] Encounter Diagnosis Body mass index [BMI] 22.0-22.9, adult(Discharge Diagnosis) - 12/08/23 Hospital discharge follow-up(Discharge Diagnosis) - 12/08/23 Left rib fracture(Discharge Diagnosis) - 12/08/23 Laceration of scalp(Discharge Diagnosis) - 12/08/23 Leg laceration(Discharge Diagnosis) - 12/08/23 Discharge Disposition: Home or Self Care Attending Physician: MD Kat Ravishankar E Referring Physician: MD Kat Ravishankar E Allergies, Adverse Reactions, Alerts Substance Criticality Severity Reaction Reaction Severity Status Pollen Sinus congestio n Sinus headaches Post-nasal drip Active Assessment and Plan Extracted from: Title:Office Visit Note Author:MD Kat Ravishan kar E Date:12/08/23 1.Hospital discharge follo w-up - Hospital/ED records reviewed at length, results reviewed with pt and all questions answered - Pt was inappropriately advised to keep wounds covered and dressed and avoid showring x 2weeks -- reviewed wound closure principles and typical scalp suture removal of 7-10 days and suture removal similarly at 7-10 days. Both wounds show good healing and advised waiting to 14 days (which is not reflected in ED/hospital notes) would prove more complicated/painful and is not advised). She was agreeable to schedule removal Thursday (8 days post placement) with one of my colleagues. - Encouraged leaving wounds open to air but pt concerned and wishes to keep covered until at least 7 days out which I agree likely wouldn't hurt it but isn't necessary 2.Left rib fracture - avoid coughing/vomiting and chest movement as much as feasible - Improving course 3.Laceration of scalp - Removal of reagan Thursday - OK to shower but avoid submersion and avoid wetting for 24hrs post staple removal as well - submersion/baths/swimming should be avoided x 4 weeks 4.Leg laceration - Removal of sutures Thursday - OK to shower but avoid submersion and avoid wetting for 24hrs post staple removal as well - submersion/baths/swimming should be avoided x 4 weeks f/u PRN. Time: 40mins 5 - pre-visit chart review 30 - visit, inclusive of history, exam, and discussion of assessment/plan 5 - post-visit documentation/orders/coordination of care Immunizations Given and Recorded Vaccine Date Status [...] PRN: as needed for anxiety, Pharmacy: [facility] [place] [address] Start Date: 11/08/21 Status: Ordered amitriptyline 10 mg oral tablet TAKE ONE TABLET BY MOUTH TWICE A DAY NEEDED FOR DAYTIME PAIN AND ANXIETY Start Date: 11/05/22 Status: Ordered amLODIPine 5 mg oral tablet Start: 11/25/23 4:34:00 PM EDT, See Instructions, Disp# 90 tab, Refills: 0, take 1 tablet by mouth once daily, Pharmacy: [facility] Start Date: 11/25/23 Status: Ordered DULoxetine 30 mg oral delayed release capsule Start: 12/08/23 10:24:00 AM EDT, 1 cap, PO, Daily Start Date: 12/08/23 Status: Ordered DULoxetine 60 mg oral delayed release capsule Start: 06/01/23 2:07:00 PM EST, See Instructions, Disp# 90 cap, Refills: 0, TAKE ONE CAPSULE BY MOUTHEVERY DAY, Pharmacy: [facility] Start Date: 06/01/23 Status: Ordered lutein 20 [...] thin film to affected area TID, Pharmacy: [facility] Start Date: 08/12/23 Status: Ordered Vitamin D3 Start: 10/07/12 3:09:00 PM EDT, 1 tab, PO, Daily Start Date: 10/07/12 Status: Ordered vitamin E Start: 12/23/18 9:03:00 AM EDT, 400 Int_Unit =, PO, Daily Start Date: 12/23/18 Status: Ordered Mental Status 12/08/23 Barriers to Learning one year None evide nt Mandatory Health Literacy Documentation Yes Health Literacy Communication Barriers N ever Primary Language Upper Sorbian Problem List Condition Confirmation Course Effective Dates [...] Tick bite Confirmed Active Tremor Confirmed Active 1[facility] 2Cha Singletary PhD Diagnosis Diagnosis Type Effective Dates Health Status Clinical Service Informant Laceration of scalp Discharge Diagnosis 12/08/23 Non-Specified Leg laceration Discharge Diagnosis 12/08/23 Non-Specified Hospital discharge follow-up Discharge Diagnosis 12/08/23 Non-Specified Left rib fracture Discharge Diagnosis 12/08/23 Non-Specified Body mass index [BMI] 22.0-22.9, adult Discharge Diagnosis 12/08/23 Non-Specified Procedures Procedure Date Related Diagnosis Body [...] L5-S1 disc. 2Right knee 3Sinus CT 4[facility]. Impression: Osteopenia. Findings related to the tarsal navicular. 5left ankle min 3 views routine Vital Signs Most recent to oldest [Reference Range]: 1 Height 160.0 cm (12/08/23 10:19 AM) Patient Weight 56.8 kg (12/08/23 10:19 AM) Body Mass Index 22.19 kg/m2 (12/08/23 10:19 AM) Temperature [36.5-37.9 DegC] 36.5 DegC (12/08/23 10:19 AM) Blood Pressure 116/72mmHg (12/08/23 10:19 AM) Cuff Pulse Pressure 44 mmHg (12/08/23 10:19 AM) Social History Social History Type Response Tobacco Former smoker, Cigar ettes 1 Smoking Status Former Smoker, quit > 1 yr Sex Female Sex Representation Female (finding) 1Quit approx 15 years ago. [facility] Outpt Note * MD North, Benedict Gomez: PERFORM Event Display: [facility] Out[facility] Note Authored Date: [id number] Chief Complaint [facility] hosp f/u, fall injury, feeling better. Laceration LT merchant (sutures), laceration head (reagan). 2 fractured ribs. History of Present Illness Ary is a 78yoF here today for hospital f/u from discharge 12/03/2023. She had fallen down stairs backwards carrying too many things and developed a scalp hematoma, flank hematoma, and fractures of 4th/5th ribs on the L side. She was ambulatory and seen by ortho who plans to delay her R hip arthroplasty 6-8 weeks pending rib healing. She was in pain but at her baseline chronic pain so disch arged to outpatient f/u. She does notably have a scalp laceration with 6 reagan, as well as 3 pretibial lacerations with 8,2, and 4 sutures respectively that she was advised to see us about removing at 7-10 days (now day 5so a bit too early). Overall feels she's moving in the right direction and feels her chronic pain is there but no worse than baseline. Eager to get hip done but planning for 6wks out. Review of Systems 02/07pt ROS reviewed/negative except as noted in HPI. Physical Exam Vitals & Measurements T:36.5C BP:116/72 SpO2:97% HT:160.0cm WT:56.800kg(Dosing) WT:56.8kg BMI:22.19 PHQ2 Data(Data Documented on:12/08/2023 10:17) Emotional health assessment NEGATIVE GENERAL APPEARANCE: The patient is alert, oriented and in no acute distress. VITALS: As above. HEENT: Head is normocephalic/atraumatic. CARDIOVASCULAR: +2 radialpulses. LUNGS: Respirations even and unlabored. EXTREMITIES: No cyanosis, clubbing or edema. MUSCULOSKELETAL: Moderate hematoma/bruising on L flankl and upper back. TTP of L rib cage. NEUROLOGICAL: Grossly non-focal exam. SKIN: Warm and dry without any rash. L Tibial lacerations closed without dehiscence, minorabrasions adjacent all healing well without signs of infection. Area dressed but dressings clean/dry. Scalp lac with good closure and no sign of infection or dehiscence. Assessment/Plan 1.Hospital discharge follow-up - Hospital/ED records reviewed at length, results reviewed with pt and all questions answered - Pt was inappropriately advised to keep wounds covered and dressed and avoid showring x 2weeks -- reviewed wound closure principles and typical scalp suture removal of 7-10 days and suture removalsimilarly at 7-10 days. Both wounds show good healing and advised waiting to 14 days (which is not reflected in ED/hospital notes) would prove more complicated/painful and is not advised). She was agreeable to schedule removal Thursday (8 days post placement) with one of my colleagues. - Encouraged leaving wounds open to air but pt concerned and wishes to keep covered until at least 7 days out which I agree likely wouldn't hurt it but isn't necessary 2.Left rib fracture - avoid coughing/vomiting and chest movement as much as feasible - Improving course 3.Laceration of scalp - Removal of reagan Thursday - OK to shower but avoid submersion and avoid wetting for 24hrs post staple removal as well - submersion/baths/swimming should be avoided x 4 weeks 4.Leg laceration - Removal of sutures Thursday - OK to shower but avoid submersion and avoid wetting for 24hrs post staple removal as well - submersion/baths/swimming should be avoided x 4 weeks f/u PRN. Time: 40mins 5 - pre-visit chart review 30 - visit, inclusive of history, exam, and discussion of assessment/plan 5 - post-visit documentation/orders/coordination of care Problem List/Past Medical History Ongoing Anxiety Back [...] Instructions cholecalciferol(Vitamin D3), 1 tab, PO, Daily DULoxetine(DULoxetine 60 mg oral delayed release capsule), [...] due10/25/23and every 1year Due Adult COVID-19 Vaccination due12/08/23Unknown Frequency Adult Social Determinants of Health Screening due12/08/23Unknown Frequency Hepatitis C Screening due12/08/23One-time only Pneumococcal Vaccine Older Adults due12/08/23One-time only Shingles Vaccine due12/08/23One-time only Satisfied(in the past 1 year) Satisfied Adult Influenza Vaccine on02/13/23.Satisfied by DEISY Sullivan Lori Body Mass Index on12/08/23.Satisfied by DEISY Sullivan Lori Electronic Signature on File Electronically Reviewed/Signed by: Benedict Kat MD Author Signature Dt/Tm:12/08/2023 10:48 AM Department of Family Medicine [facility] Patient Care team information Care Team Personnel Name: MD Kat Ravishankar E Position: Physician Member Role: Primary Care Provider Address: [address] [place] [address] Care Team Related Persons Name: NOEMI BANERJEE Name: NOEMI BANERJEE"
[2023-12-21] MEDS: ASPIRIN 81 MG ECTAB PO SCH (20:26)
[2023-12-21] MEDS: DOCUSATE SODIUM 100 MG CAP PO SCH (20:26)
[2023-12-21] MEDS: SENNA 8.6 MG TAB PO SCH (20:26)
[2023-12-21] MEDS: DOXYCYCLINE HYCLATE 100 MG CAP PO SCH (20:27)
[2023-12-21] MEDS: AMITRIPTYLINE HCL 10 MG TAB PO SCH (22:25)
--- NOTE | 2023-12-22 07:08 | Orthopedic Progress Note ---
Date of Service December 22, 2023 Assessment & Plan (1) Status post right hip replacement: Overall she is doing very well. She is not having much pain in the right hip. She will be seen by physical therapy today for ambulation and range of motion exercises. She is on aspirin for DVT prophylaxis. She can be discharged home later today. She will follow-up orthopedics in 2 weeks. Sapna Mcallister was seen and examined at bedside this morning. Overall she is doing very well. She is not having much pain in the right hip. She has been up and ambulating to the bathroom. She has no complaints.. Review of Systems All systems reviewed & are unremarkable except as noted in HPI & below. Physical Exam On physical examination of the right hip, the dressing is clean and dry. Her leg is out full extension. She has active dorsiflexion plantarflexion of the right ankle.. Results & Data Results & Data Laboratory Results . Diagnostic Findings Postoperative x-rays of the right hip show the prosthesis to be in anatomic alignment without any evidence of fracture complication, or loosening.. PG Care Time/CCT Total # of Minutes Spent Total Time Spent with Patient: Total time spent is greater than 50% in coordination of care (as documented) at patient's floor/unit and/or counseling patient: Coding Level of Care Code 20101 Post Operative Follow-Up Diagnoses Status post right hip replacement Z96.641
--- NOTE | 2023-12-22 07:10 | Discharge Summary ---
Date of Service December 22, 2023 Admission HPI (Per Admitting) Ary is a pleasant 78-year-old female who has been living with chronic pain. She has lot of low back pain. She has 3 lumbar surgeries done by Dr. Wilson. She has been dealing with increasing right hip and groin pain. It radiates around her groin and goes down her right leg. She does have an MRI of her hip, which shows advanced arthritis. After failing extensive conservative treatment, she has elected to proceed with a right anterior total of arthroplasty. Admission Exam (Per Admitting) On physical examination the right hip, she has decreased range of motion. She has pain with forced internal/external rotation. Most of her pains are getting in her groin.. Principal Diagnosis Same as "Discharge Diagnosis" noted below under Discharge Instructions. Discharge Exam On physical examination of the right hip, the dressing is clean and dry. Her leg is out full extension. She has active dorsiflexion plantarflexion of the right ankle.. Discharge Data Procedures Performed Operation Date: 12/21/23 11:00 Actual Procedures p Right Anterior Total Hip Arthroplasty, Uncemented(Right) - Indra Hsu DO Ordered Studies 12/21/23 11:00 FL hip RT 1V Routine Hospital Course (1) Status post right hip replacement: On December 21, 2023 Ary arrived at [facility] and underwent a right hip replacement without complication. She had a spinal anesthetic. Postoperatively she was started on aspirin for DVT prophylaxis and transferred to the general orthopedic floors. Her hospital course was uneventful. On postop day #1, her vital signs were stable and her pain was well-controlled. She was able to participate well with physical therapy doing ambulation and range of motion exercises. She was then discharged home. She will follow-up with orthopedics in 2 weeks. PG Care Time/CCT Total # of Minutes Spent Total Time Spent with Patient: Total time spent is greater than 50% in coordination of care (as documented) at patient's floor/unit and/or counseling patient: Discharge Plan Discharge Items Patient Disposition: Home - Self-Care Reason For Visit: Right Hip Degenerative Joint Disease Discharge Diagnosis: Right hip replacement Activity: Per Instructions section Non-emergency contact: Surgeon Call non-emergency contact if: your wound has increased redness and your wound has increased drainage Follow-up/Referrals: Edgar Kat MD [Primary Care Provider] - Diet: Regular Addtl Attending Provider Instructions: Activity and Therapy Recommendations: * If you are using [facility] then therapy will be provided at your home until they feel you have accomplished all of your goals. * If you are using [facility] then Physical Therapy will be provided until they feel you are ready to start Outpatient Physical Therapy. * If you are not using home therapy then Outpatient Physical Therapy should start about 3-5 days from your day of surgery. Therapy will last about 6-10 weeks * You were shown a series of exercises in the hospital. Do these exercises three times each day including the exercises you were shown in physical therapy. * Get up and walk several times each day.~ For the first four weeks, try not to stand or walk for more than one hour at a time. If you do stand or walk for more than one hour, you will not hurt anything, but your leg will likely swell.~~ * As you feel comfortable, you may change from the walker or crutches to a cane and~then to independent walking. Medications: * Narcotic You will likely be sent home from the hospital with a prescription for the narcotic pain medication that worked best throughout your stay. * Cefadroxil -take the antibiotic twice a day for 10 days to help prevent infection. * Aspirin Most patients will be required to take Aspirin 81mg twice a day for 6 weeks after surgery. This is obtained [id number] and a prescription is not necessary. * Other medications may be prescribed for specific circumstances. If you have any questions, please call the office at . * Resume previous home medications unless otherwise instructed TEDs/Elastic Stockings: The white elastic stockings help limit swelling and prevent blood clots from forming in your legs. The more you wear them, the more they work. Wear them for six weeks. Dressing Care: Leave the Silverlon dressing in place for 7 days. After 7 days you may remove the dressing. If the incision is not draining then you may leave the reagan open to air. If there is a little bit of drainage or if the reagan are getting stuck on your clothing then cover the incision with a dry dressing. The reagan will be removed at your 2 week follow-up appointment. Showering: You may shower with the Silverlon dressing in place. Do not let the shower spray hit the dressing directly. Pat the Silverlon dressing dry. If the dressing becomes wet underneath, then simply remove the dressing. Keep the incision dry until you are 7 days out from the day of surgery. After 7 days you may remove the Silverlon dressing and shower with the reagan exposed. Let soapy water run over the reagan and pat them dry. Do not scrub or soak the incision. Things To Watch For: * Drainage from the incision site that occurs more than one week after your surgery. * Increased redness at the incision site. * Fever above 102 degrees Fahrenheit. * Unusual chest pain or shortness of breath. * Call [facility] at with any of the above problems Follow-Up Visit: Follow-up with Dr. Hsu's PA (Indra Iqbal) 2-3 weeks after your day of surgery. He will remove your reagan and answer any questions. If you have any additional questions or concerns, Dr Hsu is usually in the office at the same time and will be available An appointment was probably scheduled when you signed-up for surgery in the office. If you have any questions call Office Instructions: More detailed instructions as well as Frequently Asked Questions were provided in a folder by our office when you signed-up for surgery. Please review these instructions when you get home. If you have any further questions or concerns, please feel free to call the office at [phone] Pending Studies at Discharge: No Stand-Alone Forms: My [facility] Medications and DC Order Prescriptions: New oxycodone 5 mg Tablet 5 mg PO Q4H PRN (Reason: pain) Qty: 30 0RF cefadroxil 500 mg capsule 500 mg PO BID 10 Days Qty: 20 0RF aspirin 81 mg Tablet,Delayed Release (Dr/Ec) 81 mg PO BID 42 Days Qty: 0 0RF Continued ibuprofen 600 mg tablet 600 mg PO Q8H PRN (Reason: Pain) milk thistle 150 mg capsule 150 mg PO QAM magnesium oxide 250 mg magnesium tablet 250 mg PO QAM cholecalciferol (vitamin D3) 3,000 unit tablet 2,000 units PO QAM duloxetine 60 mg capsule,delayed release(DR/EC) 60 mg PO QAM Rx Instructions: TOTAL DOSE 90 MG--TAKES WITH 30 MG CAP. Prolia 60 mg/mL syringe 60 mg subcut .q 6 months multivitamin Tablet 1 tab PO QAM duloxetine 30 mg Capsule,Delayed Release(Dr/Ec) 30 mg PO QAM Qty: 30 0RF Rx Instructions: TOTAL DOSE 90 MG--TAKES WITH 60 MG CAP. lutein 20 mg Capsule 20 mg PO QAM amitriptyline 25 mg Tablet 12.5 - 25 mg PO HS Rx Instructions: PER PT "DOSE VARIES BETWEEN 12.5-35 MG QHS, DEPENDS ON WHAT I'M DOING THE NEXT DAY". amlodipine 5 mg Tablet 5 mg PO QAM amitriptyline 10 mg tablet 10 mg PO DIRECTED Rx Instructions: TAKE 10 MG DAILY IF NEEDED FOR PAIN, THEN ADDS 10 MG TO HS DOSE IF NEEDED FOR SLEEP. Discontinued doxycycline hyclate tablet 100 mg PO 2XD amoxicillin 500 mg capsule 2,000 mg PO DIRECTED PRN (Reason: 1 HR PRIOR TO DENTAL PROCEDURES) Discharge Orders: Discharge Order (Routine); Ordered 12/22/23 Ordered By: Indra Hsu Admission Data Admit Date/Time: 12/21/23 12:27 Attending Provider: Indra Hsu Admit Provider: Indra Hsu Primary Care Provider: Edgar Kat
[2023-12-22 07:54] VITALS: BP 149/77; PULSE 60; RESP 18; TEMP 98.2; O2SAT 96
[2023-12-22] MEDS: dexAMETHasone 4 MG TAB PO SCH (09:01)
[2023-12-22] MEDS: DULoxetine HCL 60 MG CAP PO SCH (09:02)
[2023-12-22] MEDS: MULTIVITAMIN TAB PO SCH (09:02)
[2023-12-22] MEDS: DULoxetine HCL 30 MG CAP PO SCH (09:02)
[2023-12-22] MEDS: amLODIPine BESYLATE 5 MG TAB PO SCH (09:02)
[2023-12-22] MEDS: oxyCODONE HCL IR 5 MG TAB (IMMEDIATE RELEASE) PO PRN (11:00)
== END 2023-12-22 11:40 | disposition home or self-care (01) ==
LOC: 3N 08:56 → ASU 08:56

== ENCOUNTER 2024-07-14 11:59 | Inpatient (IN) ==
--- NOTE | 2024-07-08 11:13 | Anesthesiology Consultation ---
Date of Service July 08, 2024 Assessment & Plan (1) Encounter for pre-operative examination: Chart Review Chart Review: Acceptable Risk for Surgery and Patient NOT seen in Pre Admission Testing Consults Requested none History Surgery Operation Date: 04/01/24 14:10 Proposed Procedures p Partial Revision Right Femoral Component, Femoral Placement Cerclage Darryl Hsu DO Operation Date: 07/14/24 14:45 Proposed Procedures p Partial Revision Right Femoral Component, Femoral Placement Cerclage Darryl Hsu, DO Height/Weight Height: 5 ft 2.5 in Weight: 54.431 kg Allergies Allergy/AdvReac Type Severity Reaction Status Date / Time pollen extracts Allergy Intermediate ITCHY Verified 07/08/24 08:22 EYES, SNEEZING coconut Allergy Mild Redness of Verified 07/08/24 08:22 Skin Medications Home Medications Medication Instructions Recorded Confirmed Last Taken cholecalciferol (vitamin D3) 75 5,000 units PO QAM 04/22/18 07/08/24 12/14/23 08:00 mcg (3,000 unit) tablet magnesium oxide 250 mg PO QAM 04/22/18 07/08/24 12/20/23 08:00 milk thistle 150 mg capsule 150 mg PO QAM 04/22/18 07/08/24 12/14/23 08:00 duloxetine 60 mg capsule,delayed 60 mg PO QAM 04/23/18 07/08/24 12/21/23 08:00 release multivitamin 1 tab PO QAM 06/04/18 07/08/24 12/20/23 08:00 duloxetine 30 mg capsule,delayed 30 mg PO QAM #30 caps 10/26/18 07/08/24 12/21/23 08:00 release lutein 20 mg capsule 20 mg PO QAM 11/19/18 07/08/24 12/14/23 08:00 amitriptyline 25 mg tablet 12.5 - 25 mg PO HS Sleep 11/14/19 07/08/24 12/20/23 23:00 amlodipine 5 mg tablet 5 mg PO QAM 11/02/20 07/08/24 12/02/23 denosumab 60 mg/mL subcutaneous 60 mg subcut .q 6 months 05/02/22 07/08/24 Unknown syringe (Prolia) ibuprofen 600 mg tablet 600 mg PO BID Pain 07/09/22 07/08/24 12/14/23 08:00 amitriptyline 10 mg tablet 10 mg PO DIRECTED Sleep 10/27/23 07/08/24 12/20/23 23:00 Medical Thc 1 inhaler inhalation UD PRN 07/08/24 07/08/24 Unknown anxiety, pain, sleep Past Medical History Medical History Anxiety Osteoarthritis Hx of dehydration (11/16/19) Borderline personality disorder per records History of anemia (12/01/19) Hx of thrombocytosis (12/01/19) Periprosthetic fracture of hip Hx of fall (11/2023) rib fractures, [facility] -had stitiches in head, no current issues Hx of head injury (11/2023) due to fall november 2023- needed stitches- no current deficits History of anesthesia reaction "under medicated 15 years ago for a colonoscopy-- i always need a little more" Difficult intravenous access Postlaminectomy syndrome of lumbosacral region Chronic back pain Hx of mitral valve prolapse no cardio., no current issues History of anemia remote hx Hypertension controlled, stable per pt Medical marijuana use Pinched nerve in right hand Mass of left ovary resolved issue Depression h/o suicide attempt in 2019, denies SI or HI Lumbar stenosis with neurogenic claudication Severe at L4-5 Moderate to severe at L5-S1 Past Family History Family History Mother Emphysema lung Brother Diabetes Other No family history of adverse response to anesthesia Past Surgical History Surgical History Status post right hip replacement (12/21/23) Hx of wisdom tooth extraction Hx of surgical fusion joint 2020 or 2021, SI joint, right History of total right knee replacement Hx of tonsillectomy Hx of bilateral cataract extraction Hx of vitrectomy (10/2020) right eye S/P insertion of brain-responsive neurostimulation device pt. states will bring remote dos Hx of colonoscopy Fusion of spine (2020) x2: 2019, L4-S1 decompression/fusion: Grade 1 view, MAC#3, ETT 7.0 at [facility] 2020, L2-L4 decompression and fusion, hardware removal L4-S1 History of dilatation and curettage Social History Smoking Status: Former smoker Do You Dip or Chew Tobacco: No Smoking End Date: 2009 Hx Alcohol Use: Yes Alcohol type: wine alcohol intake frequency: 0-2 drinks per day Alcohol Intake Frequency Comment: 2 drinks per day Hx Substance Use: Yes substance use type: marijuana Substance Use Type Other:: MEDICAL MARIJUANA- VAPE AT HS Last Used Substance: Days (ago) Last Used Substance Other:: medical marijuana (advised) Testing Electrocardiogram Date: 12/02/23 Findings: + NSR @ (with PACs)
[2024-07-14] MEDS ORDERED: PROPOFOL IV EMULSION 10 MG/ML 20 ML VIAL IV ONE ×3 (12:34→12:55)
[2024-07-14] MEDS ORDERED: ONDANSETRON INJ 2 MG/ML 2 ML VIAL ONE (12:34)
[2024-07-14] MEDS ORDERED: DEXAMETHASONE SOD INJ 4 MG/ML VIAL ONE (12:34)
[2024-07-14] MEDS ORDERED: LIDOCAINE 2% 2 ML VIAL/AMP(20MG/ML) INFIL ONE (12:34)
[2024-07-14] MEDS ORDERED: fentaNYL citrate PF 100 MCG/2 ML VIAL ONE ×2 (12:55→14:56)
[2024-07-14] MEDS ORDERED: MIDAZOLAM HCL 1 MG/ML 2ML VIAL ONE ×2 (12:55→12:56)
[2024-07-14] MEDS ORDERED: HYDROmorphone INJ 1 MG/ML SYRINGE IV PRN (13:01)
[2024-07-14] MEDS ORDERED: ONDANSETRON INJ 2 MG/ML 2 ML VIAL IV PRN ×2 (13:01→18:14)
[2024-07-14] MEDS ORDERED: ATROPINE SULFATE 0.1 MG/ML 10ML SYR IV PRN (13:01)
[2024-07-14] MEDS ORDERED: fentaNYL citrate PF 100 MCG/2 ML VIAL IV PRN (13:01)
[2024-07-14] MEDS ORDERED: NALOXONE HCL 0.4 MG/1 ML VIAL/CARP IV PRN ×2 (13:01→18:14)
[2024-07-14] MEDS ORDERED: PROMETHAZINE HCL 6.25 MG in SODIUM CHLORIDE 0.9% 50 ML IV PRN (13:01)
[2024-07-14] MEDS ORDERED: ePHEDrine sulfate 50 MG/ML AMP IV PRN (13:01)
[2024-07-14] MEDS ORDERED: FLUMAZENIL 0.1 MG/1 ML 10 ML VIAL IV PRN (13:01)
[2024-07-14] MEDS: LR 500ML BOLUS, THEN 15ML/HR IV SCH (13:05)
[2024-07-14] MEDS: FAMOTIDINE 20 MG TAB PO SCH (13:06)
[2024-07-14] MEDS: LR 60ML/HR IV SCH (13:06)
[2024-07-14] MEDS: ACETAMINOPHEN 500 MG TAB PO SCH ×2 (13:06→22:24)
[2024-07-14] MEDS: GABAPENTIN 300 MG CAP PO SCH (13:07)
[2024-07-14] MEDS: dexAMETHasone**PF** 10 MG/ML VIAL IV SCH (13:07)
--- NOTE | 2024-07-14 13:51 | History & Physical Bridge Note ---
Date of Service July 14, 2024 History & Physical Bridge Note I have examined the patient, reviewed the History & Physical and in the interval since the performance of the History & Physical I have noted the following changes of clinical significance: no changes noted
[2024-07-14] MEDS ORDERED: ROCURONIUM BROMIDE 10 MG/ML 5 ML VIAL IV ONE (13:54)
[2024-07-14] MEDS: TRANEXAMIC ACID 1,000 MG **IV Intra-op IV SCH (14:26)
[2024-07-14] MEDS: ceFAZolin 2000MG 2,000 MG/15 ML SYR IV SCH (14:48)
[2024-07-14] MEDS: ROPIV 0.5% 246mg, Ketorolac 30mg, EPINEPHrine 0.5mg in NSS INFIL SCH (15:02)
[2024-07-14] MEDS: ORTHO JOINT ANESTHETIC ONE (15:02)
[2024-07-14] MEDS ORDERED: HYDROmorphone INJ 2 MG/ML SYR/VIAL ONE (15:56)
[2024-07-14] MEDS: TRANEXAMIC ACID 1,000 MG **IV Pre-op IV SCH (16:18)
[2024-07-14] MEDS ORDERED: SUGAMMADEX SODIUM 200 MG/2 ML VIAL IV ONE (16:24)
--- NOTE | 2024-07-14 16:41 | Operative Report ---
PG Post Operative Report Pre & Post Diagnosis Operation Date: 07/14/24 14:00 Pre-Op Diagnosis: Painful right hip replacement with possible aseptic loosening the femoral implant Post-Op Diagnosis: Painful right hip replacement with gross instability and a stable femoral implant I identified the patient and participated in the time-out.: Yes Procedure Operation Date: 07/14/24 14:00 Actual Procedures p Partial Revision Right Femoral Component, Femoral Placement Cerclage Wire(Right) - Indra Hsu DO Surgeon Indra Hsu DO Electrical Tech/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 Joseph Herbert PA-C Estimated Blood Loss 200 Findings Consistent with Post-Op Diagnosis Specimens None Description of Procedure On July 14, 2024 Ary arrived at [facility] for the above procedure. She was seen in the preoperative holding area and the operative extremity identified and signed. She was given a preoperative antibiotic. She was taken back to the operative room and laid on table supine position. She was given general anesthesia. She was then transferred to the operating room table. The right hip was brought out through a purist leg positioner. The right hip was then prepped and draped sterile fashion. A timeout was done. The patient and the operative extremity was properly identified. The previous anterior lateral approach was utilized. Dissection was taken down through the fascia. Care was taken to slowly remove any scar tissue and stay in the same soft tissue planes. Dissection was taken down to the anterior capsule. A capsulotomy was performed and the capsule was tagged for later repair. There was normal synovial fluid within the fluid joint. No signs of infection. Time was spent removing scar tissue from around the femoral head and acetabulum. At this point I decision was made to place cerclage wires around the femoral head. There was a previous periprosthetic fracture and the implant had subsided. I wanted to be sure the fracture did not propagate further. 2 Synthes cables were placed around the femoral shaft. The first was placed just inferior to the lesser trochanter and the second was placed about 4 cm distal to that. The cables were tightened and crimped. At this point the hip was dislocated. The hip was grossly loose. The femoral head was then removed and the femoral component was inspected. The femoral component was wiggled and look to be grossly stable. Time was spent removing soft tissue remnants around the proximal femur and there was no motion of the femoral component. A slap hammer was then placed on the end of the femoral component. Significant time was spent aggressively using a slap hammer and I was unable to move the femoral component. At this point I was risking further fracture of the femur and the implants seem to be quite stable. Several trial heads were used. A size 32 head with a +10 neck seem to be the most stable. This head was placed the hip was reduced. The hip felt to be stable and fluoroscopic images showed anatomic alignment compared to the contralateral side. The hip was then dislocated. The final size 32 head with a +10 neck was then impacted into place. The hip was then reduced. The hip was felt to be stable and final fluoroscopic images showed anatomic alignment of the hip. The capsule was then closed with #1 Vicryl. The hip was then irrigated and hemostasis was controlled. A 3-minute Betadine lavage was done. The fascial layer was then closed with #0 PDS suture. Skin was closed with 2-0 Vicryl and reagan. A Silverlon dressing was placed. She was then extubated and transferred to a hospital bed. She was taken to the postanesthesia care unit in stable condition. She tolerated the procedure well. Joseph Herbert PA-C, was present for the entire procedure. He was critical for patient positioning, prepping, draping, retraction exposure, wound closure and application of sterile dressing. I attest to the content of the Intraoperative Record and any orders documented therein. Any exceptions are noted below.
--- NOTE | 2024-07-14 17:32 | Anesthesiology Progress Note ---
Date of Service July 14, 2024 Anesthesia Post Procedure Vital Signs Vital Signs: Temp Pulse Pulse Resp BP BP Pulse Ox 07/14/24 17:25 97.7 F 78 13 137/73 93 07/14/24 17:15 79 11 L 151/74 H 99 07/14/24 17:05 77 12 146/73 H 98 07/14/24 16:55 77 10 L 160/70 H 99 07/14/24 16:45 98.2 F 78 13 148/84 H 98 07/14/24 12:35 98.4 F 78 20 148/82 H 98 O2 Del Method O2 Flow Rate 07/14/24 17:25 Room Air 07/14/24 17:15 Oxymask 2 07/14/24 17:05 Oxymask 3 07/14/24 16:55 Oxymask 4 07/14/24 16:45 Oxymask 4 07/14/24 12:35 Room Air Pain Intensity Right Hip: Pain Intensity: 7 Transfer of Care Handoff Completed per policy Notes Mental Status: alert / awake / arousable and participated in evaluation Patient Amnestic to Procedure: Yes Nausea / Vomiting: adequately controlled Pain: adequately controlled Airway Patency, RR, SpO2: stable & adequate BP & HR: stable & adequate Hydration State: stable & adequate Anesthetic Complications: no major complications apparent and Pt Satisfied with anesthetic care
[2024-07-14] MEDS ORDERED: HYDROmorphone INJ 0.5 MG/0.5 ML SYR IV PRN (18:14)
[2024-07-14] MEDS ORDERED: bisacodyL 10 MG SUPP PR PRN (18:14)
[2024-07-14] MEDS ORDERED: AMITRIPTYLINE HCL 10 MG TAB PO PRN (18:14)
[2024-07-14] MEDS ORDERED: METOCLOPRAMIDE HCL INJ 5 MG/ML 2 ML VIAL IV PRN (18:14)
[2024-07-14] MEDS ORDERED: MAGNESIUM HYDROXIDE SUSP 30 ML UDC PO PRN (18:14)
[2024-07-14] MEDS: KETOROLAC TROMETHAMINE 15 MG/ML VIAL IV SCH (18:49)
[2024-07-14] MEDS: AMITRIPTYLINE HCL 25 MG TAB PO SCH (20:37)
[2024-07-14] MEDS: SENNA 8.6 MG TAB PO SCH (20:37)
[2024-07-14] MEDS: ASPIRIN 81 MG ECTAB PO SCH (20:37)
[2024-07-14] MEDS: DOCUSATE SODIUM 100 MG CAP PO SCH (22:23)
[2024-07-14] MEDS: ceFAZolin 1000MG 1,000 MG/7.5 ML SYR IV SCH (22:26)
--- NOTE | 2024-07-15 01:50 | XRay Report ---
Clinical history: POST OP RIGHT HIP SDM/LDS/TXS Comparison: Recent MRI DOS : 06/15/2024 and CR DOS : 05/25/2024 were reviewed. Technique: XR hip 1V RT w pelvis Findings: Alignment: Alignment is within normal limits. Mineralization: The visualized bony structures demonstrate normal bony mineralization. Bones: The head and neck of femur not visualized and replaced by metallic prosthesis. Few adjacent bony fragments are also noted likley post surgical. Degenerative changes: Normal hip joint articulation. Mild degenerative changes seen in left hip joint. Soft tissues: Soft tissue swelling and emphysema along lateral aspect of thigh along with surgical clips Orthopedic Hardware: Total hip arthroplasty without hardware loosening or break. Impression: 1.Total right sided arthroplasty with post surgical changes. 2.No hardware loosening or break. Electronically signed by Oni Schofield 07-15-2024 01:50 AM
[2024-07-15 03:22] VITALS: RESP 16
[2024-07-15 07:25] VITALS: O2SAT 97
[2024-07-15] MEDS: MULTIVITAMIN TAB PO SCH (08:03)
[2024-07-15] MEDS: DULoxetine HCL 30 MG CAP PO SCH (08:03)
[2024-07-15] MEDS: DULoxetine HCL 60 MG CAP PO SCH (08:03)
[2024-07-15] MEDS: oxyCODONE HCL IR 5 MG TAB (IMMEDIATE RELEASE) PO PRN (08:03)
[2024-07-15] MEDS: amLODIPine BESYLATE 5 MG TAB PO SCH (08:03)
--- NOTE | 2024-07-15 08:03 | Fluoroscopy Report ---
FL hip RT 1V CLINICAL HISTORY: PARTIAL REVISION RT FEMUR COMPARISON STUDY: 12/21/2023 FLUOROSCOPY TIME: 9 seconds FLUOROSCOPY IMAGES: 2 EXPOSURE DOSE: 1.1 mGy FINDINGS: Fluoroscopy was provided for revision of right hip prosthesis. IMPRESSION: Intraoperative fluoroscopy. ACT 112: Negative or not required by law. Electronically signed by: Phoenix Esparza M.D. 07/15/2024 8:02 AM
[2024-07-15] MEDS: dexAMETHasone 4 MG TAB PO SCH (08:04)
--- NOTE | 2024-07-15 10:24 | Orthopedic Progress Note ---
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 Hsu -DVT prophylaxis with teds, SCDs as well as 81 mg aspirin twice daily x 6 weeks. -Home medications sent by Dr. Hsu today. This includes pain medications, as pirin as well as cefadroxil the antibiotic. -Follow-up as an outpatient in [address] Hsu's clinic. -Silverlon dressing to stay intact for 7 days. It may be removed at that time. She can cover the reagan if she feels that they are uncomfortable or if it is draining. -Discharge instructions already in -Discharge: Patient is orthopedically stable for discharge as long as she works with PT/OT, meets with case management about questions about discharge and has home health set up with [facility]. Subjective Operation Date: 07/14/24 14:00 Actual Procedures p Partial Revision Right Femoral Component, Femoral Placement Cerclage Wire(Right) - Indra Hsu, Patient is status post partial revision of the right femoral component and femoral placement cerclage by Dr. Hsu on 07/14/2024. She is postop day 1. She states that she is doing well. She is ambulating well and would like to go home. She is anxious to get home as she needs to take care of her dog. She states that she used [facility] home physical therapy during her initial replacement last time. This is what she would like to do again. Review of Systems All systems reviewed & are unremarkable except as noted in HPI & below. Physical Exam General: Alert and oriented. In no acute distress. Right hip: Dressing check satisfactory. No saturation of the dressing. It is clean, dry and intact. She is neurovascularly intact in the right lower extremity. She has good range of motion of her right knee, right foot and ankle as well as her hip that she is resting comfortably at 90 degrees in her hospital recliner and was able to stand and ambulate independently. Results & Data Results & Data Laboratory Results . Diagnostic Findings . 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
[2024-07-15 11:08] VITALS: BP 130/60; PULSE 67; TEMP 97.7
--- NOTE | 2024-07-15 14:31 | Discharge Summary ---
Date of Service July 15, 2024 Principal Diagnosis Same as "Discharge Diagnosis" noted below under Discharge Instructions. Discharge Exam General: Alert and oriented. In no acute distress. Right hip: Dressing check satisfactory. No saturation of the dressing. It is clean, dry and intact. She is neurovascularly intact in the right lower extremity. She has good range of motion of her right knee, right foot and ankle as well as her hip that she is resting comfortably at 90 degrees in her hospital recliner and was able to stand and ambulate independently. 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 and underwent a revision right hip replacement without complication. She had a general anesthetic. Postoperatively, she was started on aspirin for DVT prophylaxis and transferred to the general orthopedic floors. Her hospital course was uneventful. On postop day #1, her vital signs were stable and her pain was well-controlled. She was able participate well with physical therapy doing ambulation and range of motion exercises. She was then discharged to home. She will follow-up with orthopedics in 2 weeks. PG Care Time/CCT Total # of Minutes Spent Total Time Spent with Patient: Total time spent is greater than 50% in coordination of care (as documented) at patient's floor/unit and/or counseling patient: Discharge Plan Discharge Items Patient Disposition: Home - Self-Care Reason For Visit: Painful Right Periprosthetic Fracture, Right Hip Discharge Diagnosis: Revision right hip replacement Activity: Per Instructions section Non-emergency contact: Surgeon Call non-emergency contact if: your wound has increased redness and your wound has increased drainage Follow-up/Referrals: Edgar Kat MD [Primary Care Provider] - Diet: Regular Addtl Attending Provider Instructions: Activity and Therapy Recommendations: * If you are using [facility] then therapy will be provided at your home until they feel you have accomplished all of your goals. * If you are using [facility] then Physical Therapy will be provided until they feel you are ready to start Outpatient Physical Therapy. * If you are not using home therapy then Outpatient Physical Therapy should start about 3-5 days from your day of surgery. Therapy will last about 6-10 weeks * You were shown a series of exercises in the hospital. Do these exercises three times each day including the exercises you were shown in physical therapy. * Get up and walk several times each day.~ For the first four weeks, try not to stand or walk for more than one hour at a time. If you do stand or walk for more than one hour, you will not hurt anything, but your leg will likely swell.~~ * As you feel comfortable, you may change from the walker or crutches to a cane and~then to independent walking. Medications: * Narcotic You will likely be sent home from the hospital with a prescription for the narcotic pain medication that worked best throughout your stay. * Cefadroxil -take the antibiotic twice a day for 10 days to help prevent infection. * Aspirin Most patients will be required to take Aspirin 81mg twice a day for 6 weeks after surgery. This is obtained [id number] and a prescription is not necessary. * Other medications may be prescribed for specific circumstances. If you have any questions, please call the office at . * Resume previous home medications unless otherwise instructed TEDs/Elastic Stockings: The white elastic stockings help limit swelling and prevent blood clots from forming in your legs. The more you wear them, the more they work. Wear them for 2 weeks. Dressing Care: Leave the Silverlon dressing in place for 7 days. After 7 days you may remove the dressing. If the incision is not draining then you may leave the reagan open to air. If there is a little bit of drainage or if the reagan are getting stuck on your clothing then cover the incision with a dry dressing. The reagan will be removed at your 2 week follow-up appointment. Showering: You may shower with the Silverlon dressing in place. Do not let the shower spray hit the dressing directly. Pat the Silverlon dressing dry. If the dressing becomes wet underneath, then simply remove the dressing. Keep the incision dry until you are 7 days out from the day of surgery. After 7 days you may remove the Silverlon dressing and shower with the reagan exposed. Let soapy water run over the reagan and pat them dry. Do not scrub or soak the incision. Diet: You may resume your previous diet. Things To Watch For: * Drainage from the incision site that occurs more than one week after your surgery. * Increased redness at the incision site. * Fever above 102 degrees Fahrenheit. * Unusual chest pain or shortness of breath. * Call [facility] at with any of the above problems Follow-Up Visit: Follow-up with Dr. Hsu's office 2-3 weeks after your day of surgery. We will remove your reagan and answer any questions. If you have any additional questions or concerns, Dr Hsu is usually in the office at the same time and will be available An appointment was probably scheduled when you signed-up for surgery in the office. If you have any questions call Office Instructions: More detailed instructions as well as Frequently Asked Questions were provided in a folder by our office when you signed-up for surgery. Please review these instructions when you get home. If you have any further questions or concerns, please feel free to call the office at [phone] Pending Studies at Discharge: No Stand-Alone Forms: My [facility] [address]go, Smoking Cessation Medications and DC Order Prescriptions: New aspirin [Adult Aspirin Regimen] 81 mg tablet,delayed release (DR/EC) 81 mg PO BID Qty: 84 0RF cefadroxil 500 mg capsule 500 mg PO BID 10 Days Qty: 20 0RF oxycodone 10 mg tablet 10 mg PO Q6H PRN (Reason: pain) Qty: 60 0RF Continued ibuprofen 600 mg tablet 600 mg PO BID milk thistle 150 mg capsule 150 mg PO QAM magnesium oxide 250 mg magnesium tablet 250 mg PO QAM cholecalciferol (vitamin D3) 3,000 unit tablet 5,000 units PO QAM duloxetine 60 mg capsule,delayed release(DR/EC) 60 mg PO QAM Rx Instructions: TOTAL DOSE 90 MG--TAKES WITH 30 MG CAP. Prolia 60 mg/mL syringe 60 mg subcut .q 6 months multivitamin Tablet 1 tab PO QAM duloxetine 30 mg Capsule,Delayed Release(Dr/Ec) 30 mg PO QAM Qty: 30 0RF Rx Instructions: TOTAL DOSE 90 MG--TAKES WITH 60 MG CAP. lutein 20 mg Capsule 20 mg PO QAM amitriptyline 25 mg Tablet 12.5 - 25 mg PO HS Rx Instructions: PER PT "DOSE VARIES BETWEEN 12.5-35 MG QHS, DEPENDS ON WHAT I'M DOING THE NEXT DAY". amlodipine 5 mg Tablet 5 mg PO QAM amitriptyline 10 mg tablet 10 mg PO DIRECTED Rx Instructions: TAKE 10 MG DAILY IF NEEDED FOR PAIN, THEN ADDS 10 MG TO HS DOSE IF NEEDED FOR SLEEP. Medical Thc 1 unit 1 inhaler inhalation UD PRN (Reason: anxiety, pain, sleep) Discharge Orders: Discharge Order (Routine); Ordered 07/15/24 Ordered By: Indra Hsu Admission Data Admit Date/Time: 07/14/24 16:48 Attending Provider: Indra Hsu Admit Provider: Indra Hsu Primary Care Provider: Edgar Kat
== END 2024-07-15 15:52 | disposition home or self-care (01) | DRG 468 ==
LOC: ASU 11:59 → 3W 16:48